=== PATIENT | female | born 1945 | race Caucasian/White ===

== ENCOUNTER → 2024-01-15 16:43 | Outpatient (REF) | payer BC, SELFPAY | LOC: CLAB 16:43 | PROVIDERS: ATTENDING PHYSICIAN Urology | DX: D49.4 Neoplasm of unspecified behavior of bladder (principal) | CPT/HCPCS: 88112 ==

== ENCOUNTER 2024-01-17 17:36 | Inpatient (IN) | payer MEDICARE, BC, SELFPAY ==
[2024-01-17] VITALS (7 sets, daily range): BP systolic 141–173; BP diastolic 62–83; BMI 29.3
[2024-01-17 15:12] LABS: % Basophils 0.5 % (0-2); % Eosinophils 2.8 % (0-6); % Immature Granulocytes 0.3 % (0-0.5); % Lymphocytes 18.1 % (20.5-51.1); % Monocytes 14.8 % (1.7-9.3); % Neutrophils 63.5 % (42.2-75.2); Absolute Eosinophils 0.2 10^3/uL (0-0.7); Absolute Lymphocytes 1.1 10^3/uL (1.2-3.4); Absolute Monocytes 0.9 10^3/uL (0.1-0.6); Absolute Neutrophils 3.9 10^3/uL (1.4-6.5); Mean Corp Hgb Conc. 31.5 g/dL (33.0-37.0); Mean Corpuscular Hgb 25.4 pg (27.0-31.0); Mean Corpuscular Volume 80.6 fL (81.0-99.0); Mean Platelet Volume 10.3 fL (7.4-10.4); Nucleated Red Blood Cells % 0 %; Platelet Count 333 10^3/uL (130-400); Red Blood Cell Count 2.52 10^6/uL (4.20-5.40); White Blood Cell Count 6.1 10^3/uL (4.8-10.8)
[2024-01-17 15:16] LABS: Hematocrit 20.3 % (37.0-47.0); Hemoglobin 6.4 g/dL (12.0-16.0)
[2024-01-17 15:21] LABS: INR 1.04; PT 13.4 Sec (11.4-14.6)
[2024-01-17 15:22] LABS: APTT 31.2 Sec (23.4-35.0)
[2024-01-17 15:24] LABS: ALT (SGPT) 17 U/L (0-35); AST (SGOT) 29 U/L (14-36); Albumin 3.8 g/dl (3.5-5.0); Alkaline Phosphatase 84 U/L (38-126); Blood Urea Nitrogen 26 mg/dl (7-17); Calcium 9.8 mg/dl (8.4-10.2); Carbon Dioxide 26 mmol/L (22-30); Chloride 102 mmol/L (98-107); Glucose 97 mg/dl (70-99); Potassium 4.5 mmol/L (3.5-5.1); Sodium 132 mmol/L (135-145); Total Bilirubin 0.4 mg/dl (0.2-1.3); Total Protein 6.3 g/dl (6.3-8.2); eGFR > 60.00
--- NOTE | 2024-01-17 15:25 | ED.GENMED ---
History of Present Illness
General
Chief Complaint: Abnormal Lab Value
Source: patient
Exam Limitations: none
Time Seen by Provider: 01/17/24 15:24
Nursing documentation reviewed up to this point in time: agreed with
Travel History
Have you had any contact with someone who has COVID-19?: No
Do you have any symptoms of coronavirus? Fever > 100 degrees, chills, cough, shortness of breath, sore throat, loss of taste or smell, muscle aches, or headache?: No
History of Present Illness
History of Present Illness:
78-year-old female from [facility] where she lives with her ; history of TIA/CVA, neuropathy, HTN, HLD, GERD, hematuria with a bladder tumor TURBT, osteoarthritis with chronic bilateral hip pain, presents stating she has been feeling weak
and lightheaded, extremely fatigued, gradually worsening over a period of about a month. She does feel short of breath on exertion. She denies chest pain. She denies abdominal pain. She denies change in the color of her stools but she did do a
Cologuard test which was positive for blood yesterday.
She states after her cystoscopy to remove bladder tumors in 05/2023 her hemoglobin went to 8.5. She was put on ferritin and it came up to 11.5. So stopped the ferritin.
She had a CVA in 08/2022 and was put on Plavix for 3 months then discontinued. She had a TIA in 09/2023 and has been back on Plavix since.
Past History
Past History
ED Past Medical History: CVA, GERD, HTN, Hypercholesterolemia and Other (Iron deficiency anemia)
ED Past Surgical History: Orthopedic (Both knees and both hips replaced.)
Social History
Tobacco: Non-smoker
Personal:
Living: with family (Lives in [facility])
Review of Systems
Review of Systems
Allergies reviewed?: Yes
Constitutional: Reports fatigue; Denies fever
Respiratory: Reports trouble breathing (Dyspnea on exertion)
Cardiac: Denies chest pain, diaphoresis, palpitations or syncope
ABD/GI: Denies abdominal pain, nausea, vomiting, diarrhea, bloody stools or black stools
: Denies dysuria, frequency or difficulty voiding
Musculoskeletal: Reports other (Chronic pain both knees and hips); Denies edema
Skin: Reports no symptoms
Neurological: Reports no symptoms
Phy Exam
Physical Exam
Physical Exam:
GENERAL: No acute distress. A&Ox3.
CONSTITUTIONAL: Afebrile.
ENMT: moist mucus membranes, Pharynx nl
RESPIRATORY: Regular respirations, nonlabored, lungs clear.
CARDIOVASCULAR: Regular rate and rhythm, + murmur, no rubs.
GI: Soft, nontender, normal BS
Rectal: Stool brown, Hemoccult slowly positive
MUSCULOSKELETAL: Moves with exacerbation of her chronic hip pain. No edema. Well perfused.
SKIN: Warm, dry, pink
PSYCH: Normal mood and affect. Well kept, interactive and appropriate
NEUROLOGIC: Awake, alert and oriented. No focal neurological deficits
Course
Orders/Labs/Results
Orders:
Orders
01/17/24 Dinner
Clear Liquid
At Your Request: Full Participation
Does patient need a safe tray?: No
01/17/24 15:01
Type+Screen Urgent
CMP [Comprehensive Metabolic Panel] Urgent
Complete Blood Count/With Diff Urgent
PT/INR [Prothrombin Time] Urgent
PTT Urgent
01/17/24 16:17
* Blood Bank Products Urgent
Blood Bank Products: *Packed RBC Leuko(PRBC's)
Quantity: 2
Transfuse Today: Yes
Reason: Anemia
IV Insert/Care/Rem.- Treatment PRN
01/17/24 16:31
Consult Gastroenterology [GASTROINTESTINAL CONSULT] Urgent
Consulting Provider: Ilene Holbrook
Was physician already notified: Yes
Reason for consult: GI bleed, stable.
01/17/24 17:12
Admit/Transfer Patient As Directed
Co-Sign Provider:
Level of Care: Inpatient admission
Assign to:: Telemetry
Physician / Group: [facility]
Diagnosis: Symptomatic anemia
Reason for Telemetry: Arrhythmia
Date to Stop Telemetry: 01/20/24
Time to Stop Telemetry: 11:00
Reason for Hospitalization: Symptomatic anemia
Expected length of stay greater than two midnights?: Yes
ELOS- Estimated Length of Stay in days: 3
I certify the patient meets the requirements for IP care: Yes
01/17/24 17:17
Code Status As Directed
Resuscitation Status: Full Code
01/17/24 18:18
Acetaminophen [Tylenol] 1,000 mg PO Q6HPRN PRN
01/17/24 18:18
Activity As Directed
Activity Level: As Tolerated
INT (Intravenous Needle Therapy) As Directed
Comment: Place 2 IV catheters of the largest bore possible until stable
Orthostatic Vital Signs As Directed
Orthostatic VS Frequency: Now
Comment: then every four hours for twenty-four hours
Pneumatic Compression Sleeves As Directed
Type: Knee high
Vital Signs As Directed
Frequency: Per unit guidelines
Ot Eval And Treat Routine
Pt Eval And Treat Routine
Activity Level: As Tolerated
DX Deep Vein Thrombosis Video Routine
01/17/24 20:00
Pantoprazole [Protonix IV] 40 mg IV BID
01/17/24 22:00
Amlodipine [Norvasc] 5 mg PO HS
Atenolol [Tenormin] 25 mg PO HS
01/18/24 06:00
Basic Metabolic Panel IN AM
Complete Blood Count/No Diff IN AM
01/18/24 08:00
Aspirin Low Dose EC [Aspir Low (Enteric Coated)] 81 mg PO DAILY
Cholecalciferol (Vitamin D3) [VITAMIN D3 (cholecalciferol)] 25 mcg PO DAILY
Clopidogrel Bisulfate [Plavix] 75 mg PO DAILY
Rosuvastatin Calcium [Crestor] 20 mg PO DAILY
Valsartan [Diovan] 160 mg PO DAILY
01/19/24 06:00
Basic Metabolic Panel IN AM
Complete Blood Count/No Diff IN AM
01/19/24 08:00
Ferrous Sulfate [Feosol] 325 mg PO Q48H
01/20/24 06:00
Basic Metabolic Panel IN AM
Complete Blood Count/No Diff IN AM
01/20/24 11:00
DC Protocol for Telemetry ONCE
Abnormal Lab Results
01/17/24
15:01
RBC 2.52 L 10^6/uL
(4.20-5.40)
Hgb 6.4 L* g/dL
(12.0-16.0)
Hct 20.3 L* %
(37.0-47.0)
MCV 80.6 L fL
(81.0-99.0)
MCH 25.4 L pg
(27.0-31.0)
MCHC 31.5 L g/dL
(33.0-37.0)
RDW 17.0 H %
(11.5-14.5)
Absolute Lymphs (auto) 1.1 L 10^3/uL
(1.2-3.4)
Absolute Monos (auto) 0.9 H 10^3/uL
(0.1-0.6)
Lymphocytes % 18.1 L %
(20.5-51.1)
Monocytes % 14.8 H %
(1.7-9.3)
Sodium 132 L mmol/L
(135-145)
BUN 26 H mg/dl
(7-17)
Antibody Screen Positive A
(Negative)
Crossmatch IS Only See Detail
MTS Gel Crossmatch See Detail
01/17/24 15:01
01/17/24 15:01
Vital Signs
Initial and Last Documented VS:
Initial Vital Signs
Temp Pulse Resp BP Pulse Ox
98.1 F 81 18 158/66 98
01/17/24 14:48 01/17/24 14:48 01/17/24 14:48 01/17/24 14:48 01/17/24 14:48
Last Documented Vital Signs
Temp Pulse Resp BP Pulse Ox
98.4 F 81 18 141/75 95
01/17/24 22:35 01/17/24 22:35 01/17/24 22:35 01/17/24 22:35 01/17/24 19:10
MDM/Problems Addressed
Differential Diagnosis Includes:
GI bleed, iron deficiency
MDM/Problems Addressed:
78-year-old female from [facility] where she lives with her ; history of TIA/CVA, neuropathy, HTN, HLD, GERD, hematuria with a bladder tumor TURBT, osteoarthritis with chronic bilateral hip pain, presents stating she has been feeling weak
and lightheaded, extremely fatigued, gradually worsening over a period of about a month. She does feel short of breath on exertion. She denies chest pain. She denies abdominal pain. She denies change in the color of her stools but she did do a
Cologuard test which was positive for blood yesterday.
She states after her cystoscopy to remove bladder tumors in 05/2023 her hemoglobin went to 8.5. She was put on ferritin and it came up to 11.5. So stopped the ferritin.
She had a CVA in 08/2022 and was put on Plavix for 3 months then discontinued. She had a TIA in 09/2023 and has been back on Plavix since.
1530:
CBC: Hemoglobin 6.4
CMP: BUN mildly elevated at 26 no other abnormality
Stool is brown but hematest positive
Plan: Transfuse 2 units packed red blood cells
Hospitalist and GI notified of admission
*Critical Care Note
Total Time (30-74mins, 75-104mins- exclusive of procedures): Not Applicable
ED Attending Note
-
Portions of this chart may have been created with voice recognition software.� Occasional wrong word or��sound alike� substitutions may have occurred due to the inherent limitations of voice recognition software.
Discharge Plan
Departure
Patient Disposition: Admit
Date of Disposition: 01/17/24
Time of Disposition: 16:31
Admit to: Med/Surg
Presentation/result/management discussed w/ accepting MD/DO: Hospitalist
Condition: Fair
Discharge Problem:
Anemia, GI (gastrointestinal bleed)
Interventions
Interventions:
*Risk Screen - Suicide Last Done: 01/17/24 15:39
*General Assessment Last Done: 01/17/24 15:39
*Neglect/Abuse Screening Last Done: 01/17/24 15:39
ED- Fall Risk Assessment Last Done: 01/17/24 15:58
*ED COVID-19 Vaccine History Last Done: 01/17/24 15:39
*Nursing Disposition Last Done: 01/17/24 18:19
Discharge Date and Time
Discharge Date/Time: 01/17/24 18:19
--- NOTE | 2024-01-17 16:56 | HPS.HSE ---
Family Physician
-
Family Physician: Tessa Foreman
Chief Complaint
-
symptomatic anemia
History of Present Illness
77-year-old female with past medical history of osteoarthritis, GERD, hyperlipidemia, hypertension, TIA/CVA, neuropathy, hematuria history with bladder tumor status post TURBT, chronic bilateral hip pain now presenting for feeling weak and
lightheaded. Further symptoms associated with extreme fatigue. Symptoms worsened over the last month. Now with exertional shortness of breath. Dizziness two days ago after dinner. No evidence of stool color changing. Cologuard test has been
negative but heme occult was positive yesterday. Hemodynamically stable, hypertensive, pulse 80, respiratory rate 15, afebrile. Hemoglobin noted to be 6.4 (not 8.41-year ago), sodium 132.
Medical History
Past Medical History
Past Medical History: Reports Other (osteoarthritis, GERD, hyperlipidemia, hypertension, TIA/CVA, neuropathy, hematuria history with bladder tumor status post TURBT, chronic bilateral hip pain)
Past Surgical History: Reports Urological (TURBT, ) and Other (Both knees and both hips replaced)
Social History
Tobacco: Non-smoker
Personal:
Living: Other ([facility])
Family History
Family History: Not pertinent
Allergies / Home Medications
Allergies reflects when Allergies were last updated in [facility].
Home Medications with original date entered in [facility]
Allergy/Medication List:
Allergies
Allergy/AdvReac Type Severity Reaction Status Date / Time
APOLINAR Inhibitors AdvReac cough Verified 07/29/23 14:41
Home Medications
cholecalciferol (vitamin D3) 25 mcg (1,000 unit) tablet (Vitamin D3) 25 mcg PO DAILY 09/25/22
rosuvastatin 20 mg tablet 20 mg PO DAILY 09/25/22
acetaminophen 500 mg tablet 1,000 mg PO Q6H PRN pain 06/18/23
aspirin 81 mg tablet,delayed release 81 mg PO DAILY 06/18/23
atenolol 50 mg tablet 25 mg PO HS 06/18/23
docusate sodium 100 mg capsule (Colace) 300 mg PO DAILY 06/18/23
valsartan 160 mg tablet 160 mg PO DAILY 06/18/23
ferrous sulfate 325 mg (65 mg iron) tablet (iron) 325 mg PO Q48H 07/29/23
amlodipine 5 mg tablet 5 mg PO HS 01/17/24
clopidogrel 75 mg tablet 75 mg PO DAILY Blood Clot Prevention/Tx 01/17/24
pantoprazole 40 mg tablet,delayed release 40 mg PO DAILY 01/17/24
psyllium 1 packet PO DAILY 01/17/24
Review of Systems
-
History Source: Patient
A 12 point ROS was completed and negative except as noted: Yes
Physical Exam
Vital Signs
Vital Signs
Temp Pulse Resp BP Pulse Ox
98.1 F 80 15 170/62 99
01/17/24 14:48 01/17/24 15:53 01/17/24 15:53 01/17/24 15:53 01/17/24 15:53
Physical Exam
General: Well Developed
HEENT: NormoCephalic and Anicteric
Respiratory: Clear
Cardiac: S1/S2
GI: Soft, Non Tender and Non Distended
Musculoskeletal: No Clubbing
Skin: Warm
Neuro: Awake, Alert, Oriented and AO x 3
Psych: Calm
Laboratory Results
-
01/17/24 15:01
01/17/24 15:01
Laboratory Results
PT 13.4 Sec (11.4-14.6) 01/17/24 15:01
INR 1.04 01/17/24 15:01
APTT 31.2 Sec (23.4-35.0) 01/17/24 15:01
Total Bilirubin 0.4 mg/dl (0.2-1.3) 01/17/24 15:01
AST 29 U/L (14-36) 01/17/24 15:01
ALT 17 U/L (0-35) 01/17/24 15:01
Alkaline Phosphatase 84 U/L (38-126) 01/17/24 15:01
Data Reviewed
-
Lab Data: Labs Reviewed by me
Impression/Plan
-
IMPRESSION:
78-year-old female from [facility] where she lives with her ; history of CVA, neuropathy, HTN, HLD, GERD, hematuria with a bladder tumor TURBT, osteoarthritis with chronic bilateral hip pain, now here for symptomatic anemia.
PLAN:
#Symptomatic anemia
� No obvious brisk bleed
� On Plavix and aspirin
� Transfuse 2 unit PRBC in the ED
� GI consulted, possible EGD
� Clear liquid diet
� PPI IV twice daily
� Can continue antihypertensives for now, is hypertensive
#Hypertension
� Continue atenolol, amlodipine, valsartan for now
� Stop antihypertensives if decreasing blood pressure
#CVA in 08/2022
#TIA in October 16
� Has been on Plavix since then
#GERD
#Hyperlipidemia
#Iron deficiency anemia
� Continue home regimen
#DVT prophylaxis
� SCDs, active bleed
--- NOTE | 2024-01-17 20:00 | PTCARENOTE ---
2 Units PRBC's infused without difficulty. Ortho Vital signs ordered Q4H but pt unable to stand to get BP at this time. Pt is a stand and pivot to BSC. VSS. NSR on the monitor. Pt sleeping intermittently through the night. No c/o at present. Will
continue to monitor.
[2024-01-17] MEDS: NSS (PRESERVATIVE FREE) 10 ML IV (20:49)
[2024-01-17] MEDS: PROTONIX IV 40 MG IV (20:49)
[2024-01-17] MEDS: NORVASC 5 MG PO (20:49)
[2024-01-17] MEDS: TENORMIN 25 MG PO (20:51)
[2024-01-18] VITALS (13 sets, daily range): BP systolic 134–169; BP diastolic 52–90; PULSE 65–74; O2SAT 96
[2024-01-18 08:10] LABS: Hematocrit 29.9 % (37.0-47.0); Mean Corp Hgb Conc. 31.8 g/dL (33.0-37.0); Mean Corpuscular Hgb 27.1 pg (27.0-31.0); Mean Corpuscular Volume 85.2 fL (81.0-99.0); Mean Platelet Volume 10.6 fL (7.4-10.4); Platelet Count 311 10^3/uL (130-400); Red Blood Cell Count 3.51 10^6/uL (4.20-5.40); Red Cell Dist. Width 16.9 % (11.5-14.5); White Blood Cell Count 6.3 10^3/uL (4.8-10.8)
[2024-01-18] MEDS: TYLENOL 1000 MG PO ×2 (08:13→20:18)
[2024-01-18] MEDS: PLAVIX 75 MG PO (08:14)
[2024-01-18] MEDS: CRESTOR 20 MG PO (08:14)
[2024-01-18] MEDS: PROTONIX IV 40 MG IV ×2 (08:14→20:03)
[2024-01-18] MEDS: NSS (PRESERVATIVE FREE) 10 ML IV ×2 (08:14→20:04)
[2024-01-18] MEDS: VITAMIN D3 (cholecalciferol) 25 MCG PO (08:15)
[2024-01-18] MEDS: DIOVAN 160 MG PO (08:15)
[2024-01-18] MEDS: ASPIR LOW (ENTERIC COATED) 81 MG PO (08:15)
--- NOTE | 2024-01-18 08:21 | CON.GI ---
Addendum entered and electronically signed by Ilene Holbrook MD 01/18/24 11:46:
I saw and examined the patient.
The PERFUMER or PA's note was reviewed and I agree with the note.
Comment: 78-year-old female with new diagnosis of bladder cancer, status post TURBT in follow-up 2022, history of anemia related to painless hematuria related to bladder cancer, needing oral iron supplementation up until a few months ago now
presenting with increased shortness of breath, weakness and dizziness. Outpatient labs showed hemoglobin of 6.4, repeat labs showing hemoglobin around the same range and patient came to the emergency room. No previous history of anemia. No GI
symptoms at this time. Reports intermittent acid reflux, takes Pepcid/Tums as needed, mild constipation, takes Colace and Metamucil. Colonoscopy 12 years ago at outside hospital unrevealing as per patient. Never had an upper endoscopy. Cologuard
2 years ago negative as well as per patient. No NSAID use. Denies any abdominal pain, nausea, vomiting, heartburn or trouble swallowing. As stated above, H2 blockers as needed for reflux with good control of symptoms. Baseline constipation,
takes 3 Colace a day and Metamucil. Denies any blood in the stool or black stool. He positive stool in the ER.
Mild microcytosis on labs.
-Iron deficiency anemia with heme positive stool, no evidence of overt bleeding.
Anemia likely multifactorial, history of recent bladder cancer with trace heme positive stool
Rule out esophagitis, gastritis, ulcer disease, angiectasia's, colon polyps versus cancer
She will need endoscopy evaluation for heme positive stool. Patient currently on Plavix, last dose this morning.
Need to hold Plavix for 5 days prior to the procedures.
Planning for upper endoscopy and colonoscopy 01/22/2024
Continue PPI. okay for low residue diet for now
Will follow
Original Note:
Consultation
-
Date/Time Consultation Requested: 01/17/24 1631
Date/Time Consultation Performed: 01/18/24 0830
Requesting Provider: Ifeoma Olivia PERFUMER
Performing Provider: Dr. Holbrook / Lanette Noyola PA-C
Reason for Consultation: anemia
Medical History
Chief Complaint / HPI
Chief Complaint: dizziness, fatigue, anemia
History of Present Illness:
This is an 78 year old female with a past medical history of osteoarthritis, GERD, hyperlipidemia, HTN, TIA/CVA (on Plavix), neuropathy, bladder tumor s/p TURBT, who presented to the hospital with complaints of lightheadedness/dizziness and fatigue
with a noted outpatient hemoglobin of 6.6. In the ER labs showed Hgb of 6.4 with microcytic indices, with heme positive stool. She was given 2 units PRBCs and hemoglobin today has improved to 9.5. She does note a prior history of iron deficiency
anemia, with hemoglobin in the 8s following her bladder surgery in May 2023. She took oral iron at that time, states her labs normalized and she stopped the oral iron 'a few months ago.' She denies any melena, hematochezia or hematuria. No
abdominal pain, nausea, vomiting, diarrhea, fevers or chills. She does get constipated and manages this with Colace and Metamucil, which helps. She has a daily bowel movement but states her bowels have 'not been normal' for the past 2-3 months. GERD
is well-controlled on famotidine and PRN Tums. No dysphagia or odynophagia. She does admit to a globus sensation at times. Appetite has been slightly decreased for the past few weeks and she thinks she has lost about 5 pounds.She does not smoke and
denies any NSAID use. She will drink a glass of wine with dinner. She lives with her at [facility]. She has never had an endoscopy. Her last colonoscopy was ~12 years ago and reportedly normal. Cologuard was done 2 years ago, negative. She
has no history of colon polyps and there is no family history of any GI malignancies.
Past Medical History
Past Medical History: CVA, GERD, HTN, Hypercholesterolemia and Other (osteoarthritis, neuropathy, bladder tumor s/p TURBT)
Past Surgical History: Orthopedic (bilateral hip and knee replacements) and Other (TURBT)
Social History
Tobacco: Non-Smoker
Alcohol: Daily
Drug: None
Personal:
Family History
Family History: Other (no family history of GI malignancies)
Allergies / Home Medications
Allergy/AdvReac Type Severity Reaction Status Date / Time
APOLINAR Inhibitors AdvReac cough Verified 07/29/23 14:41
�Medication �Instructions �Recorded
cholecalciferol (vitamin D3) 25 25 mcg PO DAILY 09/25/22
mcg (1,000 unit) tablet (Vitamin
D3)
rosuvastatin 20 mg tablet 20 mg PO DAILY 09/25/22
acetaminophen 500 mg tablet 1,000 mg PO Q6H PRN pain 06/18/23
aspirin 81 mg tablet,delayed 81 mg PO DAILY 06/18/23
release
atenolol 50 mg tablet 25 mg PO HS 06/18/23
docusate sodium 100 mg capsule 300 mg PO DAILY 06/18/23
(Colace)
valsartan 160 mg tablet 160 mg PO DAILY 06/18/23
ferrous sulfate 325 mg (65 mg 325 mg PO Q48H 07/29/23
iron) tablet (iron)
amlodipine 5 mg tablet 5 mg PO HS 01/17/24
clopidogrel 75 mg tablet 75 mg PO DAILY Blood Clot 01/17/24
Prevention/Tx
pantoprazole 40 mg tablet,delayed 40 mg PO DAILY 01/17/24
release
psyllium 1 packet PO DAILY 01/17/24
Review of Systems
-
History Source: Patient
All other systems: A 12 pt ROS was Negative except as stated above in HPI
Vital Signs
Temp Pulse Resp BP Pulse Ox
98.0 F 75 18 141/62 97
01/18/24 04:29 01/18/24 04:29 01/18/24 04:29 01/18/24 04:29 01/18/24 03:05
Physical Exam
Exam
General: Well Developed, Well Nourished and No Apparent Distress
HEENT: Normocephalic
Respiratory: Clear
Cardiac: Regular Rhythm
GI: Soft, Non Tender, Non Distended and Normal Bowel Sounds
Rectal: Brown, Hem Positive and Other ((ER exam showed brown stool, heme positive))
Skin: Warm and Dry
Neuro: AO x 3
Psych: Calm
Results
WBC 6.1 10^3/uL (4.8-10.8) 01/17/24 15:
Hgb 6.4 g/dL (12.0-16.0) L* 01/17/24 15:
Hct 20.3 % (37.0-47.0) L* 01/17/24 15:
MCV 80.6 fL (81.0-99.0) L 01/17/24 15:
Plt Count 333 10^3/uL (130-400) 01/17/24 15:
Absolute Neuts (auto) 3.9 10^3/uL (1.4-6.5) 01/17/24 15:
PT 13.4 Sec (11.4-14.6) 01/17/24 15:
INR 1.04 01/17/24 15:
APTT 31.2 Sec (23.4-35.0) 01/17/24 15:
Sodium 132 mmol/L (135-145) L 01/17/24 15:
Potassium 4.5 mmol/L (3.5-5.1) 01/17/24 15:
Chloride 102 mmol/L (98-107) 01/17/24 15:
Carbon Dioxide 26 mmol/L (22-30) 01/17/24 15:
BUN 26 mg/dl (7-17) H 01/17/24 15:
Creatinine 0.7 mg/dL (0.6-1.0) 01/17/24 15:
Calcium 9.8 mg/dl (8.4-10.2) 01/17/24 15:01
Total Bilirubin 0.4 mg/dl (0.2-1.3) 01/17/24 15:01
AST 29 U/L (14-36) 01/17/24 15:01
ALT 17 U/L (0-35) 01/17/24 15:01
Alkaline Phosphatase 84 U/L (38-126) 01/17/24 15:01
Diagnostic Image Results:
Prior GI Procedures:
EGD: never
Colonoscopy: ~12 years ago elsewhere, reportedly negative
Assessment / Plan
-
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
ER labs on 01/16 showed Hgb of 6.4 with microcytic indices, with heme positive stool, s/p 2 units PRBCs and hemoglobin today has improved to 9.5.
IMPRESSION / PLAN:
Symptomatic Anemia with heme Positive stools - rule out GI bleeding
-Hgb on admission 6.4, received 2 units PRBCs
-Hgb today 9.5
-Continue to trend hemoglobin and transfuse if drops below 7
-iron studies
-HOLD PLAVIX - last dose 01/18/24
-continue PPI
-Plan for possible endoscopic procedures - EGD/colonoscopy to evaluate the anemia - need to allow for Plavix washout
-Timing to be discussed further with Dr. Holbrook
GERD and history of WALT
-as above, continue PPI
-await iron studies
Other medical issues managed as per hospitalist.
-
-
Thank you for consultation and allowing me to participate in the patient's care. Please call the microelectronics technician GI physician during the after hours with any questions or concerns.
[2024-01-18 08:31] LABS: Hemoglobin 9.5 g/dL (12.0-16.0)
[2024-01-18 08:38] LABS: Blood Urea Nitrogen 16 mg/dl (7-17); Calcium 10.1 mg/dl (8.4-10.2); Carbon Dioxide 24 mmol/L (22-30); Chloride 104 mmol/L (98-107); Estimated Creatinine Clearance 74 ml/min; Glucose 90 mg/dl (70-99); Potassium 4.5 mmol/L (3.5-5.1); Sodium 135 mmol/L (135-145); eGFR > 60.00
--- NOTE | 2024-01-18 10:08 | CM ---
Patient seen bedside.
IA completed.
patient lives in Independent living at [facility] with her spouse.
1 story home no steps to enter.
Patient has a hx of CVA and stay at [facility].
No hx VN or skilled rehab.
Patient has equipment: Transfer WC, rollator, RW, elevated toilet seat, 2 canes[address]
Patient [address] not drive.
Await PT/OT evals.
PCP: Dr Foreman
Pharmacy: [facility]
Plan: home with possible VN needs.
[2024-01-18 10:16] LABS: Iron 41 ug/dl (37-170)
[2024-01-18 10:25] LABS: Percent Saturation 9 % (20-50); Total Iron Binding Capacity 450 ug/dl (265-497)
[2024-01-18 12:43] LABS: Ferritin 15.3 ng/ml (11.1-264.0)
--- NOTE | 2024-01-18 13:28 | W.PN.HOSP.TC ---
Today's Communication/Plan
-
Plan for EGD/colonoscopy 01/22/2024�hold Plavix for washout
Follow-up CBC
PPI
Low residue diet
Assessment / Plan
Assessment / Plan
Physical Exam
General: Well Developed
HEENT: NormoCephalic and Anicteric
Respiratory: Clear
Cardiac: S1/S2
GI: Soft, Non Tender and Non Distended
Musculoskeletal: No Clubbing
Skin: Warm
Neuro: Awake, Alert, Oriented and AO x 3
Psych: Calm
78-year-old female from [facility] her ; history of CVA, neuropathy, HTN, HLD, GERD, hematuria with a bladder tumor TURBT, osteoarthritis with chronic bilateral hip pain, now here for symptomatic anemia.
PLAN:
#Symptomatic anemia
#Iron deficiency anemia
� No obvious brisk bleed
� On Plavix and aspirin
� Transfuse 2 unit PRBC in the ED
� GI consulted
�Hold Plavix for 5 days prior to procedure
� EGD and colonoscopy 01/22/2024
�Low residue diet for now
� PPI IV twice daily
� Can continue antihypertensives for now, is hypertensive
#Hypertension
� Continue atenolol, amlodipine, valsartan for now
� Stop antihypertensives if decreasing blood pressure
#CVA in 08/2022
#TIA in October 16
� Has been on DAPT by primary care doctor
� Holding Plavix now due to EGD/colonoscopy planned
� Follow-up outpatient PCP for further continuation/titration of DAPT�has not seen neurology in the past and PCP is adjusting medications
#GERD
#Hyperlipidemia
#Iron deficiency anemia
� Continue home regimen
#DVT prophylaxis
� SCDs, active bleed
Anticipated Discharge: > 48 hours
Subjective/Interval History
-
Date of Service: January 18, 2024
No acute events overnight
Objective Data
-
Labs:
Laboratory Results
01/18/24
06:36
WBC 6.3
Hgb 9.5 L D
Hct 29.9 L
Plt Count 311
Sodium 135
Potassium 4.5
Chloride 104
Carbon Dioxide 24
BUN 16
Creatinine 0.7
Glucose 90
Calcium 10.1
Vital Signs:
Vital Signs
Temp Pulse Resp BP Pulse Ox
97.8 F 65 18 169/73 97
01/18/24 11:35 01/18/24 11:35 01/18/24 11:35 01/18/24 11:35 01/18/24 11:35
I&O
01/17/24 01/18/24 01/19/24
06:59 06:59 06:59
Intake Total 1000 / 1000
Balance 1000 / 1000
Review of Systems
-
History Source: Patient
All other systems: Not reviewed unless documented
Data Reviewed
-
Labs: Labs Reviewed by me
[2024-01-18] MEDS: NORVASC 5 MG PO (20:07)
[2024-01-18] MEDS: FLUSH (NSS) 1 FLUSH IV (20:07)
[2024-01-18] MEDS: TENORMIN 25 MG PO (20:11)
[2024-01-19 03:05] VITALS: BP 148/59
[2024-01-19 07:21] LABS: Hematocrit 29.1 % (37.0-47.0); Hemoglobin 9.4 g/dL (12.0-16.0); Mean Corp Hgb Conc. 32.3 g/dL (33.0-37.0); Mean Corpuscular Hgb 27.2 pg (27.0-31.0); Mean Corpuscular Volume 84.1 fL (81.0-99.0); Mean Platelet Volume 10.6 fL (7.4-10.4); Platelet Count 301 10^3/uL (130-400); Red Blood Cell Count 3.46 10^6/uL (4.20-5.40); White Blood Cell Count 7.3 10^3/uL (4.8-10.8)
[2024-01-19 08:30] VITALS: BP 169/80
[2024-01-19] MEDS: DIOVAN 160 MG PO ×2 (08:40→08:51)
[2024-01-19] MEDS: CRESTOR 20 MG PO ×2 (08:41→08:51)
[2024-01-19] MEDS: ASPIR LOW (ENTERIC COATED) 81 MG PO ×2 (08:41→08:51)
[2024-01-19] MEDS: PROTONIX IV 40 MG IV ×2 (08:41→19:47)
[2024-01-19] MEDS: NSS (PRESERVATIVE FREE) 10 ML IV ×2 (08:41→19:47)
[2024-01-19] MEDS: FEOSOL 325 MG PO ×2 (08:41→08:51)
[2024-01-19] MEDS: VITAMIN D3 (cholecalciferol) 25 MCG PO (08:51)
[2024-01-19] MEDS: NSS (PRESERVATIVE FREE) IV (08:52)
[2024-01-19] MEDS: PROTONIX IV IV (08:52)
[2024-01-19 08:59] LABS: Blood Urea Nitrogen 16 mg/dl (7-17); Calcium 9.8 mg/dl (8.4-10.2); Carbon Dioxide 28 mmol/L (22-30); Chloride 104 mmol/L (98-107); Estimated Creatinine Clearance 74 ml/min; Glucose 87 mg/dl (70-99); Potassium 4.6 mmol/L (3.5-5.1); Sodium 133 mmol/L (135-145); eGFR > 60.00
[2024-01-19 11:30] VITALS: BP 146/64
--- NOTE | 2024-01-19 12:01 | W.PN.GI.CBS2 ---
Today's Communication / Plan
-
-Iron deficiency anemia with heme positive stool, no evidence of overt bleeding.
Anemia likely multifactorial, history of recent bladder cancer with trace heme positive stool
Rule out esophagitis, gastritis, ulcer disease, angiectasia's, colon polyps versus cancer
She will need endoscopy evaluation for heme positive stool. Patient currently on Plavix, last dose this morning.
Need to hold Plavix for 5 days prior to the procedures.
Planning for upper endoscopy and colonoscopy 01/22/2024
Continue PPI. okay for low residue diet for now
Hold oral iron
Will follow
Assessment / Plan
-
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
ER labs on 01/16 showed Hgb of 6.4 with microcytic indices, with heme positive stool, s/p 2 units PRBCs and hemoglobin today has improved to 9.5.
IMPRESSION / PLAN:
-Iron deficiency anemia with heme positive stool, no evidence of overt bleeding.
Anemia likely multifactorial, history of recent bladder cancer with trace heme positive stool
Rule out esophagitis, gastritis, ulcer disease, angiectasia's, colon polyps versus cancer
She will need endoscopy evaluation for heme positive stool. Patient currently on Plavix, last dose this morning.
Need to hold Plavix for 5 days prior to the procedures.
Planning for upper endoscopy and colonoscopy 01/22/2024
Continue PPI. okay for low residue diet for now
Hold oral iron
Will follow
Subjective
Subjective
Date of Service: January 19, 2024
No complaints, tolerating diet
Objective
Data Reviewed
Laboratory Data:
Laboratory Results
01/19/24 06:49
01/19/24 06:49
Laboratory Results
PT 13.4 Sec (11.4-14.6) 01/17/24 15:01
INR 1.04 01/17/24 15:01
APTT 31.2 Sec (23.4-35.0) 01/17/24 15:01
Total Bilirubin 0.4 mg/dl (0.2-1.3) 01/17/24 15:01
AST 29 U/L (14-36) 01/17/24 15:01
ALT 17 U/L (0-35) 01/17/24 15:01
Alkaline Phosphatase 84 U/L (38-126) 01/17/24 15:01
Vital Signs and I&O:
Vital Signs
Temp Pulse Resp BP Pulse Ox
97.6 F 69 18 169/80 96
01/19/24 08:30 01/19/24 08:51 01/19/24 08:30 01/19/24 08:51 01/19/24 08:30
I&O
01/18/24 01/19/24 01/20/24
06:59 06:59 06:59
Intake Total 1000 / 1000 380 / 380
Balance 1000 / 1000 380 / 380
Physical Exam
Physical Exam
GI: Soft, Non Distended, Non Tender and Normal Bowel Sounds
--- NOTE | 2024-01-19 12:45 | W.PN.HOSP.TC ---
Today's Communication/Plan
-
hold iron
ctm cbc
EGD/C-Scope tentatively 01/21 once Plavix washout completed
Assessment / Plan
Assessment / Plan
Physical Exam
General: Well Developed
HEENT: NormoCephalic and Anicteric
Respiratory: Clear
Cardiac: S1/S2
GI: Soft, Non Tender and Non Distended
Musculoskeletal: No Clubbing
Skin: Warm
Neuro: Awake, Alert, Oriented and AO x 3
Psych: Calm
78-year-old female from [facility] where she lives with her ; history of CVA, neuropathy, HTN, HLD, GERD, hematuria with a bladder tumor TURBT, osteoarthritis with chronic bilateral hip pain, now here for symptomatic anemia.
PLAN:
#Symptomatic anemia
#Iron deficiency anemia
� No obvious brisk bleed
� On Plavix and aspirin at home
� Transfused 2 unit PRBC in the ED
� GI consulted
�Hold Plavix for 5 days prior to procedure
� Plan for EGD and colonoscopy 01/22/2024
�Low residue diet for now
� PPI IV twice daily
� Can continue antihypertensives for now, is hypertensive
#Hypertension
� Continue atenolol, amlodipine, valsartan for now
� Stop antihypertensives if decreasing blood pressure
-patient states her bp is wnl outpatient, but has been high here; in setting of bleed and hx of normotension outpatient, will defer any further regimen changing unless SBP>180
#CVA in 08/2022
#TIA in October 16
� Has been on DAPT by primary care doctor
� Holding Plavix now due to EGD/colonoscopy planned
� Follow-up outpatient PCP for further continuation/titration of DAPT�has not seen neurology in the past and PCP is adjusting medications
#GERD
#Hyperlipidemia
#Iron deficiency anemia
� Continue home regimen
-hold iron
#DVT prophylaxis
� SCDs, active bleed
Anticipated Discharge: > 48 hours
Subjective/Interval History
-
Date of Service: January 19, 2024
No acute events
Objective Data
-
Labs:
Laboratory Results
01/19/24
06:49
WBC 7.3
Hgb 9.4 L
Hct 29.1 L
Plt Count 301
Sodium 133 L
Potassium 4.6
Chloride 104
Carbon Dioxide 28
BUN 16
Creatinine 0.7
Glucose 87
Calcium 9.8
Vital Signs:
Vital Signs
Temp Pulse Resp BP Pulse Ox
97.6 F 69 18 169/80 96
01/19/24 08:30 01/19/24 08:51 01/19/24 08:30 01/19/24 08:51 01/19/24 08:30
I&O
01/18/24 01/19/24 01/20/24
06:59 06:59 06:59
Intake Total 1000 / 1000 380 / 380
Balance 1000 / 1000 380 / 380
Review of Systems
-
History Source: Patient
All other systems: Not reviewed unless documented
Data Reviewed
-
Labs: Labs Reviewed by me
[2024-01-19 15:30] VITALS: BP 130/80
[2024-01-19 19:20] VITALS: BP 97/56
[2024-01-19] MEDS: TENORMIN 25 MG PO (21:31)
[2024-01-19] MEDS: NORVASC 5 MG PO (21:32)
[2024-01-19 23:15] VITALS: BP 126/58
[2024-01-20] VITALS (8 sets, daily range): BP systolic 102–160; BP diastolic 50–80; PULSE 68–76; O2SAT 97
[2024-01-20 08:02] LABS: Hematocrit 28.9 % (37.0-47.0); Hemoglobin 9.1 g/dL (12.0-16.0); Mean Corp Hgb Conc. 31.5 g/dL (33.0-37.0); Mean Corpuscular Hgb 26.8 pg (27.0-31.0); Mean Corpuscular Volume 85.3 fL (81.0-99.0); Mean Platelet Volume 10.8 fL (7.4-10.4); Platelet Count 288 10^3/uL (130-400); Red Blood Cell Count 3.39 10^6/uL (4.20-5.40); Red Cell Dist. Width 17.6 % (11.5-14.5); White Blood Cell Count 6.3 10^3/uL (4.8-10.8)
[2024-01-20 08:50] LABS: Blood Urea Nitrogen 19 mg/dl (7-17); Calcium 9.8 mg/dl (8.4-10.2); Carbon Dioxide 29 mmol/L (22-30); Chloride 104 mmol/L (98-107); Estimated Creatinine Clearance 74 ml/min; Glucose 85 mg/dl (70-99); Potassium 4.8 mmol/L (3.5-5.1); Sodium 134 mmol/L (135-145); eGFR > 60.00
--- NOTE | 2024-01-20 09:44 | W.PN.GI.CBS2 ---
Addendum entered and electronically signed by Ilene Holbrook MD 01/20/24 18:34:
Plan for EGD/colonoscopy tomorrow
Original Note:
Today's Communication / Plan
-
Anemia likely multifactorial, history of recent bladder cancer with trace heme positive stools-- Rule out esophagitis, gastritis, ulcer disease, angiectasia's, colon polyps versus cancer
Plan for EGD/colon 5/ after Plavix wash out
will add several dose of Miralax prior to prep with some chronic constipation with immobility
low residue diet then clears in AM
hbg 9.1 will add IV iron with Iron sat 9, ferritin 15.3
cont Protonix
Assessment / Plan
-
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
ER labs on 01/16 showed Hgb of 6.4 with microcytic indices, with heme positive stool, s/p 2 units PRBCs,.
-symptomatic WALT
-heme + stool
-TIA/CVA on chronic plavix
-chronic constipation
other med problems:
-GERD
-hyperlipidemia
-HTN
-neuropathy
-bladder tumor s/p TURBT
IMPRESSION / PLAN:
Anemia likely multifactorial, history of recent bladder cancer with trace heme positive stools-- Rule out esophagitis, gastritis, ulcer disease, angiectasia's, colon polyps versus cancer
Plan for EGD/colon 5/1 after Plavix wash out
will add several dose of Miralax prior to prep with some chronic constipation with immobility
low residue diet then clears in AM
hbg 9.1 will add IV iron with Iron sat 9, ferritin 15.3
cont Protonix
Will follow
Subjective
Subjective
Date of Service: January 20, 2024
01/18 brown stool, on low residue diet
Objective
Data Reviewed
Laboratory Data:
Laboratory Results
01/20/24 07:02
01/20/24 07:02
Laboratory Results
PT 13.4 Sec (11.4-14.6) 01/17/24 15:01
INR 1.04 01/17/24 15:01
APTT 31.2 Sec (23.4-35.0) 01/17/24 15:01
Total Bilirubin 0.4 mg/dl (0.2-1.3) 01/17/24 15:01
AST 29 U/L (14-36) 01/17/24 15:01
ALT 17 U/L (0-35) 01/17/24 15:01
Alkaline Phosphatase 84 U/L (38-126) 01/17/24 15:01
Vital Signs and I&O:
Vital Signs
Temp Pulse Resp BP Pulse Ox
97.8 F 64 18 129/80 97
01/20/24 03:10 01/20/24 03:10 01/20/24 03:10 01/20/24 03:10 01/20/24 03:10
I&O
01/19/24 01/20/24 01/21/24
06:59 06:59 06:59
Intake Total 380 / 380 420 / 420 240 / 240
Balance 380 / 380 420 / 420 240 / 240
Physical Exam
Physical Exam
HEENT: Anicteric and Moist mucous membranes
Cardiology: Normal Sinus Rhythm
Pulmonary: Clear (anterior chest )
GI: Soft, Non Distended and Non Tender
Extremities: No Edema
Neuro: Other (hx CVA with chronic weakness)
[2024-01-20] MEDS: MIRALAX 17 GRAMS PO ×2 (10:50→18:30)
[2024-01-20] MEDS: VITAMIN D3 (cholecalciferol) 25 MCG PO (10:52)
[2024-01-20] MEDS: PROTONIX IV 40 MG IV ×2 (10:53→19:47)
[2024-01-20] MEDS: NSS (PRESERVATIVE FREE) 10 ML IV ×2 (10:54→19:47)
[2024-01-20] MEDS: DIOVAN 160 MG PO (11:05)
[2024-01-20] MEDS: CRESTOR 20 MG PO (11:06)
[2024-01-20] MEDS: ASPIR LOW (ENTERIC COATED) 81 MG PO (11:06)
--- NOTE | 2024-01-20 11:12 | W.PN.HOSP.TC ---
Today's Communication/Plan
-
.
Assessment / Plan
Assessment / Plan
Physical Exam
General: Well Developed
HEENT: NormoCephalic and Anicteric
Respiratory: Clear
Cardiac: S1/S2
GI: Soft, Non Tender and Non Distended
Musculoskeletal: No Clubbing
Skin: Warm
Neuro: Awake, Alert, Oriented and AO x 3
Psych: Calm
78-year-old female from [facility] where she lives with her ; history of CVA, neuropathy, HTN, HLD, GERD, hematuria with a bladder tumor TURBT, osteoarthritis with chronic bilateral hip pain, now here for symptomatic anemia.
PLAN:
#Symptomatic anemia, multifactorial, heme positive stool consistent with acute on chronic blood loss anemia, recent bladder cancer diagnosis hemoglobin around 9.1
#Iron deficiency anemia
� No obvious brisk bleed
� On Plavix and aspirin at home
� Transfused 2 unit PRBC in the ED
�Hold Plavix for 5 days prior to procedure
� Plan for EGD and colonoscopy 01/22/2024
�Low residue diet for now
� PPI IV twice daily
-Bowel regimen
Appreciate GI input and help
#Primary Hypertension
Blood pressure this morning 120/50
� Continue atenolol, amlodipine, valsartan for now
� Stop antihypertensives if decreasing blood pressure
-patient states her bp is wnl outpatient, but has been high here; in setting of bleed and hx of normotension outpatient, will defer any further regimen changing unless SBP>180
#Hyponatremia, mild, no confusion
#CVA in 08/2022
#TIA in October 16
� Has been on DAPT by primary care doctor
� Holding Plavix now due to EGD/colonoscopy planned
� Follow-up outpatient PCP for further continuation/titration of DAPT�has not seen neurology in the past and PCP is adjusting medications
#GERD
#Hyperlipidemia
#Iron deficiency anemia
� Continue home regimen
-hold iron
#DVT prophylaxis
� SCDs, active bleed
Total time spent to see the patient, examine the patient, review data and lab results, discuss treatment plan with patient, nursing staff around 55 minutes
Anticipated Discharge: > 48 hours
Subjective/Interval History
-
Date of Service: January 20, 2024
Doing well
No abd pain
concerned about missing Colace and Metamucil
Objective Data
-
Labs:
Laboratory Results
01/20/24
07:02
WBC 6.3
Hgb 9.1 L
Hct 28.9 L
Plt Count 288
Sodium 134 L
Potassium 4.8
Chloride 104
Carbon Dioxide 29
BUN 19 H
Creatinine 0.7
Glucose 85
Calcium 9.8
Vital Signs:
Vital Signs
Temp Pulse Resp BP Pulse Ox
98.1 F 68 20 120/50 97
01/20/24 10:30 01/20/24 10:30 01/20/24 10:30 01/20/24 10:30 01/20/24 10:30
I&O
01/19/24 01/20/24 01/21/24
06:59 06:59 06:59
Intake Total 380 / 380 420 / 420 240 / 240
Balance 380 / 380 420 / 420 240 / 240
[2024-01-20] MEDS: FERRLECIT 110 MG IV (15:21)
--- NOTE | 2024-01-20 16:04 | CM ---
CM reviewed chart and ADC>48 hours
Referral to [facility] sent as SNF recommended over weekend
VN now recommended later in day
CM will continue to follow pt for dc planning and arrange appropriate services on dc
Discharge Disposition- anticipate VN
--- NOTE | 2024-01-20 17:05 | PTCARENOTE ---
[address] Burnett regarding telemetry, recommended to continue pt on heart monitor, continue to monitor pt closely.
[2024-01-20] MEDS: NORVASC 5 MG PO (22:44)
[2024-01-20] MEDS: TENORMIN 25 MG PO (22:45)
[2024-01-21] VITALS (7 sets, daily range): BP systolic 129–160; BP diastolic 59–78; PULSE 66; O2SAT 96
[2024-01-21 05:54] LABS: Hematocrit 28.9 % (37.0-47.0); Hemoglobin 9.1 g/dL (12.0-16.0); Mean Corp Hgb Conc. 31.5 g/dL (33.0-37.0); Mean Corpuscular Hgb 27.2 pg (27.0-31.0); Mean Corpuscular Volume 86.3 fL (81.0-99.0); Mean Platelet Volume 10.7 fL (7.4-10.4); Platelet Count 268 10^3/uL (130-400); Red Blood Cell Count 3.35 10^6/uL (4.20-5.40); Red Cell Dist. Width 17.8 % (11.5-14.5); White Blood Cell Count 6.8 10^3/uL (4.8-10.8)
[2024-01-21 06:21] LABS: Blood Urea Nitrogen 26 mg/dl (7-17); Calcium 9.7 mg/dl (8.4-10.2); Carbon Dioxide 25 mmol/L (22-30); Chloride 103 mmol/L (98-107); Estimated Creatinine Clearance 65 ml/min; Glucose 87 mg/dl (70-99); Potassium 4.4 mmol/L (3.5-5.1); Sodium 134 mmol/L (135-145); eGFR > 60.00
[2024-01-21] MEDS: DIOVAN 160 MG PO (08:33)
[2024-01-21] MEDS: MIRALAX 17 GRAMS PO ×2 (08:33→13:22)
[2024-01-21] MEDS: CRESTOR 20 MG PO (08:33)
[2024-01-21] MEDS: PROTONIX IV 40 MG IV ×2 (08:33→20:55)
[2024-01-21] MEDS: VITAMIN D3 (cholecalciferol) 25 MCG PO (08:33)
[2024-01-21] MEDS: ASPIR LOW (ENTERIC COATED) 81 MG PO (08:33)
[2024-01-21] MEDS: NSS (PRESERVATIVE FREE) 10 ML IV ×2 (08:33→20:56)
--- NOTE | 2024-01-21 11:14 | W.PN.GI.CBS2 ---
Today's Communication / Plan
-
Clear liquid diet. Bowel prep today, EGD and Colonoscopy tomorrow.
Assessment / Plan
-
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
ER labs on 01/16 showed micryotic anemia with Hemoglobin of 6.4, heme positive stool. She has received 2 units of PRBC with adequate response.
-symptomatic WALT
-heme + stool
-TIA/CVA on chronic plavix
-chronic constipation
other med problems:
-GERD
-hyperlipidemia
-HTN
-neuropathy
-bladder tumor s/p TURBT
IMPRESSION / PLAN:
Microcytic, iron deficiency Aanemia-- likely multifactorial, history of recent bladder cancer with trace heme positive stools-- Rule out esophagitis, gastritis, ulcer disease, angiectasia's, colon polyps versus cancer
Plan for EGD/colon tomorrow, 01/21 (after Plavix wash out)
Clear liquid diet, dulcolax + prep
hbg 9.1; Iron sat 9, ferritin 15.3 --> started on IV iron
cont Protonix
Subjective
Subjective
Date of Service: January 21, 2024
Patient seen in follow-up today, received a few doses of miralax, had a small BM yesterday. On clears today, EGD and Colonoscopy tomorrow. She offers no complaints.
Objective
Data Reviewed
Laboratory Data:
Laboratory Results
01/21/24 05:31
01/21/24 05:31
Laboratory Results
PT 13.4 Sec (11.4-14.6) 01/17/24 15:01
INR 1.04 01/17/24 15:01
APTT 31.2 Sec (23.4-35.0) 01/17/24 15:01
Total Bilirubin 0.4 mg/dl (0.2-1.3) 01/17/24 15:01
AST 29 U/L (14-36) 01/17/24 15:01
ALT 17 U/L (0-35) 01/17/24 15:01
Alkaline Phosphatase 84 U/L (38-126) 01/17/24 15:01
Vital Signs and I&O:
Vital Signs
Temp Pulse Resp BP Pulse Ox
97.5 F 63 18 160/72 97
01/21/24 08:38 01/21/24 08:38 01/21/24 08:38 01/21/24 08:38 01/21/24 08:38
I&O
01/20/24 01/21/24 01/22/24
06:59 06:59 06:59
Intake Total 420 / 420 1360 / 1360
Balance 420 / 420 1360 / 1360
Physical Exam
Physical Exam
HEENT: Anicteric and Moist mucous membranes
Cardiology: Normal Sinus Rhythm, S1 and S2
Pulmonary: Clear
GI: Soft, Non Distended and Non Tender
Extremities: No Edema
Neuro: Other (hx CVA with chronic weakness)
--- NOTE | 2024-01-21 12:20 | W.PN.HOSP.TC ---
Today's Communication/Plan
-
.
Assessment / Plan
Assessment / Plan
Physical Exam
General: Well Developed
HEENT: NormoCephalic and Anicteric
Respiratory: Clear
Cardiac: S1/S2
GI: Soft, Non Tender and Non Distended
Musculoskeletal: No Clubbing
Skin: Warm
Neuro: Awake, Alert, Oriented and AO x 3
Psych: Calm
78-year-old female from [facility] where she lives with her ; history of CVA, neuropathy, HTN, HLD, GERD, hematuria with a bladder tumor TURBT, osteoarthritis with chronic bilateral hip pain, now here for symptomatic anemia.
PLAN:
#Symptomatic anemia, multifactorial, heme positive stool consistent with acute on chronic blood loss anemia, recent bladder cancer diagnosis hemoglobin around 9.1
#Iron deficiency anemia
� No obvious brisk bleed
� On Plavix and aspirin at home. HGB stable at 9
� Transfused 2 unit PRBC in the ED
�Hold Plavix for 5 days prior to procedure
� Plan for EGD and colonoscopy 01/22/2024
�Low residue diet for now
� PPI IV twice daily
-Bowel regimen
Appreciate GI input and help
#Primary Hypertension
Blood pressure this morning 120/50
� Continue atenolol, amlodipine, valsartan for now
� Stop antihypertensives if decreasing blood pressure
-patient states her bp is wnl outpatient, but has been high here; in setting of bleed and hx of normotension outpatient, will defer any further regimen changing unless SBP>180
#Hyponatremia, mild, no confusion
#CVA in 08/2022
#TIA in October 16
� Has been on DAPT by primary care doctor
� Holding Plavix now due to EGD/colonoscopy planned
� Follow-up outpatient PCP for further continuation/titration of DAPT�has not seen neurology in the past and PCP is adjusting medications
#GERD
#Hyperlipidemia
#Iron deficiency anemia
� Continue home regimen
-hold iron
#DVT prophylaxis
� SCDs, active bleed
Total time spent to see the patient, examine the patient, review data and lab results, discuss treatment plan with patient, nursing staff around 45 minutes
Anticipated Discharge: 24 - 48 hours
Subjective/Interval History
-
Date of Service: January 21, 2024
No complaints
Objective Data
-
Labs:
Laboratory Results
01/21/24
05:31
WBC 6.8
Hgb 9.1 L
Hct 28.9 L
Plt Count 268
Sodium 134 L
Potassium 4.4
Chloride 103
Carbon Dioxide 25
BUN 26 H
Creatinine 0.8
Glucose 87
Calcium 9.7
Vital Signs:
Vital Signs
Temp Pulse Resp BP Pulse Ox
97.6 F 65 16 140/65 98
01/21/24 11:30 01/21/24 11:30 01/21/24 11:30 01/21/24 11:30 01/21/24 11:30
I&O
01/20/24 01/21/24 01/22/24
06:59 06:59 06:59
Intake Total 420 / 420 1360 / 1360
Balance 420 / 420 1360 / 1360
[2024-01-21] MEDS: DULCOLAX 10 MG PO (12:30)
[2024-01-21] MEDS: FERRLECIT 110 MG IV (15:16)
--- NOTE | 2024-01-21 15:28 | CM ---
Spoke with patient re d/c plan.
PT recommending VN.
Patient agreeable to [facility], referral placed.
patient for EGD/Colon tomorrow.
Plan: Home with Vn when stable, spouse will transport.
[2024-01-21] MEDS: GAVILAX 238 GM PO (17:10)
[2024-01-21] MEDS: TENORMIN 25 MG PO (22:52)
[2024-01-21] MEDS: NORVASC 5 MG PO (22:52)
[2024-01-22 04:00] VITALS: BP 160/64
[2024-01-22 07:30] VITALS: BP 137/61
[2024-01-22] MEDS: DIOVAN 160 MG PO (08:36)
[2024-01-22] MEDS: PROTONIX IV 40 MG IV ×2 (08:37→22:45)
[2024-01-22] MEDS: NSS (PRESERVATIVE FREE) 10 ML IV ×2 (08:37→22:45)
[2024-01-22] MEDS: DULCOLAX 10 MG RECTAL (08:37)
[2024-01-22] MEDS: FLUSH (NSS) 2 FLUSH IV (08:39)
--- NOTE | 2024-01-22 12:00 | W.PN.HOSP.TC ---
Today's Communication/Plan
-
.
Assessment / Plan
Assessment / Plan
Physical Exam
General: Well Developed
HEENT: NormoCephalic and Anicteric
Respiratory: Clear
Cardiac: S1/S2
GI: Soft, Non Tender and Non Distended
Musculoskeletal: No Clubbing
Skin: Warm
Neuro: Awake, Alert, Oriented and AO x 3
Psych: Calm
78-year-old female from [facility] where she lives with her ; history of CVA, neuropathy, HTN, HLD, GERD, hematuria with a bladder tumor TURBT, osteoarthritis with chronic bilateral hip pain, now here for symptomatic anemia.
PLAN:
#Symptomatic anemia, multifactorial, heme positive stool consistent with acute on chronic blood loss anemia, recent bladder cancer diagnosis hemoglobin around 9.1
#Iron deficiency anemia
� No obvious brisk bleed
� On Plavix and aspirin at home. HGB stable at 9
� Transfused 2 unit PRBC in the ED
�Hold Plavix for 5 days prior to procedure
� Plan for EGD and colonoscopy 01/22/2024
�Low residue diet for now
� PPI IV twice daily
-Bowel regimen
Appreciate GI input and help
#Primary Hypertension
Blood pressure this morning 120/50
� Continue atenolol, amlodipine, valsartan for now
� Stop antihypertensives if decreasing blood pressure
-patient states her bp is wnl outpatient, but has been high here; in setting of bleed and hx of normotension outpatient, will defer any further regimen changing unless SBP>180
#Hyponatremia, mild, no confusion
#CVA in 08/2022
#TIA in October 16
� Has been on DAPT by primary care doctor
� Holding Plavix now due to EGD/colonoscopy planned
� Follow-up outpatient PCP for further continuation/titration of DAPT�has not seen neurology in the past and PCP is adjusting medications
#GERD
#Hyperlipidemia
#Iron deficiency anemia
� Continue home regimen
-hold iron
#DVT prophylaxis
� SCDs, active bleed
Total time spent to see the patient, examine the patient, review data and lab results, discuss treatment plan with patient, nursing staff around 45 minutes
Anticipated Discharge: Within 24 hours
Subjective/Interval History
-
Date of Service: January 22, 2024
Went through bowel prep but not cleared yet
for rectal supp this morning
No abd pain
Objective Data
-
Vital Signs:
Vital Signs
Temp Pulse Resp BP Pulse Ox
97.7 F 68 18 137/61 98
01/22/24 07:30 01/22/24 07:30 01/22/24 07:30 01/22/24 07:30 01/22/24 07:30
I&O
01/21/24 01/22/24 01/23/24
06:59 06:59 06:59
Intake Total 1360 / 1360 960 / 960
Balance 1360 / 1360 960 / 960
[2024-01-22] MEDS: ASPIR LOW (ENTERIC COATED) 81 MG PO (12:02)
[2024-01-22] MEDS: VITAMIN D3 (cholecalciferol) 25 MCG PO (12:03)
[2024-01-22] MEDS: CRESTOR 20 MG PO (12:10)
--- NOTE | 2024-01-22 12:22 | W.PN.UPDATE ---
Update Note
Progress Note Update
Patient was planned for EGD and Colonoscopy today, however, still having semi-formed bowel movements. Discussed at bedside with patient that proceeding today would likely yield suboptimal results, requiring repeating the procedure with additional
prep. She is agreeable to continue prepping today and deferring procedures to tomorrow. I changed her diet to clear liquids, additional prep placed with prn enema, if not clear. Please notify GI early in AM if patient is still not clear, so
additional prep can be ordered in attempts to complete procedures tomorrow.
[2024-01-22 13:43] VITALS: BP 140/68; BP 153/67; PULSE 66; O2SAT 96
[2024-01-22] MEDS: GAVILAX 238 GM PO (13:55)
[2024-01-22] MEDS: FERRLECIT 110 MG IV (14:06)
--- NOTE | 2024-01-22 14:16 | CM ---
Patient for EGD/colonoscopy tomorrow.
Plan: home with [facility] (spoke with Mary, able to accept)
[2024-01-22 15:00] VITALS: BP 156/84
[2024-01-22] MEDS: NORVASC 5 MG PO (22:44)
[2024-01-22] MEDS: TENORMIN 25 MG PO (22:44)
[2024-01-22 23:18] VITALS: BP 169/82
[2024-01-23 07:57] VITALS: BP 143/58
[2024-01-23 07:58] LABS: Hematocrit 29.5 % (37.0-47.0); Hemoglobin 9.4 g/dL (12.0-16.0); Mean Corp Hgb Conc. 31.9 g/dL (33.0-37.0); Mean Corpuscular Hgb 27.3 pg (27.0-31.0); Mean Corpuscular Volume 85.8 fL (81.0-99.0); Mean Platelet Volume 10.5 fL (7.4-10.4); Platelet Count 246 10^3/uL (130-400); Red Blood Cell Count 3.44 10^6/uL (4.20-5.40); Red Cell Dist. Width 18.1 % (11.5-14.5); White Blood Cell Count 6.7 10^3/uL (4.8-10.8)
[2024-01-23 08:22] LABS: Blood Urea Nitrogen 9 mg/dl (7-17); Calcium 9.4 mg/dl (8.4-10.2); Carbon Dioxide 26 mmol/L (22-30); Chloride 100 mmol/L (98-107); Estimated Creatinine Clearance 86 ml/min; Glucose 96 mg/dl (70-99); Sodium 129 mmol/L (135-145); eGFR > 60.00
--- NOTE | 2024-01-23 08:25 | PTCARENOTE ---
~ 05:15 Pt not clear. PRN enema administered. Pt not clear. Notified On-call GI. Plan of care ongoing.
[2024-01-23] MEDS: DIOVAN 160 MG PO (09:13)
[2024-01-23] MEDS: PROTONIX IV 40 MG IV ×2 (09:14→20:02)
[2024-01-23] MEDS: ASPIR LOW (ENTERIC COATED) 81 MG PO (09:14)
[2024-01-23] MEDS: NSS (PRESERVATIVE FREE) 10 ML IV ×2 (09:14→20:02)
[2024-01-23] MEDS: CITROMA 300 ML PO (09:14)
[2024-01-23] MEDS: CRESTOR 20 MG PO (09:14)
[2024-01-23] MEDS: VITAMIN D3 (cholecalciferol) 25 MCG PO (09:15)
[2024-01-23 10:55] VITALS: BP 108/46; PULSE 66
--- NOTE | 2024-01-23 10:56 | W.PN.HOSP.TC ---
Today's Communication/Plan
-
.
Assessment / Plan
Assessment / Plan
Physical Exam
General: Well Developed
HEENT: NormoCephalic and Anicteric
Respiratory: Clear
Cardiac: S1/S2
GI: Soft, Non Tender and Non Distended
Musculoskeletal: No Clubbing
Skin: Warm
Neuro: Awake, Alert, Oriented and AO x 3
Psych: Calm
78-year-old female from [facility] where she lives with her ; history of CVA, neuropathy, HTN, HLD, GERD, hematuria with a bladder tumor TURBT, osteoarthritis with chronic bilateral hip pain, now here for symptomatic anemia.
PLAN:
#Symptomatic anemia, multifactorial, heme positive stool consistent with acute on chronic blood loss anemia, recent bladder cancer diagnosis hemoglobin around 9.1
#Iron deficiency anemia
� No obvious brisk bleed
� On Plavix and aspirin at home. HGB stable at 9 , s/p 3 doses of IV Iron.
� Transfused 2 unit PRBC in the ED
�Hold Plavix for 5 days prior to procedure
� Plan for EGD and colonoscopy 01/23/2024 if intestine is clearing
� PPI IV twice daily
-Bowel regimen
Appreciate GI input and help
#Primary Hypertension
Blood pressure this morning 143/58
� Continue atenolol, amlodipine, valsartan for now
#Hyponatremia, mild, no confusion
#CVA in 08/2022
#TIA in October 16
� Has been on DAPT by primary care doctor
� Holding Plavix now due to EGD/colonoscopy planned
� Follow-up outpatient PCP for further continuation/titration of DAPT�has not seen neurology in the past and PCP is adjusting medications
#GERD
#Hyperlipidemia
#Iron deficiency anemia
� Continue home regimen
-hold iron
#DVT prophylaxis
� SCDs, active bleed
Total time spent to see the patient, examine the patient, review data and lab results, discuss treatment plan with patient, nursing staff around 45 minutes
Anticipated Discharge: Within 24 hours
Subjective/Interval History
-
Date of Service: January 23, 2024
seems still not clear rectal outptu
Objective Data
-
Labs:
Laboratory Results
01/23/24
07:07
WBC 6.7
Hgb 9.4 L
Hct 29.5 L
Plt Count 246
Sodium 129 L
Potassium 4.0
Chloride 100
Carbon Dioxide 26
BUN 9
Creatinine 0.6
Glucose 96
Calcium 9.4
Vital Signs:
Vital Signs
Temp Pulse Resp BP Pulse Ox
98.1 F 67 16 143/58 96
01/23/24 07:57 01/23/24 07:57 01/23/24 07:57 01/23/24 07:57 01/23/24 07:57
I&O
01/22/24 01/23/24 01/24/24
06:59 06:59 06:59
Intake Total 960 / 960 710 / 710
Balance 960 / 960 710 / 710
--- NOTE | 2024-01-23 15:16 | PN.CDI ---
Addendum entered and electronically signed by Nguyen Layne MD 01/24/24 06:36:
Yes, anemia is associated with/ enhanced by Plavix
Original Note:
CDI
- -
CDI:
Physician Documentation Request
Admit Date: 01/17/24 17:36
Dear Doctor Xi,
Patient admitted with symptomatic anemia.
5/2 PN, 'Symptomatic anemia, multifactorial, heme positive stool consistent with acute on chronic blood loss anemia, recent bladder cancer diagnosis hemoglobin around 9.1....On Plavix and aspirin at home.... Transfused 2 unit PRBC in the ED...Hold
Plavix for 5 days prior to procedure
Please clarify the likely relationship between these conditions:
Yes, anemia is associated with/ enhanced by Plavix.
No, anemia is not associated with/ enhanced by Plavix but it is due to ___. (Please specify)
Unable to determine
Use of terms such as suspected, likely, concern for, or probable (associated with a specific diagnosis that is being evaluated, monitored, or treated as if it exists) are acceptable and can be coded in the inpatient setting, when documented at the
time of discharge.
Thank you,
Tessa TREVIZO,RN,CCDS
CDI Specialist
Available via [facility] text
Please use your independent medical judgment in providing your response.
[2024-01-23 16:49] VITALS: BP 116/68
[2024-01-23 17:00] VITALS: BP 122/61
[2024-01-23 17:30] VITALS: BP 137/62
[2024-01-23] MEDS: TENORMIN 25 MG PO (21:27)
[2024-01-23] MEDS: NORVASC 5 MG PO (21:30)
[2024-01-23 23:00] VITALS: BP 137/57
[2024-01-24 07:30] VITALS: BP 152/52
[2024-01-24] MEDS: PLAVIX 75 MG PO (09:38)
[2024-01-24] MEDS: NSS (PRESERVATIVE FREE) 10 ML IV (09:38)
[2024-01-24] MEDS: CRESTOR 20 MG PO (09:38)
[2024-01-24] MEDS: VITAMIN D3 (cholecalciferol) 25 MCG PO (09:38)
[2024-01-24] MEDS: DIOVAN 160 MG PO (09:38)
[2024-01-24] MEDS: PROTONIX IV 40 MG IV (09:38)
[2024-01-24] MEDS: ASPIR LOW (ENTERIC COATED) 81 MG PO (09:38)
--- NOTE | 2024-01-24 10:30 | W.PN.GI.CBS2 ---
Today's Communication / Plan
-
Resume plavix. Discharge today, outpatient GI follow-up. Referral to thoracic surgery
Assessment / Plan
-
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
ER labs on 01/16 showed micryotic anemia with Hemoglobin of 6.4, heme positive stool. She has received 2 units of PRBC with adequate response.
She is s/p EGD/Colonoscopy on 01/22--
EGD: The middle third of the esophagus and lower third of the esophagus were moderately tortuous.
A 7 cm paraesophageal hernia was found. There was was evidence of old blood present within the hiatal hernia, without evidence of a discrete lesion, suspicious for bleeding 2/2 hany lesions
Striped mildly erythematous mucosa without bleeding was found in the gastric antrum. Biopsies were taken with a cold forceps for Helicobacter pylori testing. Presence of two separate openings within the quiñones of the 2nd portion of the duodenum,
consistent with 2 large duodenal diverticulum. No signs of bleeding within the small bowel.
Colonoscopy: Moderately tortuous and redundant bowel with spasming throughout. Scattered medium-mouthed diverticulum found in the left colon. Nonbleeding internal hemorrhoids. Otherwise, no signs of bleeding in the colon. No repeat colonoscopy
recommended due to age.
I suspect bleeding is from ahny lesions in setting of large paraesophageal hernia. She is on plavix which she requires for history of CVA and then TIA following cessation of plavix. I do not think she will safely be able to come off of the
plavix. At this time, I recommend serial H&H as an outpatient and if evidence of bleeding or drops in hemoglobin, can plan to repeat EGD off of plavix and APC any active/recently bleeding lesions identified (unfortunately, did not see any discrete
lesions on EGD). I did discuss that definitive treatment is surgical. Also, she is at risk for a volvulus. I recommend she consult with a thoracic surgeon as an outpatient to discuss what the surgery would entail so that she has all the information,
discussing both the risks and the benefits. She is agreeable to this. For now, she will increase her PPI to BID. I have scheduled an outpatient follow-up appointment with her to see us in the office after discharge.
Subjective
Subjective
Date of Service: January 24, 2024
Patient seen in follow-up today, no overnight events. She underwent EGD/Colonoscopy yesterday for iron deficiency anemia, with findings of old blood within a large paraesophageal hernia. There was no fresh blood or identifiable lesions to target for
treatment. Otherwise, no other acute findings or sources of bleeding identified (full details in procedure report). Discussed at length with patient. She feels well, but weak due to her prolonged hospitalization and multiple days of prep. She is
eager for discharge today.
Objective
Data Reviewed
Laboratory Data:
Laboratory Results
01/23/24 07:07
01/23/24 07:07
Laboratory Results
PT 13.4 Sec (11.4-14.6) 01/17/24 15:01
INR 1.04 01/17/24 15:01
APTT 31.2 Sec (23.4-35.0) 01/17/24 15:01
Total Bilirubin 0.4 mg/dl (0.2-1.3) 01/17/24 15:01
AST 29 U/L (14-36) 01/17/24 15:01
ALT 17 U/L (0-35) 01/17/24 15:01
Alkaline Phosphatase 84 U/L (38-126) 01/17/24 15:01
Vital Signs and I&O:
Vital Signs
Temp Pulse Resp BP Pulse Ox
98.2 F 68 18 152/52 94
01/24/24 07:30 01/24/24 07:30 01/24/24 07:30 01/24/24 07:30 01/24/24 07:30
I&O
01/23/24 01/24/24 01/25/24
06:59 06:59 06:59
Intake Total 710 / 710 280 / 280
Balance 710 / 710 280 / 280
Physical Exam
Physical Exam
HEENT: Anicteric and Moist mucous membranes
Cardiology: Normal Sinus Rhythm, S1 and S2
Pulmonary: Clear
GI: Soft, Non Distended and Non Tender
Extremities: No Edema
Neuro: Other (hx CVA with chronic weakness)
--- NOTE | 2024-01-24 11:10 | CM ---
Addendum entered by Lizz Gomez 01/24/24 11:35:
PT recommending skilled rehab, CM again offered skilled rehab, patient declined.
Original Note:
Patient seen bedside.
Patient for d/c home today with VN.
IMM reviewed and signed.
Spouse will transport.
Plan: home with VN
[facility]
[2024-01-24 11:30] VITALS: BP 118/51
--- NOTE | 2024-01-24 12:39 | W.DCSUMMARY ---
Discharge Summary
Discharge Data
Date of Admission: 01/17/24
Date of Discharge: 01/24/24
-
Pending Results: No
Hospital Course
78 years old female who presented to the hospital with weakness and anemia. Her hemoglobin was 6.4. Heme positive stool with report of melena/black stool at home. Patient did not have hypotension. Patient was taking aspirin and Plavix for
history of stroke. Patient was evaluated by associate professor of radiology. Plavix was held. She had bowel preparation for 2 days. She underwent upper endoscopy that showed 7 cm paraesophageal hernia with evidence of old blood present with a he had a
hernia. She underwent colonoscopy that showed moderately tortuous and redundant bowel with diverticulosis and nonbleeding internal hemorrhoids. Gastroenterology doctor recommended to continue on omeprazole 40 mg twice daily. Plavix were resumed.
Patient reported that she was a placed on Plavix with aspirin after sustaining a mini stroke in the past. Patient was advised to discuss need to continue dual antiplatelet therapy with her primary care doctor. Patient received 2 units of red
blood cells in the hospital. She received 3 doses of intravenous iron. Hemoglobin on discharge was 9.4. Patient will need blood work within a week and likely on a regular basis to monitor her oxygen level especially if she is maintained on dual
antiplatelet therapy. Patient remained hemodynamically stable. She was evaluated by physical therapy. Patient was discharged home in a stable condition.
Physical Exam
General: Well Developed
HEENT: NormoCephalic and Anicteric
Respiratory: Clear
Cardiac: S1/S2
GI: Soft, Non Tender and Non Distended
Musculoskeletal: No Clubbing
Skin: Warm
Neuro: Awake, Alert, Oriented and AO x 3
Psych: Calm, no agitation
Total discharge time spent to see the patient, examine the patient, review data and lab results, discuss discharge plan with patient, nursing staff around 65 minutes
Discharge Plan
-
Patient Disposition: Long-Term/SNF
Discharge Diagnosis/Procedures: Acute blood loss anemia
Hyponatremia
You received 2 units of blood transfusion and 3 doses of intravenous iron. You were seen by associate professor of radiology and you had upper endoscopy and colonoscopy.
Upper endoscopy showed paraesophageal hernia. Colonoscopy showed diverticulosis and internal hemorrhoids.
You can resume Plavix
Discuss with your primary care doctor and need to continue Plavix and aspirin.
You will need to do blood work next week.
Diet: As tolerated
Blood Work: CBC & BMP within a week
Referrals:
Tessa Foreman MD [Family Provider] -
Austyn Nuñez MD [Active] - in one to two months (Large paraesophageal hernia, hany lesions )
Lanette Noyola PA-C [Specified Professional Personl] - 02/20/24 11:30 am
Prescriptions:
New
omeprazole 40 mg capsule,delayed release(DR/EC)
40 mg PO BID Qty: 60 0RF
Continued
aspirin 81 mg Tablet,Delayed Release (Dr/Ec)
81 mg PO DAILY
acetaminophen 500 mg Tablet
1,000 mg PO Q6H PRN (Reason: pain)
docusate sodium [Colace] 100 mg Capsule
300 mg PO DAILY
atenolol 50 mg tablet
25 mg PO HS
valsartan 160 mg tablet
160 mg PO DAILY
ferrous sulfate [iron] 325 mg (65 mg iron) Tablet
325 mg PO Q48H
psyllium Packet
1 packet PO DAILY
clopidogrel 75 mg tablet
75 mg PO DAILY
amlodipine 5 mg tablet
5 mg PO HS
rosuvastatin 20 mg Tablet
20 mg PO DAILY
cholecalciferol (vitamin D3) [Vitamin D3] 25 mcg (1,000 unit) Tablet
25 mcg PO DAILY
Discontinued
pantoprazole 40 mg tablet,delayed release (DR/EC)
40 mg PO DAILY
Discharge Orders:
Discharge Patient (As Directed); Ordered 01/24/24
Ordered By: Nguyen Abbas
Discharge Date and Time
Print Language: ALBANIAN
== END 2024-01-24 15:32 | disposition home health service (06) | DRG 813 ==
LOC: 4 WEST ACU 17:36
PROVIDERS: Internal Medicine; Nurse Practitioner Adult Health; Physician Assistant; Physician Assistant Medical; ADMITTING PHYSICIAN Internal Medicine; ATTENDING PHYSICIAN Internal Medicine; CONSULT PHYSICIAN Internal Medicine Gastroenterology; EMERGENCY PHYSICIAN Emergency Medicine; FAMILY PHYSICIAN Internal Medicine Geriatric Medicine
PROC: 30233N1 Transfusion of Nonautologous Red Blood Cells into Peripheral Vein, Percutaneous Approach (ICD-10-PCS; 2024-01-17)
PROC: 0DB68ZX Excision of Stomach, Via Natural or Artificial Opening Endoscopic, Diagnostic (ICD-10-PCS; 2024-01-23)
PROC: 0DJD8ZZ Inspection of Lower Intestinal Tract, Via Natural or Artificial Opening Endoscopic (ICD-10-PCS; 2024-01-23)
DX: D68.32 Hemorrhagic disorder due to extrinsic circulating anticoagulants (principal); E87.1 Hypo-osmolality and hyponatremia; Q39.9 Congenital malformation of esophagus, unspecified; I10 Essential (primary) hypertension; K21.9 Gastro-esophageal reflux disease without esophagitis; E78.00 Pure hypercholesterolemia, unspecified; D50.8 Other iron deficiency anemias; Z79.02 Long term (current) use of antithrombotics/antiplatelets; Z86.73 Personal history of transient ischemic attack (TIA), and cerebral infarction without residual deficits; K44.9 Diaphragmatic hernia without obstruction or gangrene; K57.30 Diverticulosis of large intestine without perforation or abscess without bleeding; K64.8 Other hemorrhoids; C67.9 Malignant neoplasm of bladder, unspecified; K31.89 Other diseases of stomach and duodenum
CPT/HCPCS: 88305; 80048; 80053; 82728; 83540; 83550; 85025; 85027; 85610; 85730; 86850; 86870; 86900; 86901; 86920; 86922; 88342; 97110; 97116; 97162; 97167; 97530; 97535; 99284; J1610; J2916; P9016

== ENCOUNTER → 2024-03-06 12:18 | Outpatient (REF) | payer MEDICARE, BC, SELFPAY ==
[2024-03-06 13:54] LABS: Blood Urea Nitrogen 33 mg/dl (7-17); Calcium 9.6 mg/dl (8.4-10.2); Carbon Dioxide 25 mmol/L (22-30); Chloride 99 mmol/L (98-107); Glucose 91 mg/dl (70-99); Potassium 5.4 mmol/L (3.5-5.1); Sodium 133 mmol/L (135-145); eGFR 30.13
== END ==
LOC: SDSPAT 12:18
PROVIDERS: ATTENDING PHYSICIAN Urology; FAMILY PHYSICIAN Internal Medicine Geriatric Medicine
DX: C67.9 Malignant neoplasm of bladder, unspecified (principal)
CPT/HCPCS: 36415; 80048; 93005

== ENCOUNTER 2024-03-10 06:26 | Day surgery (SDC) | payer MEDICARE, BC, SELFPAY ==
--- NOTE | 2024-03-05 13:03 | PTCARENOTE ---
Patients 5/2 sodium 129; reviewed by Dr. Cordero- no additional interventions required
[2024-03-10] VITALS (10 sets, daily range): BP systolic 101–171; BP diastolic 42–89; BMI 27.7
[2024-03-10] MEDS: CYSVIEW KIT 100 MG INTRAVES (07:55)
[2024-03-10] MEDS: NORMOSOL-R 1000 IV (08:07)
[2024-03-10] MEDS: Pyridium 200 MG PO (11:53)
== END 2024-03-10 12:41 | disposition home or self-care (01) ==
LOC: SDS 06:26
PROVIDERS: ATTENDING PHYSICIAN Urology
DX: C67.1 Malignant neoplasm of dome of bladder (principal); C67.2 Malignant neoplasm of lateral wall of bladder; N30.90 Cystitis, unspecified without hematuria
CPT/HCPCS: 52235; 88307; A9589

== ENCOUNTER 2024-06-10 13:31 | Inpatient (IN) | payer MEDICARE, BC, SELFPAY ==
[2024-06-10] VITALS (10 sets, daily range): BP systolic 120–160; BP diastolic 50–97; BMI 29.5; BMI 29.2; BMI 28.8
[2024-06-10] MEDS: ADACEL 0.5 ML IM (07:36)
--- NOTE | 2024-06-10 08:00 | ED.GENMED ---
History of Present Illness
General
Chief Complaint: Fall
Source: patient
Exam Limitations: none
Time Seen by Provider: 06/10/24 06:58
History of Present Illness
History of Present Illness:
Patient tripped and fell. No LOC. No syncope. Hit her right forehead. Last tetanus is unknown. Complaining of local pain only. No other injury or complaint. No anticoagulation except for an aspirin
Past History
Past History
ED Past Medical History: CVA, GERD, HTN, Hypercholesterolemia and Other (Iron deficiency anemia)
ED Past Surgical History: Orthopedic (Both knees and both hips replaced.)
Social History
Tobacco: Non-smoker
Personal:
Living: with family (Lives in [facility])
Review of Systems
Review of Systems
All Other Systems: Not applicable
Respiratory: Reports no symptoms
Cardiac: Reports no symptoms
ABD/GI: Reports no symptoms
Phy Exam
Physical Exam
Physical Exam:
TRAUMA EXAM:
VITAL SIGNS: Vital signs reviewed, cooperative
DISTRESS: No active disease
EYES: Pupils reactive, no orbital trauma
NOSE: No deformity or epistaxis
FACE AND SCALP: No scalp trauma, external canals no blood. Jagged 3 cm total laceration to the right eyebrow. Somewhat star-shaped.
NECK: Supple nontender
BACK: Back nontender, pelvis stable to compression
RESPIRATORY: No distress, breath sounds normal, no tender chest wall
CARDIAC: No murmur, pulses equal and strong
ABDOMEN: Soft nontender bowel sounds normal
SKIN: Warm and dry
EXTREMITIES: Nontender
NEUROLOGICAL: Alert, oriented, no motor deficits
PSYCH: Mood affect normal
Course
Orders/Labs/Results
Orders:
Orders
06/10/24 07:01
CT Cervical Spine W/o Iv Contr Urgent
Comment:
Reason For Exam: trauma
CT Head W/o Iv Contrast Urgent
Comment:
Reason For Exam: trauma
Tetanus/Diphth/Acelpertussis [Adacel] 0.5 ml IM .ONCE ONE
06/10/24 11:09
IV Insert/Care/Rem.- Treatment PRN
06/10/24 11:10
Electrocardiogram (*1) Stat
Reason for Study: Other
Other Reason for Exam: chest pain
Cardiac Monitoring- Treatment ONCE
EKG- Treatment ONCE
CR Chest - 2 Views Urgent
Comment:
Reason For Exam: sob
06/10/24 11:17
Basic Metabolic Panel Urgent
Complete Blood Count/With Diff Urgent
NT-proBNP Urgent
06/10/24 11:19
Acetaminophen [Tylenol] 1,000 mg .ROUTE .STK-MED ONE
06/10/24 11:20
Acetaminophen [Tylenol] 1,000 mg PO NOW STA
06/10/24 12:13
US Renal With Bladder Urgent
Comment: bladder not full ok, looking at ureteral jets
Reason For Exam: Renal failure
06/10/24 12:52
Admit/Transfer Patient As Directed
Co-Sign Provider:
Level of Care: Inpatient admission
Assign to:: Telemetry
Physician / Group: mike
Diagnosis: acute hypoxia
Reason for Telemetry: Acute Heart Failure
Date to Stop Telemetry: 06/13/24
Time to Stop Telemetry: 11:00
Reason for Hospitalization: acute hypoxia
Expected length of stay greater than two midnights?: Yes
ELOS- Estimated Length of Stay in days: 3
I certify the patient meets the requirements for IP care: Yes
PRN Pain Medication Management As Directed
May give lesser potent ordered pain med per pt: Yes
preference::
Protocol:: Medication orders for pain may be administered in a
manner that supports deferring to patient preference
when the pt is:
- Requesting an ordered lesser potent pain medication.
Least to most potent pain medications are defined
as: acetaminophen < NSAID < tramadol < opioids
(morphine, oxycodone, hydromorphone).
- Requesting a lesser dose of the same medication IF
ORDERED.
- Requesting a less intrusive route of administration
if both routes are prescribed by the provider (PO <
IV).
06/10/24 12:54
Code Status As Directed
Resuscitation Status: Do not resuscitate
Reached after discussion with pt or family/Healthcare POA: Yes
DNR Bracelet Application ONCE
06/13/24 11:00
DC Protocol for Telemetry ONCE
Abnormal Lab Results
06/10/24
11:17
RBC 3.13 L 10^6/uL
(4.20-5.40)
Hgb 8.7 L g/dL
(12.0-16.0)
Hct 25.0 L %
(37.0-47.0)
MCV 79.9 L fL
(81.0-99.0)
RDW 17.2 H %
(11.5-14.5)
Abs Immat Gran (auto) 0.1 H 10^3/uL
(0-0.05)
Absolute Lymphs (auto) 1.0 L 10^3/uL
(1.2-3.4)
Absolute Monos (auto) 0.8 H 10^3/uL
(0.1-0.6)
Immature Gran % 0.8 H %
(0-0.5)
Neutrophils % 76.4 H %
(42.2-75.2)
Lymphocytes % 11.6 L %
(20.5-51.1)
Monocytes % 9.8 H %
(1.7-9.3)
Sodium 129 L mmol/L
(135-145)
Carbon Dioxide 12 L* mmol/L
(22-30)
BUN 90 H mg/dl
(7-17)
Creatinine 4.8 H* mg/dL
(0.6-1.0)
06/10/24 11:17
06/10/24 11:17
Vital Signs
Initial and Last Documented VS:
Initial Vital Signs
Temp Pulse Resp BP Pulse Ox
97.5 F 58 16 160/79 95
06/10/24 06:32 06/10/24 06:32 06/10/24 06:32 06/10/24 06:32 06/10/24 06:32
Last Documented Vital Signs
Temp Pulse Resp BP Pulse Ox
97.5 F 58 16 120/50 95
06/10/24 06:32 06/10/24 12:06 06/10/24 12:06 06/10/24 13:04 06/10/24 13:04
Procedures
Laceration Closure
Right Upper Face:
Status of Wound: clean
Size of Wound in cm: 3
Description of Wound Edges: ragged
Preparation: cleaned with saline and cleaned with Betadine
Anesthesia: 2% Lidocaine with epi
Revision/Debridement: minor revision
Wound exploration: explored to base- no FB
Type of Closure: single layer closure
Skin Closure Material: 5-0 nylon
Number of sutures: 8
MDM/Problems Addressed
Differential Diagnosis Includes:
Patient not describing syncope. Tripped and fell. Local injury to the forehead only. CT head and cervical spine pending.
Discussed cervical spine CT findings of pulmonary edema with patient and physician. Elected to do labs and workup. Workup shows renal failure acidosis anemia. Clearly needs admission for further care
*Radiology
Radiology exam reviewed: radiology read reviewed (No acute findings on head and cervical CT. However pulmonary edema)
*Pulse Oximetry
Patient hypoxic: no
*EKG
Interpreted by ED Provider?: Yes
Interpretation: abnormal
Comparison EKG: no changes
Heart Rate: 59
Rate: normal
Rhythm: sinus
[place]: normal axis
Interval: normal interval
QRS Pattern: normal QRS
Ischemia: non-specific ST changes
*[place] [employer] Interpretation
Rate: normal
Interpretation: normal
Heart Rate: 66
Rhythm: sinus
*Critical Care Note
Total Time (30-74mins, 75-104mins- exclusive of procedures): Not Applicable
ED Attending Note
-
Portions of this chart may have been created with voice recognition software.� Occasional wrong word or��sound alike� substitutions may have occurred due to the inherent limitations of voice recognition software.
Discharge Plan
Departure
Patient Disposition: Admit
Date of Disposition: 06/10/24
Time of Disposition: 12:16
Presentation/result/management discussed w/ accepting MD/DO: Hospitalist
Discharge Problem:
Head injury/forehead laceration, Acute renal failure, Anemia, Metabolic acidosis, Pulmonary edema
Prescriptions:
No Action
aspirin 81 mg Tablet,Delayed Release (Dr/Ec)
81 mg PO DAILY
acetaminophen 500 mg Tablet
1,000 mg PO HS
docusate sodium [Colace] 100 mg Capsule
300 mg PO DAILY
atenolol 50 mg tablet
50 mg PO HS
valsartan 160 mg tablet
320 mg PO DAILY
psyllium Packet
1 packet PO DAILY@1200
amlodipine 5 mg tablet
10 mg PO HS
omeprazole 40 mg capsule,delayed release(DR/EC)
40 mg PO BID Qty: 60 0RF
hydrochlorothiazide 25 mg Tablet
25 mg PO DAILY
Patient Comments:
06/10/24- patient suppose to be on this but has not been taking it regularly
rosuvastatin 20 mg Tablet
20 mg PO DAILY
cholecalciferol (vitamin D3) [Vitamin D3] 25 mcg (1,000 unit) Tablet
25 mcg PO DAILY
Referrals:
Tessa Foreman MD [Family Provider] -
Interventions
Interventions:
*Risk Screen - Suicide Last Done: 06/10/24 06:32
*General Assessment Last Done: 06/10/24 06:32
*Neglect/Abuse Screening Last Done: 06/10/24 06:32
ED- Fall Risk Assessment Last Done: 06/10/24 06:45
*ED COVID-19 Vaccine History Last Done: 06/10/24 06:32
ED-Musculoskeletal Assessment Last Done: 06/10/24 06:45
ED- Neurological Assessment Last Done: 06/10/24 06:45
ED-Skin Assessment Last Done: 06/10/24 06:45
Discharge Date and Time
Print Language: ICELANDIC
[2024-06-10 11:20] LABS: % Basophils 0.4 % (0-2); % Immature Granulocytes 0.8 % (0-0.5); % Lymphocytes 11.6 % (20.5-51.1); % Monocytes 9.8 % (1.7-9.3); % Neutrophils 76.4 % (42.2-75.2); Absolute Eosinophils 0.1 10^3/uL (0-0.7); Absolute Immature Granulocytes 0.1 10^3/uL (0-0.05); Absolute Monocytes 0.8 10^3/uL (0.1-0.6); Absolute Neutrophils 6.3 10^3/uL (1.4-6.5); Hemoglobin 8.7 g/dL (12.0-16.0); Mean Corp Hgb Conc. 34.8 g/dL (33.0-37.0); Mean Corpuscular Hgb 27.8 pg (27.0-31.0); Mean Corpuscular Volume 79.9 fL (81.0-99.0); Mean Platelet Volume 9.6 fL (7.4-10.4); Nucleated Red Blood Cells % 0 %; Platelet Count 222 10^3/uL (130-400); Red Blood Cell Count 3.13 10^6/uL (4.20-5.40); Red Cell Dist. Width 17.2 % (11.5-14.5); White Blood Cell Count 8.3 10^3/uL (4.8-10.8)
[2024-06-10] MEDS: TYLENOL 1000 MG PO (11:20)
[2024-06-10 11:41] LABS: NT-proBNP 7550 pg/ml
[2024-06-10 11:42] LABS: Blood Urea Nitrogen 90 mg/dl (7-17); Calcium 8.7 mg/dl (8.4-10.2); Carbon Dioxide 12 mmol/L (22-30); Chloride 98 mmol/L (98-107); Estimated Creatinine Clearance 11 ml/min; Glucose 98 mg/dl (70-99); Potassium 4.2 mmol/L (3.5-5.1); Sodium 129 mmol/L (135-145); eGFR 8.67
--- NOTE | 2024-06-10 12:20 | HPS.HSE ---
Family Physician
-
Family Physician: Tessa Foreman
Chief Complaint
-
fall
History of Present Illness
78-year-old with past medical history for CVA, GERD, hypertension, hyperlipidemia, anxiety presented to us status post fall. Patient got up to use the bathroom this morning. She lost her balance, fell forward and hit face on the chair. Patient
denied any headache, dizziness. Denied syncopal episode. Patient denied any chest pain. Patient stated worsening short of breath past 2 months. Patient stated sinus congestion. Denied cough, fever, chills. Patient denied any abdominal pain,
nausea, vomiting, diarrhea patient denied dysuria materia. Patient denied weight gain. She has chronic lower extremities edema.
on arrival, she was noted in NORM, CHF. right forehead laceration requiring sutures. received Tetanus shot, Tylenol in ER. admitting for further management.
Medical History
Past Medical History
Past Medical History: Reports Other
Additional Past Medical History:
Scoliosis
Hypertension
Arthritis
Stroke
TIA
Past Surgical History: Reports Other
Additional Past Surgical History:
Bilateral knee replacement, right hip replacement
Social History
Tobacco: Former Smoker
Alcohol: Occasional
Drug: None
Personal:
Living: With Family
Family History
Family History: Not pertinent
Allergies / Home Medications
Allergies reflects when Allergies were last updated in [employer].
Home Medications with original date entered in [employer]
Allergy/Medication List:
Allergies
Allergy/AdvReac Type Severity Reaction Status Date / Time
APOLINAR Inhibitors Allergy Mild cough Verified 06/10/24 06:36
Home Medications
cholecalciferol (vitamin D3) 25 mcg (1,000 unit) tablet (Vitamin D3) 25 mcg PO DAILY Supplement 09/25/22
rosuvastatin 20 mg tablet 20 mg PO DAILY Blood Pressure 09/25/22
acetaminophen 500 mg tablet 1,000 mg PO HS 06/18/23
aspirin 81 mg tablet,delayed release 81 mg PO DAILY Blood Pressure 06/18/23
atenolol 50 mg tablet 50 mg PO HS Blood Pressure 06/18/23
docusate sodium 100 mg capsule (Colace) 300 mg PO DAILY Constipation 06/18/23
valsartan 160 mg tablet 320 mg PO DAILY Blood Pressure 06/18/23
amlodipine 5 mg tablet 10 mg PO HS Blood Pressure 01/17/24
psyllium 1 packet PO DAILY@1200 Constipation 01/17/24
omeprazole 40 mg capsule,delayed release 40 mg PO BID #60 caps 01/24/24
hydrochlorothiazide 25 mg tablet 25 mg PO DAILY 06/10/24
Review of Systems
-
Constitutional: Reports No Symptoms
EENT: Reports No Symptoms
Respiratory: Reports Trouble Breathing
Cardiac: Reports No Symptoms
Abdomen/GI: Reports No Symptoms
: Reports No Symptoms
Musculoskeletal: Reports No Symptoms
Skin: Reports Other (Right forehead laceration)
Neurological: Reports No Symptoms
Endocrine: Reports No Symptoms
Hematologic/Lymphatic: Reports No Symptoms
Psych: Reports No Symptoms
Physical Exam
Vital Signs
Vital Signs
Temp Pulse Resp BP Pulse Ox
97.5 F 58 16 127/56 88
06/10/24 06:32 06/10/24 12:06 06/10/24 12:06 06/10/24 10:04 06/10/24 12:06
Physical Exam
General: Well Developed, Well Nourished and No Apparent Distress
HEENT: NormoCephalic, Moist mucous membranes and Atraumatic
Respiratory: Clear and Crackles
Cardiac: S1/S2, Regular Rhythm and Peripheral Edema (chronic LE edema); No Murmur or Rub
GI: Soft, Non Tender, Non Distended and Normal Bowel Sounds; No Organomegaly
Rectal: Deferred by Provider
Musculoskeletal: No Clubbing, No Cyanosis and No Edema
Skin: No Rash
Neuro: AO x 3 and Nonfocal/grossly intact
Laboratory Results
-
06/10/24 11:17
06/10/24 11:17
Data Reviewed
-
CT Scan: Report Reviewed by me
Lab Data: Labs Reviewed by me
Impression/Plan
-
#fall/forehead laceration
-head CT negative
-PT/OT consult
-head CT with No acute intracranial abnormality. Chronic findings as above.Right periorbital and frontal hematoma without underlying acute calvarial fracture.
-cervical spine CT with No acute osseous abnormality of the cervical spine.Multilevel cervical spondylosis with spondylolisthesis at numerous levels as detailed above.Partially visualized pulmonary edema and small right pleural effusion.
#anemia of chornic disease
-hgb stable at 8.7
-no active bleeding
-ctm
#acute on chornic hyponatremia likely hypervolemic/acute kidney injury/metabolic acidosis
-na 129, cr 4.8, co2 12
-US of renal pending
#acute hypoxic respiratory failure requiring likely new onset CHF
-BNP 7550
-chest x ray Pulmonary edema with small right pleural effusion.
-diuretics
-strict I &O
-daily weight
-fluid restriction
-obtain ECHO
-cardiology consulted
-wean oxygen as tolerated
-continue supplemental oxygen to keep sat >92
#Primary Hypertension
-BP stable
-Norvasc, continued with hold parameter
-hold HCTZ,valsartan, atenolol due to Norm
-consider metoprolol on discharge.
#GERD
-PPI continued
#CVA in 08/2022
#TIA in October 16
#HLD
-statin
#DVT prophylaxis
�heparin sq
#CODE status
-DNR
--- NOTE | 2024-06-10 13:09 | W.PN.UPDATE ---
Addendum entered and electronically signed by Laura Green MD 06/10/24 13:36:
Scalp Laceration
-s/p 8 sutures in the ER
Addendum entered and electronically signed by Laura Green MD 06/10/24 13:30:
*Renal US ordered
start sodium bicarb
Original Note:
Update Note
Progress Note Update
This serves as an addendum to H&P written by GRAIN UNLOADER Daniella Gastelum
I saw and examined the patient.
The GRAIN UNLOADER's note was reviewed and I agree with the note.
Comment:
Ms. April Jade is a 78 yo woman with hx GERD, HTN, HLD, WALT, CVA, bladder tumor s/p TURBT presents to the ER after she fell at home and hit head on the chair. She is found to be in acute heart failure and renal failure.
Triage VS: T 97.5, P 58, RR 16, BP 160/79, SpO2 95%
On exam patient is awake, alert, conversant. She has laceration above right eye with sutures in place; periorbital bruising. Lungs with rales, b/l LE edema.
LABS: Na 129, K+ 4.2, Cl 98, Cr 4.8 (last value 03/16 1.7 and 02/13 0.6), BNP 7550
CXR
IMPRESSION:
Pulmonary edema with small right pleural effusion.
HEAD CT
IMPRESSION:
No acute intracranial abnormality. Chronic findings as above.
Right periorbital and frontal hematoma without underlying acute calvarial fracture.
Acute Renal Failure
Heart Failure, Unknown EF
Hypervolemic Hyponatremia
-admit to telemetry
-case discussed with Dr. Parisi
-Pascal catheter placed
-Lasix 40mg IV x 1 now and continue diuresis
-patient would be OK with short term dialysis
-TTE
-cardiology consult
-hold DIRECTOR OF EPIDEMIOLOGY HCTZ, Valsartan, Atenolol (renally cleared)
-when Pulse > 60 consider adding back on Metoprolol
Hx CVA
Hyperlipidemia
-DIRECTOR OF EPIDEMIOLOGY asa/statin
Essential Hypertension
-hold DIRECTOR OF EPIDEMIOLOGY HCTZ, Valsartan, Atenolol (renally cleared)
-DIRECTOR OF EPIDEMIOLOGY Amlodipine
-when Pulse > 60 consider adding back on Metoprolol
GERD
-DIRECTOR OF EPIDEMIOLOGY PPI BID
Bladder Tumor s/p TURBT
Remainder of plan per MANISH Gastelum's H&P
76 minutes spent on patient care
[2024-06-10] MEDS: LASIX 40 MG IV (13:35)
--- NOTE | 2024-06-10 14:18 | W.CON.NEPH ---
Consultation
-
Date/Time Consultation Requested: 06/10/24 1325
Date/Time Consultation Performed: 06/10/24 1400
Requesting Provider: Laura Yost
Performing Provider: Tosin Cody
Reason for Consultation: NORM, met acidosis
Medical History
-
Chief Complaint: fall
History of Present Illness:
78-year-old with past medical history for CVA on ASA, GERD on high dose PPI, hypertension on multiple meds, recent addition of hydralaizne 1week ago, hyperlipidemia on statin, anxiety, bladder ca s/p TURBT, WALT in February follows on BCG injections
presented to ER status post fall at home. Patient got up to use the bathroom this morning. She lost her balance, fell forward and hit face on the chair. Patient denied any headache, dizziness. Denied syncopal episode. Patient denied any chest
pain. Patient stated worsening short of breath past 2 months and fatigue. Decreased appetite and decreased UOP too. Not aware of any wt gain or loss. Patient stated sinus congestion. Denied cough, fever. Patient denied any abdominal pain,
nausea, vomiting, diarrhea patient denied dysuria or hematuria. She has chronic lower extremities edema. no use of NSAIDs.
Labs noted cr at 4.8, bicarb 12, na 129, BUN 90. Last cr 1.7 in February during TURBT, prior to that was normal at 0.6 in January. CXR shows CHF, right forehead laceration requiring sutures.
Past Medical History
Scoliosis
Hypertension
Arthritis
Stroke
TIA
bladder ca
Past Surgical History: Other (Bilateral knee replacement, right hip replacement, TURBT of bladder ca)
Social History
Tobacco: Former Smoker
Alcohol: Daily (1drink daily )
Drug: None
Personal:
Living: With Family
Family History
father with kidney cancer requiring surgery, probably no CKD
Family History: Not Pertinent
Allergies / Home Medications
Allergy/AdvReac Type Severity Reaction Status Date / Time
APOLINAR Inhibitors Allergy Mild cough Verified 06/10/24 06:36
�Medication �Instructions �Recorded �Confirmed �Type
cholecalciferol (vitamin D3) 25 25 mcg PO DAILY Supplement 09/25/22 06/10/24 History
mcg (1,000 unit) tablet (Vitamin
D3)
rosuvastatin 20 mg tablet 20 mg PO DAILY Blood Pressure 09/25/22 06/10/24 History
acetaminophen 500 mg tablet 1,000 mg PO HS 06/18/23 06/10/24 History
aspirin 81 mg tablet,delayed 81 mg PO DAILY Blood Pressure 06/18/23 06/10/24 History
release
atenolol 50 mg tablet 50 mg PO HS Blood Pressure 06/18/23 06/10/24 History
docusate sodium 100 mg capsule 300 mg PO DAILY Constipation 06/18/23 06/10/24 History
(Colace)
valsartan 160 mg tablet 320 mg PO DAILY Blood Pressure 06/18/23 06/10/24 History
amlodipine 5 mg tablet 10 mg PO HS Blood Pressure 01/17/24 06/10/24 History
psyllium 1 packet PO DAILY@1200 Constipation 01/17/24 06/10/24 History
omeprazole 40 mg capsule,delayed 40 mg PO BID #60 caps 01/24/24 06/10/24 Rx
release
hydrochlorothiazide 25 mg tablet 25 mg PO DAILY 06/10/24 06/10/24 History
Review of Systems
-
All complete 12 point ORS have been inquired and found negative other than stated in HPI
All other systems: Negative unless noted
Physical Exam
Vital Signs
Vital Signs
Temp Pulse Resp BP Pulse Ox
97.5 F 58 16 120/50 95
06/10/24 06:32 06/10/24 12:06 06/10/24 12:06 06/10/24 13:04 06/10/24 13:04
Lab Results
WBC 8.3 10^3/uL (4.8-10.8) 06/10/24 11:17
RBC 3.13 10^6/uL (4.20-5.40) L 06/10/24 11:17
Hgb 8.7 g/dL (12.0-16.0) L 06/10/24 11:17
Hct 25.0 % (37.0-47.0) L 06/10/24 11:17
Plt Count 222 10^3/uL (130-400) 06/10/24 11:17
eGFR 8.67 06/10/24 11:17
Idu-P-Abdqcfruorq Pept 7550 pg/ml 06/10/24 11:17
Laboratory Results - last 24 hr
06/10/24
11:17
WBC 8.3
RBC 3.13 L
Hgb 8.7 L
Hct 25.0 L
MCV 79.9 L
MCH 27.8
MCHC 34.8
RDW 17.2 H
Plt Count 222
MPV 9.6
Abs Immat Gran (auto) 0.1 H
Absolute Neuts (auto) 6.3
Absolute Lymphs (auto) 1.0 L
Absolute Monos (auto) 0.8 H
Absolute Eos (auto) 0.1
Absolute Basos (auto) 0.0
Immature Gran % 0.8 H
Neutrophils % 76.4 H
Lymphocytes % 11.6 L
Monocytes % 9.8 H
Eosinophils % 1.0
Basophils % 0.4
Nucleated RBC % 0
Sodium 129 L
Potassium 4.2
Chloride 98
Carbon Dioxide 12 L*
BUN [address] heCreatinine 4.8 H*
Estimated Creat Clear 11
eGFR 8.67
Glucose 98
Calcium 8.7
Cht-I-Atsbotquvek Pept 7550
CT neck:
IMPRESSION:
No acute osseous abnormality of the cervical spine.
Multilevel cervical spondylosis with spondylolisthesis at numerous levels as detailed above.
Partially visualized pulmonary edema and small right pleural effusion.
CT head:
IMPRESSION:
No acute intracranial abnormality. Chronic findings as above.
Right periorbital and frontal hematoma without underlying acute calvarial fracture.
:
CXR:
IMPRESSION:
Pulmonary edema with small right pleural effusion.
Physical Exam
General: Awake, Alert, Oriented, AOx3, No Distress and Nontoxic
HEENT: EOMI, Anicteric, Facial Symmetry and Other (right periorbital area small skin cut)
Respiratory: Crackels, Normal Excursion and Nonlabored Respirations
Cardiac: S1/S2, Regular Rate/Rhythm and Murmur
Breast: Deferred by me
Abdomen: Soft, Nontender and Nondistended
Musculoskeletal: No Cyanosis and Edema (2+)
Skin: No Rash and Other (LE chr skin changes)
Neuro: Nonfocal/Grossly Intact
Psych: Mood/afflect pleasant, Insight/judgement good and Appropriate
Data Reviewed
-
Radiology: Image Personally Visualized and interpreted, Report Reviewed by me, Discussed with Patient and Discussed with Family
Labs: Labs Reviewed by me, Discussed with Patient and Discussed with Family
Assessment/Plan
-
IMP:
NORM
Severe met acidosis A gap
Heart Failure, Unknown EF
Hypervolemic Hyponatremia
HTN-multiple meds
Hx CVA
Hyperlipidemia
GERD
Bladder Tumor s/p TURBT
Plan:
A/w fall, found CHF and NORM
NORM-baseline cr 0.6 in January, was 1.7 in February and now at 4.8
fortunately she has some urine in andujar bag ~500cc, unclear if retention present
check UA, U lytes and renal US
suspect multifactorial-cardiorenal+poor po intake vs ?obst
severe met acidosis, a gap, check L acid. po bicarb added, prn IV bicarb push
repeat labs later today , monitor k
If worsening renal function likely need HD which likely pt not refusing
avoid nephrotoxins, hold ARB
hypervolemic hyponatremia-hold HCTZ
CHF unknown EF-start lasix 40mg daily, extra dose if needed and check echo-cards consulted
BP stable, meds with holding parameters
Microcytic Anemia-check Fe panel
d/w pt and at bedside
d/w primary
--- NOTE | 2024-06-10 14:31 | CON.CAR ---
Addendum entered and electronically signed by Adam Rasheed MD 06/10/24 18:16:
I saw and examined the patient.
The Cigarette Seller's note was reviewed and I agree with the note.
Comment:
GEN: No distress, awake, Ox3
HEENT: supple, anicteric, mmm, Eye echhymosis
LUNGS: CTA, no wheezes/rales
CV: Reg, S1/S2, / syst LSB, no gallop
ABD: soft, BS+, NT/ND
EXT: No edema
NEURO: Gross non-focal
SKIN: No rash
Plan:
She has a past medical history of CKD 3, hypertension, and CVA who lives at [facility]. Today she had episode where she tripped and fell and was brought for further evaluation. Upon evaluation she was found to be in acute renal failure with
severe metabolic acidosis. She states she does have some mild dyspnea on exertion, proBNP was elevated at 7550. She takes atenolol amlodipine and hydrochlorothiazide.
Check echocardiogram reevaluate LVEF and pulmonary pressures.
Clinically she is mildly volume overloaded and agree with gentle diuresis per nephrology.
Agree with correcting acidosis and following creatinine closely. May need some supportive bicarbonate and also may ultimately need dialysis.
Would hold hydrochlorothiazide for now. Okay to continue amlodipine.
We will follow and review records from [facility].
Original Note:
Consultation
Consultation Request
Date/Time Consultation Requested: 06/10/24
Date/Time Consultation Performed: 06/10/24
Requesting Provider: Dr. Green
Performing Provider: Dr. Rasheed
Reason for Consultation: Acute HF unknown EF
Medical History
-
History of Present Illness:
Patient came to [facility] today after a trip and fall and was found to have NORM and acute HF and is now admitted with a consultation to cardiology. Patient lives with her in independent living at [facility]. She says that she tripped and fell
today and hit the right side of her head. She does not take OAC and so was brought to [facility]. CT head was negative for acute intracranial process. She has sutures placed in a laceration above her right eyebrow. Labs were checked and patient noted to
be in NORM with severe metabolic acidosis anion gap. Patient denies a h/o CHF, her pro-BNP was 7550. Patient takes HCTZ 25 mg daily. She denies a h/o CHF. No chest pain. She denies syncope.
PMH:
HTN
h/o CVA treated with tPA at [facility] 08/2022 and then TIA 09/2023
h/o bladder cancer with TURBT
Past Medical History
Past Medical History: Other (in HPI)
Past Surgical History: Orthopedic and Urological (TURBT x2)
Social History
Tobacco: Non-Smoker
Alcohol: Daily (glass of wine daily)
Drug: None
Personal:
Living: With Family (independent living at [facility] with her )
Family History
Family History: Cancer, Diabetes and Hypertension
Allergies / Home Medications
Allergy/AdvReac Type Severity Reaction Status Date / Time
APOLINAR Inhibitors Allergy Mild cough Verified 06/10/24 06:36
�Medication �Instructions �Recorded �Confirmed �Type
cholecalciferol (vitamin D3) 25 25 mcg PO DAILY Supplement 09/25/22 06/10/24 History
mcg (1,000 unit) tablet (Vitamin
D3)
rosuvastatin 20 mg tablet 20 mg PO DAILY Blood Pressure 09/25/22 06/10/24 History
acetaminophen 500 mg tablet 1,000 mg PO HS 06/18/23 06/10/24 History
aspirin 81 mg tablet,delayed 81 mg PO DAILY Blood Pressure 06/18/23 06/10/24 History
release
atenolol 50 mg tablet 50 mg PO HS Blood Pressure 06/18/23 06/10/24 History
docusate sodium 100 mg capsule 300 mg PO DAILY Constipation 06/18/23 06/10/24 History
(Colace)
valsartan 160 mg tablet 320 mg PO DAILY Blood Pressure 06/18/23 06/10/24 History
amlodipine 5 mg tablet 10 mg PO HS Blood Pressure 01/17/24 06/10/24 History
psyllium 1 packet PO DAILY@1200 Constipation 01/17/24 06/10/24 History
omeprazole 40 mg capsule,delayed 40 mg PO BID #60 caps 01/24/24 06/10/24 Rx
release
hydrochlorothiazide 25 mg tablet 25 mg PO DAILY 06/10/24 06/10/24 History
Review of Systems
-
History Source: Patient
All other systems: Negative unless noted
Physical Exam
Vital Signs
Temp Pulse Resp BP Pulse Ox
97.5 F 58 16 120/50 95
06/10/24 06:32 06/10/24 12:06 06/10/24 12:06 06/10/24 13:04 06/10/24 13:04
GEN: NAD. AAO to person, place and situation
HEENT: EOMI, right eye ecchymotic, sutures above right eye
LUNGS: Wearing oxygen at 2 L NC. CTA B/L without wheeze
CV: Reg, S1/S2, 1/6 syst LSB
ABD: soft, BS+, NT, ND
EXT: Trace hard edema B/L LE. No clubbing, cyanosis or lesions B/L
NEURO: Gross non-focal
SKIN: Warm, dry and pink. No rash
Lab Results
06/10/24 11:17
Fib-Q-Eassffibcou Pept 7550 pg/ml 06/10/24 11:17
Impression / Plan
-
PCP: Dr. Foreman at [facility]
Cardiology: Dr. Cohn at [facility] [phone]
Impression:
Fall with right forehead laceration 06/10/24
Acute hypoxic respiratory failure
Acute HF unknown EF
NORM
Severe metabolic acidosis anion gap
Anemia
Hyponatremia
HTN
h/o CVA treated with tPA at [facility] 08/2022 and then TIA 09/2023
h/o bladder cancer with TURBT
Echo 06/10/24: Report pending
Plan:
-Patient came to [facility] today after a trip and fall and was found to have NORM and acute HF and is now admitted with a consultation to cardiology. Patient lives with her in independent living at [facility]. She says that she tripped and fell
today and hit the right side of her head. She does not take OAC and so was brought to [facility]. CT head was negative for acute intracranial process. She has sutures placed in a laceration above her right eyebrow. Labs were checked and patient noted to
be in NORM with severe metabolic acidosis anion gap. Patient denies a h/o CHF, her pro-BNP was 7550. Patient takes HCTZ 25 mg daily. She denies a h/o CHF. No chest pain. She denies syncope.
-Check echo
-ECG reviewed by me with sinus bradycardia and right-sided IVCD that is unchanged from 03/06/24
-Nephrology notes reviewed. Patient with NORM and Cre up to 4.8. Kidney and bladder u/s pending. Agree with Lasix 40 mg IV BID. If renal function worsens then HD being considered.
-Outpatient doses of HCTZ 25 mg daily and valsartan 320 mg daily on hold.
-Outpatient dose of atenolol 50 mg HS on hold.
-Outpatient dose of amlodipine 10 mg daily ordered.
-Called patient's primary microphone boom operator and obtained last office note.
[2024-06-10 15:35] LABS: ALT (SGPT) 20 U/L (0-35); AST (SGOT) 27 U/L (14-36); Alkaline Phosphatase 99 U/L (38-126); Total Bilirubin 0.4 mg/dl (0.2-1.3)
[2024-06-10] MEDS: SODIUM BICARBONATE 650 MG PO (16:33)
[2024-06-10 16:43] LABS: Lactic Acid 0.6 mmol/L (0.7-2.0)
[2024-06-10 16:45] LABS: Blood Urea Nitrogen 90 mg/dl (7-17); Carbon Dioxide 13 mmol/L (22-30); Chloride 97 mmol/L (98-107); Estimated Creatinine Clearance 11 ml/min; Glucose 99 mg/dl (70-99); Potassium 4.3 mmol/L (3.5-5.1); Sodium 130 mmol/L (135-145); eGFR 8.46
[2024-06-10 17:28] LABS: Urine Albumin Trace (Neg - Trace); Urine Bilirubin Negative (Negative); Urine Character Clear (Clear); Urine Color Yellow; Urine Glucose Negative (Negative); Urine Ketone Negative (Negative); Urine Leukocyte 2+ (Negative); Urine Nitrite Negative (Negative); Urine Occult Blood 1+ (Negative); Urine Urobilinogen Negative (Neg - 1+)
--- NOTE | 2024-06-10 17:38 | PTCARENOTE ---
Received pt from ER.Pt drowsy but arousable to verbal stimuli. Pt oriented x3 with garbled speech from previous stroke, Pt also has weakness in lower extremities, walking ability is limited at home uses transport chair, since stroke. Pt has right
forehead laceration with 8 sutures ( done in ED) Significant bruising to right eye, multiple scabbed/ bruised areas. Pt VSS 95% on 2L. Sinus Alfredo on tele. Repeat labs reviewed with nephro and primary team. Pt oriented to room, call bolivar within
reach, plan of care continues.
[2024-06-10 17:41] LABS: Osmolality Urine 259 mOsm/kg (300-900)
[2024-06-10 17:43] LABS: Urine Bacteria Many (Negative); Urine Red Blood Cell 0-2 /HPF (0-2); Urine Squamous Cell 16-20 /LPF (Few); Urine White Cell >100 /HPF (0-5)
[2024-06-10 17:56] LABS: Body Fluid for Eosinophils 1% Eosinophils seen
[2024-06-10 18:02] LABS: Urine Sodium 94 mmol/L (30-90)
[2024-06-10] MEDS: SODIUM BICARBONATE 50 MEQ IV (18:38)
[2024-06-10] MEDS: HEPARIN SC (20:19)
[2024-06-10] MEDS: NORVASC 10 MG PO (20:21)
[2024-06-10] MEDS: PROTONIX 40 MG PO (20:22)
[2024-06-10] MEDS: SODIUM BICARBONATE 1300 MG PO (21:58)
[2024-06-11] VITALS (8 sets, daily range): BP systolic 90–168; BP diastolic 51–71; PULSE 61–69; O2SAT 91–93; BMI 28.6
[2024-06-11 07:36] LABS: Hematocrit 24.2 % (37.0-47.0); Hemoglobin 8.3 g/dL (12.0-16.0); Mean Corp Hgb Conc. 34.3 g/dL (33.0-37.0); Mean Corpuscular Hgb 27.3 pg (27.0-31.0); Mean Corpuscular Volume 79.6 fL (81.0-99.0); Platelet Count 226 10^3/uL (130-400); Red Blood Cell Count 3.04 10^6/uL (4.20-5.40); White Blood Cell Count 7.4 10^3/uL (4.8-10.8)
[2024-06-11 08:06] LABS: ALT (SGPT) 18 U/L (0-35); AST (SGOT) 23 U/L (14-36); Albumin 3.1 g/dl (3.5-5.0); Alkaline Phosphatase 96 U/L (38-126); Blood Urea Nitrogen 90 mg/dl (7-17); Calcium 8.8 mg/dl (8.4-10.2); Carbon Dioxide 14 mmol/L (22-30); Chloride 98 mmol/L (98-107); Direct Bilirubin 0.4 mg/dl (0.0-0.4); Estimated Creatinine Clearance 10 ml/min; Glucose 83 mg/dl (70-99); HDL Cholesterol 68 mg/dl; Iron 49 ug/dl (37-170); LDL Cholesterol, Calculated 57 mg/dl; Magnesium 2.2 mg/dl (1.6-2.3); Sodium 134 mmol/L (135-145); Total Bilirubin 0.4 mg/dl (0.2-1.3); Total Cholesterol 140 mg/dl (50-199); Total Protein 5.9 g/dl (6.3-8.2); Triglyceride 79 mg/dl (10-149); Very Low Density Lipoprotein 15 mg/dl (0-30); eGFR 8.26
[2024-06-11 08:19] LABS: Percent Saturation 22 % (20-50); Total Iron Binding Capacity 219 ug/dl (265-497)
[2024-06-11] MEDS: ASPIR LOW (ENTERIC COATED) 81 MG PO (08:23)
[2024-06-11] MEDS: COLACE 300 MG PO (08:24)
[2024-06-11] MEDS: CRESTOR 20 MG PO (08:24)
[2024-06-11] MEDS: SODIUM BICARBONATE 1300 MG PO ×3 (08:24→20:45)
[2024-06-11] MEDS: PROTONIX 40 MG PO (08:25)
[2024-06-11] MEDS: LASIX 40 MG IV (08:25)
[2024-06-11] MEDS: HEPARIN 5000 UNITS SC ×2 (08:26→20:46)
[2024-06-11 08:43] LABS: TSH Reflex To Free T4 2.81 uIU/ml (0.47-4.68)
--- NOTE | 2024-06-11 09:18 | W.PN.HOSP.TC ---
Addendum entered and electronically signed by Nguyen Layne MD 06/11/24 13:38:
Addendum
d/w nephrology, will hold PPI, agree to repeat labs
d/w urology, will do CT A/P to better look at the anatomy
End
Original Note:
Today's Communication/Plan
-
Resume low dose Atenolol
Assessment / Plan
Assessment / Plan
Physical Exam
General: Well Developed
HEENT: NormoCephalic and Anicteric
Respiratory: Clear
Cardiac: S1/S2
GI: Soft, Non Tender and Non Distended
Musculoskeletal: No Clubbing
Skin: Warm
Neuro: Awake, Alert, Oriented and AO x 3
Psych: Calm
# NORM with metabolic acidosis
Creatinine on admission 4.8
Creatinine is 5
c/w Pascal catheter
Hold HCTZ
Might need HD
Known bladder cancer s/p resection in February 2024
Appreciate nephrology input
# Chronic diastolic heart failure
Moderate MR
Can resume atenolol but lower the dose due to bradycardia
c/w Amlodipine
# Hyponatremia
#CVA in 08/2022
#TIA in October 16
#GERD
#Hyperlipidemia
#Iron deficiency anemia
Total time spent to see the patient, examine the patient on the floor, review data and lab results, discuss treatment plan with patient, nursing staff around 55 minutes
Anticipated Discharge: > 48 hours
Subjective/Interval History
-
Date of Service: June 11, 2024
No chest pain
No sob
Objective Data
-
Labs:
Laboratory Results
06/11/24
07:10
WBC 7.4
Hgb 8.3 L
Hct 24.2 L
Plt Count 226
Sodium 134 L
Potassium 4.0
Chloride 98
Carbon Dioxide 14 L*
BUN 90 H
Creatinine 5.0 H*
Glucose 83
Calcium 8.8
Total Bilirubin 0.4
AST 23
ALT 18
Alkaline Phosphatase 96
Vital Signs:
Vital Signs
Temp Pulse Resp BP Pulse Ox
98.4 F 59 16 123/51 96
06/11/24 08:00 06/11/24 08:25 06/11/24 08:00 06/11/24 08:25 06/11/24 08:00
I&O
06/10/24 06/11/24 06/12/24
06:59 06:59 06:59
Output Total 2500 / 2500
Balance -2500 / -2500
[2024-06-11] MEDS: METAMUCIL, KONSYL 1 PACKET PO (11:42)
--- NOTE | 2024-06-11 12:52 | W.PN.CARDCBS ---
Addendum entered and electronically signed by Taiwo Rivers MD 06/11/24 13:15:
I saw and examined the patient.
The Salvager Helper's note was reviewed and I agree with the note.
Comment: Briefly, 78-year-old woman who presents after mechanical fall found to be in acute renal failure complicated by metabolic acidosis
Initially thought to be in acute decompensated heart failure given elevated BNP and chest x-ray showing bilateral infiltrates and effusion
Treated with IV Lasix however creatinine continued to uptrend
Does not appear overtly volume overloaded on exam
Would refer to nephrology for further diuretic dosing
Transthoracic echocardiogram revealed hyperdynamic left ventricle and elevated mitral valve gradients
Agree with resuming home beta-doroteo, reduced heart rate will improve LV filling time
Would hold on amlodipine given marginal blood pressure
Original Note:
Today's Communication / Plan
-
Amlodipine on hold
Atenolol restarted by hospitalist
Lasix 40 mg IV BID ordered
Cre is worse, Nephrology following
Impression / Plan
-
PCP: Dr. Foreman at [facility]
Cardiology: Dr. Cohn at [facility] [phone]
Impression:
Fall with right forehead laceration 06/10/24
Acute hypoxic respiratory failure
Acute HFpEF
NORM
Severe metabolic acidosis anion gap
Anemia
Hyponatremia
HTN
h/o CVA treated [facility] 08/2022 and then TIA 09/2023
h/o bladder cancer with TURBT
Echo 06/10/24: EF 75-80% with hyperdynamic LV function, stage II diastolic dysfunction, normal RV size and function, mild MS peak/mean 18/5 mmHg and mod MR, aortic sclerosis without stenosis and mild aortic regurgitation, mild TR
Plan:
-Patient with worsening NORM and Cre up to 5.0 on 06/11/24. Renal and bladder u/s reviewed by me and there was evidence of B/L renal collecting system dilatation and Pascal catheter in place.
-Nephrology following and the possibility of HD was brought up 06/10/24 and patient did not refuse.
-From a cardiac standpoint, initially patient thought to be in acute HF with pro-BNP 7550. Patient ordered Lasix 40 mg IV BID and weight is down 3 lbs overnight without improvement in Cre and no measurable symptomatic improvement, but is no longer
on supplemental oxygen.
-Outpatient doses of HCTZ 25 mg daily and valsartan 320 mg daily on hold.
-Outpatient dose of atenolol 50 mg HS restarted at a lower dose of 25 mg daily on 06/11/24
-Outpatient dose of amlodipine 10 mg daily placed on hold by me 06/11/24 due ot hypotension.
-Called patient's primary car filler and to obtain last office note, but nothing ever arrived on the fax machine. Will try calling again.
HPI: Patient came to [facility] today after a trip and fall and was found to have NORM and acute HF and is now admitted with a consultation to cardiology. Patient lives with her in independent living at [facility]. She says that she tripped and
fell today and hit the right side of her head. She does not take OAC and so was brought to [facility]. CT head was negative for acute intracranial process. She has sutures placed in a laceration above her right eyebrow. Labs were checked and patient noted
to be in NORM with severe metabolic acidosis anion gap. Patient denies a h/o CHF, her pro-BNP was 7550. Patient takes HCTZ 25 mg daily. She denies a h/o CHF. No chest pain. She denies syncope.
Progress Note - Commercial Lender
Subjective
Date of Service: June 11, 2024
Denies SOB
Objective
Labs:
06/11/24 07:10
06/11/24 07:10
Labs
Hgb 8.3 g/dL (12.0-16.0) L 06/11/24 07:10
Hct 24.2 % (37.0-47.0) L 06/11/24 07:10
Plt Count 226 10^3/uL (130-400) 06/11/24 07:10
Sodium 134 mmol/L (135-145) L 06/11/24 07:10
Potassium 4.0 mmol/L (3.5-5.1) 06/11/24 07:10
BUN 90 mg/dl (7-17) H 06/11/24 07:10
Creatinine 5.0 mg/dL (0.6-1.0) H* 06/11/24 07:10
Glucose 83 mg/dl (70-99) 06/11/24 07:10
Vital Signs and I&O:
Vital Signs
Temp Pulse Resp BP Pulse Ox
98.2 F 59 16 90/66 96
06/11/24 11:16 06/11/24 11:16 06/11/24 11:16 06/11/24 11:16 06/11/24 11:16
Vital Signs
Temp Pulse Resp BP Pulse Ox
98.2 F 59 16 90/66 96
06/11/24 11:16 06/11/24 11:16 06/11/24 11:16 06/11/24 11:16 06/11/24 11:16
Intake & Output
06/09/24 06/10/24 06/11/24 06/12/24
06:59 06:59 06:59 06:59
Output Total 2500 / 2500
Balance -2500 / -2500
Physical Exam
Physical Exam
GEN: NAD. AAO to person, place and situation
HEENT: EOMI, right eye ecchymotic, sutures above right eye
LUNGS: No audible wheeze
CV: SR on tele
ABD: soft, BS+, NT, ND
EXT: Trace hard edema B/L LE.
NEURO: Gross non-focal
SKIN: No rash
--- NOTE | 2024-06-11 13:02 | W.PN.NEPH.PH ---
Today's Communication / Plan
-
labs later today
eval
avoid PPI
IV bicarb push
hold lasix
Assessment/Plan
-
IMP:
NORM
Severe met acidosis A gap
Heart Failure, P EF, DD stageII
Mod MR
mild to mod MA
Hypervolemic Hyponatremia
HTN-multiple meds
Hx CVA
Hyperlipidemia
GERD
Bladder Tumor s/p TURBT
Plan:
A/w fall, found CHF and NORM
NORM-baseline cr 0.6 in January, was 1.7 in February
cr slightly upwards trend to 5
suspect multifactorial-cardiorenal+poor po intake +obst +AIN?
UA ?UTI, check cx, renal US shows bilat mod hydro left>right
consult for further eval , may need U diversion ?PCN tube, keep andujar for now
U eosinophils are +ve, reportedly PPI increased to BID in December admit with GIB
likely change to alternative med, currently she is with out GERD symp
fortunately she is non oliguric
severe met acidosis,normal L acid. slowly improving on po bicarb added, prn IV bicarb push
repeat labs later today , k normal so far
If worsening renal function likely need HD which pt not refusing
avoid nephrotoxins, hold ARB, PPI
hypervolemic hyponatremia-improving, hold HCTZ
CHFP EF-hyperdynamic state, BB resumed. cards follows, FR 40 ounces/day
BP marginal this am, hold Amlodipine
hold lasix for now, and redose if needed
Microcytic Anemia-fe sat 22%, fairly stores
d/w pt and at bedside
d/w primary
high risk encounter
-
-
Date of Service: June 11, 2024
CC / HPI / ROS
-
Chief Complaint:
NORM, met acidosis
History of Present Illness:
cr up at 5, non oliguric with andujar
BP soft this am
no fever. BUN at 90, bicarb slightly better at 14
hb stable 8.3
sodium better at 134
wt decreasing
Review of Systems:
no cp or sob
feels tired
no dizziness
Labs
-
Labs:
WBC 7.4 10^3/uL (4.8-10.8) 06/11/24 07:10
RBC 3.04 10^6/uL (4.20-5.40) L 06/11/24 07:10
Hgb 8.3 g/dL (12.0-16.0) L 06/11/24 07:10
Hct 24.2 % (37.0-47.0) L 06/11/24 07:10
Plt Count 226 10^3/uL (130-400) 06/11/24 07:10
Sodium 134 mmol/L (135-145) L 06/11/24 07:10
Potassium 4.0 mmol/L (3.5-5.1) 06/11/24 07:10
Chloride 98 mmol/L (98-107) 06/11/24 07:10
Carbon Dioxide 14 mmol/L (22-30) L* 06/11/24 07:10
BUN 90 mg/dl (7-17) H 06/11/24 07:10
Creatinine 5.0 mg/dL (0.6-1.0) H* 06/11/24 07:10
eGFR 8.26 06/11/24 07:10
Glucose 83 mg/dl (70-99) 06/11/24 07:10
Calcium 8.8 mg/dl (8.4-10.2) 06/11/24 07:10
Nno-U-Yfwahczedxa Pept 7550 pg/ml 06/10/24 11:17
Albumin 3.1 g/dl (3.5-5.0) L 06/11/24 07:10
Physical Exam
-
Vital Signs:
Vital Signs
Temp Pulse Resp BP Pulse Ox
98.2 F 59 16 90/66 96
06/11/24 11:16 06/11/24 11:16 06/11/24 11:16 06/11/24 11:16 06/11/24 11:16
Cardiovascular:: Regular rate and rhythm (murmur)
Respiratory:: Bilateral: Rales (left base)
Lung Excursion:: Normal
Abdomen:: Nontender and Soft
Extremity Edema:: +1: Bilateral: (chronic)
Andujar Catheter: Yes
--- NOTE | 2024-06-11 13:17 | PN.CDI ---
Addendum entered and electronically signed by Nguyen Layne MD 06/11/24 13:31:
Acute on chronic diastolic heart failure
Original Note:
CDI
- -
CDI:
Physician Documentation Request
Admit Date: 06/10/24 13:31
Dear Doctor Xi,
Clinical Indicators:
Patient admitted with NORM.
06/10 Cardiology consult, 'Clinically she is mildly volume overloaded ...Acute HF unknown EF'
06/11 PN, 'Chronic diastolic heart failure'
Lasix 40 mg IV x 2 doses given.
BNP
06/10/24
11:17
Tip-K-Zeodswmtukp Pept 7550
Due to potentially conflicting documentation, please clarify the most likely acuity of CHF you are evaluating, treating or monitoring:
Acute on chronic diastolic heart failure
Chronic diastolic heart failure only
Other, please specify
Use of terms such as suspected, likely, concern for, or probable (associated with a specific diagnosis that is being evaluated, monitored, or treated as if it exists) are acceptable and can be coded in the inpatient setting, when documented at the
time of discharge.
Thank you,
Lucinda Ramos RN BSN
CDI Specialist
available via tiger text
Please use your independent medical judgment in providing your response.
[2024-06-11] MEDS: SODIUM BICARBONATE 50 MEQ IV ×2 (13:29→22:58)
[2024-06-11 15:14] LABS: Urine Albumin Trace (Neg - Trace); Urine Bilirubin Negative (Negative); Urine Character Slightly Cloudy (Clear); Urine Color Straw; Urine Glucose Negative (Negative); Urine Ketone Negative (Negative); Urine Leukocyte 2+ (Negative); Urine Nitrite Negative (Negative); Urine Occult Blood 1+ (Negative); Urine Urobilinogen Negative (Neg - 1+)
[2024-06-11 15:49] LABS: Urine Bacteria Many (Negative); Urine White Cell >100 /HPF (0-5)
[2024-06-11 22:50] LABS: Blood Urea Nitrogen 91 mg/dl (7-17); Carbon Dioxide 20 mmol/L (22-30); Chloride 94 mmol/L (98-107); Estimated Creatinine Clearance 10 ml/min; Glucose 125 mg/dl (70-99); Potassium 3.7 mmol/L (3.5-5.1); Sodium 131 mmol/L (135-145); eGFR 8.46
[2024-06-12] VITALS (13 sets, daily range): BP systolic 117–165; BP diastolic 56–72; BMI 28.5
[2024-06-12 07:26] LABS: Hematocrit 23.9 % (37.0-47.0); Hemoglobin 8.2 g/dL (12.0-16.0); Mean Corp Hgb Conc. 34.3 g/dL (33.0-37.0); Mean Corpuscular Hgb 27.4 pg (27.0-31.0); Mean Corpuscular Volume 79.9 fL (81.0-99.0); Mean Platelet Volume 10.3 fL (7.4-10.4); Platelet Count 212 10^3/uL (130-400); Red Blood Cell Count 2.99 10^6/uL (4.20-5.40); Red Cell Dist. Width 16.5 % (11.5-14.5); White Blood Cell Count 8.7 10^3/uL (4.8-10.8)
[2024-06-12 07:53] LABS: Blood Urea Nitrogen 88 mg/dl (7-17); Calcium 8.6 mg/dl (8.4-10.2); Carbon Dioxide 21 mmol/L (22-30); Chloride 97 mmol/L (98-107); Estimated Creatinine Clearance 10 ml/min; Glucose 93 mg/dl (70-99); Potassium 3.4 mmol/L (3.5-5.1); Sodium 136 mmol/L (135-145); eGFR 8.26
[2024-06-12] MEDS: MIRALAX 17 GRAMS PO (08:25)
[2024-06-12] MEDS: COLACE 300 MG PO (08:26)
[2024-06-12] MEDS: CRESTOR 20 MG PO (08:26)
[2024-06-12] MEDS: TENORMIN 25 MG PO (08:26)
[2024-06-12] MEDS: SODIUM BICARBONATE 1300 MG PO ×2 (08:27→21:24)
[2024-06-12] MEDS: HEPARIN 5000 UNITS SC ×2 (08:27→21:24)
[2024-06-12] MEDS: ASPIR LOW (ENTERIC COATED) 81 MG PO (08:27)
[2024-06-12] MEDS: DULCOLAX 10 MG PO (08:29)
--- NOTE | 2024-06-12 09:12 | W.PN.CARDCBS ---
Addendum entered and electronically signed by Roíco Medina DO 06/12/24 13:12:
I saw and examined the patient.
The Environmental Sustainability Manager's note was reviewed and I agree with the note.
Comment: Patient seen and examined prior to urologic procedures. Lying supine in overall feeling sore related to trauma a fall but denies cardiovascular symptoms.
GEN:Awake alert and oriented x 3, lying supine on room air
HEENT: EOMI, right eye ecchymotic, sutures above right eye
LUNGS: CTA b/l, no wheezes/rales
CV: Reg, S1/S2, no murmur
EXT:trace edema B/L LE.
Plan:
Patient presented after mechanical fall with head trauma found to have acute renal insufficiency and severe metabolic acidosis with concern for heart failure preserved ejection fraction.
-Creatinine 5 after trial of diuresis, previously 0.6 in January 2024.
-Chest x-ray with small right pleural effusion and pulmonary edema. proBNP 7550.
-Patient denies shortness of breath at rest lying supine on room air. Diuretics held with acute renal insufficiency.
-Urology and nephrology following with known bladder cancer status post resection in February 2024.
-Plan for bilateral stent placement with urology today; maintain Pascal catheter.
-Following procedure and improvement of renal function will defer further use of diuretics to nephrology. Patient was not on outpatient diuretics but was taking hydrochlorothiazide which is currently discontinued.
- If renal insufficiency remains an issue would change rosuvastatin to atorvastatin.
-Continue low-dose atenolol and monitor heart rate trends. Amlodipine currently held.
Will sign off, recall if needed.
Patient should follow-up with her outpatient forest economics professor at [facility], Dr. Cohn.
Original Note:
Today's Communication / Plan
-
For stent placement
Lasix on hold
Follow BP and consider resuming amlodipine
OP cardiology records requested again
Impression / Plan
-
PCP: Dr. Foreman at [facility]
Cardiology: Dr. Cohn at [facility] [phone]
Impression:
Fall with right forehead laceration 06/10/24
Acute hypoxic respiratory failure
Acute HFpEF
NORM
Severe metabolic acidosis anion gap
Anemia
Hyponatremia
HTN
h/o CVA treated with tPA at [facility] 08/2022 and then TIA 09/2023
h/o bladder cancer with TURBT
Echo 06/10/24: EF 75-80% with hyperdynamic LV function, stage II diastolic dysfunction, normal RV size and function, mild MS peak/mean 18/5 mmHg and mod MR, aortic sclerosis without stenosis and mild aortic regurgitation, mild TR
Plan:
-Presented after trip and fall and was found to have NORM and evidence of acute heart failure.
-Creat up to 5.0, stable 06/12. Renal and bladder US with evidence of b/l renal collecting system dilation. CT w/ possible obstructive process. Plan for b/l stent placement today.
-Continue to follow renal function. Nephrology had previously discussed HD and patient did not refuse.
-From a cardiac standpoint, initially patient thought to be in acute HF with pro-BNP 7550. Diuresed briefly w/ IV lasix, however no change in creat and no symptomatic improvement, but weight did come down.
-Lasix on hold for now. Defer further diuresis to nephrology given NORM.
-Losartan and HCTZ remain on hold.
-Atenolol resumed at lower dose 25mg daily 06/11.
-BP improving, may consider resuming amlodipine.
-Still attempting to obtain OP cardiology records.
HPI: Patient came to [facility] today after a trip and fall and was found to have NORM and acute HF and is now admitted with a consultation to cardiology. Patient lives with her in independent living at [facility]. She says that she tripped and
fell today and hit the right side of her head. She does not take OAC and so was brought to [facility]. CT head was negative for acute intracranial process. She has sutures placed in a laceration above her right eyebrow. Labs were checked and patient noted
to be in NORM with severe metabolic acidosis anion gap. Patient denies a h/o CHF, her pro-BNP was 7550. Patient takes HCTZ 25 mg daily. She denies a h/o CHF. No chest pain. She denies syncope.
Progress Note - Wood Panel Inspector
Subjective
Date of Service: June 12, 2024
No complaints.
Objective
Labs:
06/12/24 06:51
06/12/24 06:51
Labs
Hgb 8.2 g/dL (12.0-16.0) L 06/12/24 06:51
Hct 23.9 % (37.0-47.0) L 06/12/24 06:51
Plt Count 212 10^3/uL (130-400) 06/12/24 06:51
Sodium 136 mmol/L (135-145) 06/12/24 06:51
Potassium 3.4 mmol/L (3.5-5.1) L 06/12/24 06:51
BUN 88 mg/dl (7-17) H 06/12/24 06:51
Creatinine 5.0 mg/dL (0.6-1.0) H* 06/12/24 06:51
Glucose 93 mg/dl (70-99) 06/12/24 06:51
Vital Signs and I&O:
Vital Signs
Temp Pulse Resp BP Pulse Ox
99 F 60 18 146/66 96
06/12/24 07:35 06/12/24 08:26 06/12/24 07:35 06/12/24 08:26 06/12/24 07:35
Vital Signs
Temp Pulse Resp BP Pulse Ox
99 F 60 18 146/66 96
06/12/24 07:35 06/12/24 08:26 06/12/24 07:35 06/12/24 08:26 06/12/24 07:35
Intake & Output
06/10/24 06/11/24 06/12/24 06/13/24
06:59 06:59 06:59 06:59
Intake Total 1919
Output Total 2500 / 2499 1575 / 1575
Balance -2500 / -2500 345 / 345
Physical Exam
Physical Exam
GEN: NAD. AAOx3
HEENT: EOMI, right eye ecchymotic, sutures above right eye
LUNGS: CTA b/l, no wheezes/rales
CV: Reg, S1/S2, no murmur
EXT:No clubbing or cyanosis, trace edema B/L LE.
NEURO: Gross non-focal
SKIN: Warm, dry, no rash
--- NOTE | 2024-06-12 09:53 | W.PN.HOSP.TC ---
Today's Communication/Plan
-
NPO for urology procedure
Replace K
Mild IVF
Sodium bicarbonate
Anemia, HGB 8.2. Might need Erythropoietin
Assessment / Plan
Assessment / Plan
Physical Exam
General: Well Developed
HEENT: NormoCephalic and Anicteric
Respiratory: Clear
Cardiac: S1/S2
GI: Soft, Non Tender and Non Distended
Musculoskeletal: No Clubbing
Skin: Warm
Neuro: Awake, Alert, Oriented and AO x 3
Psych: Calm
# NORM with metabolic acidosis
Creatinine on admission 4.8
Creatinine is 5
c/w Pascal catheter
Hold HCTZ
CT A/P reviewed with urology doctor, plan to do Bilateral stent placement today, pt is NPO, will give mild IVF
Might need HD
Known bladder cancer s/p resection in February 2024
Appreciate nephrology and urology input
# Hypokalemia
Replace
# Chronic diastolic heart failure
Moderate MR
Can resume atenolol but lower the dose due to bradycardia
c/w Amlodipine
# Hyponatremia, improved.
#CVA in 08/2022
#TIA in October 16
#GERD
#Hyperlipidemia
#Iron deficiency anemia, now with anemia of chronic disease, normal Ferritin
Total time spent to see the patient, examine the patient on the floor, review data and lab results, discuss treatment plan with patient, nursing staff around 57 minutes
Anticipated Discharge: > 48 hours
Subjective/Interval History
-
Date of Service: June 12, 2024
No chest pain
No sob
Objective Data
-
Labs:
Laboratory Results
06/11/24 06/12/24
22:06 06:51
WBC 8.7
Hgb 8.2 L
Hct 23.9 L
Plt Count 212
Sodium 131 L 136
Potassium 3.7 3.4 L
Chloride 94 L 97 L
Carbon Dioxide 20 L 21 L
BUN 91 H 88 H
Creatinine 4.9 H* 5.0 H*
Glucose 125 H 93
Calcium 9.0 8.6
Vital Signs:
Vital Signs
Temp Pulse Resp BP Pulse Ox
99 F 60 18 146/66 96
06/12/24 07:35 06/12/24 08:26 06/12/24 07:35 06/12/24 08:26 06/12/24 07:35
I&O
06/11/24 06/12/24 06/13/24
06:59 06:59 06:59
Intake Total 1919
Output Total 2500 / 2500 1575 / 1575
Balance -2500 / -2500 345 / 345
--- NOTE | 2024-06-12 10:26 | W.PN.NEPH.PH ---
Today's Communication / Plan
-
stent
Assessment/Plan
-
IMP:
NORM
Severe met acidosis A gap
Heart Failure, P EF, DD stageII
Mod MR
mild to mod WI
Hypervolemic Hyponatremia
HTN-multiple meds
Hx CVA
Hyperlipidemia
GERD
Bladder Tumor s/p TURBT
Plan:
for OR for bilateral stenting
follow BMP
replete K
-
-
Date of Service: June 12, 2024
CC / HPI / ROS
-
Chief Complaint:
NORM, met acidosis
History of Present Illness:
NORM/Cr still 5.0 despite andujar
BP stable
Hgb low stable
sodium better at 136
Review of Systems:
no cp or sob
Labs
-
Labs:
WBC 8.7 10^3/uL (4.8-10.8) 06/12/24 06:51
RBC 2.99 10^6/uL (4.20-5.40) L 06/12/24 06:51
Hgb 8.2 g/dL (12.0-16.0) L 06/12/24 06:51
Hct 23.9 % (37.0-47.0) L 06/12/24 06:51
Plt Count 212 10^3/uL (130-400) 06/12/24 06:51
Sodium 136 mmol/L (135-145) 06/12/24 06:51
Potassium 3.4 mmol/L (3.5-5.1) L 06/12/24 06:51
Chloride 97 mmol/L (98-107) L 06/12/24 06:51
Carbon Dioxide 21 mmol/L (22-30) L 06/12/24 06:51
BUN 88 mg/dl (7-17) H 06/12/24 06:51
Creatinine 5.0 mg/dL (0.6-1.0) H* 06/12/24 06:51
eGFR 8.26 06/12/24 06:51
Glucose 93 mg/dl (70-99) 06/12/24 06:51
Calcium 8.6 mg/dl (8.4-10.2) 06/12/24 06:51
Ljy-H-Qdwntwmiprp Pept 7550 pg/ml 06/10/24 11:17
Albumin 3.1 g/dl (3.5-5.0) L 06/11/24 07:10
Physical Exam
-
Vital Signs:
Vital Signs
Temp Pulse Resp BP Pulse Ox
99 F 60 18 146/66 96
06/12/24 07:35 06/12/24 08:26 06/12/24 07:35 06/12/24 08:26 06/12/24 07:35
Cardiovascular:: Regular rate and rhythm
Respiratory:: Bilateral: Coarse
Lung Excursion:: Normal
Abdomen:: Nontender and Soft
Bowel Sounds:: Normal
Extremity Edema:: None: Bilateral:
[2024-06-12] MEDS: NSS with KCL 20 MEQ 1000 IV ×2 (10:39→22:43)
--- NOTE | 2024-06-12 11:53 | W.PN.UPDATE ---
Update Note
Progress Note Update
NORM
Bilateral obstructive uropathy
Bilateral hydroureteronephrosis
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 Tam)
Cr continues to stay elevated w/ slight progression today - 5.0.
Plan:
- Maintain NPO
- To OR for cysto + bilateral ureteral stent insertion
- IV Ancef solar field installation crew member to OR (renally dosed)
- Surgical consent to be signed in preop holding
Discussed plan of care w/ patient.
D/w Dr. Layne.
[2024-06-12] MEDS: METAMUCIL, KONSYL PO (12:40)
--- NOTE | 2024-06-12 13:22 | W.PN.URO.CBU ---
Today's Communication / Plan
-
- Maintain NPO
- To OR this afternoon for cysto + bilateral ureteral stent insertion
- IV Ancef 1g plumbing engineering draftsperson to OR (renally dosed)
- Surgical consent to be signed in preop holding
Reviewed risks, benefits, alternatives, and potential complications of cystoscopy + bilateral stent placement including but not limited to urosepsis, bleeding, ureteral/bladder injury, need for additional procedures/surgeries.
If retrograde ureteral stent placement not feasible OR if stents fail w/ progression of ARF, will require bilateral PCNs by IR - patient confirmed understanding.
Discussed plan of care w/ patient.
D/w Dr. Layne.
Assessment / Plan
-
ARF
Bilateral obstructive uropathy
Bilateral hydroureteronephrosis
H/o HG planning analyst bladder cancer s/p TURBT 02/2024
Cr rise to 5.0
06/11: CTAP w/o IV contrast => bilateral hydroureteronephrosis w/o obvious obstructing tumor/stone, Pascal catheter w/n decompressed bladder, significant rectal distention c/w constipation
Diagnosis
-
Date of Service: June 12, 2024
-
Patient Diagnosis:
ARF
Bilateral obstructive uropathy
Bilateral hydroureteronephrosis
H/o HG planning analyst bladder cancer s/p TURBT 02/2024
Subjective
-
Sleepy - but rousable.
Denies flank pain.
Pascal catheter draining clear urine.
Objective
-
Vital Signs
Temp Pulse Resp BP Pulse Ox
98.4 F 58 18 138/61 96
06/12/24 11:02 06/12/24 11:02 06/12/24 11:02 06/12/24 11:02 06/12/24 11:02
Intake and Output
06/11/24 06/12/24 06/13/24
06:59 06:59 06:59
Intake Total 1919
Output Total 2500 / 2500 1575 / 1575
Balance -2500 / -2500 345 / 345
Intake:
Oral fluids 1919
Output:
Urine, Pascal 2500 / 2500 1575 / 1575
Laboratory Results
06/12/24 06:51
06/12/24 06:51
Physical Exam
-
General - well developed, well nourished, no acute distress
Abdomen - soft, non-tender, no CVAT
Genitalia - normal, Pascal catheter w/ clear UOP
Skin - warm & dry with no rash
Neuro - no motor deficits
Extremities - no clubbing, no cyanosis, no edema
Care Review
Data Reviewed
Discussed with: Hospitalist and Nursing
CT Scan: Report Pers Reviewed and Image Pers Reviewed
--- NOTE | 2024-06-12 15:08 | PTCARENOTE ---
Received patient this am AAOx3. Pt has garbled speech from an old CVA. Pt NPO this am for OR. IVF started as ordered. Pt offered no complaints. Made patient comfortable. Report given to OR at 1500 an patient sent to OR.
--- NOTE | 2024-06-12 16:25 | W.IMMPOSTOP ---
Surgical Immed Post Op Note
-
Primary Surgeon: Nyasia
Pre-op Diagnosis: ARF, bilateral hydroureteronephrosis (down to UVJs bilaterally), h/o NMIBC
Post-op Diagnosis: Same
Procedure Performed: cystoscopy + bilateral ureteral stent placement
Anesthesia Type: LMA
Specimen / Cultures: None/None
Estimated Blood Loss: Negligible
Drains:
1. 6Fr x 24 cm JJ bilateral ureteral stents
2. 16Fr Pascal catheter
Complications: None
Operative Findings:
1. Cystoscopy w/ healing resection sites from prior TURBT w/o evidence of residual disease.
2. Pinpoint right UO cannulated w/ guidewire w/o difficulty.
3. Moderate resistance at left UO - guidewire passed w/o difficulty after traversing left UO.
[2024-06-12] MEDS: SODIUM BICARBONATE PO (18:00)
--- NOTE | 2024-06-12 18:01 | PTCARENOTE ---
Patient received from PACU in bed; Patient on 2L Nasal Cannula; IVF infusing; Patient denies pain at this time, denies N/V at this time; Indwelling urinary catheter draining cloudy yellow urine; Patient awake and alert to self, place, and time;
Patient placed on telemetry per order, patient currently in normal sinus rhythm, apical heart rate regular, murmur noted; Patient lungs clear to auscultation, diminished at the bases; Hypoactive bowel sounds; Spouse at bedside; Patient and spouse
oriented to room and unit; Call bolivar within reach; Bed in lowest position, wheels locked; Assessment ongoing
[2024-06-13 02:54] VITALS: BP 146/60
[2024-06-13] MEDS: TYLENOL 1000 MG PO (05:04)
[2024-06-13 05:11] VITALS: BMI 27.9
[2024-06-13 05:38] VITALS: BMI 27.9
[2024-06-13 06:25] VITALS: BMI 27.9
[2024-06-13] MEDS: NSS with KCL 20 MEQ 1000 IV (06:30)
[2024-06-13 06:41] LABS: Hematocrit 22.5 % (37.0-47.0); Hemoglobin 7.6 g/dL (12.0-16.0); Mean Corp Hgb Conc. 33.8 g/dL (33.0-37.0); Mean Corpuscular Hgb 27.6 pg (27.0-31.0); Mean Corpuscular Volume 81.8 fL (81.0-99.0); Platelet Count 197 10^3/uL (130-400); Red Blood Cell Count 2.75 10^6/uL (4.20-5.40); Red Cell Dist. Width 16.7 % (11.5-14.5); White Blood Cell Count 5.9 10^3/uL (4.8-10.8)
[2024-06-13 06:55] VITALS: BP 144/63
[2024-06-13 07:08] LABS: Blood Urea Nitrogen 82 mg/dl (7-17); Calcium 8.5 mg/dl (8.4-10.2); Carbon Dioxide 25 mmol/L (22-30); Chloride 100 mmol/L (98-107); Estimated Creatinine Clearance 13 ml/min; Glucose 120 mg/dl (70-99); Potassium 4.1 mmol/L (3.5-5.1); Sodium 138 mmol/L (135-145); eGFR 10.79
[2024-06-13] MEDS: DULCOLAX 10 MG PO ×2 (09:24→21:02)
[2024-06-13] MEDS: CRESTOR 20 MG PO (09:24)
[2024-06-13] MEDS: TENORMIN 25 MG PO (09:25)
[2024-06-13] MEDS: ASPIR LOW (ENTERIC COATED) 81 MG PO (09:25)
[2024-06-13] MEDS: HEPARIN 5000 UNITS SC ×2 (09:25→21:02)
[2024-06-13] MEDS: COLACE 300 MG PO (09:25)
[2024-06-13] MEDS: MIRALAX 17 GRAMS PO (09:26)
[2024-06-13] MEDS: SODIUM BICARBONATE 1300 MG PO (09:44)
--- NOTE | 2024-06-13 10:02 | W.PN.NEPH.PH ---
Today's Communication / Plan
-
follow BMP
Assessment/Plan
-
IMP:
NORM
Severe met acidosis A gap
Heart Failure, P EF, DD stageII
Mod MR
mild to mod NV
Hypervolemic Hyponatremia
HTN-multiple meds
Hx CVA
Hyperlipidemia
GERD
Bladder Tumor s/p TURBT
Plan:
meds cleaned up
follow BMP
-
-
Date of Service: June 13, 2024
CC / HPI / ROS
-
Chief Complaint:
NORM, met acidosis
History of Present Illness:
NORM/Cr down to 4
s/p bilateral ureteral stents 06/[address], nonoliguric
BP stable
Hgb low 7.6
sodium better at 138
acidosis resolved
Review of Systems:
no cp or sob
Labs
-
Labs:
WBC 5.9 10^3/uL (4.8-10.8) 06/13/24 06:25
RBC 2.75 10^6/uL (4.20-5.40) L 06/13/24 06:25
Hgb 7.6 g/dL (12.0-16.0) L 06/13/24 06:25
Hct 22.5 % (37.0-47.0) L 06/13/24 06:25
Plt Count 197 10^3/uL (130-400) 06/13/24 06:25
Sodium 138 mmol/L (135-145) 06/13/24 06:25
Potassium 4.1 mmol/L (3.5-5.1) 06/13/24 06:25
Chloride 100 mmol/L (98-107) 06/13/24 06:25
Carbon Dioxide 25 mmol/L (22-30) 06/13/24 06:25
BUN 82 mg/dl (7-17) H 06/13/24 06:25
Creatinine 4.0 mg/dL (0.6-1.0) H 06/13/24 06:25
eGFR 10.79 06/13/24 06:25
Glucose 120 mg/dl (70-99) H 06/13/24 06:25
Calcium 8.5 mg/dl (8.4-10.2) 06/13/24 06:25
Khd-G-Qrfzvtyhzvo Pept 7550 pg/ml 06/10/24 11:17
Albumin 3.1 g/dl (3.5-5.0) L 06/11/24 07:10
Physical Exam
-
Vital Signs:
Vital Signs
Temp Pulse Resp BP Pulse Ox
97.6 F 63 16 144/63 97
06/13/24 06:55 06/13/24 09:25 06/13/24 06:55 06/13/24 09:25 06/13/24 06:55
Cardiovascular:: Regular rate and rhythm
Respiratory:: Bilateral: CTA
Lung Excursion:: Normal
Abdomen:: Nontender and Soft
Bowel Sounds:: Normal
Extremity Edema:: None: Bilateral:
--- NOTE | 2024-06-13 10:07 | W.PN.HOSP.TC ---
Today's Communication/Plan
-
c/w Pascal
encourage fluid intake
encourage Laxative use
Assessment / Plan
Assessment / Plan
Physical Exam
General: Well Developed
HEENT: NormoCephalic and Anicteric
Respiratory: Clear
Cardiac: S1/S2
GI: Soft, Non Tender and Non Distended
Musculoskeletal: No Clubbing
Skin: Warm
: + Pascal
Neuro: Awake, Alert, Oriented and AO x 3
Psych: Calm
# NORM with metabolic acidosis
Some improvement today
Creatinine on admission 4.8
Creatinine is 4.0
s/p bilateral ureteral stents
c/w Pascal catheter
Held HCTZ
Known bladder cancer s/p resection in February 2024
Appreciate nephrology and urology input
#Headache
No blurred vision
requested PRN Tylenol
# Hypokalemia
Replaced
# Constipation
pt denies bloating or abdominal/ rectal discomfort
will do bowel regimen with MiraLAX and Dulcolax
# Chronic diastolic heart failure
Moderate MR
Can resume atenolol but lower the dose due to bradycardia
c/w Amlodipine
# Hyponatremia, improved.
#CVA in 08/2022
#TIA in October 16
#GERD
#Hyperlipidemia
#Iron deficiency anemia, now with anemia of chronic disease, normal Ferritin
Total time spent to see the patient, examine the patient on the floor, review data and lab results, discuss treatment plan with patient, , nursing staff around 57 minutes
Anticipated Discharge: > 48 hours
Subjective/Interval History
-
Date of Service: June 13, 2024
No chest pain
No abdominal pain
She feels tired
Objective Data
-
Labs:
Laboratory Results
06/13/24
06:25
WBC 5.9
Hgb 7.6 L
Hct 22.5 L
Plt Count 197
Sodium 138
Potassium 4.1
Chloride 100
Carbon Dioxide 25
BUN 82 H
Creatinine 4.0 H
Glucose 120 H
Calcium 8.5
Vital Signs:
Vital Signs
Temp Pulse Resp BP Pulse Ox
97.6 F 63 16 144/63 97
06/13/24 06:55 06/13/24 09:25 06/13/24 06:55 06/13/24 09:25 06/13/24 06:55
I&O
06/12/24 06/13/24 06/14/24
06:59 06:59 06:59
Intake Total 1919 / 1919 1300 / 1300
Output Total 1575 / 1575 1899 / 190
Balance 345 / 345 -600 / -600
--- NOTE | 2024-06-13 10:41 | CM ---
CM met with pt at bedside.
Pt resides with spouse in an [place] apt at [facility].
Prior to admission, pt ambulates using a rollator, transfer chair and power scooter. Able to transfer self. Ind with [facility].
Confirmed PCP is Tessa Foreman and uses the [facility] pharmacy at [facility]. This pharmacy is closed on Sundays.
+ Prescription plan.
Discussed discharge planning. Has VN history with [facility] and no SNF history. Pt reports preference is for home with VN. Offered choice of agency. Preference is to use [facility]. Discussed SNF. If recc'd would consider
the [facility].
Repeat PT eval pending. Will send referrals to [facility] and the [facility] to follow. Pt in agreement.
[2024-06-13 11:00] VITALS: BP 112/50
--- NOTE | 2024-06-13 11:38 | W.PN.URO.CBU ---
Today's Communication / Plan
-
Trend BMP
Trial of void when renal function improved further
Discharge with stents in place
Assessment / Plan
-
78F hx of high grade ethyl blender bladder cancer s/p TURBT 02/2024
ARF
Bilateral obstructive uropathy
Bilateral hydroureteronephrosis
06/11: CTAP w/o IV contrast => bilateral hydroureteronephrosis w/o obvious obstructing tumor/stone, Andujar catheter w/n decompressed bladder, significant rectal distention c/w constipation
s/p OR for cystoscopy and bilateral ureteral stent placement 06/12
- Unclear source of bilateral ureteral obstruction on cystoscopy. No tumor noted and ureteral orifices did not appear scarred and stents placed without difficulty
- Trend BMP - NORM improving today
- Compression from significant constipation and rectal distension is a possible contributing factor - Recommend aggressive bowel regimen
- Trial of void/andujar removal when renal function moving to baseline
- Discharge with stents in place - will plan for outpatient removal and reimaging
Diagnosis
-
Date of Service: June 13, 2024
-
Patient Diagnosis:
Post Op Day:
Patient Diagnosis:
ARF
Bilateral obstructive uropathy
Bilateral hydroureteronephrosis
H/o HG ethyl blender bladder cancer s/p TURBT 02/2024
Subjective
-
No events s/p stent placement
Well tolerated
Objective
-
Vital Signs
Temp Pulse Resp BP Pulse Ox
97.6 F 63 16 144/63 97
06/13/24 06:55 06/13/24 09:25 06/13/24 06:55 06/13/24 09:25 06/13/24 06:55
Intake and Output
06/12/24 06/13/24 06/14/24
06:59 06:59 06:59
Intake Total 1919 1300 / 1300
Output Total 157 / 1575 1899
Balance 345 / 345 -600 / -600
Intake:
Oral fluids 1919
IV fluids (Total) 1300 / 1300
Normosol 200 / 200
Output:
Urine, Andujar 1575 / 1575 1899
Laboratory Results
06/13/24 06:25
06/13/24 06:25
Physical Exam
-
General - well developed, well nourished, no acute distress
Chest - clear bilaterally
Abdomen - soft, non-tender
Skin - warm & dry with no rash
Neuro - AOx3, no motor deficits
Extremities - no clubbing, no cyanosis, no edema
[2024-06-13] MEDS: METAMUCIL, KONSYL PO (11:54)
[2024-06-13 14:56] VITALS: BP 114/58
[2024-06-13 23:05] VITALS: BP 136/65
[2024-06-14 06:00] VITALS: BMI 28.1
[2024-06-14 06:33] LABS: Hematocrit 24.7 % (37.0-47.0); Hemoglobin 8.2 g/dL (12.0-16.0); Mean Corp Hgb Conc. 33.2 g/dL (33.0-37.0); Mean Corpuscular Hgb 27.4 pg (27.0-31.0); Mean Corpuscular Volume 82.6 fL (81.0-99.0); Platelet Count 223 10^3/uL (130-400); Red Blood Cell Count 2.99 10^6/uL (4.20-5.40); Red Cell Dist. Width 16.7 % (11.5-14.5)
[2024-06-14 07:07] LABS: Blood Urea Nitrogen 73 mg/dl (7-17); Calcium 9.1 mg/dl (8.4-10.2); Carbon Dioxide 27 mmol/L (22-30); Chloride 100 mmol/L (98-107); Estimated Creatinine Clearance 14 ml/min; Glucose 85 mg/dl (70-99); Potassium 4.2 mmol/L (3.5-5.1); Sodium 141 mmol/L (135-145); eGFR 12.24
[2024-06-14 07:19] VITALS: BP 146/64
[2024-06-14] MEDS: DULCOLAX 10 MG PO ×2 (08:45→21:21)
[2024-06-14] MEDS: HEPARIN 5000 UNITS SC ×2 (08:46→21:22)
[2024-06-14] MEDS: CRESTOR 20 MG PO (08:46)
[2024-06-14] MEDS: MIRALAX 17 GRAMS PO (08:46)
[2024-06-14] MEDS: COLACE 300 MG PO (08:46)
[2024-06-14] MEDS: ASPIR LOW (ENTERIC COATED) 81 MG PO (08:46)
[2024-06-14] MEDS: TENORMIN 25 MG PO (08:49)
--- NOTE | 2024-06-14 09:05 | W.PN.NEPH.PH ---
Today's Communication / Plan
-
follow BMP
Assessment/Plan
-
IMP:
NORM
Severe met acidosis A gap
Heart Failure, P EF, DD stageII
Mod MR
mild to mod PA
Hypervolemic Hyponatremia
HTN-multiple meds
Hx CVA
Hyperlipidemia
GERD
Bladder Tumor s/p TURBT
Plan:
follow BMP
voiding trial when desired
-
-
Date of Service: June 14, 2024
CC / HPI / ROS
-
Chief Complaint:
NORM, met acidosis
History of Present Illness:
NORM/Cr down to 3.6
s/p bilateral ureteral stents 06/[address], nonoliguric
BP stable
Hgb low 8.2
sodium better at 131
acidosis resolved
Review of Systems:
no cp or sob
Labs
-
Labs:
WBC 9.0 10^3/uL (4.8-10.8) 06/14/24 06:08
RBC 2.99 10^6/uL (4.20-5.40) L 06/14/24 06:08
Hgb 8.2 g/dL (12.0-16.0) L 06/14/24 06:08
Hct 24.7 % (37.0-47.0) L 06/14/24 06:08
Plt Count 223 10^3/uL (130-400) 06/14/24 06:08
Sodium 141 mmol/L (135-145) 06/14/24 06:08
Potassium 4.2 mmol/L (3.5-5.1) 06/14/24 06:08
Chloride 100 mmol/L (98-107) 06/14/24 06:08
Carbon Dioxide 27 mmol/L (22-30) 06/14/24 06:08
BUN 73 mg/dl (7-17) H 06/14/24 06:08
Creatinine 3.6 mg/dL (0.6-1.0) H 06/14/24 06:08
eGFR 12.24 06/14/24 06:08
Glucose 85 mg/dl (70-99) 06/14/24 06:08
Calcium 9.1 mg/dl (8.4-10.2) 06/14/24 06:08
Wjl-Q-Vtkwpuvsnko Pept 7550 pg/ml 06/10/24 11:17
Albumin 3.1 g/dl (3.5-5.0) L 06/11/24 07:10
Physical Exam
-
Vital Signs:
Vital Signs
Temp Pulse Resp BP Pulse Ox
98.4 F 64 16 146/64 95
06/14/24 07:19 06/14/24 08:49 06/14/24 07:19 06/14/24 08:49 06/14/24 07:19
Cardiovascular:: Regular rate and rhythm
Respiratory:: Bilateral: CTA
Lung Excursion:: Normal
Abdomen:: Nontender and Soft
Bowel Sounds:: Normal
Extremity Edema:: None: Bilateral:
--- NOTE | 2024-06-14 09:43 | W.PN.HOSP.TC ---
Addendum entered and electronically signed by Nguyen Layne MD 06/14/24 13:38:
Addendum
SBP >155 for two readings since AM time
Will add Oral hydralazine PRN
End
Original Note:
Today's Communication/Plan
-
will need PT evaluation
Creatinine is responding
c/w aggressive bowel regimen for another 24 hours
Assessment / Plan
Assessment / Plan
Physical Exam
General: Well Developed
HEENT: NormoCephalic and Anicteric
Respiratory: Clear
Cardiac: S1/S2
GI: Soft, Non Tender and Non Distended
Musculoskeletal: No Clubbing
Skin: Warm
: + Pascal
Neuro: Awake, Alert, Oriented and AO x 3
Psych: Calm
# NORM with metabolic acidosis
Some improvement today
Creatinine on admission 4.8
Creatinine is 3.6
s/p bilateral ureteral stents
c/w Pascal catheter
Held HCTZ
Known bladder cancer s/p resection in February 2024
Appreciate nephrology and urology input
#Headache
No blurred vision
requested PRN Tylenol
# Hypokalemia
Replaced
# Constipation
pt denies bloating or abdominal/ rectal discomfort
Had BM but will c/w bowel regimen for another day ( images showed fecal burden in colon/rectum). C/W MiraLAX and Dulcolax
# Chronic diastolic heart failure
Moderate MR
Resumed atenolol but lower the dose due to bradycardia, HR 60-50
c/w Amlodipine
# Hyponatremia, improved.
#CVA in 08/2022
#TIA in October 16
#GERD
#Hyperlipidemia
#Iron deficiency anemia, now with anemia of chronic disease, normal Ferritin
Total time spent to see the patient, examine the patient on the floor, review data and lab results, discuss treatment plan with patient, , nursing staff around 57 minutes
Anticipated Discharge: 24 - 48 hours
Subjective/Interval History
-
Date of Service: June 14, 2024
Objective Data
-
Labs:
Laboratory Results
06/14/24
06:08
WBC 9.0
Hgb 8.2 L
Hct 24.7 L
Plt Count 223
Sodium 141
Potassium 4.2
Chloride 100
Carbon Dioxide 27
BUN 73 H
Creatinine 3.6 H
Glucose 85
Calcium 9.1
Vital Signs:
Vital Signs
Temp Pulse Resp BP Pulse Ox
98.4 F 64 16 146/64 95
06/14/24 07:19 06/14/24 08:49 06/14/24 07:19 06/14/24 08:49 06/14/24 07:19
I&O
06/13/24 06/14/24 06/15/24
06:59 06:59 06:59
Intake Total 1300 / 1300 1020 / 1020
Output Total 1900 / 1900 2024
Balance -600 / -600 -1005 / -1005
--- NOTE | 2024-06-14 11:41 | W.PN.URO.CBU ---
Today's Communication / Plan
-
Trend BMP
Renal US tomorrow
Assessment / Plan
-
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
ARF
Bilateral obstructive uropathy
Bilateral hydroureteronephrosis
06/11: CTAP w/o IV contrast => bilateral hydroureteronephrosis w/o obvious obstructing tumor/stone, Andujar catheter w/n decompressed bladder, significant rectal distention c/w constipation
s/p OR for cystoscopy and bilateral ureteral stent placement 06/12
- Unclear source of bilateral ureteral obstruction on cystoscopy. No tumor noted and ureteral orifices did not appear scarred but per Dr. Murrell some slight resistance to initial wire placement
- Trend BMP - NORM continues improving today
- Compression from significant constipation and rectal distension is a possible contributing factor - Recommend aggressive bowel regimen
- Trial of void/andujar removal when renal function closer to baseline
- Renal US tomorrow to evaluate for improvement of hydronephrosis
- Discharge with stents in place - will plan for outpatient removal and reimaging
Diagnosis
-
Date of Service: June 14, 2024
-
Patient Diagnosis:
ARF
Bilateral obstructive uropathy
Bilateral hydroureteronephrosis
H/o HG silk presser bladder cancer s/p TURBT 02/2024
Subjective
-
Dizziness/lightheaded
No complaints
Stents well tolerated, andujar in place
Objective
-
Vital Signs
Temp Pulse Resp BP Pulse Ox
98.4 F 64 16 146/64 95
06/14/24 07:19 06/14/24 08:49 06/14/24 07:19 06/14/24 08:49 06/14/24 07:19
Intake and Output
06/13/24 06/14/24 06/15/24
06:59 06:59 06:59
Intake Total 1300 / 1300 1020 / 1020
Output Total 1899
Balance -600 / -600 -1005 / -1005
Intake:
Oral fluids 720 / 720
IV fluids (Total) 1300 / 1300 300 / 300
Normosol 200 / 200
Output:
Urine, Andujar 1899
Laboratory Results
06/14/24 06:08
06/14/24 06:08
Physical Exam
-
General - well developed, well nourished, no acute distress
Chest - clear
- andujar in place, clear urine
Skin - warm & dry
[2024-06-14] MEDS: METAMUCIL, KONSYL 1 PACKET PO (12:26)
[2024-06-14] MEDS: APRESOLINE 5 MG PO ×3 (14:17→21:32)
[2024-06-14 14:20] VITALS: BP 169/72
[2024-06-14 15:51] VITALS: BP 186/76
[2024-06-14 17:40] VITALS: BP 119/84
[2024-06-14 23:00] VITALS: BP 179/85
[2024-06-14] MEDS: APRESOLINE 5 MG IV (23:04)
[2024-06-14] MEDS: TYLENOL 1000 MG PO (23:36)
[2024-06-15] VITALS (8 sets, daily range): BP systolic 138–197; BP diastolic 58–82; PULSE 69; O2SAT 95; BMI 27.1
[2024-06-15 06:12] LABS: Hematocrit 26.4 % (37.0-47.0); Mean Corp Hgb Conc. 34.1 g/dL (33.0-37.0); Mean Corpuscular Hgb 28.7 pg (27.0-31.0); Mean Corpuscular Volume 84.1 fL (81.0-99.0); Mean Platelet Volume 9.9 fL (7.4-10.4); Platelet Count 221 10^3/uL (130-400); Red Blood Cell Count 3.14 10^6/uL (4.20-5.40); Red Cell Dist. Width 16.2 % (11.5-14.5); White Blood Cell Count 9.4 10^3/uL (4.8-10.8)
[2024-06-15 06:54] LABS: Blood Urea Nitrogen 64 mg/dl (7-17); Calcium 9.2 mg/dl (8.4-10.2); Carbon Dioxide 23 mmol/L (22-30); Chloride 100 mmol/L (98-107); Estimated Creatinine Clearance 16 ml/min; Glucose 88 mg/dl (70-99); Potassium 3.9 mmol/L (3.5-5.1); Sodium 139 mmol/L (135-145); eGFR 15.87
[2024-06-15] MEDS: TENORMIN 25 MG PO (08:36)
[2024-06-15] MEDS: APRESOLINE 5 MG PO (08:36)
[2024-06-15] MEDS: ASPIR LOW (ENTERIC COATED) 81 MG PO (08:36)
[2024-06-15] MEDS: CRESTOR 20 MG PO (08:36)
[2024-06-15] MEDS: HEPARIN 5000 UNITS SC ×2 (08:37→21:27)
[2024-06-15] MEDS: COLACE 300 MG PO (08:39)
[2024-06-15] MEDS: MIRALAX PO (08:39)
[2024-06-15] MEDS: DULCOLAX PO (08:39)
--- NOTE | 2024-06-15 09:05 | W.PN.URO.CBU ---
Today's Communication / Plan
-
Trend renal function
Cancelled renal US due to improvement
Trial of void likely tomorrow
Assessment / Plan
-
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
ARF
Bilateral obstructive uropathy
Bilateral hydroureteronephrosis
06/11: CTAP w/o IV contrast => bilateral hydroureteronephrosis w/o obvious obstructing tumor/stone, Andujar catheter w/n decompressed bladder, significant rectal distention c/w constipation
s/p OR for cystoscopy and bilateral ureteral stent placement 06/12
- Unclear source of bilateral ureteral obstruction on cystoscopy. No tumor noted and ureteral orifices did not appear scarred but per Dr. Murrell some slight resistance to initial wire placement
- Trend BMP - NORM continues improving today
- Compression from significant constipation and rectal distension is a possible contributing factor - Recommend aggressive bowel regimen
- Trial of void/andujar removal when renal function closer to baseline
- Cancelled renal US due to significant improvement today
- Discharge with stents in place - will plan for outpatient removal and reimaging
Diagnosis
-
Date of Service: June 15, 2024
-
Patient Diagnosis:
ARF
Bilateral obstructive uropathy
Bilateral hydroureteronephrosis
H/o HG medicaid service coordinator bladder cancer s/p TURBT 02/2024
Subjective
-
No events overnight
Renal function improved
Objective
-
Vital Signs
Temp Pulse Resp BP Pulse Ox
99.3 F 76 15 166/71 95
06/15/24 08:05 06/15/24 08:05 06/15/24 08:05 06/15/24 08:05 06/15/24 08:05
Intake and Output
06/14/24 06/15/24 06/16/24
06:59 06:59 06:59
Intake Total 1020 / 1020 1200 / 1200
Output Total 2024 3710 / 3710
Balance -1005 / -1005 -2510 / -2510
Intake:
Oral fluids 720 / 720 1200 / 1200
IV fluids (Total) 300 / 300
Output:
Urine, Andujar 2024 3710 / 3710
Laboratory Results
06/15/24 05:21
06/15/24 05:20
Physical Exam
-
General - well developed, well nourished, no acute distress
Chest - clear bilaterally
Abdomen - soft, non-tender
Andujar in place clear urine
Skin - warm & dry
--- NOTE | 2024-06-15 10:35 | CM ---
Patient seen at bedside.
PT/PT to see the patient today.
Left message with Ginny at [facility].
Referrals in [facility] for AC as well as [facility].
PLAN: Discharge when stable, SNF recommended on 06/11
[2024-06-15] MEDS: NORVASC 5 MG PO (11:32)
[2024-06-15] MEDS: METAMUCIL, KONSYL 1 PACKET PO (11:32)
--- NOTE | 2024-06-15 12:04 | W.PN.HOSP.TC ---
Today's Communication/Plan
-
follow Urology/Nephrology recs
resume BP meds as able
Assessment / Plan
Assessment / Plan
Assessment:
NORM with metabolic acidosis
- holding HCTZ/ARB
- Nephrology following; monitor labs which are improving (Cr is now 2.9 today)
- Urology follow s/p cysto + stent placements 06/12
- continue Pascal per Urology
Headache
- No blurred vision
- requested PRN Tylenol
Hypokalemia
- replaced
Constipation
- s/p 4 BMs since 06/13
- continue bowel regimen
Chronic diastolic heart failure
Moderate MR
Essential HTN with urgency
- continue Atenolol, Amlodipine
- holding HCTZ/ARB due to NORM
acute Hyponatremia, improved.
CVA in 08/2022
TIA in October 16
GERD
Hyperlipidemia - continue statin
Iron deficiency anemia, now with anemia of chronic disease, normal Ferritin
DVT ppx: SC Heparin
Code: DNR
Anticipated Discharge: 24 - 48 hours
Subjective/Interval History
-
Date of Service: June 15, 2024
no complaints
Cr improving
BP high with some home BP meds still on hold
Objective Data
-
Labs:
Laboratory Results
06/15/24 06/15/24
05:20 05:21
WBC 9.4
Hgb 9.0 L
Hct 26.4 L
Plt Count 221
Sodium 139
Potassium 3.9
Chloride 100
Carbon Dioxide 23
BUN 64 H
Creatinine 2.9 H
Glucose 88
Calcium 9.2
Vital Signs:
Vital Signs
Temp Pulse Resp BP Pulse Ox
98.6 F 69 15 176/76 95
06/15/24 11:04 06/15/24 11:04 06/15/24 11:04 06/15/24 11:04 06/15/24 11:04
I&O
06/14/24 06/15/24 06/16/24
06:59 06:59 06:59
Intake Total 1020 / 1020 1200 / 1200
Output Total 2024 3710 / 3710
Balance -1005 / -1005 -2510 / -2510
Physical Exam
-
General: No Apparent Distress
HEENT: Normocephalic and Atraumatic
Respiratory: Negative Wheezes
Cardiac: Regular Rhythm and S1/S2
GI: Soft
Genito-urinary: Pascal
Musculoskeletal: No Edema
Neuro: AO x 3
Psych: Calm
Data Reviewed
-
Total Time Spent with Patient (in minutes): 41
Labs: Labs Reviewed by me
--- NOTE | 2024-06-15 13:41 | W.PN.NEPH.PH ---
Today's Communication / Plan
-
add po hydralazine
Assessment/Plan
-
IMP:
NORM
Severe met acidosis A gap
Heart Failure, P EF, DD stageII
Mod MR
mild to mod AL
Hypervolemic Hyponatremia
HTN-multiple meds
Hx CVA
Hyperlipidemia
GERD
Bladder Tumor s/p TURBT
Plan:
improving cr and non oliguric with andujar
VT tomorrow per
cont follow BMP
BPs are high start hydralzine 25 BID
d/c plan
nephro f/u
-
-
Date of Service: June 15, 2024
CC / HPI / ROS
-
Chief Complaint:
NORM, met acidosis
History of Present Illness:
NORM/Cr down to 2.9
s/p bilateral ureteral stents 06/[address], nonoliguric
BP stable
Hgb better at 9
sodium better at 139
acidosis resolved
Review of Systems:
no cp or sob
feels weak
Labs
-
Labs:
WBC 9.4 10^3/uL (4.8-10.8) 06/15/24 05:21
RBC 3.14 10^6/uL (4.20-5.40) L 06/15/24 05:21
Hgb 9.0 g/dL (12.0-16.0) L 06/15/24 05:21
Hct 26.4 % (37.0-47.0) L 06/15/24 05:21
Plt Count 221 10^3/uL (130-400) 06/15/24 05:21
Sodium 139 mmol/L (135-145) 06/15/24 05:20
Potassium 3.9 mmol/L (3.5-5.1) 06/15/24 05:20
Chloride 100 mmol/L (98-107) 06/15/24 05:20
Carbon Dioxide 23 mmol/L (22-30) 06/15/24 05:20
BUN 64 mg/dl (7-17) H 06/15/24 05:20
Creatinine 2.9 mg/dL (0.6-1.0) H 06/15/24 05:20
eGFR 15.87 06/15/24 05:20
Glucose 88 mg/dl (70-99) 06/15/24 05:20
Calcium 9.2 mg/dl (8.4-10.2) 06/15/24 05:20
Jzt-T-Bithjzydefx Pept 7550 pg/ml 06/10/24 11:17
Albumin 3.1 g/dl (3.5-5.0) L 06/11/24 07:10
Physical Exam
-
Vital Signs:
Vital Signs
Temp Pulse Resp BP Pulse Ox
98.6 F 69 15 181/73 95
06/15/24 11:04 06/15/24 11:04 06/15/24 11:04 06/15/24 13:26 06/15/24 11:04
Cardiovascular:: Regular rate and rhythm
Respiratory:: Bilateral: CTA
Lung Excursion:: Normal
Abdomen:: Nontender and Soft
Extremity Edema:: +1: Bilateral: (chronic)
Andujar Catheter: Yes
[2024-06-15] MEDS: APRESOLINE 25 MG PO ×2 (13:57→21:32)
[2024-06-15] MEDS: APRESOLINE 5 MG IV ×2 (15:22→23:01)
[2024-06-15] MEDS: TYLENOL 1000 MG PO ×2 (15:31→21:32)
[2024-06-15] MEDS: DULCOLAX 10 MG PO (21:30)
[2024-06-15] MEDS: NORVASC 10 MG PO (21:31)
[2024-06-16 04:32] VITALS: BP 149/68
[2024-06-16 04:43] VITALS: BMI 26.3
[2024-06-16 04:44] VITALS: BMI 26.3
[2024-06-16 06:00] VITALS: BMI 26.3
[2024-06-16 07:30] VITALS: BP 163/69
[2024-06-16 08:01] LABS: Hematocrit 26.4 % (37.0-47.0); Hemoglobin 8.9 g/dL (12.0-16.0); Mean Corp Hgb Conc. 33.7 g/dL (33.0-37.0); Mean Corpuscular Hgb 28.7 pg (27.0-31.0); Mean Corpuscular Volume 85.2 fL (81.0-99.0); Mean Platelet Volume 10.2 fL (7.4-10.4); Platelet Count 220 10^3/uL (130-400); Red Cell Dist. Width 15.9 % (11.5-14.5)
[2024-06-16] MEDS: ASPIR LOW (ENTERIC COATED) 81 MG PO (08:19)
[2024-06-16] MEDS: TENORMIN 25 MG PO ×2 (08:19→13:59)
[2024-06-16] MEDS: DULCOLAX 10 MG PO ×2 (08:19→20:29)
[2024-06-16] MEDS: COLACE 300 MG PO (08:19)
[2024-06-16] MEDS: APRESOLINE 25 MG PO ×2 (08:19→20:29)
[2024-06-16] MEDS: CRESTOR 20 MG PO (08:19)
[2024-06-16] MEDS: HEPARIN 5000 UNITS SC ×2 (08:20→20:30)
[2024-06-16] MEDS: MIRALAX 17 GRAMS PO (08:22)
[2024-06-16 08:55] LABS: Blood Urea Nitrogen 49 mg/dl (7-17); Calcium 8.9 mg/dl (8.4-10.2); Carbon Dioxide 23 mmol/L (22-30); Chloride 100 mmol/L (98-107); Estimated Creatinine Clearance 19 ml/min; Glucose 80 mg/dl (70-99); Potassium 3.6 mmol/L (3.5-5.1); Sodium 139 mmol/L (135-145); eGFR 19.92
[2024-06-16] MEDS: APRESOLINE 5 MG IV (09:55)
[2024-06-16] MEDS: TYLENOL 1000 MG PO ×2 (10:03→22:24)
--- NOTE | 2024-06-16 10:35 | W.PN.URO.CBU ---
Today's Communication / Plan
-
Trial of void
Trend renal function
Assessment / Plan
-
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
ARF
Bilateral obstructive uropathy
Bilateral hydroureteronephrosis
06/11: CTAP w/o IV contrast => bilateral hydroureteronephrosis w/o obvious obstructing tumor/stone, Pascal catheter w/n decompressed bladder, significant rectal distention c/w constipation
s/p OR for cystoscopy and bilateral ureteral stent placement 06/12
- Unclear source of bilateral ureteral obstruction on cystoscopy. No tumor noted and ureteral orifices did not appear scarred but per Dr. Murrell some slight resistance to initial wire placement
- Trend BMP - NORM continues improving today
- Compression from significant constipation and rectal distension is a possible contributing factor - Recommend aggressive bowel regimen
- Pascal removal for trial of void and bladder scan today
- Discharge with stents in place - will plan for outpatient removal and reimaging
Diagnosis
-
Date of Service: June 16, 2024
-
Patient Diagnosis:
ARF
Bilateral obstructive uropathy
Bilateral hydroureteronephrosis
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
Subjective
-
c/o headaches/dizziness
Objective
-
Vital Signs
Temp Pulse Resp BP Pulse Ox
99.6 F 76 15 168/72 95
06/16/24 07:30 06/16/24 07:30 06/16/24 07:30 06/16/24 09:55 06/16/24 08:00
Intake and Output
06/15/24 06/16/24 06/17/24
06:59 06:59 06:59
Intake Total 1200 / 1200 1680 / 1680
Output Total 3710 / 3710 3500 / 3500
Balance -2510 / -2510 -1820 / -1820
Intake:
Oral fluids 1200 / 1200 1680 / 1680
Output:
Urine, Pascal 3710 / 3710 3500 / 3500
Laboratory Results
06/16/24 05:53
06/16/24 05:53
Physical Exam
-
General - well developed, well nourished, no acute distress
Chest - clear
Abdomen - soft, non-tender
- clear urine
Skin - warm & dry
Neuro - AOx3
[2024-06-16 10:59] VITALS: BP 135/55
[2024-06-16] MEDS: METAMUCIL, KONSYL 1 PACKET PO (12:00)
--- NOTE | 2024-06-16 13:57 | W.PN.HOSP.TC ---
Today's Communication/Plan
-
increase Atenolol
monitor BP
monitor Cr and voiding
SNF dc planning
Assessment / Plan
Assessment / Plan
Assessment:
NORM with metabolic acidosis
- holding HCTZ/ARB
- Nephrology following; monitor labs which are improving (Cr is now 2.4 today)
- Urology following; s/p cysto + stent placements 06/12
- TOV today
- OP Urology f/u and repeat BMP in 1 week
Headache
- No blurred vision
- requested PRN Tylenol
Hypokalemia
- replaced
Constipation
- s/p 4 BMs since 06/13
- continue bowel regimen
Chronic diastolic heart failure
Moderate MR
Essential HTN with urgency
- continue Atenolol, Amlodipine, hydralazine
- holding HCTZ/ARB due to NORM, d/w Nephrology
acute Hyponatremia, improved
CVA in 08/2022
TIA in October 16
GERD
Hyperlipidemia - continue statin
Iron deficiency anemia, now with anemia of chronic disease, normal Ferritin
DVT ppx: SC Heparin
Code: DNR
Anticipated Discharge: 24 - 48 hours
Subjective/Interval History
-
Date of Service: June 16, 2024
andujar removed, voiding well today
Cr 2.4
BP slightly elevated, no symptoms
Objective Data
-
Labs:
Laboratory Results
06/16/24
05:53
WBC 8.0
Hgb 8.9 L
Hct 26.4 L
Plt Count 220
Sodium 139
Potassium 3.6
Chloride 100
Carbon Dioxide 23
BUN 49 H
Creatinine 2.4 H
Glucose 80
Calcium 8.9
Vital Signs:
Vital Signs
Temp Pulse Resp BP Pulse Ox
99.6 F 73 15 135/55 95
06/16/24 07:30 06/16/24 10:59 06/16/24 07:30 06/16/24 10:59 06/16/24 08:00
I&O
06/15/24 06/16/24 06/17/24
06:59 06:59 06:59
Intake Total 1200 / 1200 1680 / 1680
Output Total 3710 / 3710 3500 / 3500
Balance -2510 / -2510 -1820 / -1820
Physical Exam
-
General: No Apparent Distress
HEENT: Normocephalic and Atraumatic
Respiratory: Negative Wheezes
Cardiac: Regular Rhythm and S1/S2
GI: Soft
Genito-urinary: No Costovertebral Tender
Musculoskeletal: No Edema
Neuro: AO x 3
Psych: Calm
Data Reviewed
-
Total Time Spent with Patient (in minutes): 42
Labs: Labs Reviewed by me
--- NOTE | 2024-06-16 14:38 | W.PN.NEPH.PH ---
Addendum entered and electronically signed by Tosin Parisi MD 06/16/24 14:43:
PE:
sitting in chair in no distress
skin-periorbital bruise improving, sutures intact
CVS:RRR
lungs:clear bilat
p/a: soft, non tender
no edema
Original Note:
Today's Communication / Plan
-
follow labs
BP meds adjusted
Assessment/Plan
-
IMP:
NORM
Severe met acidosis A gap
Heart Failure, P EF, DD stageII
Mod MR
mild to mod PA
Hypervolemic Hyponatremia
HTN-multiple meds
Hx CVA
Hyperlipidemia
GERD
Bladder Tumor s/p TURBT
Plan:
improving cr and non oliguric with andujar
VT today, PVR only 27cc
BPs improving started hydralzine 25 BID 06/15
pt reports it decreases her appetite but ok now to continue the medication as options are limited
BB dose increased per primary
holding ARB and HCTZ still
d/c plan
nephro f/u
-
-
Date of Service: June 16, 2024
CC / HPI / ROS
-
Chief Complaint:
NORM, met acidosis
History of Present Illness:
NORM/Cr down to 2.4
s/p bilateral ureteral stents 06/[address], nonoliguric
BP stable
Hgb better at 8.9
sodium better at 139
acidosis resolved
Review of Systems:
no cp or sob
able to urinate off andujar
Labs
-
Labs:
WBC 8.0 10^3/uL (4.8-10.8) 06/16/24 05:53
RBC 3.10 10^6/uL (4.20-5.40) L 06/16/24 05:53
Hgb 8.9 g/dL (12.0-16.0) L 06/16/24 05:53
Hct 26.4 % (37.0-47.0) L 06/16/24 05:53
Plt Count 220 10^3/uL (130-400) 06/16/24 05:53
Sodium 139 mmol/L (135-145) 06/16/24 05:53
Potassium 3.6 mmol/L (3.5-5.1) 06/16/24 05:53
Chloride 100 mmol/L (98-107) 06/16/24 05:53
Carbon Dioxide 23 mmol/L (22-30) 06/16/24 05:53
BUN 49 mg/dl (7-17) H 06/16/24 05:53
Creatinine 2.4 mg/dL (0.6-1.0) H 06/16/24 05:53
eGFR 19.92 06/16/24 05:53
Glucose 80 mg/dl (70-99) 06/16/24 05:53
Calcium 8.9 mg/dl (8.4-10.2) 06/16/24 05:53
Vri-K-Jdsiywnxmcz Pept 7550 pg/ml 06/10/24 11:17
Albumin 3.1 g/dl (3.5-5.0) L 06/11/24 07:10
Physical Exam
-
Vital Signs:
Vital Signs
Temp Pulse Resp BP Pulse Ox
99.6 F 73 15 135/55 95
06/16/24 07:30 06/16/24 10:59 06/16/24 07:30 06/16/24 10:59 06/16/24 08:00
[2024-06-16 15:23] VITALS: BP 108/48
--- NOTE | 2024-06-16 15:43 | CM ---
Case management following for discharge planning
Pt for SNF - per Ginny at the [facility] - no beds available
Discussed with pt - referral sent to [facility] and [facility]
PLan - transfer to SNF when bed obtained and medically ready
[2024-06-16] MEDS: NORVASC 10 MG PO (22:25)
[2024-06-16 23:16] VITALS: BP 138/55
[2024-06-17 03:36] VITALS: BMI 26.3
[2024-06-17 06:38] LABS: Hematocrit 26.7 % (37.0-47.0); Hemoglobin 8.8 g/dL (12.0-16.0); Mean Corpuscular Hgb 27.9 pg (27.0-31.0); Mean Corpuscular Volume 84.8 fL (81.0-99.0); Mean Platelet Volume 9.8 fL (7.4-10.4); Platelet Count 216 10^3/uL (130-400); Red Blood Cell Count 3.15 10^6/uL (4.20-5.40); Red Cell Dist. Width 15.8 % (11.5-14.5); White Blood Cell Count 9.5 10^3/uL (4.8-10.8)
[2024-06-17 07:13] LABS: Blood Urea Nitrogen 44 mg/dl (7-17); Calcium 8.9 mg/dl (8.4-10.2); Carbon Dioxide 26 mmol/L (22-30); Chloride 100 mmol/L (98-107); Estimated Creatinine Clearance 20 ml/min; Glucose 86 mg/dl (70-99); Potassium 3.7 mmol/L (3.5-5.1); Sodium 138 mmol/L (135-145); eGFR 20.96
[2024-06-17 07:45] VITALS: BP 136/64
[2024-06-17] MEDS: DULCOLAX 10 MG PO (08:25)
[2024-06-17] MEDS: MIRALAX 17 GRAMS PO (08:25)
[2024-06-17] MEDS: COLACE 300 MG PO (08:25)
[2024-06-17] MEDS: APRESOLINE 25 MG PO (08:25)
[2024-06-17] MEDS: CRESTOR 20 MG PO (08:25)
[2024-06-17] MEDS: ASPIR LOW (ENTERIC COATED) 81 MG PO (08:25)
[2024-06-17] MEDS: TENORMIN 50 MG PO (08:25)
[2024-06-17] MEDS: HEPARIN 5000 UNITS SC (08:26)
[2024-06-17] MEDS: METAMUCIL, KONSYL 1 PACKET PO (11:24)
[2024-06-17 11:55] LABS: COVID-19 Antigen Negative (Negative)
--- NOTE | 2024-06-17 12:07 | CM ---
Met with patient and .
Spoke with [facility] liaison [facility] bed available today.
tt Dr. Soto
Covid test done - negative
IMM explained & signed. In chart.
Ambulance forms filled out on chart.
PLAN: Discharge to [facility] SNF
Report #: [phone]
Fax #: [phone]
--- NOTE | 2024-06-17 12:14 | W.PN.NEPH.PH ---
Today's Communication / Plan
-
follow BMP
Assessment/Plan
-
IMP:
NORM
Severe met acidosis A gap
Heart Failure, P EF, DD stageII
Mod MR
mild to mod GA
Hypervolemic Hyponatremia
HTN-multiple meds
Hx CVA
Hyperlipidemia
GERD
Bladder Tumor s/p TURBT
Plan:
BP good
no ARB/thiazide needed for now
follow BMP
-
-
Date of Service: June 17, 2024
CC / HPI / ROS
-
Chief Complaint:
NORM, met acidosis
History of Present Illness:
ONRM/Cr down to 2.3
s/p bilateral ureteral stents 06/[address], nonoliguric
BP stable
Hgb stable 8.8
Na stable
acidosis resolved
Review of Systems:
no cp or sob
Labs
-
Labs:
WBC 9.5 10^3/uL (4.8-10.8) 06/17/24 05:40
RBC 3.15 10^6/uL (4.20-5.40) L 06/17/24 05:40
Hgb 8.8 g/dL (12.0-16.0) L 06/17/24 05:40
Hct 26.7 % (37.0-47.0) L 06/17/24 05:40
Plt Count 216 10^3/uL (130-400) 06/17/24 05:40
Sodium 138 mmol/L (135-145) 06/17/24 05:40
Potassium 3.7 mmol/L (3.5-5.1) 06/17/24 05:40
Chloride 100 mmol/L (98-107) 06/17/24 05:40
Carbon Dioxide 26 mmol/L (22-30) 06/17/24 05:40
BUN 44 mg/dl (7-17) H 06/17/24 05:40
Creatinine 2.3 mg/dL (0.6-1.0) H 06/17/24 05:40
eGFR 20.96 06/17/24 05:40
Glucose 86 mg/dl (70-99) 06/17/24 05:40
Calcium 8.9 mg/dl (8.4-10.2) 06/17/24 05:40
Iav-W-Arlupleffpq Pept 7550 pg/ml 06/10/24 11:17
Albumin 3.1 g/dl (3.5-5.0) L 06/11/24 07:10
Physical Exam
-
Vital Signs:
Vital Signs
Temp Pulse Resp BP Pulse Ox
99.1 F 70 15 136/64 94
06/17/24 07:45 06/17/24 07:45 06/17/24 07:45 06/17/24 07:45 06/17/24 08:00
Cardiovascular:: Regular rate and rhythm
Respiratory:: Bilateral: Coarse
Lung Excursion:: Normal
Abdomen:: Nontender and Soft
Bowel Sounds:: Normal
Extremity Edema:: None: Bilateral:
--- NOTE | 2024-06-17 12:48 | W.PN.HOSP.TC ---
Today's Communication/Plan
-
dc to SNF
Assessment / Plan
Assessment / Plan
Assessment:
NORM with metabolic acidosis
- holding HCTZ/ARB
- Nephrology following; monitor labs which are improving (Cr is now 2.3 today)
- Urology following; s/p cysto + stent placements 06/12
- TOV successful
- OP Urology f/u and repeat BMP in 1 week
Headache
- No blurred vision
- requested PRN Tylenol
Hypokalemia
- replaced
Constipation
- s/p 4 BMs since 06/13
- continue bowel regimen
Chronic diastolic heart failure
Moderate MR
Essential HTN with urgency
- continue Atenolol, Amlodipine, hydralazine
- holding HCTZ/ARB due to NORM, d/w Nephrology
acute Hyponatremia, improved
CVA in 08/2022
TIA in October 16
GERD
Hyperlipidemia - continue statin
Iron deficiency anemia, now with anemia of chronic disease, normal Ferritin
DVT ppx: SC Heparin
Code: DNR
More than 30 minutes spent in discharge including
Final examination of the patient
Summarizing hospital stay
Instructions for continuing care to all relevant caregivers
Preparation of discharge records, prescriptions, and referral forms
Total time spent (in minutes): 41
Anticipated Discharge: Today
Subjective/Interval History
-
Date of Service: June 17, 2024
denies any new complaints at present
BP better controlled
Objective Data
-
Labs:
Laboratory Results
06/17/24
05:40
WBC 9.5
Hgb 8.8 L
Hct 26.7 L
Plt Count 216
Sodium 138
Potassium 3.7
Chloride 100
Carbon Dioxide 26
BUN 44 H
Creatinine 2.3 H
Glucose 86
Calcium 8.9
Vital Signs:
Vital Signs
Temp Pulse Resp BP Pulse Ox
99.1 F 70 15 136/64 94
06/17/24 07:45 06/17/24 07:45 06/17/24 07:45 06/17/24 07:45 06/17/24 08:00
I&O
06/16/24 06/17/24 06/18/24
06:59 06:59 06:59
Intake Total 1680 / 1680 1650 / 1650
Output Total 3500 / 3500 1425 / 1425
Balance -1820 / -1820 225 / 225
Physical Exam
-
General: No Apparent Distress
HEENT: Normocephalic and Atraumatic
Respiratory: Negative Wheezes
Cardiac: Regular Rhythm and S1/S2
GI: Soft and Nontender
Neuro: AO x 3
Data Reviewed
-
Total Time Spent with Patient (in minutes): 41
Labs: Labs Reviewed by me
--- NOTE | 2024-06-17 12:52 | W.DS.TRANS ---
DC Summary - [facility]
-
Discharge Instructions:
Sleep Apnea Risk Intermediate
Discharge Diagnosis/Procedures NORM, obstructive uropathy, constipation
Diet Regular
Activity As tolerated
Bathing Restrictions None
Blood Work BMP in 1 week
Other Services PT,OT
Instructions:
Stand-Alone Forms:
Changes to Home Medications: No
Discharge Medications:
DC Medications w/original date entered in [facility]
cholecalciferol (vitamin D3) 25 mcg (1,000 unit) tablet (Vitamin D3) 25 mcg PO DAILY Supplement 09/25/22
rosuvastatin 20 mg tablet 20 mg PO DAILY Blood Pressure 09/25/22
acetaminophen 500 mg tablet 1,000 mg PO HS 06/18/23
aspirin 81 mg tablet,delayed release 81 mg PO DAILY Blood Pressure 06/18/23
docusate sodium 100 mg capsule (Colace) 300 mg PO DAILY Constipation 06/18/23
amlodipine 5 mg tablet 10 mg PO HS Blood Pressure 01/17/24
psyllium 1 packet PO DAILY@1200 Constipation 01/17/24
omeprazole 40 mg capsule,delayed release 40 mg PO BID #60 caps 01/24/24
atenolol 50 mg tablet 50 mg PO DAILY #30 tabs 06/17/24
hydralazine 25 mg tablet 25 mg PO BID #60 tabs 06/17/24
Home Medication Changes
HCTZ and ARB stopped
Hydralazine
Pending Results: Yes
Total time spent discharging patient (in min): 42
[2024-06-17 15:43] VITALS: BP 117/65
== END 2024-06-17 19:20 | DRG 659 ==
LOC: 2 SOUTH 13:31
PROVIDERS: Registered Nurse; Specialist; ADMITTING PHYSICIAN Student in an Organized Health Care Education/Training Program; ATTENDING PHYSICIAN Internal Medicine; CONSULT PHYSICIAN Internal Medicine; CONSULT PHYSICIAN Internal Medicine Cardiovascular Disease; CONSULT PHYSICIAN Surgery; EMERGENCY PHYSICIAN Emergency Medicine; FAMILY PHYSICIAN Internal Medicine Geriatric Medicine
PROC: 0WQ2XZZ Repair Face, External Approach (ICD-10-PCS; 2024-06-10)
PROC: 0T788DZ Dilation of Bilateral Ureters with Intraluminal Device, Via Natural or Artificial Opening Endoscopic (ICD-10-PCS; 2024-06-12)
DX: N17.9 Acute kidney failure, unspecified (principal); J96.01 Acute respiratory failure with hypoxia; I13.0 Hypertensive heart and chronic kidney disease with heart failure and stage 1 through stage 4 chronic kidney disease, or unspecified chronic kidney disease; E87.1 Hypo-osmolality and hyponatremia; E87.20 Acidosis, unspecified; I50.32 Chronic diastolic (congestive) heart failure; D63.8 Anemia in other chronic diseases classified elsewhere; E11.22 Type 2 diabetes mellitus with diabetic chronic kidney disease; D50.9 Iron deficiency anemia, unspecified; Z66 Do not resuscitate; N18.30 Chronic kidney disease, stage 3 unspecified; I34.0 Nonrheumatic mitral (valve) insufficiency; N13.30 Unspecified hydronephrosis; I16.0 Hypertensive urgency; K21.9 Gastro-esophageal reflux disease without esophagitis; S01.81XA Laceration without foreign body of other part of head, initial encounter; W18.30XA Fall on same level, unspecified, initial encounter; Y92.009 Unspecified place in unspecified non-institutional (private) residence as the place of occurrence of the external cause; M43.12 Spondylolisthesis, cervical region; M47.812 Spondylosis without myelopathy or radiculopathy, cervical region; E78.00 Pure hypercholesterolemia, unspecified; K59.00 Constipation, unspecified; F41.9 Anxiety disorder, unspecified; R53.83 Other fatigue; Z79.82 Long term (current) use of aspirin; Z79.899 Other long term (current) drug therapy; Z23 Encounter for immunization; Z85.51 Personal history of malignant neoplasm of bladder; Z86.73 Personal history of transient ischemic attack (TIA), and cerebral infarction without residual deficits; Z87.891 Personal history of nicotine dependence; Z96.643 Presence of artificial hip joint, bilateral; Z96.653 Presence of artificial knee joint, bilateral
CPT/HCPCS: 12013; 51702; 70450; 71046; 72125; 74018; 74176; 76000; 76770; 80048; 80053; 80061; 81003; 81015; 81099; 82247; 82248; 82570; 82728; 83540; 83550; 83605; 83735; 83880; 83935; 84075; 84300; 84443; 84450; 84460; 85025; 85027; 87071; 87086; 87186; 87811; 90471; 90715; 93005; 93306; 97163; 97167; 97530; 99285; C1769; C2617

== ENCOUNTER 2024-07-03 00:49 | Inpatient (IN) | payer MEDICARE, BC, SELFPAY ==
[2024-07-02 22:13] VITALS: BP 131/49
[2024-07-02 22:26] LABS: Hematocrit 25.1 % (37.0-47.0); Hemoglobin 8.5 g/dL (12.0-16.0); Mean Corp Hgb Conc. 33.9 g/dL (33.0-37.0); Mean Corpuscular Hgb 28.6 pg (27.0-31.0); Mean Corpuscular Volume 84.5 fL (81.0-99.0); Platelet Count 207 10^3/uL (130-400); Red Blood Cell Count 2.97 10^6/uL (4.20-5.40); Red Cell Dist. Width 15.3 % (11.5-14.5); White Blood Cell Count 21.4 10^3/uL (4.8-10.8)
[2024-07-02 22:41] LABS: Urine Albumin 1+ (Neg - Trace); Urine Bilirubin Negative (Negative); Urine Character Slightly Cloudy (Clear); Urine Color Yellow; Urine Glucose Negative (Negative); Urine Ketone Negative (Negative); Urine Leukocyte 2+ (Negative); Urine Nitrite Negative (Negative); Urine Occult Blood 2+ (Negative); Urine Urobilinogen Negative (Neg - 1+)
[2024-07-02 22:52] LABS: ALT (SGPT) 26 U/L (0-35); AST (SGOT) 39 U/L (14-36); Albumin 3.4 g/dl (3.5-5.0); Alkaline Phosphatase 149 U/L (38-126); Blood Urea Nitrogen 60 mg/dl (7-17); Calcium 8.8 mg/dl (8.4-10.2); Carbon Dioxide 15 mmol/L (22-30); Glucose 97 mg/dl (70-99); Total Bilirubin 0.5 mg/dl (0.2-1.3); Total Protein 6.3 g/dl (6.3-8.2); eGFR 13.59
[2024-07-02 22:55] LABS: Chloride 96 mmol/L (98-107); Potassium 5.1 mmol/L (3.5-5.1); Sodium 127 mmol/L (135-145)
[2024-07-02 22:57] LABS: % Basophils 0.4 % (0-2); % Eosinophils 0.5 % (0-6); % Immature Granulocytes 2.7 % (0-0.5); % Lymphocytes 8.5 % (20.5-51.1); % Monocytes 9.1 % (1.7-9.3); % Neutrophils 78.8 % (42.2-75.2); Absolute Basophils 0.1 10^3/uL (0-0.2); Absolute Eosinophils 0.1 10^3/uL (0-0.7); Absolute Immature Granulocytes 0.6 10^3/uL (0-0.05); Absolute Lymphocytes 1.8 10^3/uL (1.2-3.4); Absolute Monocytes 1.9 10^3/uL (0.1-0.6); Absolute Neutrophils 16.9 10^3/uL (1.4-6.5); Nucleated Red Blood Cells % 0 %
[2024-07-02 23:00] VITALS: BP 118/60
[2024-07-02 23:16] LABS: Urine Bacteria Many (Negative); Urine White Cell >100 /HPF (0-5)
--- NOTE | 2024-07-02 23:59 | ED.GENMED ---
History of Present Illness
General
Chief Complaint: Weakness
Source: patient
Exam Limitations: none
Time Seen by Provider: 07/02/24 23:09
History of Present Illness
History of Present Illness:
This is a 78 year old female that comes in with c/o feeling tired all day and no appetite. States that this has been going on for the past 4-5 days. States that she had a fever of 100.0 two days ago and that she is SOB. States that she also had dry
heaves 2 days ago. Denies any chills, chest pain, abd pain, nausea, vomiting, diarrhea, headache, dizziness, urinary burning.
Past History
Past History
ED Past Medical History: Cancer (Bladder and skin cancer), CHF (patient denies), CVA (with right sided deficit), GERD, HTN, Hypercholesterolemia and Other (Iron deficiency anemia, balance issues, Migraines. neck pain, Hiatal hernia)
ED Past Surgical History: Orthopedic (Both knees and both hips replaced.), Urological (TURBT and renal stents, Bladder tumor removed) and Other (Cataracts, )
Social History
Tobacco: Former smoker
Alcohol: Daily (Wine 1 glass but not recently as ot 07/02/24)
Personal:
Living: fdc (At [facility] for rehab)
Review of Systems
Review of Systems
All Other Systems: ROS reviewed and negative except as documented in HPI and ROS
Constitutional: Reports fever (2 days ago); Denies chills
EENT: Reports no symptoms
Respiratory: Reports trouble breathing; Denies cough
Cardiac: Reports no symptoms; Denies chest pain
ABD/GI: Denies abdominal pain, nausea, vomiting or diarrhea
: Reports no symptoms; Denies dysuria, frequency or urgency
Musculoskeletal: Reports no symptoms
Skin: Reports no symptoms
Neurological: Reports no symptoms; Denies dizzy or headache
Psychiatric: Reports no symptoms
Phy Exam
General Physical Exam
General Presentation: mild distress
General age: appears stated age
General Skin: warm and dry
General Habitus: elderly
General Mental: alert
General Hydration: appears well hydrated
ENT Exam
ENT Exam: TM's normal, pharynx normal and neck supple
Eye Exam
Eye Exam: EOMI
Cardiovascular Exam
Cardiovascular Exam: regular rate/rhythm and normal peripheral pulses
Pulmonary Exam
Pulmonary Exam: lungs clear, no respiratory distress, no rales, chest non tender, no crackles, no rhonchi, no wheezing, no cough and other (appears SOB)
Gastrointestinal Exam
Gastrointestinal Exam: normal bowel sounds, non tender, soft, no organomegaly, no pulsatile mass and non distended
Musculoskeletal Exam
Musculoskeletal Exam: full ROM and no edema
Skin Exam
Skin Exam: normal color, warm/dry, no rash and no petechia
Psychiatric Exam
Psychiatric Exam: normal mood/affect
Course
Orders/Labs/Results
Orders:
Orders
07/02/24 22:12
EKG [Electrocardiogram (*1)] Urgent
Reason for Study: Fatigue / Weakness
EKG- Treatment ONCE
07/02/24 22:18
CBC/With Diff [Complete Blood Count/With Diff] Urgent
CMP [Comprehensive Metabolic Panel] Urgent
07/02/24 22:29
Straight cath- Treatment ONCE
07/02/24 22:31
Urinalysis Reflex To Culture Urgent
Date Specimen was Collected: 07/02/24
Time Specimen was Collected: 22:29
Urine Microscopic Reflex Cult Urgent
Urine Culture Urgent
TIERA Source: U
Specimen Description:
Date Specimen was Collected: 07/02/24
Time Specimen was Collected: 22:29
07/02/24 23:57
CefTRIAXone [Rocephin] 1,000 mg IV NOW STA
07/03/24 00:04
Consult Urology [UROLOGY CONSULT] Urgent
Consulting Provider: John Camarena Jr.
Was physician already notified: Yes
07/03/24 00:05
CR Chest - 2 Views Urgent
Reason For Exam: SOb
07/03/24 00:10
CT Abd/pel Without Iv Or Oral Urgent
Comment:
Reason For Exam: Recent stents placed , UTI.
07/03/24 00:12
Andujar Placement- Treatment ONCE
Reason for insertion: Urology Determination
07/03/24 00:32
Admit/Transfer Patient As Directed
Co-Sign Provider:
Level of Care: Inpatient admission
Assign to:: Telemetry
Physician / Group: hospitalist
Diagnosis: Acute renal failure
Reason for Telemetry: Other
Other Reason for Telemetry: hyperkalemia
Date to Stop Telemetry: 07/05/24
Time to Stop Telemetry: 11:00
Reason for Hospitalization: Acute renal failure, urosepsis
Expected length of stay greater than two midnights?: Yes
ELOS- Estimated Length of Stay in days: 2
I certify the patient meets the requirements for IP care: Yes
PRN Pain Medication Management As Directed
May give lesser potent ordered pain med per pt: Yes
preference::
Protocol:: Medication orders for pain may be administered in a
manner that supports deferring to patient preference
when the pt is:
- Requesting an ordered lesser potent pain medication.
Least to most potent pain medications are defined
as: acetaminophen < NSAID < tramadol < opioids
(morphine, oxycodone, hydromorphone).
- Requesting a lesser dose of the same medication IF
ORDERED.
- Requesting a less intrusive route of administration
if both routes are prescribed by the provider (PO <
IV).
07/03/24 00:33
Code Status As Directed
Resuscitation Status: Do not resuscitate
Reached after discussion with pt or family/Healthcare POA: Yes
07/03/24 00:36
DNR Bracelet Application ONCE
07/03/24 00:47
Cefepime HCl [Maxipime] 2,000 mg IV NOW STA
07/03/24 00:49
Sterile Water [Sterile Water For Injection] 10 ml IV NOW STA
07/03/24 01:00
Flush (0.9% Sodium Chloride) [Flush (Nss)] See Dose Instructions IV PER PROTOCOL
07/03/24 08:00
Aspirin Low Dose EC [Aspir Low (Enteric Coated)] 81 mg PO DAILY
Atenolol [Tenormin] 50 mg PO DAILY
Docusate Sodium [Colace] 300 mg PO DAILY
HydrALAZINE [Apresoline] 25 mg PO BID
Rosuvastatin Calcium [Crestor] 20 mg PO DAILY
07/05/24 11:00
DC Protocol for Telemetry ONCE
Abnormal Lab Results
07/02/24 07/02/24
22:18 22:31
WBC 21.4 H 10^3/uL
(4.8-10.8)
RBC 2.97 L 10^6/uL
(4.20-5.40)
Hgb 8.5 L g/dL
(12.0-16.0)
Hct 25.1 L %
(37.0-47.0)
RDW 15.3 H %
(11.5-14.5)
MPV 11.0 H fL
(7.4-10.4)
Abs Immat Gran (auto) 0.6 H 10^3/uL
(0-0.05)
Absolute Neuts (auto) 16.9 H 10^3/uL
(1.4-6.5)
Absolute Monos (auto) 1.9 H 10^3/uL
(0.1-0.6)
Immature Gran % 2.7 H %
(0-0.5)
Neutrophils % 78.8 H %
(42.2-75.2)
Lymphocytes % 8.5 L %
(20.5-51.1)
Sodium 127 L mmol/L
(135-145)
Chloride 96 L mmol/L
(98-107)
Carbon Dioxide 15 L mmol/L
(22-30)
BUN 60 H mg/dl
(7-17)
Creatinine 3.3 H mg/dL
(0.6-1.0)
AST 39 H U/L
(14-36)
Alkaline Phosphatase 149 H U/L
(38-126)
Albumin 3.4 L g/dl
(3.5-5.0)
Ur Occult Blood Reflex 2+ A
(Negative)
Leukocyte Esterase Rfl 2+ A
(Negative)
Urine RBC 3-6 A /HPF
(0-2)
Urine WBC (Reflex) >100 A /HPF
(0-5)
Urine Bacteria (Reflex) Many A
(Negative)
Urine Albumin (Reflex) 1+ A
(Neg - Trace)
07/02/24 22:18
07/02/24 22:18
Leukocytosis, H/H low. Hyponatremia. Chloride slightly low. Acidotic as carbon dioxide low. Acute renal failure, AST very slightly elevated. Urine positive for infection.
Vital Signs
Initial and Last Documented VS:
Initial Vital Signs
Temp Pulse Resp BP Pulse Ox
98.1 F 68 17 131/49 97
07/02/24 22:13 07/02/24 22:13 07/02/24 22:13 07/02/24 22:13 07/02/24 22:13
Last Documented Vital Signs
Temp Pulse Resp BP Pulse Ox
98.1 F 76 16 145/65 96
07/02/24 22:13 07/03/24 01:30 07/03/24 01:30 07/03/24 01:00 07/03/24 01:30
MDM/Problems Addressed
Differential Diagnosis Includes:
UTI, CHF,
MDM/Problems Addressed:
This is a 78 year old female that comes in with c/o feeling tired and no appetite. States that she felt this way before when she was in kidney failure. State that this has been going on for 4-5 days. \\
Will get labs. Urine and CT of abd/pelvis. Spoke with Dr. Camarena and Hospitalist and patient will be admitted. Will place andujar catheter before CT scan. IV antibiotics started. Explained to patient that she has a UTI and she will be admitted. Will
put Urologist on Consult and hospitalist to admit.
Chronic conditions affecting care: Kidney disease
Acute Exacerbation and/or Progression of Chronic Illness: Kidney disease
*Radiology
Radiology exam reviewed: radiology read reviewed (CT night hawk-Bilateral ureteral stents which appear to be in the appropriate positions. mild left and moderate right hydronephrosis. Recommend correlation with possible stent dysfunction. No bowel
obstruction. Normal gallbladder and appendix. Incidentals: diverticulosis without evidence of . ), all reviewed NAD by ED Provider (CT cont-diverticulitis. No obstructive uropathy. No hepatic or pancreatic mass. No abdominal aortic aneurysm. No
acute osseous abnormality. Moderate hiatal hernia. Small right pleural effusion. Bibasilar atelectasis. Calcified coronary atherosclerosis. No acute abnormality within the visualized soft) and other (CT cont- Tissues. )
*Pulse Oximetry
Patient hypoxic: no
*EKG
Interpreted by ED Provider?: Yes
Heart Rate: 67
Rate: normal
Rhythm: sinus
[place]: normal axis
Interval: normal interval
QRS Pattern: normal QRS
Ischemia: no ischemia
*Infant Nanny Interpretation
Rate: normal
Heart Rate: 69
Rhythm: sinus
*Critical Care Note
Total Time (30-74mins, 75-104mins- exclusive of procedures): Not Applicable
ED Attending Note
-
Portions of this chart may have been created with voice recognition software.� Occasional wrong word or��sound alike� substitutions may have occurred due to the inherent limitations of voice recognition software.
Discharge Plan
Departure
Patient Disposition: Admit
Admit to: Med/Surg
Presentation/result/management discussed w/ accepting MD/DO: Hospitalist
Patient with high blood pressure during this ER visit?: Yes
Condition: Good
Covid-19: Not Applicable
Discharge Problem:
Urinary tract infection, Acute hyponatremia, Acute renal failure
Interventions
Interventions:
*Risk Screen - Suicide Last Done: 07/02/24 22:13
*General Assessment Last Done: 07/02/24 22:13
*Neglect/Abuse Screening Last Done: 07/02/24 22:13
ED- Fall Risk Assessment Last Done: 07/02/24 22:35
*ED COVID-19 Vaccine History Last Done: 07/02/24 22:13
*Nursing Disposition Last Done: 07/03/24 01:35
ED- Cardiac Assessment Last Done: 07/02/24 22:35
ED- Neurological Assessment Last Done: 07/02/24 22:35
ED- Pulmonary Assessment Last Done: 07/02/24 22:35
Discharge Date and Time
Discharge Date/Time: 07/03/24 01:36
[2024-07-03] VITALS (19 sets, daily range): BP systolic 67–161; BP diastolic 47–86; BMI 25.0
--- NOTE | 2024-07-03 00:22 | HPS.HSE ---
Family Physician
-
Family Physician: Pancho Olivier MD
Chief Complaint
-
Rising creatinine and weakness, reduced appetite and reduced urine output.
History of Present Illness
Patient is a 78-year-old female who has a past medical history significant for hypertension, hyperlipidemia, prior TIA, nonrheumatic mitral valve insufficiency, iron deficiency, was recently admitted for renal failure with bilateral hydronephrosis
status post orbit and bilateral stent placements with improvement in renal function at time of discharge who returns now to the emergency department with worsening creatinine, lower extremity edema and foul-smelling limited urine output.
Patient herself appears quite fatigued and with increased work of breathing with weakness as well. She only endorsed very poor appetite. She denied fevers or chills. She denied any flank pain. She denied any groin pain. She denies any dysuria.
She did note that output has gone down significantly and does not remember the last significant output she had. Patient stated that appetite was fine about a week ago when she had a creatinine of 1.9. Since the last 4 days she has had reduced
appetite. She said creatinine started increasing a few days ago to 2.4 and now is at 3.3.
On arrival in the emergency department the patient was afebrile blood pressure was 118/60 pulse 67 and she satting 96% on room air. ECG with normal sinus rhythm at a rate of [address] or T wave changes. She had a leukocytosis to 21,000,
hemoglobin was 8.5 (unchanged) chemistries were notable for a sodium of 127 potassium of 5.1, bicarb of 15 a BUN of 16 and a creatinine a creatinine of 3.3. Imaging is pending.
Medical History
Past Medical History
Past Medical History: Reports HTN, Hypercholesterolemia and Renal Failure (bilateral hydronephosis s/p stenting)
Past Surgical History: Reports Urological (TURBT)
Social History
Tobacco: Non-smoker
Alcohol: None
Drug: None
Personal: Single
Living: Alf
Employment: Retired
Family History
Family History: Not pertinent
Allergies / Home Medications
Allergies reflects when Allergies were last updated in [facility].
Home Medications with original date entered in [facility]
Allergy/Medication List:
Allergies
Allergy/AdvReac Type Severity Reaction Status Date / Time
APOLINAR Inhibitors Allergy cough Verified 06/11/24 22:47
Home Medications
cholecalciferol (vitamin D3) 25 mcg (1,000 unit) tablet (Vitamin D3) 25 mcg PO DAILY Supplement 09/25/22
rosuvastatin 20 mg tablet 20 mg PO DAILY Blood Pressure 09/25/22
acetaminophen 500 mg tablet 1,000 mg PO HS 06/18/23
aspirin 81 mg tablet,delayed release 81 mg PO DAILY Blood Pressure 06/18/23
docusate sodium 100 mg capsule (Colace) 300 mg PO DAILY Constipation 06/18/23
amlodipine 5 mg tablet 10 mg PO HS Blood Pressure 01/17/24
psyllium 1 packet PO DAILY@1200 Constipation 01/17/24
omeprazole 40 mg capsule,delayed release 40 mg PO BID #60 caps 01/24/24
atenolol 50 mg tablet 50 mg PO DAILY #30 tabs 06/17/24
hydralazine 25 mg tablet 25 mg PO BID #60 tabs 06/17/24
Review of Systems
-
History Source: Patient
Constitutional: Reports Fatigue
EENT: Reports No Symptoms
Respiratory: Reports Other (orthopnea)
Cardiac: Reports No Symptoms
Abdomen/GI: Reports No Symptoms
: Reports No Symptoms
Musculoskeletal: Reports No Symptoms
Skin: Reports No Symptoms
Neurological: Reports No Symptoms
Endocrine: Reports No Symptoms
Hematologic/Lymphatic: Reports No Symptoms
Psych: Reports No Symptoms
Physical Exam
Vital Signs
Vital Signs
Temp Pulse Resp BP Pulse Ox
98.1 F 67 20 118/60 96
07/02/24 22:13 07/02/24 23:30 10/10/24 23:30 07/02/24 23:00 07/02/24 23:15
Physical Exam
General: Well Developed and Appears in Distress
HEENT: NormoCephalic, Anicteric, Moist mucous membranes and Atraumatic
Respiratory: Clear
Cardiac: S1/S2 and Regular Rhythm
Breast: Deferred by me
GI: Soft, Non Tender, Non Distended and Normal Bowel Sounds
Rectal: Deferred by Provider
Genito-urinary: Turbid Urine
Musculoskeletal: No Clubbing, No Cyanosis, Edema, Left Lower Extremity and Edema, Right Lower Extremity
Skin: Warm
Neuro: AO x 3
Hematologic/Lymphatic: No Lymphadenopathy
Psych: Calm
Laboratory Results
-
07/02/24 22:18
07/02/24 22:18
Laboratory Results
Total Bilirubin 0.5 mg/dl (0.2-1.3) 07/02/24 22:18
AST 39 U/L (14-36) H 07/02/24 22:18
ALT 26 U/L (0-35) 07/02/24 22:18
Alkaline Phosphatase 149 U/L (38-126) H 07/02/24 22:18
Data Reviewed
-
CT Scan: Report Reviewed by me
Medical Tests (Nuc Med, Echo, EKG etc): Image Personally Visualized and interpreted
Lab Data: Labs Reviewed by me
Impression/Plan
-
IMPRESSION:
78-year-old female with past medical history of hypertension, CVA, hyperlipidemia who recently had NORM in the setting of bilateral hydronephrosis of uncertain etiology and is status post stenting bilaterally who presents again to the emergency
department with NORM rising creatinine to 3.3 loss of appetite increased weakness decreased urine output and bilateral lower extremity edema. Found to have significant pyuria & bacteruria in ED, negative nitrite similar prior admission[place] [address]
PLAN:
1. UTI - Presumed Complicated pyelonephritis given recent instrumentation, catheter and voiding trial. Low urine output with urinary sludge per SNF. Denies flank pain but overall ill appearing.
- admit to telemetry
- urine cultures, no fever
- given very recent hospitalization and abx, will order cefepime 2g q 24 hours renal dosing
2. NORM - NORM. Cr 3.3, K 5.1, BUN 60 and CO2 15. 100 ml uop in 2 hours. Currently non-oliguric Suspect recurrent hydronephrosis without bladder outlet obstruction. No nephrotoxins. Cannot rule out NORM secondary to sepsis. Her lower extremity
edema, hypoxia and mild pulmonary edema ( improved compared to prior) suggests total body volume overload.
- CT abd/pelvis w/o contrast to rule out hydro
- Hold off IV fluids for now
- Sodium bicarb supplementation with 150meq bicarb at 50ml/hr, NPO
- strict i/os
- urine lytes, creatinine and spot urine prot/Cr
- nephrology consultation
3. Bilateral [place] and UTI - Possible stent obstruction and infection. Urology consulted
- NPO for now
- urinary catheter and i/o
- CT abdomen and pelvis showing mild left and moderate right hydronephrosis with possible stent dysfunction. The stent appeared to be in proper position. Urology aware.
- f/u imaging per urology
4. Hyponatremia - Hypervolemic hyponatremia to me. In setting of acute renal failure.
- Fluid restriction, currently NPO
- check BNP
- urine lytes and osms
-
5. HTN - Hemodynamically stable
- continue atenolol and hydralazine with hold parameters
- continue norvasc
6. CHF - h/o CHF w/ preserved EF on chart but no evidence of CHF per prior cardiology notes. Does complain of orthopnea. Xray with mild pulm edema to me. Total body volume o/d with NORM
- fluid restriction for now
DVT PPX - heparin sq q 8
Code Status - DNR
[2024-07-03] MEDS: STERILE WATER FOR INJECTION 10 ML IV ×2 (00:55→23:21)
[2024-07-03] MEDS: MAXIPIME 2000 MG IV ×2 (00:55→23:21)
[2024-07-03] MEDS: FLUSH (NSS) 1 FLUSH IV (01:18)
[2024-07-03] MEDS: SODIUM BICARBONATE 1150 MEQ IV (02:29)
[2024-07-03 02:45] LABS: Osmolality Urine 250 mOsm/kg (300-900)
[2024-07-03 03:04] LABS: Protein/creatinine Ratio 2.5; Urine Protein 138 mg/dl
[2024-07-03 06:25] LABS: Hematocrit 24.4 % (37.0-47.0); Mean Corp Hgb Conc. 32.8 g/dL (33.0-37.0); Mean Corpuscular Hgb 28.1 pg (27.0-31.0); Mean Corpuscular Volume 85.6 fL (81.0-99.0); Mean Platelet Volume 11.5 fL (7.4-10.4); Platelet Count 197 10^3/uL (130-400); Red Blood Cell Count 2.85 10^6/uL (4.20-5.40); Red Cell Dist. Width 15.4 % (11.5-14.5); White Blood Cell Count 18.3 10^3/uL (4.8-10.8)
[2024-07-03 06:49] LABS: NT-proBNP 15000 pg/ml
[2024-07-03 07:09] LABS: Urine Sodium 37 mmol/L (30-90)
[2024-07-03 07:12] LABS: Blood Urea Nitrogen 62 mg/dl (7-17); Calcium 8.5 mg/dl (8.4-10.2); Carbon Dioxide 19 mmol/L (22-30); Chloride 97 mmol/L (98-107); Estimated Creatinine Clearance 14 ml/min; Glucose 76 mg/dl (70-99); Magnesium 1.6 mg/dl (1.6-2.3); Potassium 5.3 mmol/L (3.5-5.1); Sodium 132 mmol/L (135-145); eGFR 12.24
--- NOTE | 2024-07-03 07:48 | CON.MD ---
Addendum entered and electronically signed by John Camarena Jr., MD 07/03/24 07:54:
WILL CHECK PT INR AND HOLD SUB Q HEPARIN
Original Note:
Consultation - Medical
-
see dictated note
pt with hx of bladder cancer- but non-invasive
presented in sept with [facility]- bilateral hydro
had cysto- no obvious tumor recurrence- stents placed
cr decreased- but not to baseline
sent to snif
reports over last 48hrs- drop in urine output/fatigue and nausea
in ER- elevated WBC/ +UA and cr up to 3.3
andujar placed- outpt not recorded
CT- unchanged bilateral hydro despite stents
despite andujar (about 200cc of urine in bag) and fluids- cr rising
plan
unclear etiology of bilateral ureteral obstruction- no obvious malig cause
despite stents- hydro persists and renal function again declining
reviewed with dr mclaughlin- plan is for bilateral percs
continue antibx pending urine cx
will contact [facility] and follow
[2024-07-03] MEDS: ASPIR LOW (ENTERIC COATED) 81 MG PO (08:05)
[2024-07-03] MEDS: COLACE 300 MG PO (08:06)
[2024-07-03] MEDS: TENORMIN 50 MG PO (08:06)
[2024-07-03] MEDS: NSS (PRESERVATIVE FREE) 10 ML IV (08:06)
[2024-07-03] MEDS: APRESOLINE 25 MG PO ×2 (08:06→20:25)
[2024-07-03] MEDS: PROTONIX IV 40 MG IV (08:07)
--- NOTE | 2024-07-03 08:20 | W.PN.HOSP.TC ---
Today's Communication/Plan
-
B/L nephrostomy tubes placement today
Continue to monitor on tele
Diet can be resumed if urology/IR clears for diet
Assessment / Plan
Assessment / Plan
Physical Exam
General: Not in acute distress
HEENT: Normocephalic
Respiratory: CTAB
Cardiac: S1/S2 and Regular Rhythm
GI: Soft, Non Tender, Non Distended and Normal Bowel Sounds
Musculoskeletal: No Cyanosis, Edema, Left Lower Extremity and Edema, Right Lower Extremity
Skin: Warm
Neuro: AAO x 3
Psych: Calm

CT Abdomen/Pelvis (as per radiologist's report)
'IMPRESSION: Mild right hydronephrosis. Slightly progressed. Minimal left hydronephrosis. Slightly improved.
Bilateral double-J stents. Appropriately positioned. Stable
Small right pleural effusion. Mildly improved..
Large hiatal hernia. Stable.
Small isodense right renal mass likely a benign proteinaceous cyst. Decreased in size suggesting it is benign..'

Assessment/Plan
78-year-old female with past medical history of hypertension, CVA, hyperlipidemia who recently had NORM in the setting of bilateral hydronephrosis of uncertain etiology and is status post stenting bilaterally who presents again to the emergency
department with NORM rising creatinine to 3.3 loss of appetite increased weakness decreased urine output and bilateral lower extremity edema. Found to have significant pyuria & bacteruria in ED, negative nitrite similar prior admission[place] [id number]
April Jade with UTI, hyponatremia and kidney failure. Had TURBT by Dr Tam on the 24 with stents placed. Cr 3.3, K 5.1, BUN 60, bicarb 15. Moderate total body volume overload. Urology consulted, (Dr. Camarena) and final read of CT pending.
Pascal placed with about 50 ml/hr urine output. Given recent instrumentation and hospitalizaton, urine cultured and started cefepime. NPO, possible procedure in AM. Edema on exam, orthopena on history suggestive of vol overload but heart
failure ruled out previous admission. Given uop and metabolic acidosis w/ bicarb of 15, placed on replacement with 50m/hr 150meq bicarb. Free water restriction and pending urine studies. Hyponatremia likey secondary to renal failure and vol o/d
similar to prior. Hemodynamically stable.
UTI - Presumed Complicated pyelonephritis given recent instrumentation, catheter and voiding trial. Low urine output with urinary sludge per SNF. Denies flank pain but overall ill appearing.
Fever
- Continue to monitor on telemetry
- given very recent hospitalization and abx, continue cefepime 2g q 24 hours renal dosing
2. NORM - NORM. On admission: Cr 3.3, K 5.1, BUN 60 and CO2 15 - 100 ml uop in [address]
- CT abd/pelvis results above
- Hold off IV fluids for now
- Sodium bicarb supplementation with 150meq bicarb at 50ml/hr
- strict i/os
- urine lytes, creatinine and spot urine prot/Cr
- nephrology consultation
3. Bilateral [place] and UTI - Possible stent obstruction and infection. Urology consulted
- NPO for now, diet can be resumed if urology/IR clears for diet
- urinary catheter and i/o
- CT abdomen and pelvis showing mild left and moderate right hydronephrosis with possible stent dysfunction. The stent appeared to be in proper position. Urology aware.
- f/u imaging per urology
4. Hyponatremia - Hypervolemic hyponatremia to me. In setting of acute renal failure.
- Fluid restriction
- BNP [id number]
- urine lytes and osms
5. HTN - Hemodynamically stable
- continue atenolol and hydralazine with hold parameters
- continue norvasc
6. CHF - h/o CHF w/ preserved EF on chart but no evidence of CHF per prior cardiology notes. Does complain of orthopnea. Xray with mild pulm edema to me. Total body volume o/d with NORM
- fluid restriction for now
DVT PPX - heparin sq q 8
Code Status - DNR
Anticipated Discharge: > 48 hours
Subjective/Interval History
-
Date of Service: July 03, 2024
Patient was seen and examined. Her was at bedside. She reported ongoing fatigue, but denied back or flank pain or suprapubic pain.
Objective Data
-
Labs:
Laboratory Results
07/02/24 07/03/24 07/03/24
22:18 05:55 08:08
WBC 21.4 H 18.3 H
Hgb 8.5 L 8.0 L
Hct 25.1 L 24.4 L
Plt Count 207 197
PT Pending
INR Pending
Sodium 127 L 132 L
Potassium 5.1 5.3 H
Chloride 96 L 97 L
Carbon Dioxide 15 L 19 L
BUN 60 H 62 H
Creatinine 3.3 H 3.6 H
Glucose 97 76
Calcium 8.8 8.5
Total Bilirubin 0.5
AST 39 H
ALT 26
Alkaline Phosphatase 149 H
Vital Signs:
Vital Signs
Temp Pulse Resp BP Pulse Ox
100.1 F 75 17 124/70 94
07/03/24 07:47 07/03/24 07:47 07/03/24 07:47 07/03/24 08:06 07/03/24 07:47
I&O
07/02/24 07/03/24 07/04/24
06:59 06:59 06:59
Intake Total 515 / 515
Balance 515 / 515
[2024-07-03 08:28] LABS: INR 1.11; PT 14.2 Sec (11.4-14.6)
--- NOTE | 2024-07-03 11:26 | W.CON.NEPH ---
Consultation
-
Date/Time Consultation Requested: 07/03/24 0900
Date/Time Consultation Performed: 07/03/24 1100
Requesting Provider: Dr Sanchez
Performing Provider: Dr Jacobo
Reason for Consultation: NORM
Medical History
-
Chief Complaint: Weakness
History of Present Illness:
78-year-old with CVA on ASA, GERD on high dose PPI, hypertension on multiple meds, hyperlipidemia on statin, anxiety, bladder ca s/p TURBT. She was in the hospital at the end of May with acute kidney injury, bilateral hydronephrosis.
Bilateral ureteral stenting was performed at that time. Her creatinine, initially at 5.0 and improved down to 2.3 at the time of discharge. About last week she says that her creatinine was 1.9. Unfortunately in the last 4 days she began having
reduced appetite and malaise. With worsening weakness she came to the emergency room. She was noted to have a creatinine at 3.3 representing acute kidney injury. Her creatinine has now risen to 3.6 and she has a low-grade fever. We are also
asked to assist with multiple electrolyte abnormalities as well as metabolic acidosis.
Past Medical History
Scoliosis
Hypertension
Arthritis
Stroke
TIA
bladder ca
Past Surgical History: Other (Bilateral knee replacement, right hip replacement, TURBT of bladder ca)
Social History
Tobacco: Former Smoker
Alcohol: Daily (1drink daily )
Drug: None
Personal:
Living: With Family
Family History
father with kidney cancer requiring surgery, probably no CKD
Family History: Not Pertinent
Allergies / Home Medications
Allergy/AdvReac Type Severity Reaction Status Date / Time
APOLINAR Inhibitors Allergy cough Verified 06/11/24 22:47
�Medication �Instructions �Recorded �Confirmed �Type
cholecalciferol (vitamin D3) 25 25 mcg PO DAILY Supplement 09/25/22 06/10/24 History
mcg (1,000 unit) tablet (Vitamin
D3)
rosuvastatin 20 mg tablet 20 mg PO DAILY Blood Pressure 09/25/22 06/10/24 History
acetaminophen 500 mg tablet 1,000 mg PO HS 06/18/23 06/10/24 History
aspirin 81 mg tablet,delayed 81 mg PO DAILY Blood Pressure 06/18/23 06/10/24 History
release
docusate sodium 100 mg capsule 300 mg PO DAILY Constipation 06/18/23 06/10/24 History
(Colace)
amlodipine 5 mg tablet 10 mg PO HS Blood Pressure 01/17/24 06/10/24 History
psyllium 1 packet PO DAILY@1200 Constipation 01/17/24 06/10/24 History
omeprazole 40 mg capsule,delayed 40 mg PO BID #60 caps 01/24/24 06/10/24 Rx
release
atenolol 50 mg tablet 50 mg PO DAILY #30 tabs 06/17/24 Rx
hydralazine 25 mg tablet 25 mg PO BID #60 tabs 06/17/24 Rx
Review of Systems
-
Weakness fatigue malaise
All other systems: Negative unless noted
Physical Exam
Vital Signs
Vital Signs
Temp Pulse Resp BP Pulse Ox
100.6 F H 70 18 102/48 94
07/03/24 11:23 07/03/24 11:23 07/03/24 11:23 07/03/24 11:23 07/03/24 11:23
Lab Results
WBC 18.3 10^3/uL (4.8-10.8) H 07/03/24 05:55
RBC 2.85 10^6/uL (4.20-5.40) L 07/03/24 05:55
Hgb 8.0 g/dL (12.0-16.0) L 07/03/24 05:55
Hct 24.4 % (37.0-47.0) L 07/03/24 05:55
Plt Count 197 10^3/uL (130-400) 07/03/24 05:55
Sodium 132 mmol/L (135-145) L 07/03/24 05:55
Potassium 5.3 mmol/L (3.5-5.1) H 07/03/24 05:55
Chloride 97 mmol/L (98-107) L 07/03/24 05:55
Carbon Dioxide 19 mmol/L (22-30) L 07/03/24 05:55
BUN 62 mg/dl (7-17) H 07/03/24 05:55
Creatinine 3.6 mg/dL (0.6-1.0) H 07/03/24 05:55
eGFR 12.24 07/03/24 05:55
Glucose 76 mg/dl (70-99) 07/03/24 05:55
Calcium 8.5 mg/dl (8.4-10.2) 07/03/24 05:55
Emb-V-Jtfwkfizrdj Pept 14684 pg/ml 07/03/24 05:55
Albumin 3.4 g/dl (3.5-5.0) L 07/02/24 22:18
Laboratory Tests
06/17/24
05:40
Sodium 138
Potassium 3.7
Carbon Dioxide 26
Creatinine 2.3 H
Physical Exam
Patient is awake alert oriented and in no distress. Mood and affect were pleasant, insight and judgment were good. Pupils are equal round and reactive to light, extraocular movements are intact, sclera were anicteric. Hearing was normal, ears and
nose are intact. Oropharynx was clear. Neck was supple with trachea midline and no thyromegaly. Heart was regular rate and rhythm without rubs. Lower extremities without edema. Lungs were clear to auscultation bilaterally and with normal
excursion. Abdomen was soft, nontender, with normal active bowel sounds, and no hepatosplenomegaly. Skin was without rash and with normal turgor.
Data Reviewed
-
Radiology: Image Personally Visualized and interpreted (Chest x-ray 07/03/2024 by my reading shows vascular prominence)
CT Scan: Report Reviewed by me (CT scan on 07/03/2024 shows bilateral hydronephrosis right greater than left isodense right renal mass/cyst unchanged)
Medical Tests (Nuc Med, Echo etc): Image Personally Visualized and interpreted (EKG on 07/02/2024 by read shows normal sinus rhythm)
Labs: Labs Reviewed by me
Old Records: Reviewed
Assessment/Plan
-
IMP:
NORM
Metabolic acidosis
Heart failure preserved ejection fraction compensated
Mod MR
Hyponatremia
Hypertension
Bilateral ureteral stents
Bilateral hydronephrosis
Hyperkalemia
Plan:
For bilateral percutaneous nephrostomy
Follow BMP
IV fluids with bicarbonate therapy
Outpatient medications may be continued
Discussed with patient and
Empiric antibiotics for presumed sepsis
--- NOTE | 2024-07-03 15:47 | CM ---
met with patient at bedside.patient lives in [place] at [facility],she ambulates with a walker,take sponge baths,she has had a vn through [facility] .has been at [facility] for snf rehab(no bed was available at [facility]).
PCP: shannon nelson Pharmacy: [facility] at [facility]
PMH:htn,tia,hld,mv insuficiency,iron deficiency,bladder ca
patient is adm with arf.ct scan,urology cs,has bl hydro despite stent,plan bl percs. Plan:probably dc to snf.referral sent to [facility]
--- NOTE | 2024-07-03 16:30 | PTCARENOTE ---
pt returned from B/L PCN placement no c/o pain. b/l trubes training blood tinged. CB in reach
[2024-07-03 20:06] LABS: Body Fluid for Eosinophils No Eosinophils seen
[2024-07-03] MEDS: TYLENOL 650 MG PO (20:29)
[2024-07-03] MEDS: NORVASC 10 MG PO (23:21)
[2024-07-04] MEDS: SODIUM BICARBONATE IV (02:08)
[2024-07-04 03:08] VITALS: BP 114/46
[2024-07-04 06:00] VITALS: BMI 25.0
[2024-07-04 07:39] LABS: Hematocrit 23.1 % (37.0-47.0); Hemoglobin 7.9 g/dL (12.0-16.0); Mean Corp Hgb Conc. 34.2 g/dL (33.0-37.0); Mean Corpuscular Hgb 29.8 pg (27.0-31.0); Mean Corpuscular Volume 87.2 fL (81.0-99.0); Mean Platelet Volume 11.5 fL (7.4-10.4); Platelet Count 161 10^3/uL (130-400); Red Blood Cell Count 2.65 10^6/uL (4.20-5.40); Red Cell Dist. Width 15.5 % (11.5-14.5); White Blood Cell Count 18.4 10^3/uL (4.8-10.8)
[2024-07-04 07:48] LABS: ALT (SGPT) 24 U/L (0-35); AST (SGOT) 36 U/L (14-36); Albumin 2.8 g/dl (3.5-5.0); Alkaline Phosphatase 158 U/L (38-126); Blood Urea Nitrogen 67 mg/dl (7-17); Calcium 8.2 mg/dl (8.4-10.2); Carbon Dioxide 21 mmol/L (22-30); Chloride 96 mmol/L (98-107); Estimated Creatinine Clearance 13 ml/min; Glucose 62 mg/dl (70-99); Magnesium 1.6 mg/dl (1.6-2.3); Sodium 132 mmol/L (135-145); Total Bilirubin 0.4 mg/dl (0.2-1.3); Total Protein 5.5 g/dl (6.3-8.2); eGFR 11.12
[2024-07-04 08:10] VITALS: BP 136/60
[2024-07-04] MEDS: TENORMIN 50 MG PO (08:15)
[2024-07-04] MEDS: NSS (PRESERVATIVE FREE) 10 ML IV (08:15)
[2024-07-04] MEDS: ASPIR LOW (ENTERIC COATED) 81 MG PO (08:15)
[2024-07-04] MEDS: COLACE 300 MG PO (08:15)
[2024-07-04 08:16] LABS: Absolute Neutrophils -Man Diff 16.1 10^3/uL (1.4-6.5); Band Neutrophils 14 % (0-3); Lymphocytes 7 % (20-51); Monocytes 5 % (2-9); Normal RBC Morphology Yes; Platelets Checked Yes; Segmented Neutrophils 74 % (42-75); Total Cells Counted 100
[2024-07-04] MEDS: PROTONIX IV 40 MG IV (08:16)
[2024-07-04] MEDS: APRESOLINE PO (08:18)
[2024-07-04 08:52] LABS: Glucose - Point of Care 78 mg/dl (70-99)
--- NOTE | 2024-07-04 10:23 | W.PN.NEPH.PH ---
Today's Communication / Plan
-
follow BMP
Assessment/Plan
-
IMP:
NORM
Metabolic acidosis
Heart failure preserved ejection fraction compensated
Mod MR
Hyponatremia
Hypertension
Bilateral ureteral stents
Bilateral hydronephrosis
Hyperkalemia
Plan:
follow BMP
no IVF today
Empiric antibiotics for presumed sepsis
pt understands that if Cr continues to rise she may need HD and would accept
check serologies
-
-
Date of Service: July 04, 2024
CC / HPI / ROS
-
Chief Complaint:
NORM
History of Present Illness:
NORM/Cr worse to 3.9
s/p bilateral PCN 07/03
nonoliguric
BP stable
K normal 5
Na stable 132
Review of Systems:
no CP/SOB
Labs
-
Labs:
WBC 18.4 10^3/uL (4.8-10.8) H 07/04/24 06:43
RBC 2.65 10^6/uL (4.20-5.40) L 07/04/24 06:43
Hgb 7.9 g/dL (12.0-16.0) L 07/04/24 06:43
Hct 23.1 % (37.0-47.0) L 07/04/24 06:43
Plt Count 161 10^3/uL (130-400) 07/04/24 06:43
Sodium 132 mmol/L (135-145) L 07/04/24 06:43
Potassium 5.0 mmol/L (3.5-5.1) 07/04/24 06:43
Chloride 96 mmol/L (98-107) L 07/04/24 06:43
Carbon Dioxide 21 mmol/L (22-30) L 07/04/24 06:43
BUN 67 mg/dl (7-17) H 07/04/24 06:43
Creatinine 3.9 mg/dL (0.6-1.0) H 07/04/24 06:43
eGFR 11.12 07/04/24 06:43
Glucose 62 mg/dl (70-99) L 07/04/24 06:43
Calcium 8.2 mg/dl (8.4-10.2) L 07/04/24 06:43
Yvn-X-Jjoucpupqde Pept 45413 pg/ml 07/03/24 05:55
Albumin 2.8 g/dl (3.5-5.0) L 07/04/24 06:43
Physical Exam
-
Vital Signs:
Vital Signs
Temp Pulse Resp BP Pulse Ox
97.6 F 57 18 121/66 97
07/04/24 08:10 07/04/24 08:18 07/04/24 08:10 07/04/24 08:18 07/04/24 08:10
Cardiovascular:: Regular rate and rhythm
Respiratory:: Bilateral: CTA
Lung Excursion:: Normal
Abdomen:: Nontender and Soft
Bowel Sounds:: Normal
Extremity Edema:: None: Bilateral:
--- NOTE | 2024-07-04 10:47 | W.PN.URO.CBU ---
Today's Communication / Plan
-
PLAN PER NEPH AND HOSPITALIST FOR NOW LEAVE [place]
Assessment / Plan
-
NORM WITH BILATERAL URETRAL STENTS AND FEVER CHILLS pCN PLACED YESTERDAY BUT CREATININE UP 3.6 TO 3.9 NO OBSTRUCTION AWAIT MED INPUT IE SEPSIS, DEHYDRATION, MED RENAL DISEASE. iN LONG RUN PLAN TO TAKE ONCE STABLE TO OP ROOM AND REMOVE
INDWELLING JJ STENTS ANS EVALUATE URETERS FOR CANCER, OBSTRUCTION
Diagnosis
-
Date of Service: July 04, 2024
-
Patient Diagnosis:URETRAL OBSTRUCTION NORM UTI
Post Op Day:
Subjective
-
NO MAJOR COMPLAINTS
Objective
-
Vital Signs
Temp Pulse Resp BP Pulse Ox
97.6 F 57 18 121/66 97
07/04/24 08:10 07/04/24 08:18 07/04/24 08:10 07/04/24 08:18 07/04/24 08:10
Intake and Output
07/03/24 07/04/24 07/05/24
06:59 06:59 06:59
Intake Total 515 / 515
Output Total 800 / 800 550 / 550
Balance 515 / 515 -800 / -800 -550 / -550
Intake:
Oral fluids 240 / 240
IV fluids (Total) 275 / 275
Output:
Urinary Drain Output (Total) 200 / 200 500 / 500
Left Nephrostomy 50 / 50 300 / 300
Right Nephrostomy 150 / 150 200 / 200
Urine, Harris 600 / 600 50 / 50
Laboratory Results
07/04/24 06:43
07/04/24 06:43
Review of Systems
-
: Flank Pain and Difficulty Voiding
Physical Exam
-
General - well developed, well nourished, no acute distress
Chest - clear bilaterally
Abdomen - soft, non-tender, positive bowel sounds, no CVAT, no incisional pain or distention
Genitalia - normal
Rectal - normal
Skin - warm & dry with no rash
Neuro - AOx3, no motor deficits
Extremities - no clubbing, no cyanosis, no edema
Incision - clean, dry
Dressing - clean, dry, intact
Care Review
Data Reviewed
Discussed with: Hospitalist and Other (NEPHROLOGY)
CT Scan: Image Pers Reviewed
--- NOTE | 2024-07-04 11:46 | CON.CAR ---
Consultation
Consultation Request
Date/Time Consultation Requested: July 04, 2023
Date/Time Consultation Performed: July 04, 2023
Requesting Provider: Hospitalist
Performing Provider: Denis
Reason for Consultation: Diastolic heart failure
Medical History
-
Chief Complaint: Diastolic heart failure
History of Present Illness:
78-year-old female with history of bladder cancer status post bilateral ureteral stents who comes in with diastolic heart failure, recent echo demonstrating hyperdynamic LV function, presumed UTI with urosepsis, and elevated creatinine particularly
after her last hospitalization with trial of diuresis. We are consulted to assess volume status and weigh in on the question of whether diuretics are necessary. She was recently hospitalized see our prior notes and had a rising creatinine with a
trial of diuresis. She has no active chest pain or pressure. She has mildly increased work of breathing with changing in position. She feels subjectively dyspneic.
PCP: Dr. Foreman at [facility]
Cardiology: Dr. Cohn at [facility] [phone]
Past medical history
Fall with right forehead laceration 06/10/24
Acute hypoxic respiratory failure
Acute HFpEF
NORM
Severe metabolic acidosis anion gap
Anemia
Hyponatremia
HTN
h/o CVA treated with tPA at [facility] 08/2022 and then TIA 09/2023
h/o bladder cancer with TURBT
Echo 06/10/24: EF 75-80% with hyperdynamic LV function, stage II diastolic dysfunction, normal RV size and function, mild MS peak/mean 18/5 mmHg and mod MR, aortic sclerosis without stenosis and mild aortic regurgitation, mild TR
Past Medical History
Past Medical History: CHF
Social History
Tobacco: Non-Smoker
Alcohol: None
Drug: None
Personal: Other
Living: Other
Employment: Retired
Family History
Family History: Reviewed & Not Pertinent
Allergies / Home Medications
Allergy/AdvReac Type Severity Reaction Status Date / Time
APOLINAR Inhibitors Allergy cough Verified 06/11/24 22:47
�Medication �Instructions �Recorded �Confirmed �Type
cholecalciferol (vitamin D3) 25 25 mcg PO DAILY Supplement 09/25/22 06/10/24 History
mcg (1,000 unit) tablet (Vitamin
D3)
rosuvastatin 20 mg tablet 20 mg PO DAILY Blood Pressure 09/25/22 06/10/24 History
acetaminophen 500 mg tablet 1,000 mg PO HS 06/18/23 06/10/24 History
aspirin 81 mg tablet,delayed 81 mg PO DAILY Blood Pressure 06/18/23 06/10/24 History
release
docusate sodium 100 mg capsule 300 mg PO DAILY Constipation 06/18/23 06/10/24 History
(Colace)
amlodipine 5 mg tablet 10 mg PO HS Blood Pressure 01/17/24 06/10/24 History
psyllium 1 packet PO DAILY@1200 Constipation 01/17/24 06/10/24 History
omeprazole 40 mg capsule,delayed 40 mg PO BID #60 caps 01/24/24 06/10/24 Rx
release
atenolol 50 mg tablet 50 mg PO DAILY #30 tabs 06/17/24 Rx
hydralazine 25 mg tablet 25 mg PO BID #60 tabs 06/17/24 Rx
Review of Systems
-
All other systems: Negative unless noted
Respiratory: Trouble Breathing
Cardiac: No Symptoms
Physical Exam
Vital Signs
Temp Pulse Resp BP Pulse Ox
97.6 F 57 18 121/66 97
07/04/24 08:10 07/04/24 08:18 07/04/24 08:10 07/04/24 08:18 07/04/24 08:10
Lab Results
07/04/24 06:43
07/04/24 06:43
Dza-F-Qtmibdvnoaq Pept 48616 pg/ml 07/03/24 05:55
Physical Exam
General: Well Developed, Well Nourished and Respiratory Distress
HEENT: Normocephalic and Anicteric
Respiratory: Crackles
Cardiac: Regular Rhythm
Breast: Deferred by me
GI: Soft, Non Tender and Non Distended
Rectal: Deferred by Provider
Musculoskeletal: No Clubbing and No Cyanosis
Skin: Warm and Dry
Neuro: Awake, Alert and Oriented
Hematologic/Lymphatic: No Lymphadenopathy
Psych: Calm
Impression / Plan
-
PCP: Dr. Foreman at [facility]
Cardiology: Dr. Cohn at [facility] [phone]
Impression:
UTI�urosepsis
Acute on chronic renal failure
Acute on chronic diastolic heart failure
Fall with right forehead laceration 06/10/24
Acute hypoxic respiratory failure
Acute HFpEF
NORM
Severe metabolic acidosis anion gap
Anemia
Hyponatremia
HTN
h/o CVA treated with tPA at [facility] 08/2022 and then TIA 09/2023
h/o bladder cancer with TURBT
Echo 06/10/24: EF 75-80% with hyperdynamic LV function, stage II diastolic dysfunction, normal RV size and function, mild MS peak/mean 18/5 mmHg and mod MR, aortic sclerosis without stenosis and mild aortic regurgitation, mild TR
Recommendations:
Appreciate IM and nephrology management
I have no objection to a one-time Lasix dose IV given her increased work of breathing, elevated BNP, and chest x-ray findings. Of note she is had a rapidly rising creatinine in the past and I am reticent to commit her to daily medications without
at least a trial. Would defer to nephrology ultimately regarding fluid status and management. I have reviewed their notes
We will be happy to follow with you
Data Reviewed
-
EKG: Tracing Personally Visualized and interpreted
Radiology: Image Personally Visualized and interpreted
Medical Tests (Nuc Med, Echo etc): Image Personally Visualized and interpreted and Report Reviewed by me
Labs: Labs Reviewed by me
Old Records: Reviewed
--- NOTE | 2024-07-04 11:54 | W.PN.HOSP.TC ---
Today's Communication/Plan
-
Continue antibiotics
Monitor renal function
Recheck labs in AM
Appreciate nephrology and cardiology
Assessment / Plan
Assessment / Plan
Physical Exam
General: Not in acute distress
HEENT: Normocephalic
Respiratory: CTAB
Cardiac: S1/S2 and Regular Rhythm
GI: Soft, Non Tender, Non Distended and Normal Bowel Sounds
Musculoskeletal: No Cyanosis. Edema, Left Lower Extremity and Edema, Right Lower Extremity
Skin: Warm
Neuro: AAO x 3
Psych: Calm

CT Abdomen/Pelvis (as per radiologist's report)
'IMPRESSION: Mild right hydronephrosis. Slightly progressed. Minimal left hydronephrosis. Slightly improved.
Bilateral double-J stents. Appropriately positioned. Stable
Small right pleural effusion. Mildly improved..
Large hiatal hernia. Stable.
Small isodense right renal mass likely a benign proteinaceous cyst. Decreased in size suggesting it is benign..'

Assessment/Plan
78-year-old female with past medical history of hypertension, CVA, hyperlipidemia who recently had NORM in the setting of bilateral hydronephrosis of uncertain etiology and is status post stenting bilaterally who presents again to the emergency
department with NORM rising creatinine to 3.3 loss of appetite increased weakness decreased urine output and bilateral lower extremity edema. Found to have significant pyuria & bacteruria in ED, negative nitrite similar prior admission[place] [address]
April Jade with UTI, hyponatremia and kidney failure. Had TURBT by Dr Tam on the 24 with stents placed. Cr 3.3, K 5.1, BUN 60, bicarb 15. Moderate total body volume overload. Urology consulted, (Dr. Camarena) and final read of CT pending.
Pascal placed with about 50 ml/hr urine output. Given recent instrumentation and hospitalizaton, urine cultured and started cefepime. NPO, possible procedure in AM. Edema on exam, orthopena on history suggestive of vol overload but heart
failure ruled out previous admission. Given uop and metabolic acidosis w/ bicarb of 15, placed on replacement with 50m/hr 150meq bicarb. Free water restriction and pending urine studies. Hyponatremia likey secondary to renal failure and vol o/d
similar to prior. Hemodynamically stable.
#UTI - Presumed Complicated pyelonephritis given recent instrumentation, catheter and voiding trial. Low urine output with urinary sludge per SNF. Denies flank pain but overall ill appearing.
Fever
- Urine cultures growing E. coli
- Continue to monitor on telemetry
- given very recent hospitalization and abx, continue cefepime 2g q 24 hours renal dosing
#NORM - NORM
- Creatine continues to increase --> might need dialysis as per nephrology if Cr continues to rise
- CT abd/pelvis results above
- Hold off on further IV fluids for now
- strict i/os
- urine lytes, creatinine and spot urine prot/Cr
- nephrology consultation
#Bilateral [place] and UTI - Possible stent obstruction and infection. Urology consulted
- urinary catheter and i/o
- CT abdomen and pelvis showing mild left and moderate right hydronephrosis with possible stent dysfunction. The stent appeared to be in proper position. Urology aware.
- Bilateral nephrostomy tubes placed on July 04, 2024 with good urine output
#Hyponatremia - Hypervolemic hyponatremia to me. In setting of acute renal failure.
- Fluid restriction
- BNP 05288
- urine lytes and osms
#HTN - Hemodynamically stable
- continue atenolol and hydralazine with hold parameters
- continue norvasc
#Acute on chronic diastolic heart failure
#Pulmonary Edema
- fluid restriction for now
-Okay for 1x Lasix IV 20 mg dose today as per [facility] discussion with Dr. Barrios on 07/04/24
DVT PPX - heparin sq q 8
Code Status - DNR
Anticipated Discharge: > 48 hours
Subjective/Interval History
-
Date of Service: July 04, 2024
Patient was seen and examined. She appeared to look better today but said she is not feeling much better, denied any new complaints, still on oxygen.
Objective Data
-
Labs:
Laboratory Results
07/04/24
06:43
WBC 18.4 H
Hgb 7.9 L
Hct 23.1 L
Plt Count 161
Sodium 132 L
Potassium 5.0
Chloride 96 L
Carbon Dioxide 21 L
BUN 67 H
Creatinine 3.9 H
Glucose 62 L
Calcium 8.2 L
Total Bilirubin 0.4
AST 36
ALT 24
Alkaline Phosphatase 158 H
Vital Signs:
Vital Signs
Temp Pulse Resp BP Pulse Ox
97.6 F 57 18 121/66 97
07/04/24 08:10 07/04/24 08:18 07/04/24 08:10 07/04/24 08:18 07/04/24 08:10
I&O
07/03/24 07/04/24 07/05/24
06:59 06:59 06:59
Intake Total 515 / 515
Output Total 800 / 800 550 / 550
Balance 515 / 515 -800 / -800 -550 / -550
[2024-07-04] MEDS: LASIX 20 MG IV (12:05)
[2024-07-04 13:20] LABS: Anti Streptolysin Negative (Negative)
[2024-07-04] MEDS: MIRALAX 17 GRAMS PO (14:52)
[2024-07-04 15:00] VITALS: BP 122/53
[2024-07-04 20:18] VITALS: BP 147/60
[2024-07-04] MEDS: SENOKOT-S 1 TABLET PO (20:30)
[2024-07-04] MEDS: APRESOLINE 25 MG PO (20:30)
[2024-07-04] MEDS: NORVASC 10 MG PO (22:17)
[2024-07-04 23:51] VITALS: BP 104/41
[2024-07-05] MEDS: STERILE WATER FOR INJECTION 10 ML IV (00:26)
[2024-07-05] MEDS: MAXIPIME 2000 MG IV (00:26)
[2024-07-05] MEDS: TYLENOL 650 MG PO (00:44)
[2024-07-05 03:36] VITALS: BP 103/86
[2024-07-05 06:15] LABS: % Basophils 0.4 % (0-2); % Eosinophils 2.7 % (0-6); % Immature Granulocytes 1.6 % (0-0.5); % Lymphocytes 13.2 % (20.5-51.1); % Monocytes 13.6 % (1.7-9.3); % Neutrophils 68.5 % (42.2-75.2); Absolute Basophils 0.1 10^3/uL (0-0.2); Absolute Eosinophils 0.3 10^3/uL (0-0.7); Absolute Immature Granulocytes 0.2 10^3/uL (0-0.05); Absolute Lymphocytes 1.5 10^3/uL (1.2-3.4); Absolute Monocytes 1.6 10^3/uL (0.1-0.6); Hematocrit 22.5 % (37.0-47.0); Hemoglobin 7.8 g/dL (12.0-16.0); Mean Corp Hgb Conc. 34.7 g/dL (33.0-37.0); Mean Corpuscular Hgb 29.3 pg (27.0-31.0); Mean Corpuscular Volume 84.6 fL (81.0-99.0); Mean Platelet Volume 11.6 fL (7.4-10.4); Nucleated Red Blood Cells % 0.2 %; Platelet Count 170 10^3/uL (130-400); Red Blood Cell Count 2.66 10^6/uL (4.20-5.40); White Blood Cell Count 11.7 10^3/uL (4.8-10.8)
[2024-07-05 06:43] LABS: ALT (SGPT) 23 U/L (0-35); AST (SGOT) 31 U/L (14-36); Albumin 2.7 g/dl (3.5-5.0); Alkaline Phosphatase 147 U/L (38-126); Blood Urea Nitrogen 69 mg/dl (7-17); Calcium 8.2 mg/dl (8.4-10.2); Carbon Dioxide 21 mmol/L (22-30); Chloride 98 mmol/L (98-107); Estimated Creatinine Clearance 14 ml/min; Glucose 75 mg/dl (70-99); Potassium 4.4 mmol/L (3.5-5.1); Sodium 134 mmol/L (135-145); Total Bilirubin 0.4 mg/dl (0.2-1.3); Total Protein 5.4 g/dl (6.3-8.2); eGFR 12.67
--- NOTE | 2024-07-05 07:12 | W.PN.HOSP.TC ---
Today's Communication/Plan
-
Abdominal X-ray to check stool burden
GI consult given gradually worsening anemia and constipation, patient was to follow with GI outpatient but never did
Assessment / Plan
Assessment / Plan
Physical Exam
General: Not in acute distress
HEENT: Normocephalic
Respiratory: CTAB
Cardiac: S1/S2 and Regular Rhythm
GI: Soft, Non Tender, Non Distended and Normal Bowel Sounds
Musculoskeletal: No Cyanosis. Edema, Left Lower Extremity and Edema, Right Lower Extremity
Skin: Warm
Neuro: AAO x 3
Psych: Calm

CT Abdomen/Pelvis (as per radiologist's report)
'IMPRESSION: Mild right hydronephrosis. Slightly progressed. Minimal left hydronephrosis. Slightly improved.
Bilateral double-J stents. Appropriately positioned. Stable
Small right pleural effusion. Mildly improved..
Large hiatal hernia. Stable.
Small isodense right renal mass likely a benign proteinaceous cyst. Decreased in size suggesting it is benign..'

Assessment/Plan
78-year-old female with past medical history of hypertension, CVA, hyperlipidemia who recently had NORM in the setting of bilateral hydronephrosis of uncertain etiology and is status post stenting bilaterally who presents again to the emergency
department with NORM rising creatinine to 3.3 loss of appetite increased weakness decreased urine output and bilateral lower extremity edema. Found to have significant pyuria & bacteruria in ED, negative nitrite similar prior admission[place] [address]
April Jade with UTI, hyponatremia and kidney failure. Had TURBT by Dr Tam on the 24 with stents placed. Cr 3.3, K 5.1, BUN 60, bicarb 15. Moderate total body volume overload. Urology consulted, (Dr. Camarena) and final read of CT pending.
Pascal placed with about 50 ml/hr urine output. Given recent instrumentation and hospitalizaton, urine cultured and started cefepime. NPO, possible procedure in AM. Edema on exam, orthopena on history suggestive of vol overload but heart
failure ruled out previous admission. Given uop and metabolic acidosis w/ bicarb of 15, placed on replacement with 50m/hr 150meq bicarb. Free water restriction and pending urine studies. Hyponatremia likey secondary to renal failure and vol o/d
similar to prior. Hemodynamically stable.
#UTI - Presumed Complicated pyelonephritis given recent instrumentation, catheter and voiding trial. Low urine output with urinary sludge per SNF. Denies flank pain but overall ill appearing.
Fever
- Urine cultures growing E. coli
- Continue to monitor on telemetry
- given very recent hospitalization and abx, continue cefepime 2g q 24 hours renal dosing
#NORM - NORM
- Creatine initially increased but now trending back down
- CT abd/pelvis results above
- Hold off on further IV fluids for now
- nephrology consultation, appreciate their evaluation and recommendations
#Normocytic Anemia
-Ordered iron studies, B12, folate
#Constipation
-Patient is on bowel regimen
-Patient was supposed to follow-up with GI in the past 6 months or so but never did
-Consulted GI for possible occult GI bleed as well as constipation
-Check abdominal x-ray on 07/05/24 to assess stool burden or for any possible impaction
#Bilateral Gardner and UTI - Possible stent obstruction and infection. Urology consulted
- urinary catheter and i/o
- CT abdomen and pelvis showing mild left and moderate right hydronephrosis with possible stent dysfunction. The stent appeared to be in proper position. Urology aware.
- Bilateral nephrostomy tubes placed on July 04, 2024 with good urine output
- Per urology, patient to go to operating room this week for stent removal
#Hyponatremia
- Fluid restriction
- Nephrology onboard
#Hypertension
- continue atenolol and hydralazine with hold parameters
- continue norvasc
#Acute on chronic diastolic heart failure
#Pulmonary Edema
#Acute Hypoxic Respiratory Insufficiency from Pulmonary Edema - RESOLVED
-Okay for 1x Lasix IV 20 mg dose today as per [place] [facility] discussion with Dr. Barrios on 07/04/24 --> with resultant improvement
-Per cardiology, it would not be unreasonable to give patient 3 days worth of 20 mg p.o. x 3
-Outpatient follow-up with Dr. Cohn at [facility] from cardiology and patient could follow-up with him in 1 to 2 weeks post discharge
DVT Prophylaxis - Heparin subq Q8H
Code Status - DNR
Anticipated Discharge: > 48 hours
Subjective/Interval History
-
Date of Service: July 05, 2024
Patient was seen and examined. She reported no bowel movements yet for the past few days. She also requested regular diet.
Objective Data
-
Labs:
Laboratory Results
07/05/24
05:14
WBC 11.7 H
Hgb 7.8 L
Hct 22.5 L
Plt Count 170
Sodium 134 L
Potassium 4.4
Chloride 98
Carbon Dioxide 21 L
BUN 69 H
Creatinine 3.5 H
Glucose 75
Calcium 8.2 L
Total Bilirubin 0.4
AST 31
ALT 23
Alkaline Phosphatase 147 H
Vital Signs:
Vital Signs
Temp Pulse Resp BP Pulse Ox
98.2 F 70 16 103/86 95
07/05/24 03:36 07/05/24 03:36 07/05/24 03:36 07/05/24 03:36 07/05/24 03:36
I&O
07/04/24 07/05/2424
06:59 06:59 06:59
Intake Total 480 / 480
Output Total 800 / 800 2655 / 2655
Balance -800 / -800 -2175 / -2175
[2024-07-05] MEDS: NSS (PRESERVATIVE FREE) 10 ML IV (08:05)
[2024-07-05] MEDS: ASPIR LOW (ENTERIC COATED) 81 MG PO (08:06)
[2024-07-05] MEDS: PROTONIX IV 40 MG IV (08:06)
[2024-07-05] MEDS: SENOKOT-S 1 TABLET PO ×2 (08:06→20:02)
[2024-07-05] MEDS: MIRALAX 17 GRAMS PO (08:11)
[2024-07-05] MEDS: APRESOLINE PO (08:14)
[2024-07-05] MEDS: TENORMIN 50 MG PO (08:15)
[2024-07-05 08:29] VITALS: BP 116/46
--- NOTE | 2024-07-05 10:27 | W.PN.URO.CBU ---
Today's Communication / Plan
-
MAURICIO HARRIS WILL GO TO OP ROOM THIS WEEK FOR STENT REMOVAL[ INTERNAL JJ STENTSD ]
Assessment / Plan
-
NORM WITH BILATERAL URETRAL STENTS AND FEVER CHILLS pCN PLACED YESTERDAY BUT CREATININE UP 3.6 TO 3.9 NOW DOWN TO 3.45 WITH EXCELLENT URINE OUTPUT NO OBSTRUCTION AWAIT MED INPUT IE SEPSIS, DEHYDRATION, MED RENAL DISEASE. iN LONG RUN PLAN
TO TAKE ONCE STABLE TO OP ROOM AND REMOVE INDWELLING JJ STENTS ANS EVALUATE URETERS FOR CANCER, OBSTRUCTION
Diagnosis
-
Date of Service: July 05, 2024
-
Patient Diagnosis:
Post Op Day:
Patient Diagnosis:URETRAL OBSTRUCTION NORM UTI
Post Op Day:
Subjective
-
feeling stronger
Objective
-
Vital Signs
Temp Pulse Resp BP Pulse Ox
98.9 F 67 20 116/46 93
07/05/24 08:29 07/05/24 08:29 07/05/24 08:29 07/05/24 08:29 07/05/24 08:29
Intake and Output
07/04/24 07/05/24 07/06/24
06:59 06:59 06:59
Intake Total 480 / 480
Output Total 800 / 800 2655 / 2655 275 / 275
Balance -800 / -800 -2175 / -2175 -275 / -275
Intake:
Oral fluids 480 / 480
Output:
Urinary Drain Output (Total) 200 / 200 2475 / 2475 275 / 275
Left Nephrostomy 50 / 50 1850 / 1850 200 / 200
Right Nephrostomy 150 / 150 625 / 625 75 / 75
Urine, Harris 600 / 600 180 / 180
Laboratory Results
07/05/24 05:14
07/05/24 05:14
Review of Systems
-
: Difficulty Voiding
Physical Exam
-
General - well developed, well nourished, no acute distress
Chest - clear bilaterally
Abdomen - soft, non-tender, positive bowel sounds, no CVAT, no incisional pain or distention
Genitalia - normal
Rectal - normal
Skin - warm & dry with no rash
Neuro - AOx3, no motor deficits
Extremities - no clubbing, no cyanosis, no edema
Incision - clean, dry
Dressing - clean, dry, intact
Counseling
-
KEEP HARRIS
Care Review
Data Reviewed
Discussed with: Other (NEP\\HROLOGY)
--- NOTE | 2024-07-05 10:31 | W.PN.NEPH.PH ---
Today's Communication / Plan
-
follow BMP
Assessment/Plan
-
IMP:
NORM
Metabolic acidosis
Heart failure preserved ejection fraction compensated
Mod MR
Hyponatremia
Hypertension
Bilateral ureteral stents
Bilateral hydronephrosis
Hyperkalemia
Plan:
follow BMP
no IVF/lasix today
Empiric antibiotics for presumed sepsis
serologies pending
-
-
Date of Service: July 05, 2024
CC / HPI / ROS
-
Chief Complaint:
NORM
History of Present Illness:
NORM/Cr down to 3.5
s/p bilateral PCN 07/03
grossly nonoliguric
BP stable
K normal 4.4
Na stable 132
hgb low stable 7.8
Review of Systems:
no CP/SOB
Labs
-
Labs:
WBC 11.7 10^3/uL (4.8-10.8) H 07/05/24 05:14
RBC 2.66 10^6/uL (4.20-5.40) L 07/05/24 05:14
Hgb 7.8 g/dL (12.0-16.0) L 07/05/24 05:14
Hct 22.5 % (37.0-47.0) L 07/05/24 05:14
Plt Count 170 10^3/uL (130-400) 07/05/24 05:14
Sodium 134 mmol/L (135-145) L 07/05/24 05:14
Potassium 4.4 mmol/L (3.5-5.1) 07/05/24 05:14
Chloride 98 mmol/L (98-107) 07/05/24 05:14
Carbon Dioxide 21 mmol/L (22-30) L 07/05/24 05:14
BUN 69 mg/dl (7-17) H 07/05/24 05:14
Creatinine 3.5 mg/dL (0.6-1.0) H 07/05/24 05:14
eGFR 12.67 07/05/24 05:14
Glucose 75 mg/dl (70-99) 07/05/24 05:14
Calcium 8.2 mg/dl (8.4-10.2) L 07/05/24 05:14
Bcm-T-Okghlrlhwlp Pept 65277 pg/ml 07/03/24 05:55
Albumin 2.7 g/dl (3.5-5.0) L 07/05/24 05:14
Physical Exam
-
Vital Signs:
Vital Signs
Temp Pulse Resp BP Pulse Ox
98.9 F 67 20 116/46 93
07/05/24 08:29 07/05/24 08:29 07/05/24 08:29 07/05/24 08:29 07/05/24 08:29
Cardiovascular:: Regular rate and rhythm
Respiratory:: Bilateral: Coarse
Lung Excursion:: Normal
Abdomen:: Nontender and Soft
Bowel Sounds:: Normal
Extremity Edema:: None: Bilateral:
--- NOTE | 2024-07-05 11:17 | W.PN.CARDCBS ---
Today's Communication / Plan
-
Can consider p.o. Lasix 20 mg x 3 days
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
Urology plan noted
We will sign off please call back with further questions
Impression / Plan
-
PCP: Dr. Foreman at [facility]
Cardiology: Dr. Cohn at [facility] [phone]
Impression:
UTI�urosepsis
Acute on chronic renal failure
Acute on chronic diastolic heart failure
Fall with right forehead laceration 06/10/24
Acute hypoxic respiratory failure
Acute HFpEF
NORM
Severe metabolic acidosis anion gap
Anemia
Hyponatremia
HTN
h/o CVA treated with tPA at [facility] 08/2022 and then TIA 09/2023
h/o bladder cancer with TURBT
Echo 06/10/24: EF 75-80% with hyperdynamic LV function, stage II diastolic dysfunction, normal RV size and function, mild MS peak/mean 18/5 mmHg and mod MR, aortic sclerosis without stenosis and mild aortic regurgitation, mild TR
Recommendations:
Appreciate IM and nephrology management
She did well with the one-time dose of IV Lasix. Would not be unreasonable to give her 3 days worth of 20 mg p.o. x 3 but will defer to primary team
She has an outpatient urology plan made
She has outpatient follow-up with Dr. Cohn at [facility] from cardiology and she could follow-up with him in 1 to 2 weeks post discharge
At this time we will sign off but please call us back with any further questions
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
Subjective
Date of Service: July 05, 2024
Total Time Spent with Patient (in minutes): Feeling better and breathing better
Objective
Labs:
07/05/24 05:14
07/05/24 05:14
Labs
Hgb 7.8 g/dL (12.0-16.0) L 07/05/24 05:14
Hct 22.5 % (37.0-47.0) L 07/05/24 05:14
Plt Count 170 10^3/uL (130-400) 07/05/24 05:14
PT 14.2 Sec (11.4-14.6) 07/03/24 08:08
INR 1.11 07/03/24 08:08
Sodium 134 mmol/L (135-145) L 07/05/24 05:14
Potassium 4.4 mmol/L (3.5-5.1) 07/05/24 05:14
BUN 69 mg/dl (7-17) H 07/05/24 05:14
Creatinine 3.5 mg/dL (0.6-1.0) H 07/05/24 05:14
Glucose 75 mg/dl (70-99) 07/05/24 05:14
Vital Signs and I&O:
Vital Signs
Temp Pulse Resp BP Pulse Ox
98.9 F 67 20 116/46 93
07/05/24 08:29 07/05/24 08:29 07/05/24 08:29 07/05/24 08:29 07/05/24 08:29
Vital Signs
Temp Pulse Resp BP Pulse Ox
98.9 F 67 20 116/46 93
07/05/24 08:29 07/05/24 08:29 07/05/24 08:29 07/05/24 08:29 07/05/24 08:29
Intake & Output
07/03/24 07/04/24 07/05/24 07/06/24
06:59 06:59 06:59 06:59
Intake Total 515 / 515 480 / 480
Output Total 800 / 800 2655 / 2655 275 / 275
Balance 515 / 515 -800 / -800 -2175 / -2175 -275 / -275
Physical Exam
Physical Exam
�
����Physical Exam
�
���������������������General:��no apparent distress, not acutely ill
�
���������������������������Neck:��supple. no meningeal signs. normal psoterior pharynx
������������������������
���������������������������Heart:��s1/s2 regular rate and rhythm, no murmur. equal radial pulses.
�
��������������������������Lungs: ��no acute respiratory distress. clear bilaterally
�
����������������������Abdomen:�normal bowel sounds. not tender. no CVAT
�
��������������������������Neuro:��alert and oriented. no focal neurological deficits
�
������������������������������Skin: ��no rash
�
�����������������������Psychiatric:�well kept. interactive and cooperative
�
�����������������������Extremities:��no edema. no calf tenderness. negative homans. good distal pulses
�
�
�
��
�
[2024-07-05 12:45] VITALS: BP 136/55
[2024-07-05 16:31] VITALS: BP 127/58
[2024-07-05 19:20] VITALS: BP 135/61
[2024-07-05 19:29] LABS: Iron 30 ug/dl (37-170)
[2024-07-05 19:38] LABS: Percent Saturation 15 % (20-50); Total Iron Binding Capacity 198 ug/dl (265-497)
[2024-07-05] MEDS: APRESOLINE 25 MG PO (20:02)
--- NOTE | 2024-07-05 20:35 | W.PN.UPDATE ---
Update Note
Progress Note Update
I just spoke with on-call international freight forwarder Dr. Randhawa and night house provider Renata Carson about patient's abdominal x-ray and how fecal impaction cannot be excluded. Dr. Randahwa recommended digital/manual impaction tonight if possible, followed by
milk of molasses 500 cc enema. This was communicated to the night nurse and Renata Carson who kindly agreed to have the digital/manual impaction performed, followed by the enema. Appreciate GI, night house provider and patient's nurse.
[2024-07-05] MEDS: NORVASC 10 MG PO (21:39)
--- NOTE | 2024-07-05 21:55 | W.PN.UPDATE ---
Update Note
Progress Note Update
Patient requested to speak with me tonight about the plan formulated by GI specialist to disimpact stool and administer MOM enema. She is refusing but is willing to take mag citrate and dulcolax suppos in the morning (she would like to sleep tonight
without worry of stool incontinence).
[2024-07-05 23:31] VITALS: BP 108/48
[2024-07-05 23:49] LABS: Complement C3 105 mg/dl (88-165)
[2024-07-06 00:08] LABS: Myeloperoxidase Antibody 0 AU/mL (0-19); Serine Protease-3, IgG 0 AU/mL (0-19)
[2024-07-06] MEDS: MAXIPIME 2000 MG IV ×2 (01:30→23:21)
[2024-07-06] MEDS: STERILE WATER FOR INJECTION 10 ML IV ×2 (01:30→23:21)
[2024-07-06 03:52] VITALS: BP 118/47
[2024-07-06 06:00] VITALS: BMI 24.3
[2024-07-06 07:50] VITALS: BP 139/54
[2024-07-06] MEDS: DULCOLAX 10 MG RECTAL (08:34)
[2024-07-06] MEDS: APRESOLINE 25 MG PO ×2 (08:35→20:42)
[2024-07-06] MEDS: SENOKOT-S 1 TABLET PO (08:35)
[2024-07-06] MEDS: ASPIR LOW (ENTERIC COATED) 81 MG PO (08:35)
[2024-07-06] MEDS: PROTONIX 40 MG PO (08:35)
[2024-07-06] MEDS: TENORMIN 50 MG PO (08:35)
[2024-07-06 09:16] LABS: ALT (SGPT) 22 U/L (0-35); AST (SGOT) 28 U/L (14-36); Alkaline Phosphatase 147 U/L (38-126); Blood Urea Nitrogen 62 mg/dl (7-17); Calcium 8.6 mg/dl (8.4-10.2); Carbon Dioxide 23 mmol/L (22-30); Chloride 100 mmol/L (98-107); Estimated Creatinine Clearance 16 ml/min; Glucose 85 mg/dl (70-99); Potassium 4.6 mmol/L (3.5-5.1); Sodium 137 mmol/L (135-145); Total Bilirubin 0.5 mg/dl (0.2-1.3); Total Protein 5.9 g/dl (6.3-8.2); eGFR 14.65
[2024-07-06 09:46] LABS: % Basophils 0.8 % (0-2); % Eosinophils 3.3 % (0-6); % Immature Granulocytes 3.2 % (0-0.5); % Lymphocytes 18.8 % (20.5-51.1); % Monocytes 18.2 % (1.7-9.3); % Neutrophils 55.7 % (42.2-75.2); Absolute Basophils 0.1 10^3/uL (0-0.2); Absolute Eosinophils 0.3 10^3/uL (0-0.7); Absolute Immature Granulocytes 0.3 10^3/uL (0-0.05); Absolute Lymphocytes 1.6 10^3/uL (1.2-3.4); Absolute Monocytes 1.6 10^3/uL (0.1-0.6); Absolute Neutrophils 4.8 10^3/uL (1.4-6.5); Hematocrit 25.3 % (37.0-47.0); Hemoglobin 8.4 g/dL (12.0-16.0); Mean Corp Hgb Conc. 33.2 g/dL (33.0-37.0); Mean Corpuscular Hgb 27.9 pg (27.0-31.0); Mean Corpuscular Volume 84.1 fL (81.0-99.0); Mean Platelet Volume 11.4 fL (7.4-10.4); Nucleated Red Blood Cells % 0.2 %; Platelet Count 206 10^3/uL (130-400); Red Blood Cell Count 3.01 10^6/uL (4.20-5.40); Red Cell Dist. Width 15.2 % (11.5-14.5); White Blood Cell Count 8.5 10^3/uL (4.8-10.8)
[2024-07-06 10:11] LABS: Folate 5.3 ng/ml (2.76-20); Vitamin B12 > 1000 pg/ml (239-931)
[2024-07-06 11:29] VITALS: BP 135/59
--- NOTE | 2024-07-06 11:52 | W.PN.NEPH.PH ---
Today's Communication / Plan
-
follow bmp
Assessment/Plan
-
IMP:
NORM
Metabolic acidosis
Heart failure preserved ejection fraction compensated
Mod MR
Hyponatremia
Hypertension
Bilateral ureteral stents
Bilateral hydronephrosis
Hyperkalemia
Plan:
creatinine at 3.1 and no oliguric
follow BMP
no IVF/lasix today
Empiric antibiotics for presumed sepsis
serologies pending
-
-
Date of Service: July 06, 2024
CC / HPI / ROS
-
Chief Complaint:
NORM
History of Present Illness:
NORM/Cr down to 3.5
s/p bilateral PCN 07/03
grossly nonoliguric
BP stable
K normal 4.6
Na stable 137
hgb low stable 8.4
Review of Systems:
no CP/SOB
bilateral PCNS
Labs
-
Labs:
WBC 8.5 10^3/uL (4.8-10.8) 07/06/24 07:51
RBC 3.01 10^6/uL (4.20-5.40) L 07/06/24 07:51
Hgb 8.4 g/dL (12.0-16.0) L 07/06/24 07:51
Hct 25.3 % (37.0-47.0) L 07/06/24 07:51
Plt Count 206 10^3/uL (130-400) D 07/06/24 07:51
Sodium 137 mmol/L (135-145) 07/06/24 07:51
Potassium 4.6 mmol/L (3.5-5.1) 07/06/24 07:51
Chloride 100 mmol/L (98-107) 07/06/24 07:51
Carbon Dioxide 23 mmol/L (22-30) 07/06/24 07:51
BUN 62 mg/dl (7-17) H 07/06/24 07:51
Creatinine 3.1 mg/dL (0.6-1.0) H 07/06/24 07:51
eGFR 14.65 07/06/24 07:51
Glucose 85 mg/dl (70-99) 07/06/24 07:51
Calcium 8.6 mg/dl (8.4-10.2) 07/06/24 07:51
Gif-H-Jpnfgkgzjwk Pept 39427 pg/ml 07/03/24 05:55
Albumin 3.0 g/dl (3.5-5.0) L 07/06/24 07:51
Physical Exam
-
Vital Signs:
Vital Signs
Temp Pulse Resp BP Pulse Ox
98.0 F 65 20 135/59 96
07/06/24 11:29 07/06/24 11:29 07/06/24 11:29 07/06/24 11:29 07/06/24 11:29
Cardiovascular:: Regular rate and rhythm
Respiratory:: Bilateral: Coarse
Lung Excursion:: Normal
Abdomen:: Nontender and Soft
Bowel Sounds:: Normal
Extremity Edema:: None: Bilateral:
--- NOTE | 2024-07-06 12:18 | W.PN.HOSP.TC ---
Today's Communication/Plan
-
await resolution of constipation
Assessment / Plan
Assessment / Plan

CT Abdomen/Pelvis (as per radiologist's report)
'IMPRESSION: Mild right hydronephrosis. Slightly progressed. Minimal left hydronephrosis. Slightly improved.
Bilateral double-J stents. Appropriately positioned. Stable
Small right pleural effusion. Mildly improved..
Large hiatal hernia. Stable.
Small isodense right renal mass likely a benign proteinaceous cyst. Decreased in size suggesting it is benign..'

Assessment/Plan
78-year-old female with past medical history of hypertension, CVA, hyperlipidemia who recently had NORM in the setting of bilateral hydronephrosis of uncertain etiology and is status post stenting bilaterally who presents again to the emergency
department with NORM rising creatinine to 3.3 loss of appetite increased weakness decreased urine output and bilateral lower extremity edema. Found to have significant pyuria & bacteruria in ED, negative nitrite similar prior admission[place] [address]
April Jade with UTI, hyponatremia and kidney failure. Had TURBT by Dr Tam on the 24 with stents placed. Cr 3.3, K 5.1, BUN 60, bicarb 15. Moderate total body volume overload. Urology consulted, (Dr. Camarena). Pascal placed with about 50
ml/hr urine output. Given recent instrumentation and hospitalizaton, urine cultured and started cefepime. Edema on exam, orthopena on history suggestive of vol overload but heart failure ruled out previous admission. Given uop and metabolic
acidosis w/ bicarb of 15, placed on replacement with 50m/hr 150meq bicarb. Free water restriction and pending urine studies. Hyponatremia likey secondary to renal failure and vol o/d similar to prior. Hemodynamically stable.
#UTI - Presumed Complicated pyelonephritis given recent instrumentation, catheter and voiding trial. Low urine output with urinary sludge per SNF. Denies flank pain but overall ill appearing.
Fever
WBC 21.4-->18.3-->11.7-->8.5k
- Urine cultures growing E. coli
- Continue to monitor on telemetry
- given very recent hospitalization and abx, continue cefepime 2g q 24 hours renal dosing
#NORM - NORM
- Creatine initially increased but now trending back down
- CT abd/pelvis results above
- Hold off on further IV fluids for now
- nephrology consultation, appreciate their evaluation and recommendations
Creat 3.3-->3.6-->3.9-->3.5-->3.1
#Normocytic Anemia
B12 >1000, folate 5.3
Fe sat 15%, Ferritin 155
#Constipation
pt wants her laxatives on her schedule, will order
Abd X-Ray: Mild fecal material throughout the colon. Improved. No evidence of intestinal obstruction.
Moderate fecal material in the region of the rectum. Fecal impaction cannot be excluded. New.
-Patient is on bowel regimen
-Patient was supposed to follow-up with GI in the past 6 months or so but never did
-Consulted GI for possible occult GI bleed as well as constipation
-Check abdominal x-ray on 07/05/24 to assess stool burden or for any possible impaction
#Bilateral [place] and UTI - Possible stent obstruction and infection. Urology consulted
- urinary catheter and i/o
- CT abdomen and pelvis showing mild left and moderate right hydronephrosis with possible stent dysfunction. The stent appeared to be in proper position. Urology aware.
- Bilateral nephrostomy tubes placed on July 04, 2024 with good urine output
- Per urology, patient to go to operating room this week for stent removal
#Hyponatremia
- Fluid restriction
- Nephrology onboard
#Hypertension
- continue atenolol and hydralazine with hold parameters
- continue norvasc
#Acute on chronic diastolic heart failure
#Pulmonary Edema
#Acute Hypoxic Respiratory Insufficiency from Pulmonary Edema - RESOLVED
-Per cardiology, it would not be unreasonable to give patient 3 days worth of 20 mg p.o. x 3
-Outpatient follow-up with Dr. Cohn at [facility] from cardiology and patient could follow-up with him in 1 to 2 weeks post discharge
DVT Prophylaxis - Heparin subq Q8H
Code Status - DNR
Anticipated Discharge: > 48 hours
Subjective/Interval History
-
Date of Service: July 06, 2024
Remains constipated, refusing enema and dose not believe she need to see a GI doc, just wants to take her usual meds
Objective Data
-
Labs:
Laboratory Results
07/06/24
07:51
WBC 8.5
Hgb 8.4 L
Hct 25.3 L
Plt Count 206 D
Sodium 137
Potassium 4.6
Chloride 100
Carbon Dioxide 23
BUN 62 H
Creatinine 3.1 H
Glucose 85
Calcium 8.6
Total Bilirubin 0.5
AST 28
ALT 22
Alkaline Phosphatase 147 H
Vital Signs:
Vital Signs
Temp Pulse Resp BP Pulse Ox
98.0 F 65 20 135/59 96
07/06/24 11:29 07/06/24 11:29 07/06/24 11:29 07/06/24 11:29 07/06/24 11:29
I&O
07/05/24 07/06/24 07/07/24
06:59 06:59 06:59
Intake Total 480 / 480 1180 / 1180
Output Total 2655 / 2655 2014
Balance -2175 / -2175 -835 / -835
Review of Systems
-
History Source: Patient, Family ( at bedside) and Coordinated Provider
Constitutional: Denies Fever
EENT: Reports No Symptoms Reported
Respiratory: Denies Cough
Cardiac: Denies Chest Pain
Abdomen/GI: Reports Constipated
Physical Exam
-
General: Well Developed, Well Nourished and No Apparent Distress
HEENT: Normocephalic, Atraumatic and Moist Mucous Membranes
Respiratory: Clear to Auscultation; Negative Wheezes, Rales or Rhonchi
Cardiac: Regular Rhythm and S1/S2
GI: Nontender and Nondistended
Musculoskeletal: No Clubbing, No Cyanosis and No Edema
Neuro: Awake, Alert and Oriented
--- NOTE | 2024-07-06 13:20 | CON.GI ---
Addendum entered and electronically signed by Mario Randhawa MD 07/06/24 13:57:
I saw and examined the patient.
The PA's note was reviewed and I agree with the note.
Comment:
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
creatinine. GI requested for evaluation of anemia and ? fecal impaction.
Impression / Rec:
1. Constipation / fecal impaction - s/p digital disimpaction. Refused enema yesterday. Agreeable for milk of mag enema today. Agree with bowel regimen as noted below. PPI BID. Anemia likely from andrew's ulcer. No overt sign of bleeding.
Will likely need surgical repair of hiatal hernia if she continues to be anemic from andrew's ulcer. GI will s/o, call with questions.
Original Note:
Consultation
-
Date/Time Consultation Requested: 07/05/23 1643
Date/Time Consultation Performed: 07/06/23 1245
Requesting Provider: Dr. Stiles
Performing Provider: Dr. Randhawa/ERMELINDA Lopes
Reason for Consultation: fecal impaction
Medical History
Chief Complaint / HPI
Chief Complaint: weakness, elevated creatinine
History of Present Illness:
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
improvement of renal function who comes to the ER with fatigue, lower extremity edema, foul-smelling urine and rising creatinine. We are asked to evaluate patient for fecal impaction. We had previously seen her back in December for anemia. At that
time she had endoscopy and colonoscopy 01/23/2024 that showed middle third of the esophagus and lower third of the esophagus were moderately torturous. A 7 cm a large paraesophageal hernia with evidence of old blood present within the hiatal hernia.
No evidence of discrete lesion, suspicious for bleeding secondary to Andrew's ulcers. Striped mildly erythematous mucosa without bleeding was found in the gastric antrum. 2 separate openings within the quiñones of the second portion of the duodenum
consistent with 2 large duodenal diverticulum. No signs of bleeding within the small bowel. Colonoscopy showed moderately tortuous and redundant bowel with spasming throughout. Scattered medium mouth diverticula found on the left colon.
Nonbleeding internal hemorrhoids. Otherwise no signs of bleeding within the colon. No repeat colonoscopy recommended due to age. The patient states that prior to this admission she was using Metamucil as well as 3 Colace in the evening with a
bowel movement either every day or every third day. She states that while she was in rehab this was not necessarily being given to her and she would noticed that she was not having a bowel movement for up to a week. Because of patient's absence of
bowel movements here an x-ray was obtained which showed a nonobstructive bowel gas pattern. There is mild fecal material throughout the colon. There is moderate fecal material in the region of rectum. Dr. Randhawa had recommended a milk of molasses
enema followed by manual disimpaction. However last evening the patient declined this. She did receive a Dulcolax suppository multiple hours ago without any defecation. The pain denies any fevers, chills, nausea, vomiting, melena, hematochezia,
dysphagia or odynophagia at the present time. We did discuss this at length and she does agree that milk of molasses enema after lunch today would probably be the best course of action. She is willing to have this. Patient hemoglobin is stable.
She did not receive any blood products during this hospitalization. Is recommended that she stay on acid suppression given her large paraesophageal hernia as well as Andrew's ulcerations.
Past Medical History
Past Medical History: CVA, GERD, HTN, Hypercholesterolemia and Other (osteoarthritis, neuropathy, bladder tumor s/p TURBT)
Past Surgical History: Orthopedic (bilateral hip and knee replacements) and Other (TURBT)
Social History
Tobacco: Non-Smoker
Alcohol: Daily
Drug: None
Personal:
Family History
Family History: Other (no family history of GI malignancies)
Allergies / Home Medications
Allergy/AdvReac Type Severity Reaction Status Date / Time
APOLINAR Inhibitors Allergy cough Verified 06/11/24 22:47
�Medication �Instructions �Recorded
cholecalciferol (vitamin D3) 25 25 mcg PO DAILY Supplement 09/25/22
mcg (1,000 unit) tablet (Vitamin
D3)
rosuvastatin 20 mg tablet 20 mg PO DAILY Blood Pressure 09/25/22
acetaminophen 500 mg tablet 1,000 mg PO HSPRN PRN mild pain 06/18/23
aspirin 81 mg tablet,delayed 81 mg PO DAILY Blood Pressure 06/18/23
release
docusate sodium 100 mg capsule 300 mg PO DAILY Constipation 06/18/23
(Colace)
amlodipine 5 mg tablet 10 mg PO HS Blood Pressure 01/17/24
psyllium 1 packet PO DAILY@1200 Constipation 01/17/24
omeprazole 40 mg capsule,delayed 40 mg PO BID #60 caps 01/24/24
release
atenolol 50 mg tablet 50 mg PO DAILY #30 tabs 06/17/24
hydralazine 25 mg tablet 25 mg PO BID #60 tabs 06/17/24
valsartan 320 mg tablet 320 mg PO DAILY Blood Pressure 07/04/24
Review of Systems
-
All other systems: A 12 pt ROS was Negative except as stated above in HPI
Vital Signs
Temp Pulse Resp BP Pulse Ox
98.0 F 65 20 135/59 96
07/06/24 11:29 07/06/24 11:29 07/06/24 11:29 07/06/24 11:29 07/06/24 11:29
Physical Exam
Exam
General: No Apparent Distress
HEENT: Anicteric
Respiratory: Clear (Anterior)
Cardiac: Regular Rhythm
GI: Soft, Non Tender, Non Distended and Normal Bowel Sounds
Skin: Warm and Dry
Neuro: AO x 3
Psych: Calm
Results
WBC 8.5 10^3/uL (4.8-10.8) 07/06/24 07:51
Hgb 8.4 g/dL (12.0-16.0) L 07/06/24 07:51
Hct 25.3 % (37.0-47.0) L 07/06/24 07:51
MCV 84.1 fL (81.0-99.0) 07/06/24 07:51
Plt Count 206 10^3/uL (130-400) D 07/06/24 07:51
Absolute Neuts (auto) 4.8 10^3/uL (1.4-6.5) 07/06/24 07:51
PT 14.2 Sec (11.4-14.6) 07/03/24 08:08
INR 1.11 07/03/24 08:08
Sodium 137 mmol/L (135-145) 07/06/24 07:51
Potassium 4.6 mmol/L (3.5-5.1) 07/06/24 07:51
Chloride 100 mmol/L (98-107) 07/06/24 07:51
Carbon Dioxide 23 mmol/L (22-30) 07/06/24 07:51
BUN 62 mg/dl (7-17) H 07/06/24 07:51
Creatinine 3.1 mg/dL (0.6-1.0) H 07/06/24 07:51
Calcium 8.6 mg/dl (8.4-10.2) 07/06/24 07:51
Total Bilirubin 0.5 mg/dl (0.2-1.3) 07/06/24 07:51
AST 28 U/L (14-36) 07/06/24 07:51
ALT 22 U/L (0-35) 07/06/24 07:51
Alkaline Phosphatase 147 U/L (38-126) H 07/06/24 07:51
Diagnostic Image Results:
Abd XR 07/05/24:
IMPRESSION:
Mild fecal material throughout the colon. Improved. No evidence of intestinal obstruction.
Moderate fecal material in the region of the rectum. Fecal impaction cannot be excluded. New.
CT abdomen and pelvis 07/03/24:
IMPRESSION: Mild right hydronephrosis. Slightly progressed. Minimal left hydronephrosis. Slightly improved.
Bilateral double-J stents. Appropriately positioned. Stable
Small right pleural effusion. Mildly improved..
Large hiatal hernia. Stable.
Small isodense right renal mass likely a benign proteinaceous cyst. Decreased in size suggesting it is benign..
Electronically signed by Chelita Orourke DO, 07/03/2024 9:32 AM
Prior GI Procedures:
01/23/24 EGD: The middle third of the esophagus and lower third of the esophagus were moderately tortuous. A 7 cm paraesophageal hernia was found. There was was evidence of old blood present within the hiatal hernia, without evidence of a discrete
lesion, suspicious for bleeding 2/2 andrew lesions
Striped mildly erythematous mucosa without bleeding was found in the gastric antrum. Biopsies were taken with a cold forceps for Helicobacter pylori testing. Presence of two separate openings within the quiñones of the 2nd portion of the duodenum,
consistent with 2 large duodenal diverticulum. No signs of bleeding within the small bowel.
01/23/24 Colonoscopy: Moderately tortuous and redundant bowel with spasming throughout. Scattered medium-mouthed diverticulum found in the left colon. Nonbleeding internal hemorrhoids. Otherwise, no signs of bleeding in the colon. No repeat
colonoscopy recommended due to age
Assessment / Plan
-
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
improvement of renal function who comes to the ER with fatigue, lower extremity edema, foul-smelling urine and rising creatinine. We are asked to evaluate patient for fecal impaction.
Impression:
Constipation with fecal impaction
Large paraesophageal hernia with Andrew's ulcers 01/23/2024
UTI
Pyelonephritis
NORM
Normocytic anemia
Plan:
-Patient agreeable to milk of molasses enema, after her lunch today
-Would recommend continuing bowel regimen. She states this was not happening for her.
-Continue Metamucil, Colace. If does not have a bowel movement can add some MiraLAX as needed. If no bowel movement in 3 days Dulcolax or senna.
-Continue pantoprazole 40 mg twice daily with history of Andrew's ulcers
-
-
Thank you for consultation and allowing me to participate in the patient's care. Please call the division road supervisor GI physician during the after hours with any questions or concerns.
[2024-07-06 15:00] VITALS: BP 114/67
--- NOTE | 2024-07-06 15:38 | CM ---
CM reviewed chart- ADC>48hours
Plan is noted for OR later this week with uro for removal of B/L stents
Anticipate need for SNF on dc
PT/OT orders requested and evals pending
Referral made over weekend to [facility] SNF and pending
Discharge Disposition- anticipate [facility]
--- NOTE | 2024-07-06 15:52 | PN.CDI ---
CDI
- -
CDI:
Physician Documentation Request
Admit Date: 07/03/24 00:49
Dear Doctor Radha,
Clinical Indicators:
Patient admitted with UTI; s/p bilateral nephrostomy tube placement.
07/03 H & P, 'Cannot rule out NORM secondary to sepsis.'
07/03 Renal consult,'Empiric antibiotics for presumed sepsis'
WBC on admission:
07/02/24
22:18
WBC 21.4 H
Temp trend:
07/02/24
22:13 07/03/24
07:47 07/03/24
11:23
Temp 98.1 F 100.1 F 100.6 F H
Please clarify which of the following most accurately describes the status of the patient's infection:
Sepsis,POA
- Systemic manifestations of infection, with 2 or more SIRS criteria which include:
- Fever >100.4 degrees F or hypothermia < 96.8 degrees F
- Leukocytosis - WBC > 12,000 or leukopenia - WBC < 4,000 or > 10% bands
- Tachycardia > 90 beats per minute
- Tachypnea - RR > 20 breaths per minute or PaCO2 , 32mmHg
Source: Merck Manual 2013.
Severe Sepsis with associated NORM, POA
- Sepsis with associated acute organ dysfunction, such as renal or respiratory failure
UTI Only, Without Systemic Illness
Other, please specify
Use of terms such as suspected, likely, concern for, or probable (associated with a specific diagnosis that is being evaluated, monitored, or treated as if it exists) are acceptable and can be coded in the inpatient setting, when documented at the
time of discharge.
Thank you,
Lucinda Ramos RN BSN
CDI Specialist
available via tiger text
Please use your independent medical judgment in providing your response.
--- NOTE | 2024-07-06 17:37 | W.PN.URO.CBU ---
Today's Communication / Plan
-
OR to eval ureters
Aggressive bowel regimen
Assessment / Plan
-
NORM WITH BILATERAL URETRAL STENTS AND FEVER CHILLS pCN PLACED YESTERDAY BUT CREATININE UP 3.6 TO 3.9 NOW DOWN TO 3.45 WITH EXCELLENT URINE OUTPUT NO OBSTRUCTION AWAIT MED INPUT IE SEPSIS, DEHYDRATION, MED RENAL DISEASE. iN LONG RUN PLAN
TO TAKE ONCE STABLE TO OP ROOM AND REMOVE INDWELLING JJ STENTS ANS EVALUATE URETERS FOR CANCER, OBSTRUCTION
78F with hx bladder cancer, induction BCG with some refractory disease
Presenting with constipation/stool impaction and bilateral hydronephrosis 05/2024 s/p b/l stent placement
Readmitted with worsening renal function and persistent hydro
- now s/p placement of b/l PCN tubes with improvement in renal function
- Unclear source of ureteral obstruction - relatively low suspicion of bladder cancer as patient's disease was all located more anteriorly. Severe constipation/stool impaction could in theory cause obstruction though this would be very uncommon
- Plan for OR this 07/09 for cystoscopy, stent removal, antegrade pyelograms, b/l ureteroscopy with brush biopsy to evaluate ureters
- Remove andujar - little output s/p PCNs
- Continue aggressive bowel regimen, disempaction and enemas if needed
Diagnosis
-
Date of Service: July 06, 2024
-
Patient Diagnosis:
Bladder cancer
ureteral obstruction
NORM
Post Op Day:
Subjective
-
no BM since increasing bowel regimen
Objective
-
Vital Signs
Temp Pulse Resp BP Pulse Ox
98.3 F 60 18 114/67 95
07/06/24 15:00 07/06/24 15:00 07/06/24 15:00 07/06/24 15:00 07/06/24 15:00
Intake and Output
07/05/24 07/06/24 07/07/24
06:59 06:59 06:59
Intake Total 480 / 480 1180 / 1180
Output Total 2655 / 2655 2014
Balance -2175 / -2175 -835 / -835
Intake:
Oral fluids 480 / 480 1180 / 1180
Output:
Urinary Drain Output (Total) 2475 / 2475 1989 / 1989
Left Nephrostomy 1850 / 1850 1505 / 1505
Right Nephrostomy 625 / 625 485 / 485
Urine, Andujar 180 / 180
Laboratory Results
07/06/24 07:51
07/06/24 07:51
Physical Exam
-
General - well developed, well nourished, no acute distress
Chest - clear
Abdomen - soft, non-tender
- b/l PCNs in place, draining well
Skin - warm & dry with no rash
Neuro - AOx3, no motor deficits
[2024-07-06] MEDS: NORVASC 10 MG PO (21:51)
[2024-07-06] MEDS: SENOKOT 17.2 MG PO (21:51)
[2024-07-06] MEDS: TYLENOL 650 MG PO (21:55)
[2024-07-06] MEDS: FLUSH (NSS) 2 FLUSH IV (23:24)
[2024-07-06 23:26] VITALS: BP 111/44
[2024-07-07 06:00] VITALS: BMI 23.8
[2024-07-07 06:38] LABS: % Eosinophils 5.8 % (0-6); % Immature Granulocytes 4.5 % (0-0.5); % Lymphocytes 27.1 % (20.5-51.1); % Monocytes 14.7 % (1.7-9.3); % Neutrophils 46.9 % (42.2-75.2); Absolute Basophils 0.1 10^3/uL (0-0.2); Absolute Eosinophils 0.5 10^3/uL (0-0.7); Absolute Immature Granulocytes 0.4 10^3/uL (0-0.05); Absolute Lymphocytes 2.3 10^3/uL (1.2-3.4); Absolute Monocytes 1.2 10^3/uL (0.1-0.6); Absolute Neutrophils 3.9 10^3/uL (1.4-6.5); Hematocrit 24.8 % (37.0-47.0); Hemoglobin 8.1 g/dL (12.0-16.0); Mean Corp Hgb Conc. 32.7 g/dL (33.0-37.0); Mean Corpuscular Hgb 28.5 pg (27.0-31.0); Mean Corpuscular Volume 87.3 fL (81.0-99.0); Mean Platelet Volume 11.4 fL (7.4-10.4); Nucleated Red Blood Cells % 0 %; Platelet Count 186 10^3/uL (130-400); Red Blood Cell Count 2.84 10^6/uL (4.20-5.40); Red Cell Dist. Width 15.3 % (11.5-14.5); White Blood Cell Count 8.4 10^3/uL (4.8-10.8)
[2024-07-07 07:09] LABS: Blood Urea Nitrogen 61 mg/dl (7-17); Calcium 8.9 mg/dl (8.4-10.2); Carbon Dioxide 25 mmol/L (22-30); Chloride 102 mmol/L (98-107); Estimated Creatinine Clearance 18 ml/min; Glucose 81 mg/dl (70-99); Potassium 5.3 mmol/L (3.5-5.1); Sodium 138 mmol/L (135-145); eGFR 16.55
[2024-07-07 07:25] VITALS: BP 142/54
[2024-07-07] MEDS: COLACE 300 MG PO (09:38)
[2024-07-07] MEDS: TENORMIN 50 MG PO (09:38)
[2024-07-07] MEDS: ASPIR LOW (ENTERIC COATED) 81 MG PO (09:38)
[2024-07-07] MEDS: APRESOLINE 25 MG PO ×2 (09:39→21:23)
[2024-07-07] MEDS: PROTONIX 40 MG PO (09:39)
--- NOTE | 2024-07-07 12:36 | CM ---
CM reviewed chart
Plan for OR on with uro
Will need post-op PT/OT orders
Anticipate need for SNF
[facility] referral pending and update provide to Ginny/admissions
Discharge Disposition- anticipate [facility] SNF
--- NOTE | 2024-07-07 13:39 | W.PN.NEPH.PH ---
Today's Communication / Plan
-
IV iron
Follow BMP
No fluids or Lasix provided at this time
Valsartan still held in setting of NORM which continues to improve
For repeat cystoscopy on by MARCIAL
Assessment/Plan
-
IMP:
NORM
Metabolic acidosis
Heart failure preserved ejection fraction compensated
Mod MR
Hyponatremia
Hypertension
Bilateral ureteral stents
Bilateral hydronephrosis
Hyperkalemia
Plan:
creatinine at 2.8 and no oliguric
watch K at 5.3, will use lokelma prn
follow BMP
no IVF/lasix today, urine output around 2500 cc via nephrostomy tube
Cefepime for presumed sepsis
Blood pressure controlled on atenolol amlodipine and hydralazine
Will provide IV iron for iron deficiency anemia
-
-
Date of Service: July 07, 2024
CC / HPI / ROS
-
Chief Complaint:
NORM
History of Present Illness:
NORM/Cr down to 2.8
s/p bilateral PCN 07/03
grossly nonoliguric
BP stable
K rising
Na stable 138
hgb low ~8
Review of Systems:
no CP/SOB
bilateral PCNS
Labs
-
Labs:
WBC 8.4 10^3/uL (4.8-10.8) 07/07/24 05:32
RBC 2.84 10^6/uL (4.20-5.40) L 07/07/24 05:32
Hgb 8.1 g/dL (12.0-16.0) L 07/07/24 05:32
Hct 24.8 % (37.0-47.0) L 07/07/24 05:32
Plt Count 186 10^3/uL (130-400) 07/07/24 05:32
Sodium 138 mmol/L (135-145) 07/07/24 05:32
Potassium 5.3 mmol/L (3.5-5.1) H 07/07/24 05:32
Chloride 102 mmol/L (98-107) 07/07/24 05:32
Carbon Dioxide 25 mmol/L (22-30) 07/07/24 05:32
BUN 61 mg/dl (7-17) H 07/07/24 05:32
Creatinine 2.8 mg/dL (0.6-1.0) H 07/07/24 05:32
eGFR 16.55 07/07/24 05:32
Glucose 81 mg/dl (70-99) 07/07/24 05:32
Calcium 8.9 mg/dl (8.4-10.2) 07/07/24 05:32
Eva-J-Jrihqbtlntq Pept 50898 pg/ml 07/03/24 05:55
Albumin 3.0 g/dl (3.5-5.0) L 07/06/24 07:51
Physical Exam
-
Vital Signs:
Vital Signs
Temp Pulse Resp BP Pulse Ox
97.5 F 63 12 142/54 92
07/07/24 07:25 07/07/24 07:25 07/07/24 07:25 07/07/24 07:25 07/07/24 07:25
Cardiovascular:: Regular rate and rhythm
Respiratory:: Bilateral: CTA
Lung Excursion:: Normal
Abdomen:: Nontender and Soft
Bowel Sounds:: Normal
Extremity Edema:: None: Bilateral:
Other Findings::
bilateral PCNs
[2024-07-07] MEDS: FERRLECIT 110 MG IV (15:06)
--- NOTE | 2024-07-07 16:54 | W.PN.HOSP.TC ---
Today's Communication/Plan
-
for urologic intervention 07/08
Assessment / Plan
Assessment / Plan

CT Abdomen/Pelvis (as per radiologist's report)
'IMPRESSION: Mild right hydronephrosis. Slightly progressed. Minimal left hydronephrosis. Slightly improved.
Bilateral double-J stents. Appropriately positioned. Stable
Small right pleural effusion. Mildly improved..
Large hiatal hernia. Stable.
Small isodense right renal mass likely a benign proteinaceous cyst. Decreased in size suggesting it is benign..'

Assessment/Plan
78-year-old female with past medical history of hypertension, CVA, hyperlipidemia who recently had NORM in the setting of bilateral hydronephrosis of uncertain etiology and is status post stenting bilaterally who presents again to the emergency
department with NORM rising creatinine to 3.3 loss of appetite increased weakness decreased urine output and bilateral lower extremity edema. Found to have significant pyuria & bacteruria in ED, negative nitrite similar prior admission. [place] [address]
Hx of Bladder tumor
transurethal resection by Jules Tam on 06/21/23 with follow up resection 08/08/23
April Jade with UTI, hyponatremia and kidney failure. Had TURBT by Dr Tam on the with stents placed. Cr 3.3, K 5.1, BUN 60, bicarb 15. Moderate total body volume overload. Urology consulted, (Dr. Camarena). Pascal placed with about 50
ml/hr urine output. Given recent instrumentation and hospitalizaton, urine cultured and started cefepime. Edema on exam, orthopena on history suggestive of vol overload but heart failure ruled out previous admission. Given uop and metabolic
acidosis w/ bicarb of 15, placed on replacement with 50m/hr 150meq bicarb. Free water restriction and pending urine studies. Hyponatremia likey secondary to renal failure and vol o/d similar to prior. Hemodynamically stable.
#UTI - Presumed Complicated pyelonephritis given recent instrumentation, catheter and voiding trial. Low urine output with urinary sludge per SNF. Denies flank pain but overall ill appearing.
Fever
WBC 21.4-->18.3-->11.7-->8.5-->8.4k
Sepsis,POA- Systemic manifestations of infection, with 2 or more SIRS criteria which include:
- Fever >100.6 degrees F
- Leukocytosis - WBC 21.4k
- Tachypnea - RR 22 breaths per minute
due to UTI
- Urine cultures growing E. coli/Citrobacter
- Continue to monitor on telemetry
- given very recent hospitalization and abx, continue cefepime 2g q 24 hours renal dosing
#NORM - NORM
- Creatine initially increased but now trending back down
- CT abd/pelvis results above
- Hold off on further IV fluids for now
- nephrology consultation, appreciate their evaluation and recommendations
Creat 3.3-->3.6-->3.9-->3.5-->3.1-->2.8
#Normocytic Anemia
B12 >1000, folate 5.3
Fe sat 15%, Ferritin 155
#Constipation
pt wants her laxatives on her schedule, will order
had excellent response with passage of large amount of stool following enema today
Abd X-Ray: Mild fecal material throughout the colon. Improved. No evidence of intestinal obstruction.
Moderate fecal material in the region of the rectum. Fecal impaction cannot be excluded. New.
-Patient is on bowel regimen
-Patient was supposed to follow-up with GI in the past 6 months or so but never did
-Consulted GI for possible occult GI bleed as well as constipation
#Bilateral [place] and UTI - Possible stent obstruction and infection. Urology consulted, plan for stent removal 07/08
- urinary catheter and i/o
- CT abdomen and pelvis showing mild left and moderate right hydronephrosis with possible stent dysfunction. The stent appeared to be in proper position. Urology aware.
- Bilateral nephrostomy tubes placed on July 04, 2024 with good urine output
- Per urology, patient to go to operating room this week for stent removal. Pascal removed as per urology
#Hyponatremia
better, nephro following
K 5.3 on 07/07
will recheck in AM
- Fluid restriction
- Nephrology onboard
#Hypertension
- continue atenolol and hydralazine with hold parameters
- continue norvasc
#Acute on chronic diastolic heart failure
#Pulmonary Edema
#Acute Hypoxic Respiratory Insufficiency from Pulmonary Edema - RESOLVED
-Per cardiology, it would not be unreasonable to give patient 3 days worth of Lasix 20 mg p.o. x 3
-Outpatient follow-up with Dr. Cohn at [facility] from cardiology and patient could follow-up with him in 1 to 2 weeks post discharge
DVT Prophylaxis - Heparin subq Q8H
Code Status - DNR
Anticipated Discharge: > 48 hours
Subjective/Interval History
-
Date of Service: July 07, 2024
Awake, alert. Pt allowed repeat enema today after extensive discussion with me, with significant response
Objective Data
-
Labs:
Laboratory Results
07/07/24
05:32
WBC 8.4
Hgb 8.1 L
Hct 24.8 L
Plt Count 186
Sodium 138
Potassium 5.3 H
Chloride 102
Carbon Dioxide 25
BUN 61 H
Creatinine 2.8 H
Glucose 81
Calcium 8.9
Vital Signs:
Vital Signs
Temp Pulse Resp BP Pulse Ox
97.5 F 63 12 142/54 92
07/07/24 07:25 07/07/24 07:25 07/07/24 07:25 07/07/24 07:25 07/07/24 07:25
I&O
07/06/24 07/07/24 07/08/24
06:59 06:59 06:59
Intake Total 1180 / 1180 1260 / 1260
Output Total 2014 2625 / 2625
Balance -835 / -835 -1365 / -1365
Review of Systems
-
History Source: Patient and Coordinated Provider
Constitutional: Denies Fever
EENT: Reports No Symptoms Reported
Respiratory: Denies Cough
Cardiac: Denies Chest Pain
Abdomen/GI: Reports Constipated
Physical Exam
-
General: Well Developed, Well Nourished and No Apparent Distress
HEENT: Normocephalic, Atraumatic and Moist Mucous Membranes
Respiratory: Clear to Auscultation; Negative Wheezes, Rales or Rhonchi
Cardiac: Regular Rhythm and S1/S2
GI: Nontender and Nondistended
Musculoskeletal: No Clubbing, No Cyanosis and No Edema
Neuro: Awake, Alert and Oriented
[2024-07-07] MEDS: NORVASC 10 MG PO (21:24)
[2024-07-07] MEDS: SENOKOT 17.2 MG PO (21:25)
[2024-07-07] MEDS: TYLENOL 650 MG PO (21:28)
[2024-07-07 22:46] VITALS: BP 132/67
[2024-07-08] MEDS: MAXIPIME 2000 MG IV (00:44)
[2024-07-08] MEDS: STERILE WATER FOR INJECTION 10 ML IV (00:46)
--- NOTE | 2024-07-08 05:17 | DOWNTIME ---
There was a [employer] Downtime on 07/08/2024 from 0100 to 07/08/2024 at 0355. Downtime documentation of patient's care, including medication administrations, has been reconciled in the electronic record per guidelines. Refer to the
patient's paper chart under the miscellaneous tab to see printed paper medication records and downtime forms.
[2024-07-08 06:00] VITALS: BMI 23.6
[2024-07-08 06:23] LABS: % Basophils 0.6 % (0-2); % Eosinophils 7.4 % (0-6); % Immature Granulocytes 4.6 % (0-0.5); % Lymphocytes 26.4 % (20.5-51.1); % Monocytes 10.6 % (1.7-9.3); % Neutrophils 50.4 % (42.2-75.2); Absolute Basophils 0.1 10^3/uL (0-0.2); Absolute Eosinophils 0.7 10^3/uL (0-0.7); Absolute Immature Granulocytes 0.4 10^3/uL (0-0.05); Absolute Lymphocytes 2.3 10^3/uL (1.2-3.4); Absolute Monocytes 0.9 10^3/uL (0.1-0.6); Absolute Neutrophils 4.5 10^3/uL (1.4-6.5); Hematocrit 25.9 % (37.0-47.0); Hemoglobin 8.4 g/dL (12.0-16.0); Mean Corp Hgb Conc. 32.4 g/dL (33.0-37.0); Mean Corpuscular Hgb 27.6 pg (27.0-31.0); Mean Corpuscular Volume 85.2 fL (81.0-99.0); Nucleated Red Blood Cells % 0 %; Platelet Count 219 10^3/uL (130-400); Red Blood Cell Count 3.04 10^6/uL (4.20-5.40); Red Cell Dist. Width 15.2 % (11.5-14.5); White Blood Cell Count 8.9 10^3/uL (4.8-10.8)
[2024-07-08 06:39] LABS: Blood Urea Nitrogen 59 mg/dl (7-17); Carbon Dioxide 24 mmol/L (22-30); Chloride 100 mmol/L (98-107); Estimated Creatinine Clearance 21 ml/min; Glucose 82 mg/dl (70-99); Potassium 4.5 mmol/L (3.5-5.1); Sodium 137 mmol/L (135-145); eGFR 19.92
[2024-07-08 07:00] VITALS: BP 150/62
[2024-07-08] MEDS: APRESOLINE 25 MG PO ×2 (09:28→20:09)
[2024-07-08] MEDS: PROTONIX 40 MG PO (09:29)
[2024-07-08] MEDS: TENORMIN 50 MG PO (09:29)
[2024-07-08] MEDS: ASPIR LOW (ENTERIC COATED) 81 MG PO (09:29)
[2024-07-08] MEDS: COLACE 300 MG PO (09:29)
--- NOTE | 2024-07-08 12:06 | W.PN.NEPH.PH ---
Today's Communication / Plan
-
follow BMP
Assessment/Plan
-
IMP:
NORM
Metabolic acidosis
Heart failure preserved ejection fraction compensated
Mod MR
Hyponatremia
Hypertension
Bilateral ureteral stents
Bilateral hydronephrosis
Hyperkalemia
Plan:
follow BMP
no IVF/lasix today
Cefepime for presumed sepsis
Blood pressure controlled on atenolol amlodipine and hydralazine
IV iron
cysto tomorrow
-
-
Date of Service: July 08, 2024
CC / HPI / ROS
-
Chief Complaint:
NORM
History of Present Illness:
NORM/Cr down to 2.4
s/p bilateral PCN 07/03
grossly nonoliguric L>R PCN
BP stable
K 4.5
Na stable 137
hgb low ~8.4
Review of Systems:
no CP/SOB
bilateral PCNS
Labs
-
Labs:
WBC 8.9 10^3/uL (4.8-10.8) 07/08/24 05:43
RBC 3.04 10^6/uL (4.20-5.40) L 07/08/24 05:43
Hgb 8.4 g/dL (12.0-16.0) L 07/08/24 05:43
Hct 25.9 % (37.0-47.0) L 07/08/24 05:43
Plt Count 219 10^3/uL (130-400) 07/08/24 05:43
Sodium 137 mmol/L (135-145) 07/08/24 05:43
Potassium 4.5 mmol/L (3.5-5.1) 07/08/24 05:43
Chloride 100 mmol/L (98-107) 07/08/24 05:43
Carbon Dioxide 24 mmol/L (22-30) 07/08/24 05:43
BUN 59 mg/dl (7-17) H 07/08/24 05:43
Creatinine 2.4 mg/dL (0.6-1.0) H 07/08/24 05:43
eGFR 19.92 07/08/24 05:43
Glucose 82 mg/dl (70-99) 07/08/24 05:43
Calcium 9.0 mg/dl (8.4-10.2) 07/08/24 05:43
Xpx-O-Yswukimlwpt Pept 71921 pg/ml 07/03/24 05:55
Albumin 3.0 g/dl (3.5-5.0) L 07/06/24 07:51
Physical Exam
-
Vital Signs:
Vital Signs
Temp Pulse Resp BP Pulse Ox
97.6 F 66 16 150/62 95
07/08/24 07:00 07/08/24 09:29 07/08/24 07:00 07/08/24 09:29 07/08/24 07:00
Cardiovascular:: Regular rate and rhythm
Respiratory:: Bilateral: Coarse
Lung Excursion:: Normal
Abdomen:: Nontender and Soft
Bowel Sounds:: Normal
Extremity Edema:: None: Bilateral:
[2024-07-08] MEDS: FERRLECIT 110 MG IV (14:33)
[2024-07-08 15:00] VITALS: BP 131/56
--- NOTE | 2024-07-08 17:01 | W.PN.URO.CBU ---
Today's Communication / Plan
-
OR tomorrow
Assessment / Plan
-
78F with hx bladder cancer, induction BCG with some refractory disease
Presenting with constipation/stool impaction and bilateral hydronephrosis 05/2024 s/p b/l stent placement
Readmitted with worsening renal function and persistent hydro
- now s/p placement of b/l PCN tubes with improvement in renal function
- Unclear source of ureteral obstruction - relatively low suspicion of bladder cancer as patient's disease was all located more anteriorly. Severe constipation/stool impaction could in theory cause obstruction though this would be very uncommon
- Plan for OR this 07/09 for cystoscopy, stent removal, antegrade pyelograms, b/l ureteroscopy with brush biopsy to evaluate ureters
- Removed andujar - little output s/p PCNs
- Continue aggressive bowel regimen, disempaction and enemas if needed
Diagnosis
-
Date of Service: July 08, 2024
-
Patient Diagnosis:
Bladder cancer
ureteral obstruction
NORM
Post Op Day:
Subjective
-
+BM with enemas
Objective
-
Vital Signs
Temp Pulse Resp BP Pulse Ox
97.9 F 65 17 131/56 97
07/08/24 15:00 07/08/24 15:00 07/08/24 15:00 07/08/24 15:00 07/08/24 15:00
Intake and Output
07/07/24 07/08/24 07/09/24
06:59 06:59 06:59
Intake Total 1260 / 1260 1440 / 1440
Output Total 2625 / 2625 1175 / 1175
Balance -1365 / -1365 265 / 265
Intake:
Oral fluids 1260 / 1260 1440 / 1440
Output:
Urinary Drain Output (Total) 2575 / 2575 1175 / 1175
Left Nephrostomy 550 / 550 900 / 900
Right Nephrostomy 2024 275 / 275
Urine, Andujar 50 / 50
Laboratory Results
07/08/24 05:43
07/08/24 05:43
Physical Exam
-
General - well developed, well nourished, no acute distress
Chest - clear bilaterally
Abdomen - soft, non-tender
PCNs in place, clear urine
--- NOTE | 2024-07-08 17:51 | W.PN.HOSP.TC ---
Today's Communication/Plan
-
Cysto on 07/09
abx changed to Rocephin
Assessment / Plan
Assessment / Plan

CT Abdomen/Pelvis (as per radiologist's report)
'IMPRESSION: Mild right hydronephrosis. Slightly progressed. Minimal left hydronephrosis. Slightly improved.
Bilateral double-J stents. Appropriately positioned. Stable
Small right pleural effusion. Mildly improved..
Large hiatal hernia. Stable.
Small isodense right renal mass likely a benign proteinaceous cyst. Decreased in size suggesting it is benign..'

Assessment/Plan
78-year-old female with past medical history of hypertension, CVA, hyperlipidemia who recently had NORM in the setting of bilateral hydronephrosis of uncertain etiology and is status post stenting bilaterally who presents again to the emergency
department with NORM rising creatinine to 3.3 loss of appetite increased weakness decreased urine output and bilateral lower extremity edema. Found to have significant pyuria & bacteruria in ED, negative nitrite similar prior admission. [place] [id number]
Hx of Bladder tumor
transurethal resection by Jules Tam on 06/21/23 with follow up resection 08/08/23
April Maegers with UTI, hyponatremia and kidney failure. Had TURBT by Dr Tam on the with stents placed. Cr 3.3, K 5.1, BUN 60, bicarb 15. Moderate total body volume overload. Urology consulted, (Dr. Camarena). Pascal placed with about 50
ml/hr urine output. Given recent instrumentation and hospitalizaton, urine cultured and started cefepime. Edema on exam, orthopena on history suggestive of vol overload but heart failure ruled out previous admission. Given uop and metabolic
acidosis w/ bicarb of 15, placed on replacement with 50m/hr 150meq bicarb. Free water restriction and pending urine studies. Hyponatremia likey secondary to renal failure and vol o/d similar to prior. Hemodynamically stable.
#UTI - Presumed Complicated pyelonephritis given recent instrumentation, catheter and voiding trial. Low urine output with urinary sludge per SNF. Denies flank pain but overall ill appearing.
Fever
WBC 21.4-->18.3-->11.7-->8.5-->8.4k
Sepsis,POA- Systemic manifestations of infection, with 2 or more SIRS criteria which include:
- Fever >100.6 degrees F
- Leukocytosis - WBC 21.4k
- Tachypnea - RR 22 breaths per minute
due to UTI
- Urine cultures growing E. coli/Citrobacter
- Continue to monitor on telemetry
- given very recent hospitalization and abx, change to Rocephin 1 gm IV qday
#NORM - NORM
- Creatine initially increased but now trending back down
- CT abd/pelvis results above
- Hold off on further IV fluids for now
- nephrology consultation, appreciate their evaluation and recommendations
Creat 3.3-->3.6-->3.9-->3.5-->3.1-->2.8-->2.4
#Normocytic Anemia
B12 >1000, folate 5.3
Fe sat 15%, Ferritin 155
receiving IV FE
#Constipation
pt wants her laxatives on her schedule, will order
had excellent response with passage of large amount of stool following enema today
Abd X-Ray: Mild fecal material throughout the colon. Improved. No evidence of intestinal obstruction.
Moderate fecal material in the region of the rectum. Fecal impaction cannot be excluded. New.
-Patient is on bowel regimen
-Patient was supposed to follow-up with GI in the past 6 months or so but never did
-Consulted GI for possible occult GI bleed as well as constipation
#Bilateral [place] and UTI - Possible stent obstruction and infection. Urology consulted, plan for stent removal 07/08
- urinary catheter and i/o
- CT abdomen and pelvis showing mild left and moderate right hydronephrosis with possible stent dysfunction. The stent appeared to be in proper position. Urology aware.
- Bilateral nephrostomy tubes placed on July 04, 2024 with good urine output
- Per urology, patient to go to operating room this week for stent removal. Pascal removed as per urology
#Hyponatremia
better, nephro following
K 5.3 on 07/07-->4.5 on 07/08
will recheck in AM
- Fluid restriction
- Nephrology onboard
#Hypertension
- continue atenolol and hydralazine with hold parameters
- continue norvasc
#Acute on chronic diastolic heart failure
#Pulmonary Edema
#Acute Hypoxic Respiratory Insufficiency from Pulmonary Edema - RESOLVED
-Per cardiology, it would not be unreasonable to give patient 3 days worth of Lasix 20 mg p.o. x 3
-Outpatient follow-up with Dr. Cohn at [facility] from cardiology and patient could follow-up with him in 1 to 2 weeks post discharge
DVT Prophylaxis - Heparin subq Q8H
Code Status - DNR
Anticipated Discharge: > 48 hours
Subjective/Interval History
-
Date of Service: July 08, 2024
Anxiously awaiting urologic intervention
Objective Data
-
Labs:
Laboratory Results
07/08/24
05:43
WBC 8.9
Hgb 8.4 L
Hct 25.9 L
Plt Count 219
Sodium 137
Potassium 4.5
Chloride 100
Carbon Dioxide 24
BUN 59 H
Creatinine 2.4 H
Glucose 82
Calcium 9.0
Vital Signs:
Vital Signs
Temp Pulse Resp BP Pulse Ox
97.9 F 65 17 131/56 97
07/08/24 15:00 07/08/24 15:00 07/08/24 15:00 07/08/24 15:00 07/08/24 15:00
I&O
07/07/24 07/08/24 07/09/24
06:59 06:59 06:59
Intake Total 1260 / 1260 1440 / 1440
Output Total 2625 / 2625 1175 / 1175 1000 / 1000
Balance -1365 / -1365 265 / 265 -1000 / -1000
Review of Systems
-
History Source: Patient and Coordinated Provider
Constitutional: Denies Fever
EENT: Reports No Symptoms Reported
Respiratory: Denies Cough
Cardiac: Denies Chest Pain
Abdomen/GI: Reports Constipated (had extensive BM post repeat enema yesterday, none since)
Physical Exam
-
General: Well Developed, Well Nourished and No Apparent Distress
HEENT: Normocephalic, Atraumatic and Moist Mucous Membranes
Respiratory: Clear to Auscultation; Negative Wheezes, Rales or Rhonchi
Cardiac: Regular Rhythm and S1/S2
GI: Nontender and Nondistended
Genito-urinary: Other (s/p bilateral PCN's placed)
Musculoskeletal: No Clubbing, No Cyanosis and No Edema
Neuro: Awake, Alert and Oriented
[2024-07-08] MEDS: MIRALAX 17 GRAMS PO (20:09)
[2024-07-08] MEDS: STERILE WATER FOR INJECTION 20 ML IV (21:55)
[2024-07-08] MEDS: ROCEPHIN 2000 MG IV (21:56)
[2024-07-08] MEDS: SENOKOT 17.2 MG PO (21:57)
[2024-07-08] MEDS: NORVASC 10 MG PO (21:57)
[2024-07-08 23:40] VITALS: BP 129/66
[2024-07-09] VITALS (11 sets, daily range): BP systolic 125–147; BP diastolic 56–91; BMI 23.9
[2024-07-09] MEDS: D5/0.45%NACL 1000 IV (00:41)
[2024-07-09 05:54] LABS: Hematocrit 25.3 % (37.0-47.0); Hemoglobin 8.3 g/dL (12.0-16.0); Mean Corp Hgb Conc. 32.8 g/dL (33.0-37.0); Mean Corpuscular Hgb 28.6 pg (27.0-31.0); Mean Corpuscular Volume 87.2 fL (81.0-99.0); Mean Platelet Volume 10.9 fL (7.4-10.4); Platelet Count 210 10^3/uL (130-400); Red Cell Dist. Width 15.2 % (11.5-14.5); White Blood Cell Count 9.7 10^3/uL (4.8-10.8)
[2024-07-09 06:55] LABS: Blood Urea Nitrogen 57 mg/dl (7-17); Calcium 8.8 mg/dl (8.4-10.2); Carbon Dioxide 23 mmol/L (22-30); Chloride 100 mmol/L (98-107); Estimated Creatinine Clearance 22 ml/min; Glucose 101 mg/dl (70-99); Potassium 4.6 mmol/L (3.5-5.1); Sodium 136 mmol/L (135-145); eGFR 20.96
[2024-07-09] MEDS: COLACE 300 MG PO (08:24)
[2024-07-09] MEDS: PROTONIX 40 MG PO (08:25)
[2024-07-09] MEDS: ASPIR LOW (ENTERIC COATED) 81 MG PO (08:25)
[2024-07-09] MEDS: APRESOLINE 25 MG PO ×2 (08:25→20:27)
[2024-07-09] MEDS: TENORMIN 50 MG PO (08:25)
--- NOTE | 2024-07-09 10:41 | CM ---
Patient seen at bedside. Patient states that her procedure is scheduled for 1:45 and that she is uncertain how long she will need to be here before being able to go to [facility]. Patient was at [facility] home in the past due to no available bed at
[facility]. Patient will need PT/OT following procedure to confirm discharge level of care needed. CM will continue to follow for discharge planning needs.
Plan; SNF; [facility] pending bed availability
--- NOTE | 2024-07-09 11:12 | W.PN.NEPH.PH ---
Today's Communication / Plan
-
cysto
Assessment/Plan
-
IMP:
NORM
Metabolic acidosis
Heart failure preserved ejection fraction compensated
Mod MR
Hyponatremia
Hypertension
Bilateral ureteral stents
Bilateral hydronephrosis
Hyperkalemia
Plan:
follow BMP
no IVF/lasix today
Cefepime for presumed sepsis
Blood pressure controlled on atenolol amlodipine and hydralazine
IV iron course
cysto this afternoon
-
-
Date of Service: July 09, 2024
CC / HPI / ROS
-
Chief Complaint:
NORM
History of Present Illness:
NORM/Cr down to 2.3
s/p bilateral PCN 07/03
grossly nonoliguric L>R PCN
BP stable
hgb low stable
Review of Systems:
no CP/SOB
bilateral PCNS
Labs
-
Labs:
WBC 9.7 10^3/uL (4.8-10.8) 07/09/24 05:40
RBC 2.90 10^6/uL (4.20-5.40) L 07/09/24 05:40
Hgb 8.3 g/dL (12.0-16.0) L 07/09/24 05:40
Hct 25.3 % (37.0-47.0) L 07/09/24 05:40
Plt Count 210 10^3/uL (130-400) 07/09/24 05:40
Sodium 136 mmol/L (135-145) 07/09/24 05:40
Potassium 4.6 mmol/L (3.5-5.1) 07/09/24 05:40
Chloride 100 mmol/L (98-107) 07/09/24 05:40
Carbon Dioxide 23 mmol/L (22-30) 07/09/24 05:40
BUN 57 mg/dl (7-17) H 07/09/24 05:40
Creatinine 2.3 mg/dL (0.6-1.0) H 07/09/24 05:40
eGFR 20.96 07/09/24 05:40
Glucose 101 mg/dl (70-99) H 07/09/24 05:40
Calcium 8.8 mg/dl (8.4-10.2) 07/09/24 05:40
Gek-N-Olubfkckuqi Pept 56085 pg/ml 07/03/24 05:55
Albumin 3.0 g/dl (3.5-5.0) L 07/06/24 07:51
Physical Exam
-
Vital Signs:
Vital Signs
Temp Pulse Resp BP Pulse Ox
97.9 F 68 16 136/56 96
07/09/24 07:49 07/09/24 07:49 07/09/24 07:49 07/09/24 07:49 07/09/24 07:49
Cardiovascular:: Regular rate and rhythm
Respiratory:: Bilateral: CTA
Lung Excursion:: Normal
Abdomen:: Nontender and Soft
Bowel Sounds:: Normal
Extremity Edema:: None: Bilateral:
[2024-07-09] MEDS: FERRLECIT 110 MG IV (12:57)
--- NOTE | 2024-07-09 17:24 | W.IMMPOSTOP ---
Surgical Immed Post Op Note
-
Primary Surgeon: Peffer
Assisting Surgeon: -
Pre-op Diagnosis: Bladder cancer, bilateral ureteral obstruction
Post-op Diagnosis: Bilateral ureteral stricture
Procedure Performed: cystoscopy, bilateral ureteroscopy, brush biopsies/cytology, ureteral stent removal
Anesthesia Type: general
Specimen / Cultures: none
Estimated Blood Loss: 1cc
Complications: none
Operative Findings:
Bilateral ureteral stricture disease affecting distal 2-3cm of each ureter
Some degree of pale and dense tissue in regions of narrowing
No ureteral jets after stents removed
No obvious tumor in either ureter or collecting system
No evidence of bladder cancer recurrence
--- NOTE | 2024-07-09 18:03 | W.PN.HOSP.TC ---
Today's Communication/Plan
-
follow labs with transition to oral abx at time of dc
Assessment / Plan
Assessment / Plan

CT Abdomen/Pelvis (as per radiologist's report)
'IMPRESSION: Mild right hydronephrosis. Slightly progressed. Minimal left hydronephrosis. Slightly improved.
Bilateral double-J stents. Appropriately positioned. Stable
Small right pleural effusion. Mildly improved..
Large hiatal hernia. Stable.
Small isodense right renal mass likely a benign proteinaceous cyst. Decreased in size suggesting it is benign..'

Assessment/Plan
78-year-old female with past medical history of hypertension, CVA, hyperlipidemia who recently had NORM in the setting of bilateral hydronephrosis of uncertain etiology and is status post stenting bilaterally who presents again to the emergency
department with NORM rising creatinine to 3.3 loss of appetite increased weakness decreased urine output and bilateral lower extremity edema. Found to have significant pyuria & bacteruria in ED, negative nitrite similar prior admission. Significant
peripheral leukocytosis to 21-->18.4-->11.7-->8.5-->9.7k
Hx of Bladder tumor
transurethal resection by Jules Tam on 06/21/23 with follow up resection 08/08/23
April Jade with UTI, hyponatremia and kidney failure. Pascal placed with about 50 ml/hr urine output and since stopped. Given recent instrumentation and hospitalizaton, urine cultured and started cefepime, now changed to Rocephin.
#UTI - Presumed Complicated pyelonephritis given recent instrumentation, catheter and voiding trial. Low urine output with urinary sludge per SNF. Denies flank pain but overall ill appearing, though showing signs of improvement
Fever
WBC 21.4-->18.3-->11.7-->8.5-->8.4k
Sepsis,POA- Systemic manifestations of infection, with 2 or more SIRS criteria which include:
- Fever >100.6 degrees F
- Leukocytosis - WBC 21.4k
- Tachypnea - RR 22 breaths per minute
due to UTI
now resolved
- Urine cultures growing E. coli/Citrobacter
- Continue to monitor on telemetry
- given very recent hospitalization and abx, change to Rocephin 1 gm IV qday
#NORM - on CKD 3b
- Creatine initially increased but now trending back down
- CT abd/pelvis results above
- Hold off on further IV fluids for now
- nephrology consultation, appreciate their evaluation and recommendations
probably approaching baseline (though Creat was 0.6 on 01/23/24
Creat 3.3-->3.6-->3.9-->3.5-->3.1-->2.8-->2.4-->2.3
#Normocytic Anemia
B12 >1000, folate 5.3
Fe sat 15%, Ferritin 155
receiving IV FE
GI note of 07/06: Anemia likely from hany's ulcer.
#Constipation
pt wants her laxatives on her schedule, will order
had excellent response with passage of large amount of stool following enema, but pt resistant on repeating enema
Abd X-Ray: Mild fecal material throughout the colon. Improved. No evidence of intestinal obstruction.
Moderate fecal material in the region of the rectum. Fecal impaction cannot be excluded. New.
-Patient is on bowel regimen
-Patient was supposed to follow-up with GI in the past 6 months or so but never did
-Consulted GI for possible occult GI bleed as well as constipation
#Bilateral [place] and UTI - Possible stent obstruction and infection. Urology consulted, plan for stent removal 07/08
- urinary catheter and i/o
- CT abdomen and pelvis showing mild left and moderate right hydronephrosis with possible stent dysfunction. The stent appeared to be in proper position. Urology aware.
- Bilateral nephrostomy tubes placed on July 04, 2024 with good urine output
- Per urology, patient to go to operating room this week for stent removal. Pascal removed as per urology
#Hyponatremia
better, nephro following
K 5.3 on 07/07-->4.5 on 07/08
will recheck in AM
- Fluid restriction
- Nephrology onboard
#Hypertension
- continue atenolol and hydralazine with hold parameters
- continue norvasc
#Acute on chronic diastolic heart failure
#Pulmonary Edema
#Acute Hypoxic Respiratory Insufficiency from Pulmonary Edema - RESOLVED
-Per cardiology, it would not be unreasonable to give patient 3 days worth of Lasix 20 mg p.o. x 3
-Outpatient follow-up with Dr. Cohn at [facility] from cardiology and patient could follow-up with him in 1 to 2 weeks post discharge
DVT Prophylaxis - Heparin subq Q8H
Await input from Urology post intervention as to timing of dc
Code Status - DNR
Anticipated Discharge: 24 - 48 hours
Subjective/Interval History
-
Date of Service: July 09, 2024
Pt seen earlier today, was apprehensive about planned urologic evaluation
Objective Data
-
Labs:
Laboratory Results
07/09/24
05:40
Sodium 136
Potassium 4.6
Chloride 100
Carbon Dioxide 23
BUN 57 H
Creatinine 2.3 H
Glucose 101 H
Calcium 8.8
Vital Signs:
Vital Signs
Temp Pulse Resp BP Pulse Ox
97.0 F 54 11 140/57 94
07/09/24 17:17 07/09/24 17:30 07/09/24 17:30 07/09/24 17:30 07/09/24 17:45
I&O
07/08/24 07/09/24 07/10/24
06:59 06:59 06:59
Intake Total 1440 / 1440 1300 / 1300
Output Total 1175 / 1175 3000 / 3000
Balance 265 / 265 -1700 / -1700
Review of Systems
-
History Source: Patient and Coordinated Provider
Constitutional: Denies Fever
EENT: Reports No Symptoms Reported
Respiratory: Denies Cough
Cardiac: Denies Chest Pain
Abdomen/GI: Reports Constipated (had extensive BM post repeat enema yesterday, none since)
Physical Exam
-
General: Well Developed, Well Nourished and No Apparent Distress
HEENT: Normocephalic, Atraumatic and Moist Mucous Membranes
Respiratory: Clear to Auscultation; Negative Wheezes, Rales or Rhonchi
Cardiac: Regular Rhythm and S1/S2
GI: Nontender and Nondistended
Genito-urinary: Other (s/p bilateral PCN's placed)
Musculoskeletal: No Clubbing, No Cyanosis and No Edema
Neuro: Awake, Alert and Oriented
--- NOTE | 2024-07-09 18:36 | PTCARENOTE ---
Patient received from PACU in bed; Patient on 2L NC, oxygen saturation 95%; Patient denies pain, nausea, and vomiting at this time; Resting comfortably in bed; Bilateral nephrostomy tubes with foam dressing clean, dry and intact with blood tinged
output; Patient's lungs clear to auscultation, bilateral pedal pulses +2 to palpation, bilateral radial pulses +2 to palpation, abdomen soft; Patient awake and alert to self, place, and time; Call bolivar within reach; Patient oriented to room and
unit; Bed in lowest position, wheels locked; Care ongoing
[2024-07-09] MEDS: ROCEPHIN 2000 MG IV (22:08)
[2024-07-09] MEDS: STERILE WATER FOR INJECTION 20 ML IV (22:08)
[2024-07-09] MEDS: SENOKOT 17.2 MG PO (22:08)
[2024-07-09] MEDS: NORVASC 10 MG PO (22:17)
[2024-07-09] MEDS: TYLENOL 650 MG PO (23:13)
[2024-07-10 03:46] VITALS: BP 115/48
[2024-07-10 05:05] VITALS: BMI 23.6
[2024-07-10 05:46] LABS: Hematocrit 27.2 % (37.0-47.0); Hemoglobin 8.8 g/dL (12.0-16.0); Mean Corp Hgb Conc. 32.4 g/dL (33.0-37.0); Mean Corpuscular Hgb 28.6 pg (27.0-31.0); Mean Corpuscular Volume 88.3 fL (81.0-99.0); Mean Platelet Volume 10.9 fL (7.4-10.4); Platelet Count 236 10^3/uL (130-400); Red Blood Cell Count 3.08 10^6/uL (4.20-5.40); Red Cell Dist. Width 15.7 % (11.5-14.5); White Blood Cell Count 10.3 10^3/uL (4.8-10.8)
[2024-07-10 06:05] LABS: Blood Urea Nitrogen 46 mg/dl (7-17); Calcium 8.9 mg/dl (8.4-10.2); Carbon Dioxide 21 mmol/L (22-30); Chloride 102 mmol/L (98-107); Estimated Creatinine Clearance 25 ml/min; Glucose 116 mg/dl (70-99); Potassium 5.4 mmol/L (3.5-5.1); Sodium 138 mmol/L (135-145); eGFR 24.79
[2024-07-10 07:00] VITALS: BP 149/69
--- NOTE | 2024-07-10 08:24 | W.PN.HOSP.TC ---
Today's Communication/Plan
-
follow labs
Assessment / Plan
Assessment / Plan

CT Abdomen/Pelvis (as per radiologist's report)
'IMPRESSION: Mild right hydronephrosis. Slightly progressed. Minimal left hydronephrosis. Slightly improved.
Bilateral double-J stents. Appropriately positioned. Stable
Small right pleural effusion. Mildly improved..
Large hiatal hernia. Stable.
Small isodense right renal mass likely a benign proteinaceous cyst. Decreased in size suggesting it is benign..'

Assessment/Plan
78-year-old female with past medical history of hypertension, CVA, hyperlipidemia who recently had NORM in the setting of bilateral hydronephrosis of uncertain etiology and is status post stenting bilaterally who presents again to the emergency
department with NORM rising creatinine to 3.3 loss of appetite increased weakness decreased urine output and bilateral lower extremity edema. Found to have significant pyuria & bacteruria in ED, negative nitrite similar prior admission. Significant
peripheral leukocytosis to 21-->18.4-->11.7-->8.5-->9.7-->10.3k
Hx of Bladder tumor
transurethal resection by Jules Tam on 06/21/23 with follow up resection 08/08/23
Underwent cystoscopy, bilateral ureteroscopy, brush biopsies/cytology, ureteral stent removal by Dr. Tam on 07/09
operative findings: Bilateral ureteral stricture disease affecting distal 2-3cm of each ureter
Some degree of pale and dense tissue in regions of narrowing
No ureteral jets after stents removed
No obvious tumor in either ureter or collecting system
No evidence of bladder cancer recurrence
April Jade with UTI, hyponatremia and kidney failure. Pascal placed with about 50 ml/hr urine output and since stopped. Given recent instrumentation and hospitalizaton, urine cultured and started cefepime, now changed to Rocephin.
#UTI - Presumed Complicated pyelonephritis given recent instrumentation, catheter and voiding trial. Low urine output with urinary sludge per SNF. Denies flank pain but overall ill appearing, though showing signs of improvement
Fever
WBC 21.4-->18.3-->11.7-->8.5-->8.4-->10.3k
Sepsis,POA- Systemic manifestations of infection, with 2 or more SIRS criteria which include:
- Fever >100.6 degrees F
- Leukocytosis - WBC 21.4k
- Tachypnea - RR 22 breaths per minute
due to UTI
now resolved
- Urine cultures growing E. coli/Citrobacter
- Continue to monitor on telemetry
- given very recent hospitalization and abx, changed to Rocephin 1 gm IV qday
#NORM - on CKD 3b
- Creatine initially increased but now trending back down
- CT abd/pelvis results above
- Hold off on further IV fluids for now
- nephrology consultation, appreciate their evaluation and recommendations
probably approaching baseline (though Creat was 0.6 on 01/23/24
Creat 3.3-->3.6-->3.9-->3.5-->3.1-->2.8-->2.4-->2.3-->2.0
#Normocytic Anemia
B12 >1000, folate 5.3
Fe sat 15%, Ferritin 155
receiving IV FE
GI note of 07/06: Anemia likely from hany's ulcer.
#Constipation
pt wants her laxatives on her schedule, will order
had excellent response with passage of large amount of stool following enema, but pt resistant on repeating enema
Abd X-Ray: Mild fecal material throughout the colon. Improved. No evidence of intestinal obstruction.
Moderate fecal material in the region of the rectum. Fecal impaction cannot be excluded. New.
-Patient is on bowel regimen
-Patient was supposed to follow-up with GI in the past 6 months or so but never did
-Consulted GI for possible occult GI bleed as well as constipation
#Bilateral [place] and UTI - Possible stent obstruction and infection. Urology consulted, plan for stent removal 07/08
- urinary catheter and i/o
- CT abdomen and pelvis showing mild left and moderate right hydronephrosis with possible stent dysfunction. The stent appeared to be in proper position. Urology aware.
- Bilateral nephrostomy tubes placed on July 04, 2024 with good urine output
- Per urology, patient to go to operating room this week for stent removal. Pascal removed as per urology
#Hyponatremia
better, nephro following
K 5.3 on 07/07-->4.5 on 07/08-->5.4 on 07/10
will recheck in AM
- Fluid restriction
- Nephrology onboard
#Hypertension
- continue atenolol and hydralazine with hold parameters
- continue norvasc
#Acute on chronic diastolic heart failure HFpEF, Stage II diastolic dysfunction, Acute symptoms fully resolved, appears to be at baseline
#Pulmonary Edema
#Acute Hypoxic Respiratory Insufficiency from Pulmonary Edema - RESOLVED
-Per cardiology, 'it would not be unreasonable to give patient 3 days worth of Lasix 20 mg p.o. x 3'
-Outpatient follow-up with Dr. Cohn at [facility] from cardiology and patient could follow-up with him in 1 to 2 weeks post discharge
DVT Prophylaxis - Heparin subq Q8H
Await input from Urology post intervention as to timing of dc
Code Status - DNR
Pt wants to go to [facility] at time of DC
Anticipated Discharge: 24 - 48 hours
Subjective/Interval History
-
Date of Service: July 10, 2024
Awake, alert
Objective Data
-
Labs:
Laboratory Results
07/10/24
04:14
WBC 10.3
Hgb 8.8 L
Hct 27.2 L
Plt Count 236
Sodium 138
Potassium 5.4 H
Chloride 102
Carbon Dioxide 21 L
BUN 46 H
Creatinine 2.0 H
Glucose 116 H
Calcium 8.9
Vital Signs:
Vital Signs
Temp Pulse Resp BP Pulse Ox
97.6 F 64 16 149/69 96
07/10/24 07:00 07/10/24 07:00 07/10/24 07:00 07/10/24 07:00 07/10/24 07:00
I&O
07/09/24 07/10/24 07/11/24
06:59 06:59 06:59
Intake Total 1300 / 1300 500 / 500
Output Total 3000 / 3000 880 / 880
Balance -1700 / -1700 -380 / -380
Review of Systems
-
History Source: Patient and Coordinated Provider
Constitutional: Denies Fever
EENT: Reports No Symptoms Reported
Respiratory: Denies Cough
Cardiac: Denies Chest Pain
Abdomen/GI: Reports Constipated (had extensive BM post repeat enema, none since, is refusing further enemas)
Physical Exam
-
General: Well Developed, Well Nourished and No Apparent Distress
HEENT: Normocephalic, Atraumatic and Moist Mucous Membranes
Respiratory: Clear to Auscultation; Negative Wheezes, Rales or Rhonchi
Cardiac: Regular Rhythm and S1/S2
GI: Nontender, Nondistended and Normal Bowel Sounds
Genito-urinary: Other (s/p bilateral PCN's placed)
Musculoskeletal: No Clubbing, No Cyanosis and No Edema
Neuro: Awake, Alert and Oriented
[2024-07-10] MEDS: PROTONIX 40 MG PO (10:13)
[2024-07-10] MEDS: COLACE 300 MG PO (10:13)
[2024-07-10] MEDS: ASPIR LOW (ENTERIC COATED) 81 MG PO (10:13)
[2024-07-10] MEDS: APRESOLINE 25 MG PO ×2 (10:13→20:29)
[2024-07-10] MEDS: TENORMIN 50 MG PO (10:13)
[2024-07-10 11:00] VITALS: BP 104/53
--- NOTE | 2024-07-10 12:18 | W.PN.NEPH.PH ---
Today's Communication / Plan
-
Lokelma provided for hyperkalemia
Sodium bicarbonate tablets provided for metabolic acidosis and hyperkalemia
Follow-up BMP in morning
Creatinine continues to improve down to 2
Assessment/Plan
-
IMP:
NORM
Metabolic acidosis
Heart failure preserved ejection fraction compensated
Mod MR
Hyponatremia
Hypertension
Bilateral ureteral stents
Bilateral hydronephrosis
Hyperkalemia
Plan:
follow BMP, creatinine continues to improve now down to 2
no IVF/lasix today
Potassium up will provide Lokelma 10 g x 1 then implement sodium bicarbonate tablets
Cefepime for presumed sepsis
Blood pressure controlled on atenolol amlodipine and hydralazine
IV iron course
-
-
Date of Service: July 10, 2024
CC / HPI / ROS
-
Chief Complaint:
NORM
History of Present Illness:
NORM/Cr down to 2
s/p bilateral PCN 07/03
grossly nonoliguric L>R PCN
BP stable
hgb low stable
Hyperkalemia noted
Review of Systems:
no CP/SOB
bilateral PCNS
Labs
-
Labs:
WBC 10.3 10^3/uL (4.8-10.8) 07/10/24 04:14
RBC 3.08 10^6/uL (4.20-5.40) L 07/10/24 04:14
Hgb 8.8 g/dL (12.0-16.0) L 07/10/24 04:14
Hct 27.2 % (37.0-47.0) L 07/10/24 04:14
Plt Count 236 10^3/uL (130-400) 07/10/24 04:14
Sodium 138 mmol/L (135-145) 07/10/24 04:14
Potassium 5.4 mmol/L (3.5-5.1) H 07/10/24 04:14
Chloride 102 mmol/L (98-107) 07/10/24 04:14
Carbon Dioxide 21 mmol/L (22-30) L 07/10/24 04:14
BUN 46 mg/dl (7-17) H 07/10/24 04:14
Creatinine 2.0 mg/dL (0.6-1.0) H 07/10/24 04:14
eGFR 24.79 07/10/24 04:14
Glucose 116 mg/dl (70-99) H 07/10/24 04:14
Calcium 8.9 mg/dl (8.4-10.2) 07/10/24 04:14
Evz-E-Bmgofmofjrl Pept 81100 pg/ml 07/03/24 05:55
Albumin 3.0 g/dl (3.5-5.0) L 07/06/24 07:51
Physical Exam
-
Vital Signs:
Vital Signs
Temp Pulse Resp BP Pulse Ox
97.5 F 63 18 104/53 98
07/10/24 11:00 07/10/24 11:00 07/10/24 11:00 07/10/24 11:00 07/10/24 11:00
Cardiovascular:: Regular rate and rhythm
Lung Excursion:: Normal
Abdomen:: Nontender and Soft
Extremity Edema:: None: Bilateral:
Pascal Catheter: No
Other Findings::
Bilateral nephrostomy tube
[2024-07-10] MEDS: LOKELMA 10 GRAM PO (12:51)
[2024-07-10] MEDS: FERRLECIT 110 MG IV (13:52)
--- NOTE | 2024-07-10 14:10 | W.PN.URO.CBU ---
Today's Communication / Plan
-
Outpatient follow up
Discharge with stents in place
Assessment / Plan
-
78F with hx bladder cancer, induction BCG with some refractory disease
Presenting with constipation/stool impaction and bilateral hydronephrosis 05/2024 s/p b/l stent placement
Readmitted with worsening renal function and persistent hydro
- now s/p placement of b/l PCN tubes with improvement in renal function
- s/p OR 07/09 for cystoscopy cystoscopy, stent removal, retrograde pyelograms, b/l ureteroscopy with brush biopsy
Bilateral distal ureteral stricture disease noted on eval, no obvious malignancy
Suspect this is due to rare granulomatous reaction from BCG treatment
Pathology pending
- Discharge to rehab with b/l nephrostomy in place
- Okay to continue short abx course for urinary colonization
- Will call patient with pathology results
- Outpatient follow up to discuss next steps for ureteral stricture
Diagnosis
-
Date of Service: July 10, 2024
-
Patient Diagnosis:
Bladder cancer
ureteral obstruction
NORM
Subjective
-
feeling well
no new complaints
Objective
-
Vital Signs
Temp Pulse Resp BP Pulse Ox
97.5 F 63 18 104/53 98
07/10/24 11:00 07/10/24 11:00 07/10/24 11:00 07/10/24 11:00 07/10/24 11:00
Intake and Output
07/09/24 07/10/24 07/11/24
06:59 06:59 06:59
Intake Total 1300 / 1300 500 / 500
Output Total 3000 / 3000 880 / 880
Balance -1700 / -1700 -380 / -380
Intake:
Oral fluids 1300 / 1300 480 / 480
IV fluids (Total) 20 / 20
NSS 20 / 20
IV piggybacks 0 / 0
Output:
Urinary Drain Output (Total) 3000 / 3000 880 / 880
Left Nephrostomy 1850 / 1850 710 / 710
Right Nephrostomy 1150 / 1150 170 / 170
Laboratory Results
07/10/24 04:14
07/10/24 04:14
Physical Exam
-
General - well developed, well nourished, no acute distress
Chest - clear bilaterally
Abdomen - soft, non-tender,
b/l PCN in place
--- NOTE | 2024-07-10 14:49 | CM ---
Addendum entered by Mitali Gu 07/10/24 15:32:
Spoke with pt -updated regarding SNF
Requested referral to [facility]
Referral sent in care port
Plan - anticipate SNF when medically ready and bed obtained
Original Note:
Case management following for discharge planning
Pt for SNF - referral previously sent to [facility]
Spoke with Ginny at [facility] - no beds available
Will update pt and request additional choices
Plan - anticipate SNF when medically ready and bed obtained
[2024-07-10 15:00] VITALS: BP 106/54
[2024-07-10] MEDS: SODIUM BICARBONATE 325 MG PO (18:21)
[2024-07-10] MEDS: NORVASC 10 MG PO (22:07)
[2024-07-10] MEDS: TYLENOL 650 MG PO (22:08)
[2024-07-10] MEDS: SENOKOT 17.2 MG PO (22:08)
[2024-07-10] MEDS: STERILE WATER FOR INJECTION 20 ML IV (22:08)
[2024-07-10] MEDS: ROCEPHIN 2000 MG IV (22:08)
[2024-07-10 23:11] VITALS: BP 124/57
[2024-07-11] MEDS: SODIUM BICARBONATE 325 MG PO ×4 (00:14→22:30)
--- NOTE | 2024-07-11 00:50 | PTCARENOTE ---
Left nephrostomy patent with yellow urine emptied for 120 ml @ this time, right with blood tinged urine in tubing. Reviewed orders and notes, no orders for irrigation at this time, will continue to monitor and keep tubing free from kinks and below
kidneys.
[2024-07-11 05:22] LABS: % Basophils 0.3 % (0-2); % Eosinophils 3.2 % (0-6); % Immature Granulocytes 1.5 % (0-0.5); % Lymphocytes 18.4 % (20.5-51.1); % Monocytes 8.6 % (1.7-9.3); Absolute Eosinophils 0.3 10^3/uL (0-0.7); Absolute Immature Granulocytes 0.2 10^3/uL (0-0.05); Absolute Lymphocytes 1.8 10^3/uL (1.2-3.4); Absolute Monocytes 0.9 10^3/uL (0.1-0.6); Absolute Neutrophils 6.7 10^3/uL (1.4-6.5); Hematocrit 23.8 % (37.0-47.0); Mean Corp Hgb Conc. 33.6 g/dL (33.0-37.0); Mean Corpuscular Hgb 29.7 pg (27.0-31.0); Mean Corpuscular Volume 88.5 fL (81.0-99.0); Mean Platelet Volume 10.7 fL (7.4-10.4); Nucleated Red Blood Cells % 0 %; Platelet Count 226 10^3/uL (130-400); Red Blood Cell Count 2.69 10^6/uL (4.20-5.40); Red Cell Dist. Width 15.8 % (11.5-14.5); White Blood Cell Count 9.8 10^3/uL (4.8-10.8)
[2024-07-11 05:47] LABS: Blood Urea Nitrogen 56 mg/dl (7-17); Calcium 8.8 mg/dl (8.4-10.2); Carbon Dioxide 23 mmol/L (22-30); Chloride 99 mmol/L (98-107); Estimated Creatinine Clearance 22 ml/min; Glucose 79 mg/dl (70-99); Potassium 4.7 mmol/L (3.5-5.1); Sodium 135 mmol/L (135-145); eGFR 20.96
[2024-07-11 06:00] VITALS: BMI 24.1
[2024-07-11 07:00] VITALS: BP 127/49
[2024-07-11] MEDS: ASPIR LOW (ENTERIC COATED) 81 MG PO (08:16)
[2024-07-11] MEDS: TENORMIN 50 MG PO (08:16)
[2024-07-11] MEDS: PROTONIX 40 MG PO (08:16)
[2024-07-11] MEDS: COLACE 300 MG PO (08:16)
[2024-07-11] MEDS: APRESOLINE 25 MG PO ×2 (08:16→20:51)
--- NOTE | 2024-07-11 08:25 | W.PN.URO.CBU ---
Today's Communication / Plan
-
Outpatient follow up
Discharge with bilateral PCNs to drainage
Assessment / Plan
-
78F with hx bladder cancer, induction BCG with some refractory disease
Presenting with constipation/stool impaction and bilateral hydronephrosis 05/2024 s/p b/l stent placement
Readmitted with worsening renal function and persistent hydro
- now s/p placement of b/l PCN tubes with improvement in renal function
- s/p OR 07/09 for cystoscopy cystoscopy, stent removal, retrograde pyelograms, b/l ureteroscopy with brush biopsy
Bilateral distal ureteral stricture disease noted on eval, no obvious malignancy
Suspect this is due to rare granulomatous reaction from BCG treatment
Pathology pending
- Discharge to rehab with b/l nephrostomy in place
- Okay to continue short abx course for urinary colonization
- Will call patient with pathology results
- Outpatient follow up to discuss next steps for ureteral stricture
Diagnosis
-
Date of Service: July 11, 2024
-
Patient Diagnosis:
Bladder cancer
ureteral obstruction
NORM
Subjective
-
Continues to feel well.
No new complaints.
Objective
-
Vital Signs
Temp Pulse Resp BP Pulse Ox
97.2 F 61 16 127/49 96
07/11/24 07:00 07/11/24 07:00 07/11/24 07:00 07/11/24 08:16 07/11/24 07:00
Intake and Output
07/10/24 07/11/24 07/12/24
06:59 06:59 06:59
Intake Total 500 / 500 1860 / 1860
Output Total 880 / 880 1155 / 1155 550 / 550
Balance -380 / -380 705 / 705 -550 / -550
Intake:
Oral fluids 480 / 480 1860 / 1860
IV fluids (Total) 20 20
NSS 20
IV piggybacks 0 / 0
Output:
Urinary Drain Output (Total) 880 / 880 1155 / 1155 550 / 550
Left Nephrostomy 710 / 710 895 / 895 400 / 400
Right Nephrostomy 170 / 170 260 / 260 150 / 150
Other:
Number of approximated LARGE 1
amounts of urine
How many times incontinent 1
MODERATE amount urine
Laboratory Results
07/11/24 04:27
07/11/24 04:27
Physical Exam
-
General - well developed, well nourished, no acute distress
Abdomen - soft, non-tender, non-distended, b/l PCNs in place
Skin - warm & dry with no rash
Extremities - no clubbing, no cyanosis, no edema
--- NOTE | 2024-07-11 08:49 | CM ---
Addendum entered by Su Del Valle 07/11/24 10:21:
Patient requested referral to [facility] and referral sent via all scripts. Patient to review with other options for referrals.
Original Note:
No beds available at [facility]. CM updated physician and will talk to patient and family about additional options to send referrals.
--- NOTE | 2024-07-11 10:38 | W.PN.NEPH.PH ---
Today's Communication / Plan
-
Follow BMP
Assessment/Plan
-
IMP:
NORM
Metabolic acidosis
Heart failure preserved ejection fraction compensated
Mod MR
Hyponatremia
Hypertension
Bilateral ureteral stents
Bilateral hydronephrosis
Hyperkalemia
Plan:
follow BMP, creatinine continues to improve now down to 2.3
Grossly nonoliguric via drains
Okay for discharge from nephrology standpoint, if she leaves today she will need a repeat BMP next week
K down after lokelma and sodium bicarbonate provided
Ceftriaxone for presumed sepsis
Blood pressure controlled on atenolol amlodipine and hydralazine
IV iron course
-
-
Date of Service: July 11, 2024
CC / HPI / ROS
-
Chief Complaint:
NORM
History of Present Illness:
NORM/Cr up to 2.3
s/p bilateral PCN 07/03
grossly nonoliguric L>R PCN
BP stable
hgb low stable
Hyperkalemia resolved after Lokelma and sodium bicarb
Review of Systems:
no CP/SOB
bilateral PCNS
Labs
-
Labs:
WBC 9.8 10^3/uL (4.8-10.8) 07/11/24 04:27
RBC 2.69 10^6/uL (4.20-5.40) L 07/11/24 04:27
Hgb 8.0 g/dL (12.0-16.0) L 07/11/24 04:27
Hct 23.8 % (37.0-47.0) L 07/11/24 04:27
Plt Count 226 10^3/uL (130-400) 07/11/24 04:27
Sodium 135 mmol/L (135-145) 07/11/24 04:27
Potassium 4.7 mmol/L (3.5-5.1) 07/11/24 04:27
Chloride 99 mmol/L (98-107) 07/11/24 04:27
Carbon Dioxide 23 mmol/L (22-30) 07/11/24 04:27
BUN 56 mg/dl (7-17) H 07/11/24 04:27
Creatinine 2.3 mg/dL (0.6-1.0) H 07/11/24 04:27
eGFR 20.96 07/11/24 04:27
Glucose 79 mg/dl (70-99) 07/11/24 04:27
Calcium 8.8 mg/dl (8.4-10.2) 07/11/24 04:27
Edc-V-Zwpnrdirmbr Pept 18127 pg/ml 07/03/24 05:55
Albumin 3.0 g/dl (3.5-5.0) L 07/06/24 07:51
Physical Exam
-
Vital Signs:
Vital Signs
Temp Pulse Resp BP Pulse Ox
97.2 F 61 16 127/49 96
07/11/24 07:00 07/11/24 07:00 07/11/24 07:00 07/11/24 08:16 07/11/24 07:00
Cardiovascular:: Regular rate and rhythm
Lung Excursion:: Normal
Abdomen:: Nontender and Soft
Extremity Edema:: None: Bilateral:
Pascal Catheter: No
Other Findings::
Bilateral nephrostomy tube
[2024-07-11] MEDS: FERRLECIT 110 MG IV (13:50)
--- NOTE | 2024-07-11 14:23 | W.PN.HOSP.TC ---
Today's Communication/Plan
-
dc to [facility] pending arrangements
Assessment / Plan
Assessment / Plan

CT Abdomen/Pelvis (as per radiologist's report)
'IMPRESSION: Mild right hydronephrosis. Slightly progressed. Minimal left hydronephrosis. Slightly improved.
Bilateral double-J stents. Appropriately positioned. Stable
Small right pleural effusion. Mildly improved..
Large hiatal hernia. Stable.
Small isodense right renal mass likely a benign proteinaceous cyst. Decreased in size suggesting it is benign..'

Assessment/Plan
78-year-old female with past medical history of hypertension, CVA, hyperlipidemia who recently had NORM in the setting of bilateral hydronephrosis of uncertain etiology and is status post stenting bilaterally who presents again to the emergency
department with NORM rising creatinine to 3.3 loss of appetite increased weakness decreased urine output and bilateral lower extremity edema. Found to have significant pyuria & bacteruria in ED, negative nitrite similar prior admission. Significant
peripheral leukocytosis to 21-->18.4-->11.7-->8.5-->9.7-->10.3-->9.8k, now improved. Will stop abx at time of dc
Hx of Bladder tumor
transurethral resection by Jules Tam on 06/21/23 with follow up resection 08/08/23
Underwent cystoscopy, bilateral ureteroscopy, brush biopsies/cytology, ureteral stent removal by Dr. Tam on 07/09
operative findings: Bilateral ureteral stricture disease affecting distal 2-3cm of each ureter
Some degree of pale and dense tissue in regions of narrowing
No ureteral jets after stents removed
No obvious tumor in either ureter or collecting system
No evidence of bladder cancer recurrence
April Jade with UTI, hyponatremia and kidney failure. Pascal placed with about 50 ml/hr urine output and since stopped. Given recent instrumentation and hospitalizaton, urine cultured and started cefepime, now changed to Rocephin.
#UTI - Presumed Complicated pyelonephritis given recent instrumentation, catheter and voiding trial. Low urine output with urinary sludge per SNF. Denies flank pain but overall ill appearing, though showing signs of improvement
Fever
WBC 21.4-->18.3-->11.7-->8.5-->8.4-->10.3k
Sepsis,POA- Systemic manifestations of infection, with 2 or more SIRS criteria which include:
- Fever >100.6 degrees F
- Leukocytosis - WBC 21.4k
- Tachypnea - RR 22 breaths per minute
due to UTI
now resolved
- Urine cultures growing E. coli/Citrobacter
- Continue to monitor on telemetry
- given very recent hospitalization and abx, changed to Rocephin 1 gm IV qday
#NORM - on CKD 3b
- Creatine initially increased but now trending back down
- CT abd/pelvis results above
- Hold off on further IV fluids for now
- nephrology consultation, appreciate their evaluation and recommendations
probably approaching baseline (though Creat was 0.6 on 01/23/24
Creat 3.3-->3.6-->3.9-->3.5-->3.1-->2.8-->2.4-->2.3-->2.0-->2.3
#Normocytic Anemia
B12 >1000, folate 5.3
Fe sat 15%, Ferritin 155
receiving IV FE, to complete today
GI note of 07/06: Anemia likely from hany's ulcer.
#Constipation
pt wants her laxatives on her schedule, will order
had excellent response with passage of large amount of stool following enema, but pt resistant on repeating enema
Abd X-Ray: Mild fecal material throughout the colon. Improved. No evidence of intestinal obstruction.
Moderate fecal material in the region of the rectum. Fecal impaction cannot be excluded. New.
-Patient is on bowel regimen
-Patient was supposed to follow-up with GI in the past 6 months or so but never did
-Consulted GI for possible occult GI bleed as well as constipation
#Bilateral [place] and UTI - Possible stent obstruction and infection. Urology consulted, underwent stent removal 07/09
#Hyponatremia
better, nephro following
K 5.3 on 07/07-->4.5 on 07/08-->5.4 on 07/10--Lokelma 10 g given-->4.7
- Fluid restriction
- Nephrology onboard
#Hypertension
- continue atenolol and hydralazine with hold parameters
- continue norvasc
#Acute on chronic diastolic heart failure HFpEF, Stage II diastolic dysfunction, Acute symptoms fully resolved, appears to be at baseline
#Pulmonary Edema
#Acute Hypoxic Respiratory Insufficiency from Pulmonary Edema - RESOLVED
-Per cardiology, 'it would not be unreasonable to give patient 3 days worth of Lasix 20 mg p.o. x 3'
-Outpatient follow-up with Dr. Cohn at [facility] from cardiology and patient could follow-up with him in 1 to 2 weeks post discharge
DVT Prophylaxis - Heparin subq Q8H
Code Status - DNR
Pt wanted to go to [facility] at time of DC, no beds, as such discussed with [facility], await decision on alternative facility
Anticipated Discharge: 24 - 48 hours
Subjective/Interval History
-
Date of Service: July 11, 2024
Awaiting dc to [facility], was hoping to go to [facility], but no beds
Objective Data
-
Labs:
Laboratory Results
07/11/24
04:27
WBC 9.8
Hgb 8.0 L
Hct 23.8 L
Plt Count 226
Sodium 135
Potassium 4.7
Chloride 99
Carbon Dioxide 23
BUN 56 H
Creatinine 2.3 H
Glucose 79
Calcium 8.8
Vital Signs:
Vital Signs
Temp Pulse Resp BP Pulse Ox
97.2 F 61 16 127/49 96
07/11/24 07:00 07/11/24 07:00 07/11/24 07:00 07/11/24 08:16 07/11/24 07:00
I&O
07/10/24 07/11/24 07/12/24
06:59 06:59 06:59
Intake Total 500 / 500 1860 / 1860 110 / 110
Output Total 880 / 880 1155 / 1155 900 / 900
Balance -380 / -380 705 / 705 -790 / -790
Review of Systems
-
History Source: Patient and Coordinated Provider
Constitutional: Denies Fever
EENT: Reports No Symptoms Reported
Respiratory: Denies Cough
Cardiac: Denies Chest Pain
Abdomen/GI: Reports Constipated (had extensive BM post repeat enema, none since, is refusing further enemas)
Physical Exam
-
General: Well Developed, Well Nourished and No Apparent Distress
HEENT: Normocephalic, Atraumatic and Moist Mucous Membranes
Respiratory: Clear to Auscultation; Negative Wheezes, Rales or Rhonchi
Cardiac: Regular Rhythm and S1/S2
GI: Nontender, Nondistended and Normal Bowel Sounds
Genito-urinary: Other (s/p bilateral PCN's placed)
Musculoskeletal: No Clubbing, No Cyanosis and No Edema
Neuro: Awake, Alert and Oriented
[2024-07-11 15:00] VITALS: BP 135/63
[2024-07-11] MEDS: NORVASC 10 MG PO (22:26)
[2024-07-11] MEDS: SENOKOT 17.2 MG PO (22:26)
[2024-07-11] MEDS: TYLENOL 650 MG PO (22:30)
[2024-07-11] MEDS: ROCEPHIN 2000 MG IV (22:30)
[2024-07-11] MEDS: STERILE WATER FOR INJECTION 20 ML IV (22:30)
[2024-07-11 22:31] VITALS: BP 138/58
[2024-07-12 06:00] VITALS: BMI 23.9
[2024-07-12 06:44] LABS: % Basophils 0.5 % (0-2); % Eosinophils 3.2 % (0-6); % Immature Granulocytes 0.8 % (0-0.5); % Lymphocytes 21.3 % (20.5-51.1); % Monocytes 10.5 % (1.7-9.3); % Neutrophils 63.7 % (42.2-75.2); Absolute Eosinophils 0.3 10^3/uL (0-0.7); Absolute Immature Granulocytes 0.1 10^3/uL (0-0.05); Absolute Lymphocytes 1.9 10^3/uL (1.2-3.4); Absolute Monocytes 0.9 10^3/uL (0.1-0.6); Absolute Neutrophils 5.6 10^3/uL (1.4-6.5); Hematocrit 24.7 % (37.0-47.0); Hemoglobin 8.1 g/dL (12.0-16.0); Mean Corp Hgb Conc. 32.8 g/dL (33.0-37.0); Mean Corpuscular Volume 88.5 fL (81.0-99.0); Mean Platelet Volume 11.2 fL (7.4-10.4); Nucleated Red Blood Cells % 0 %; Platelet Count 243 10^3/uL (130-400); Red Blood Cell Count 2.79 10^6/uL (4.20-5.40); Red Cell Dist. Width 16.1 % (11.5-14.5); White Blood Cell Count 8.8 10^3/uL (4.8-10.8)
[2024-07-12 07:12] LABS: Blood Urea Nitrogen 56 mg/dl (7-17); Carbon Dioxide 22 mmol/L (22-30); Chloride 101 mmol/L (98-107); Estimated Creatinine Clearance 25 ml/min; Glucose 78 mg/dl (70-99); Potassium 4.7 mmol/L (3.5-5.1); Sodium 136 mmol/L (135-145); eGFR 24.79
[2024-07-12 07:30] VITALS: BP 149/55
[2024-07-12] MEDS: APRESOLINE 25 MG PO ×2 (08:22→20:00)
[2024-07-12] MEDS: PROTONIX 40 MG PO (08:23)
[2024-07-12] MEDS: COLACE 300 MG PO (08:23)
[2024-07-12] MEDS: ASPIR LOW (ENTERIC COATED) 81 MG PO (08:23)
[2024-07-12] MEDS: SODIUM BICARBONATE 325 MG PO ×3 (08:23→22:07)
[2024-07-12] MEDS: MIRALAX 17 GRAMS PO (08:23)
[2024-07-12] MEDS: TENORMIN 50 MG PO (08:23)
--- NOTE | 2024-07-12 10:06 | W.PN.HOSP.TC ---
Today's Communication/Plan
-
await dispo
continue Rocephin until dc
Assessment / Plan
Assessment / Plan

CT Abdomen/Pelvis (as per radiologist's report)
'IMPRESSION: Mild right hydronephrosis. Slightly progressed. Minimal left hydronephrosis. Slightly improved.
Bilateral double-J stents. Appropriately positioned. Stable
Small right pleural effusion. Mildly improved..
Large hiatal hernia. Stable.
Small isodense right renal mass likely a benign proteinaceous cyst. Decreased in size suggesting it is benign..'

Assessment/Plan
78-year-old female with past medical history of hypertension, CVA, hyperlipidemia who recently had NORM in the setting of bilateral hydronephrosis of uncertain etiology and is status post stenting bilaterally who presents again to the emergency
department with NORM rising creatinine to 3.3 loss of appetite increased weakness decreased urine output and bilateral lower extremity edema. Found to have significant pyuria & bacteruria in ED, negative nitrite similar prior admission. Significant
peripheral leukocytosis to 21-->18.4-->11.7-->8.5-->9.7-->10.3-->9.8-->8.8k, now improved. Will stop abx at time of dc
Hx of Bladder tumor
transurethral resection by Jules Tam on 06/21/23 with follow up resection 08/08/23
Underwent cystoscopy, bilateral ureteroscopy, brush biopsies/cytology, ureteral stent removal by Dr. Tam on 07/09
operative findings: Bilateral ureteral stricture disease affecting distal 2-3cm of each ureter
Some degree of pale and dense tissue in regions of narrowing
No ureteral jets after stents removed
No obvious tumor in either ureter or collecting system
No evidence of bladder cancer recurrence
April Jade with UTI, hyponatremia and kidney failure. Pascal placed with about 50 ml/hr urine output and since stopped. Given recent instrumentation and hospitalizaton, urine cultured and started cefepime, now changed to Rocephin.
#UTI - Presumed Complicated pyelonephritis given recent instrumentation, catheter and voiding trial. Low urine output with urinary sludge per SNF. Denies flank pain but overall ill appearing, though showing signs of improvement
Fever
WBC 21.4-->18.3-->11.7-->8.5-->8.4-->10.3-->8.8k
Sepsis,POA- Systemic manifestations of infection, with 2 or more SIRS criteria which include:
- Fever >100.6 degrees F
- Leukocytosis - WBC 21.4k
- Tachypnea - RR 22 breaths per minute
due to UTI
now resolved
- Urine cultures growing E. coli/Citrobacter
- Continue to monitor on telemetry
- given very recent hospitalization and abx, changed to Rocephin 1 gm IV qday
#NORM - on CKD 3b
- Creatine initially increased but now trending back down
- CT abd/pelvis results above
- Hold off on further IV fluids for now
- nephrology consultation, appreciate their evaluation and recommendations
probably approaching baseline (though Creat was 0.6 on 01/23/24
Creat 3.3-->3.6-->3.9-->3.5-->3.1-->2.8-->2.4-->2.3-->2.0-->2.3-->2.0
#Normocytic Anemia
B12 >1000, folate 5.3
Fe sat 15%, Ferritin 155
received IV FE, completed
Hgb 8.1
GI note of 07/06: Anemia likely from hany's ulcer.
#Constipation
pt wants her laxatives on her schedule, will order
had excellent response with passage of large amount of stool following enema, but pt resistant on repeating enema, requested by nurse she reconsider
Abd X-Ray: Mild fecal material throughout the colon. Improved. No evidence of intestinal obstruction.
Moderate fecal material in the region of the rectum. Fecal impaction cannot be excluded. New.
-Patient is on bowel regimen
-Patient was supposed to follow-up with GI in the past 6 months or so but never did
-Consulted GI for possible occult GI bleed as well as constipation
#Bilateral [place] and UTI - Possible stent obstruction and infection. Urology consulted, underwent stent removal 07/09
cysto demonstrated bilateral ureteral strictures, no obvious tumor
#Hyponatremia
better, nephro following
K 5.3 on 07/07-->4.5 on 07/08-->5.4 on 07/10--Lokelma 10 g given-->4.7-->4.7
- Fluid restriction
- Nephrology onboard
#Hypertension
- continue atenolol and hydralazine with hold parameters
- continue norvasc
#Acute on chronic diastolic heart failure HFpEF, Stage II diastolic dysfunction, Acute symptoms fully resolved, appears to be at baseline
#Pulmonary Edema
#Acute Hypoxic Respiratory Insufficiency from Pulmonary Edema - RESOLVED
-Per cardiology, 'it would not be unreasonable to give patient 3 days worth of Lasix 20 mg p.o. x 3'
-Outpatient follow-up with Dr. Cohn at [facility] from cardiology and patient could follow-up with him in 1 to 2 weeks post discharge
DVT Prophylaxis - Heparin subq Q8H
Code Status - DNR
Pt wanted to go to [facility] at time of DC, no beds, as such discussed with [facility], await decision on alternative facility
Discussed with [facility]. Will consult PT/OT
Anticipated Discharge: 24 - 48 hours
Subjective/Interval History
-
Date of Service: July 12, 2024
Awake, alert
Objective Data
-
Labs:
Laboratory Results
07/12/24
04:18
WBC 8.8
Hgb 8.1 L
Hct 24.7 L
Plt Count 243
Sodium 136
Potassium 4.7
Chloride 101
Carbon Dioxide 22
BUN 56 H
Creatinine 2.0 H
Glucose 78
Calcium 9.0
Vital Signs:
Vital Signs
Temp Pulse Resp BP Pulse Ox
98 F 61 18 149/55 96
07/12/24 07:30 07/12/24 07:30 07/12/24 07:30 07/12/24 08:23 07/12/24 07:30
I&O
07/11/24 07/12/24 07/13/24
06:59 06:59 06:59
Intake Total 1860 / 1860 590 / 590 480 / 480
Output Total 1155 / 1155 1150 / 1150 1500 / 1500
Balance 705 / 705 -560 / -560 -1020 / -1020
Review of Systems
-
History Source: Patient and Coordinated Provider
Constitutional: Denies Fever
EENT: Reports No Symptoms Reported
Respiratory: Denies Cough
Cardiac: Denies Chest Pain
Abdomen/GI: Reports Constipated (had extensive BM post repeat enema, none since, is refusing further enemas)
Physical Exam
-
General: Well Developed, Well Nourished and No Apparent Distress
HEENT: Normocephalic, Atraumatic and Moist Mucous Membranes
Respiratory: Clear to Auscultation; Negative Wheezes, Rales or Rhonchi
Cardiac: Regular Rhythm and S1/S2
GI: Nontender, Nondistended and Normal Bowel Sounds
Genito-urinary: Other (s/p bilateral PCN's placed)
Musculoskeletal: No Clubbing, No Cyanosis and No Edema
Neuro: Awake, Alert and Oriented
--- NOTE | 2024-07-12 12:12 | W.PN.NEPH.PH ---
Today's Communication / Plan
-
Observe
Follow BMP
Maintain sodium bicarbonate
Assessment/Plan
-
IMP:
NORM
Metabolic acidosis
Heart failure preserved ejection fraction compensated
Mod MR
Hyponatremia
Hypertension
Bilateral ureteral stents
Bilateral hydronephrosis
Hyperkalemia
Plan:
follow BMP, creatinine continues to improve now down to 2
Grossly nonoliguric via drains
Okay for discharge from nephrology standpoint, if she leaves today she will need a repeat BMP next week
K down after lokelma and sodium bicarbonate provided at 325mg bid
Ceftriaxone for presumed sepsis
Blood pressure controlled on atenolol amlodipine and hydralazine
-
-
Date of Service: July 12, 2024
CC / HPI / ROS
-
Chief Complaint:
NORM
History of Present Illness:
NORM/Cr down to 2
K normal
on sodium bicarbonate
s/p bilateral PCN 07/03
grossly nonoliguric L>R PCN
BP stable
hgb low stable
Hyperkalemia resolved after Lokelma and sodium bicarb
Review of Systems:
no CP/SOB
bilateral PCNS
Labs
-
Labs:
WBC 8.8 10^3/uL (4.8-10.8) 07/12/24 04:18
RBC 2.79 10^6/uL (4.20-5.40) L 07/12/24 04:18
Hgb 8.1 g/dL (12.0-16.0) L 07/12/24 04:18
Hct 24.7 % (37.0-47.0) L 07/12/24 04:18
Plt Count 243 10^3/uL (130-400) 07/12/24 04:18
Sodium 136 mmol/L (135-145) 07/12/24 04:18
Potassium 4.7 mmol/L (3.5-5.1) 07/12/24 04:18
Chloride 101 mmol/L (98-107) 07/12/24 04:18
Carbon Dioxide 22 mmol/L (22-30) 07/12/24 04:18
BUN 56 mg/dl (7-17) H 07/12/24 04:18
Creatinine 2.0 mg/dL (0.6-1.0) H 07/12/24 04:18
eGFR 24.79 07/12/24 04:18
Glucose 78 mg/dl (70-99) 07/12/24 04:18
Calcium 9.0 mg/dl (8.4-10.2) 07/12/24 04:18
Lky-Y-Stbjfeuevqk Pept 36124 pg/ml 07/03/24 05:55
Albumin 3.0 g/dl (3.5-5.0) L 07/06/24 07:51
Physical Exam
-
Vital Signs:
Vital Signs
Temp Pulse Resp BP Pulse Ox
98 F 61 18 149/55 96
07/12/24 07:30 07/12/24 07:30 07/12/24 07:30 07/12/24 08:23 07/12/24 07:30
Cardiovascular:: Regular rate and rhythm
Lung Excursion:: Normal
Abdomen:: Nontender and Soft
Extremity Edema:: None: Bilateral:
Pascal Catheter: No
Other Findings::
Bilateral nephrostomy tube
[2024-07-12 13:34] VITALS: BP 137/65; PULSE 62; O2SAT 97
[2024-07-12 13:36] VITALS: BP 137/65; PULSE 62; O2SAT 96
[2024-07-12 15:00] VITALS: BP 116/48
[2024-07-12] MEDS: STERILE WATER FOR INJECTION 20 ML IV (22:07)
[2024-07-12] MEDS: SENOKOT 17.2 MG PO (22:07)
[2024-07-12] MEDS: ROCEPHIN 2000 MG IV (22:08)
[2024-07-12] MEDS: TYLENOL 650 MG PO (22:10)
[2024-07-12] MEDS: NORVASC 10 MG PO (22:14)
[2024-07-12 23:00] VITALS: BP 141/56
[2024-07-13 06:00] VITALS: BMI 24.2
[2024-07-13 06:49] LABS: % Basophils 0.8 % (0-2); % Eosinophils 4.5 % (0-6); % Lymphocytes 23.1 % (20.5-51.1); % Monocytes 11.3 % (1.7-9.3); % Neutrophils 59.3 % (42.2-75.2); Absolute Basophils 0.1 10^3/uL (0-0.2); Absolute Eosinophils 0.4 10^3/uL (0-0.7); Absolute Immature Granulocytes 0.1 10^3/uL (0-0.05); Absolute Neutrophils 5.2 10^3/uL (1.4-6.5); Hematocrit 25.7 % (37.0-47.0); Hemoglobin 8.2 g/dL (12.0-16.0); Mean Corp Hgb Conc. 31.9 g/dL (33.0-37.0); Mean Corpuscular Hgb 28.6 pg (27.0-31.0); Mean Corpuscular Volume 89.5 fL (81.0-99.0); Mean Platelet Volume 11.1 fL (7.4-10.4); Nucleated Red Blood Cells % 0 %; Platelet Count 270 10^3/uL (130-400); Red Blood Cell Count 2.87 10^6/uL (4.20-5.40); Red Cell Dist. Width 16.4 % (11.5-14.5); White Blood Cell Count 8.7 10^3/uL (4.8-10.8)
[2024-07-13 07:00] VITALS: BP 155/60
[2024-07-13 07:12] LABS: Blood Urea Nitrogen 52 mg/dl (7-17); Calcium 9.1 mg/dl (8.4-10.2); Carbon Dioxide 26 mmol/L (22-30); Chloride 100 mmol/L (98-107); Estimated Creatinine Clearance 26 ml/min; Glucose 79 mg/dl (70-99); Sodium 138 mmol/L (135-145); eGFR 26.36
--- NOTE | 2024-07-13 07:51 | W.PN.HOSP.TC ---
Today's Communication/Plan
-
Discharge today
Assessment / Plan
Assessment / Plan
Physical Exam
General: Well Developed, Well Nourished and No Apparent Distress
HEENT: Normocephalic, Atraumatic and Moist Mucous Membranes
Respiratory: Clear to Auscultation Bilaterally
Cardiac: Regular Rhythm and S1/S2
GI: Nontender, Nondistended and Normal Bowel Sounds
Genito-urinary: Other (s/p bilateral PCN's placed)
Musculoskeletal: No Clubbing, No Cyanosis and No Edema
Neuro: Awake, Alert and Oriented

CT Abdomen/Pelvis (as per radiologist's report)
'IMPRESSION: Mild right hydronephrosis. Slightly progressed. Minimal left hydronephrosis. Slightly improved.
Bilateral double-J stents. Appropriately positioned. Stable
Small right pleural effusion. Mildly improved..
Large hiatal hernia. Stable.
Small isodense right renal mass likely a benign proteinaceous cyst. Decreased in size suggesting it is benign..'

Assessment/Plan
78-year-old female with past medical history of hypertension, CVA, hyperlipidemia who recently had NORM in the setting of bilateral hydronephrosis of uncertain etiology and is status post stenting bilaterally who presents again to the emergency
department with NORM rising creatinine to 3.3 loss of appetite increased weakness decreased urine output and bilateral lower extremity edema. Found to have significant pyuria & bacteruria in ED, negative nitrite similar prior admission. Significant
peripheral leukocytosis to 21-->18.4-->11.7-->8.5-->9.7-->10.3-->9.8-->8.8k, now improved. Will stop abx at time of dc
#History of Bladder tumor
transurethral resection by Jules Tam on 06/21/23 with follow up resection 08/08/23
#Underwent cystoscopy, bilateral ureteroscopy, brush biopsies/cytology, ureteral stent removal by Dr. Tam on 07/09/24
operative findings: Bilateral ureteral stricture disease affecting distal 2-3cm of each ureter
Some degree of pale and dense tissue in regions of narrowing
No ureteral jets after stents removed
No obvious tumor in either ureter or collecting system
No evidence of bladder cancer recurrence
-Follow-up with urology outpatient
#Urinary Tract Infection - Presumed Complicated pyelonephritis given recent instrumentation, catheter and voiding trial. Low urine output with urinary sludge per SNF. Denies flank pain but overall ill appearing, though showing signs of improvement
Fever
WBC 21.4-->18.3-->11.7-->8.5-->8.4-->10.3-->8.8k-->8.7k
#Sepsis, POA- Systemic manifestations of infection, with 2 or more SIRS criteria which include:
- Fever >100.6 degrees F
- Leukocytosis - WBC 21.4k
- Tachypnea - RR 22 breaths per minute
due to UTI
now resolved
- Urine cultures growing E. coli/Citrobacter
- Continue to monitor on telemetry
- given very recent hospitalization and abx, changed to Rocephin 1 gm IV qday
[address] � Pt known to Eli � underwent ureteral stent removal by Anel on 07/09 with bilateral ureteral strictures demonstrated on retrograde pyelogram. Renal fxn has continued to improve with Creat now dropped from 3.5 to 2.0.
Was to be dc to [facility], but no beds. WBC normalized, have kept her on Ceftriaxone, can be stopped when discharged. Case Management trying to find alternative SNF that is acceptable to patient, but the weekend made more of a challenge.
Hopefully find acceptable facility and dc to follow.
#NORM - on CKD 3b
- Creatine initially increased but now trending back down
- CT abd/pelvis results above
- Hold off on further IV fluids for now
- nephrology consultation, appreciate their evaluation and recommendations
probably approaching baseline (though Creat was 0.6 on 01/23/24
Creat 3.3-->3.6-->3.9-->3.5-->3.1-->2.8-->2.4-->2.3-->2.0-->2.3-->2.0-->1.9
#Metabolic Acidosis
-Patient will need a repeat BMP in 3 to 4 days
-Continue sodium bicarbonate
#Normocytic Anemia
#Andrew Ulcer
B12 >1000, folate 5.3
Fe sat 15%, Ferritin 155
received IV FE, completed
Hgb 8.1
GI note of 07/06: Anemia likely from andrew's ulcer.
Continue Pantoprazole 40 mg BID
Will likely need surgical repair of hiatal hernia if she continues to be anemic from Andrew's ulcer, as per GI
#Constipation
pt wants her laxatives on her schedule, was previously ordered
had excellent response with passage of large amount of stool following enema, but pt resistant on repeating enema, requested by nurse she reconsider
Abd X-Ray: Mild fecal material throughout the colon. Improved. No evidence of intestinal obstruction.
Moderate fecal material in the region of the rectum. Fecal impaction cannot be excluded. New.
-Patient is on bowel regimen
-Patient was supposed to follow-up with GI in the past 6 months or so but never did
-Consulted GI for possible occult GI bleed as well as constipation
-Continue Metamucil, Colace. If does not have a bowel movement can add some MiraLAX as needed. If no bowel movement in 3 days Dulcolax or senna.
#Bilateral Flushing and UTI - Possible stent obstruction and infection. Urology consulted, underwent stent removal 07/09
cysto demonstrated bilateral ureteral strictures, no obvious tumor
#Hyponatremia - RESOLVED
better, nephro following
K 5.3 on 07/07-->4.5 on 07/08-->5.4 on 07/10--Lokelma 10 g given-->4.7-->4.7-->5.0
- Fluid restriction
- Nephrology onboard
#Hypertension
- continue atenolol and hydralazine with hold parameters
- continue norvasc
#Acute on chronic diastolic heart failure HFpEF, Stage II diastolic dysfunction, Acute symptoms fully resolved, appears to be at baseline
#Pulmonary Edema
#Acute Hypoxic Respiratory Insufficiency from Pulmonary Edema - RESOLVED
-Per cardiology, 'it would not be unreasonable to give patient 3 days worth of Lasix 20 mg p.o. x 3'
-Outpatient follow-up with Dr. Cohn at [facility] from cardiology and patient could follow-up with him in 1 to 2 weeks post discharge
DVT Prophylaxis - Heparin subq Q8H
Code Status - DNR
More than 30 minutes spent in discharge including
Final examination of the patient
Summarizing hospital stay
Instructions for continuing care to all relevant caregivers
Preparation of discharge records, prescriptions, and referral forms
Total time spent (in minutes): 40
Anticipated Discharge: Today
Subjective/Interval History
-
Date of Service: July 13, 2024
Patient was seen and examined. She denied any symptoms or complaints.
Objective Data
-
Labs:
Laboratory Results
07/13/24
04:11
WBC 8.7
Hgb 8.2 L
Hct 25.7 L
Plt Count 270
Sodium 138
Potassium 5.0
Chloride 100
Carbon Dioxide 26
BUN 52 H
Creatinine 1.9 H
Glucose 79
Calcium 9.1
Vital Signs:
Vital Signs
Temp Pulse Resp BP Pulse Ox
98.6 F 68 20 141/56 97
07/12/24 23:00 07/12/24 23:00 07/12/24 23:00 07/12/24 23:00 07/12/24 23:00
I&O
07/12/24 07/13/24 07/14/24
06:59 06:59 06:59
Intake Total 590 / 590 1560 / 1560
Output Total 1150 / 1150 2915 / 2915
Balance -560 / -560 -1355 / -1355
[2024-07-13] MEDS: ASPIR LOW (ENTERIC COATED) 81 MG PO (09:30)
[2024-07-13] MEDS: SODIUM BICARBONATE 325 MG PO ×2 (09:30→16:13)
[2024-07-13] MEDS: COLACE 300 MG PO (09:31)
[2024-07-13] MEDS: APRESOLINE 25 MG PO (09:31)
[2024-07-13] MEDS: PROTONIX 40 MG PO (09:31)
[2024-07-13] MEDS: TENORMIN 50 MG PO (09:31)
[2024-07-13 09:42] VITALS: BP 154/68; BP 162/78; PULSE 74; O2SAT 96
--- NOTE | 2024-07-13 10:06 | CM ---
Addendum entered by Mitali Gu 07/13/24 14:15:
Transport scheduled for 1600 - [facility] and pt aware. at bedside
Addendum entered by Mitali Gu 07/13/24 12:43:
Spoke with Evelina at [facility] - can accept
Spoke with pt - agrees with [facility]
Dr Benitez aware
Plan - transfer to [facility] [phone], ext [phone]
- [phone]
Original Note:
Case Management following for discharge planning
Pt medically ready for discharge
Per Rosario at [facility] - no beds
LM with Evelina at [facility] - waiting on return call
Spoke with Ginny at the [facility] - will return call
Plan - snf when bed obtained
[2024-07-13 15:10] VITALS: BP 120/58
== END 2024-07-13 16:15 | DRG 871 ==
LOC: 2 SOUTH 00:49
PROVIDERS: Emergency Medicine; Internal Medicine; Specialist; Urology; ADMITTING PHYSICIAN Internal Medicine; ATTENDING PHYSICIAN Hospitalist; CONSULT PHYSICIAN Internal Medicine Cardiovascular Disease; CONSULT PHYSICIAN Internal Medicine Gastroenterology; CONSULT PHYSICIAN Specialist; EMERGENCY PHYSICIAN Student in an Organized Health Care Education/Training Program; FAMILY PHYSICIAN Family Medicine
PROC: 0TB68ZX Excision of Right Ureter, Via Natural or Artificial Opening Endoscopic, Diagnostic (ICD-10-PCS; 2024-07-09)
PROC: 0TP98DZ Removal of Intraluminal Device from Ureter, Via Natural or Artificial Opening Endoscopic (ICD-10-PCS; 2024-07-09)
PROC: 0TB78ZX Excision of Left Ureter, Via Natural or Artificial Opening Endoscopic, Diagnostic (ICD-10-PCS; 2024-07-09)
DX: A41.9 Sepsis, unspecified organism (principal); I50.33 Acute on chronic diastolic (congestive) heart failure; N13.6 Pyonephrosis; N17.9 Acute kidney failure, unspecified; E87.1 Hypo-osmolality and hyponatremia; E87.20 Acidosis, unspecified; I13.0 Hypertensive heart and chronic kidney disease with heart failure and stage 1 through stage 4 chronic kidney disease, or unspecified chronic kidney disease; N18.9 Chronic kidney disease, unspecified; K59.00 Constipation, unspecified; E87.5 Hyperkalemia; Z66 Do not resuscitate; Z86.73 Personal history of transient ischemic attack (TIA), and cerebral infarction without residual deficits
CPT/HCPCS: 50432; 51701; 71046; 74018; 74176; 74420; 76000; 80048; 80053; 81003; 81015; 81099; 82570; 82607; 82728; 82746; 82962; 83516; 83540; 83550; 83735; 83880; 83935; 84156; 84300; 85025; 85027; 85610; 86063; 86160; 87040; 87070; 87077; 87086; 87186; 88112; 93005; 97110; 97162; 97166; 97530; 99152; 99153; 99285; A4300; C1713; C1729; C1769; J2916

== ENCOUNTER 2024-08-08 21:02 | Emergency (ER) | payer MEDICARE, BC, SELFPAY ==
[2024-08-08 21:06] VITALS: BP 133/94
[2024-08-08 21:08] VITALS: BP 133/94
[2024-08-08 21:10] VITALS: BMI 26.8
--- NOTE | 2024-08-08 21:25 | ED.GENMED ---
History of Present Illness
General
Chief Complaint: Head Injury
Source: patient
Exam Limitations: none
Time Seen by Provider: 08/08/24 21:07
History of Present Illness
History of Present Illness:
This is a 78 year old female that comes in by ambulance with c/o fall. States that she just got home about 3 days ago. States that she has been here and then [facility]hab. States that she has a power chair and she was getting out of the chair to use
her walker. State that she was using the walker to get to her transfer chair and she lost her balance. Denies any LOC. States that she is taking baby aspirin. Denies any fever, chills, chest pain, SOB, abd pain, nausea, vomiting, diarrhea, headache,
dizziness.
Past History
Past History
ED Past Medical History: Cancer (Bladder and skin cancer), CHF (patient denies), CVA (with right sided deficit), GERD, HTN, Hypercholesterolemia and Other (Iron deficiency anemia, balance issues, Migraines. neck pain, Hiatal hernia)
ED Past Surgical History: Orthopedic (Both knees and both hips replaced.), Urological (TURBT and renal stents, Bladder tumor removed, Bilateral Nephrostomy tubes) and Other (Cataracts, )
Social History
Tobacco: Former smoker
Alcohol: Occasional
Personal:
Living: with family (At [facility] for rehab)
Review of Systems
Review of Systems
All Other Systems: ROS reviewed and negative except as documented in HPI and ROS
Constitutional: Reports no symptoms; Denies fever or chills
EENT: Reports no symptoms
Respiratory: Reports no symptoms; Denies cough or trouble breathing
Cardiac: Reports no symptoms; Denies chest pain
ABD/GI: Reports no symptoms; Denies abdominal pain, nausea, vomiting or diarrhea
: Reports no symptoms
Musculoskeletal: Reports no symptoms
Skin: Reports other (Laceration to the posterior head)
Neurological: Reports no symptoms; Denies dizzy or headache
Psychiatric: Reports no symptoms
Phy Exam
General Physical Exam
General Presentation: no apparent distress
General age: appears stated age
General Skin: warm and dry
General Habitus: elderly
General Mental: alert
General Hydration: appears well hydrated
ENT Exam
ENT Exam: TM's normal, pharynx normal and neck supple
Eye Exam
Eye Exam: EOMI
Cardiovascular Exam
Cardiovascular Exam: regular rate/rhythm, normal peripheral pulses and other (Murmur)
Pulmonary Exam
Pulmonary Exam: lungs clear, no respiratory distress, no rales, chest non tender, no crackles, no rhonchi, no wheezing and no cough
Gastrointestinal Exam
Gastrointestinal Exam: normal bowel sounds, non tender, soft, no pulsatile mass and non distended
Musculoskeletal Exam
Musculoskeletal Exam: edema and other (Bilateral shoulder swelling, Chronic back discomfort with movement)
Skin Exam
Skin Exam: normal color, warm/dry, no rash, no petechia and laceration (posterior scalp)
Psychiatric Exam
Psychiatric Exam: normal mood/affect
Course
Orders/Labs/Results
Orders:
Orders
08/08/24 21:24
[address] Cervical Spine W/o Iv Contr Urgent
Comment:
Reason For Exam: fall
CT Head W/o Iv Contrast Urgent
Comment:
Reason For Exam: fall hitting head
08/08/24 21:26
Complete Blood Count/With Diff Urgent
Comprehensive Metabolic Panel Urgent
Abnormal Lab Results
08/08/24
21:26
RBC 3.22 L 10^6/uL
(4.20-5.40)
Hgb 9.5 L g/dL
(12.0-16.0)
Hct 30.3 L %
(37.0-47.0)
MCHC 31.4 L g/dL
(33.0-37.0)
RDW 15.1 H %
(11.5-14.5)
Absolute Monos (auto) 1.0 H 10^3/uL
(0.1-0.6)
Lymphocytes % 18.3 L %
(20.5-51.1)
Monocytes % 10.3 H %
(1.7-9.3)
Sodium 132 L mmol/L
(135-145)
Carbon Dioxide 21 L mmol/L
(22-30)
BUN 40 H mg/dl
(7-17)
Creatinine 1.7 H mg/dL
(0.6-1.0)
Glucose 145 H mg/dl
(70-99)
AST 40 H U/L
(14-36)
08/08/24 21:26
08/08/24 21:26
H/H low but improved from prior labs, Sodium slightly low, Chronic renal insufficiency but improved from prior labs. hyperglycemia, ASt elevation.
Vital Signs
Initial and Last Documented VS:
Initial Vital Signs
Temp Pulse Resp BP Pulse Ox
98.5 F 75 18 133/94 97
08/08/24 21:06 08/08/24 21:06 08/08/24 21:06 08/08/24 21:06 08/08/24 21:06
Last Documented Vital Signs
Temp Pulse Resp BP Pulse Ox
98.5 F 69 18 148/72 94
08/08/24 21:06 08/08/24 22:42 08/08/24 21:06 08/08/24 22:00 08/08/24 22:30
Procedures
Laceration Closure
Posterior Scalp:
Status of Wound: clean
Size of Wound in cm: 4
Description of Wound Edges: sharp
Preparation: cleaned with saline (and peroxide)
Revision/Debridement: routine- no revision
Type of Closure: other
Skin Closure Material: skin ben (4)
MDM/Problems Addressed
Differential Diagnosis Includes:
Accidental fall, laceration,
MDM/Problems Addressed:
This is a 78 year old female that comes in with c/o fall. States that she was getting into her transfer chair when she fell.
Will get CT of the head and cervical spine.[facility] place on posterior laceration. patient requesting blood work as she wants her Hgb and Kidney function checked.
CT head- No acute intracranial findings. Disproportionate ventricular enlargement with crowding at the vertex and disproportionate enlargement of the sylvian fissures, which may represent DESH phenotype normal pressure hydrocephalus in the
appropriate clinical setting. Chronic appearing multifocal infarcts in the right more than left cerebellar hemisphere. If there is a concern for acute ischemia. ,MRI is more sensitive. Additional findings: chronic small vessel disease. Generalized
parenchymal volume loss. Bilateral lens implants. Vascular calcifications.
Back into see patient and . Explained that her CT of the head and cervical spine show degenerative changes but nothing acute in the head. Will discharge patient home.
Chronic conditions affecting care:
balance issues
Acute Exacerbation and/or Progression of Chronic Illness:
balance issues.
*Radiology
Radiology exam reviewed: radiology read reviewed (CT head and cervical spine- No evidence of acute fracture or dislocation, though please note that the patient has extensive multilevel degenerative change, with a rigid spine. In this setting, the
patient is at high risk for injury. Additionally, there is prevertebral soft tissue thickening, which ), all reviewed NAD by ED Provider (CT cont- may be related to soft tissue injury. Therefore, MRI is recommended for further assessment for spinal
injury no detectable by CT modality. Extensive multilevel degenerative change, with severe spinal stenosis seen at C3-C4 and C4-C5. Please not that CT is limited and has low sensitivity for) and other (CT cont-for assessment for degree of spinal
stenosis Recommend MRI for further assessment for degree of foraminal/spine stenoses. Grade I anterolisthesis of C2 on C3. Partially imaged right pleural effusion. Vascular calcificaitons. )
*Pulse Oximetry
Patient hypoxic: no
*EKG
Interpreted by ED Provider?: NA
Rate: EKG- N/A
*Lead Sales Consultant Interpretation
Rate: Lead Sales Consultant- N/A
*Critical Care Note
Total Time (30-74mins, 75-104mins- exclusive of procedures): Not Applicable
ED Attending Note
-
Portions of this chart may have been created with voice recognition software.� Occasional wrong word or��sound alike� substitutions may have occurred due to the inherent limitations of voice recognition software.
Discharge Plan
Departure
Patient Disposition: Home (Routine Discharge)
Date of Disposition: 08/08/24
Time of Disposition: 23:55
Patient with high blood pressure during this ER visit?: Yes
Condition: Good
Covid-19: Not Applicable
Discharge Problem:
Accidental fall, Laceration of scalp
Instructions: Laceration Repair With Ben (DC), Preventing falls in adults, BLOOD PRESSURE
Prescriptions:
No Action
aspirin 81 mg Tablet,Delayed Release (Dr/Ec)
81 mg PO DAILY
acetaminophen 500 mg Tablet
1,000 mg PO HSPRN PRN (Reason: mild pain)
docusate sodium [Colace] 100 mg Capsule
300 mg PO DAILY
psyllium Packet
1 packet PO DAILY@1200
amlodipine 5 mg tablet
10 mg PO HS
hydralazine 25 mg Tablet
25 mg PO BID Qty: 60 0RF
atenolol 50 mg Tablet
50 mg PO DAILY Qty: 30 0RF
valsartan 320 mg Tablet
320 mg PO DAILY
polyethylene glycol 3350 [HealthyLax] 17 gram Powder In Packet
17 g PO DAILYPRN PRN (Reason: constipation) Qty: 30 0RF
pantoprazole 40 mg Tablet,Delayed Release (Dr/Ec)
40 mg PO Q12H Qty: 60 0RF
sennosides [Senna Laxative] 8.6 mg Tablet
17.2 mg PO HS Qty: 30 0RF
sodium bicarbonate 650 mg Tablet
325 mg PO TID Qty: 60 0RF
rosuvastatin 20 mg Tablet
20 mg PO DAILY
cholecalciferol (vitamin D3) [Vitamin D3] 25 mcg (1,000 unit) Tablet
25 mcg PO DAILY
Referrals:
Tessa Foreman MD [Family Provider] - Follow up in 10 days
Activity Restrictions/Additional Instructions:
As discussed, your blood work shows improvement of your Hgb and your kidney function. Your CT of the head is negative for any acute disease and the Cervical spine is negative for any fracture but there is multilevel degenerative changes. You may use
Tylenol 1000mg every 6 hour for pain. Heat or ice to any area that is sore. Follow up with the family doctor in the next 10 days to have your Stables removed. Please do not scrub this area. You may gently pat this area. Please keep dry for the next
24 hours. IF YOU HAVE ANY OTHER CONCERNS PLEASE RETURN TO THE EMERGENCY ROOM.
Interventions
Interventions:
*Risk Screen - Suicide Last Done: 08/08/24 21:10
*General Assessment Last Done: 08/08/24 21:14
*Neglect/Abuse Screening Last Done: 08/08/24 21:10
ED- Fall Risk Assessment Last Done: 08/08/24 21:32
*ED COVID-19 Vaccine History Last Done: 08/08/24 21:14
ED- Neurological Assessment Last Done: 08/08/24 21:11
ED-Skin Assessment Last Done: 08/08/24 21:11
Discharge Date and Time
Print Language: PERSIAN
[2024-08-08 21:34] LABS: % Basophils 0.5 % (0-2); % Eosinophils 4.2 % (0-6); % Immature Granulocytes 0.3 % (0-0.5); % Lymphocytes 18.3 % (20.5-51.1); % Monocytes 10.3 % (1.7-9.3); % Neutrophils 66.4 % (42.2-75.2); Absolute Basophils 0.1 10^3/uL (0-0.2); Absolute Eosinophils 0.4 10^3/uL (0-0.7); Absolute Lymphocytes 1.8 10^3/uL (1.2-3.4); Absolute Neutrophils 6.5 10^3/uL (1.4-6.5); Hematocrit 30.3 % (37.0-47.0); Hemoglobin 9.5 g/dL (12.0-16.0); Mean Corp Hgb Conc. 31.4 g/dL (33.0-37.0); Mean Corpuscular Hgb 29.5 pg (27.0-31.0); Mean Corpuscular Volume 94.1 fL (81.0-99.0); Mean Platelet Volume 10.4 fL (7.4-10.4); Nucleated Red Blood Cells % 0 %; Platelet Count 193 10^3/uL (130-400); Red Blood Cell Count 3.22 10^6/uL (4.20-5.40); Red Cell Dist. Width 15.1 % (11.5-14.5); White Blood Cell Count 9.7 10^3/uL (4.8-10.8)
[2024-08-08 21:50] LABS: ALT (SGPT) 28 U/L (0-35); AST (SGOT) 40 U/L (14-36); Albumin 3.7 g/dl (3.5-5.0); Alkaline Phosphatase 116 U/L (38-126); Blood Urea Nitrogen 40 mg/dl (7-17); Calcium 9.6 mg/dl (8.4-10.2); Carbon Dioxide 21 mmol/L (22-30); Chloride 98 mmol/L (98-107); Estimated Creatinine Clearance 27 ml/min; Glucose 145 mg/dl (70-99); Potassium 4.4 mmol/L (3.5-5.1); Sodium 132 mmol/L (135-145); Total Bilirubin 0.3 mg/dl (0.2-1.3); Total Protein 6.9 g/dl (6.3-8.2); eGFR 30.13
[2024-08-08 22:00] VITALS: BP 148/72
[2024-08-09 00:30] VITALS: BP 143/89
--- NOTE | 2024-08-09 12:48 | W.PN.UPDATE ---
Update Note
Progress Note Update
CT head no acute intracranial abnormality. CT Cspine shows minimally displaced fracture T1 spinous process. Not described on VIsion report. Finding discussed via phone with patient and her at 1246 PM 08/09/24, patient will follow up with
primary care physician. Denies neck pain, advised to avoid any strenuous activity.
== END 2024-08-09 00:31 | disposition home or self-care (01) ==
LOC: EMR 21:02
PROVIDERS: Clinical Nurse Specialist Family Health; EMERGENCY PHYSICIAN Emergency Medicine; FAMILY PHYSICIAN Internal Medicine Geriatric Medicine
DX: S01.01XA Laceration without foreign body of scalp, initial encounter (principal); W19.XXXA Unspecified fall, initial encounter; I13.0 Hypertensive heart and chronic kidney disease with heart failure and stage 1 through stage 4 chronic kidney disease, or unspecified chronic kidney disease; I50.9 Heart failure, unspecified; N18.9 Chronic kidney disease, unspecified; E78.00 Pure hypercholesterolemia, unspecified; K21.9 Gastro-esophageal reflux disease without esophagitis; Z86.73 Personal history of transient ischemic attack (TIA), and cerebral infarction without residual deficits; Z87.891 Personal history of nicotine dependence
CPT/HCPCS: 99284; 12002; 70450; 72125; 80053; 85025

== ENCOUNTER 2024-08-21 10:02 | Inpatient (IN) | payer MEDICARE, BC, SELFPAY ==
[2024-08-17 17:51] VITALS: BP 157/68
--- NOTE | 2024-08-17 17:51 | ED.GENMED ---
ED Provider Triage
<Ifeoma Oilvia, TOOL ROOM LATHE OPERATOR - Last Filed: 08/17/24 18:33>
-
Patient seen by provider in Triage?: Seen in Triage
Attestation: A medical screening examination has been initiated by a qualified medical provider. Based on the assessment performed at this time, it has been determined that an emergent medical condition may exist and the patient has been informed
that further medical evaluation and possible additional diagnostic testing may be needed.
HPI: 78 yo with hx bilateral nephrostomy tubes placed 10 weeks ago by IR, sees U[facility] . Visiting nurse came today and found the right nephrostomy tube out this a.m. when changing pt.
Left tube is draining ok.
Hit left acosta getting out of the car on arrival and has wound wrapped in gauze
GENERAL: Alert , in no apparent distress
EYE: No visual abnormalities.
NECK: Trachea midline
ENT: No visible abnormalities.
LUNGS: No acute respiratory distress
NEUROLOGICAL: Alert and oriented
SKIN: Skin intact. No visible changes.
MUSCULOSKELETAL: Moving extremities normally
PSYCH: Normal and appropriate interaction.
This is a medical evaluation conducted in person to initiate diagnostic evaluation and provide initial therapeutics. Please see further documentation by the treating clinician.
History of Present Illness
<Ifeoma Olivia, TOOL ROOM LATHE OPERATOR - Last Filed: 08/17/24 18:33>
General
Chief Complaint: Catheter/Tube Problem
Time Seen by Provider: 08/17/24 20:18
<Olman Browne DO - Last Filed: 08/17/24 20:48>
General
Source: patient and physician
Exam Limitations: none
Nursing documentation reviewed up to this point in time: agreed with
History of Present Illness
History of Present Illness:
Pleasant 78-year-old female sent from outpatient urology to IR for replacement of a dislodged nephrostomy tube apparently was unable to be replaced this evening her physicians have recommended that she be admitted to go back to IR tomorrow for
another attempt, she is hungry not nauseous no fever,
Past History
<Ifeoma Olivia TOOL ROOM LATHE OPERATOR - Last Filed: 08/17/24 18:33>
Past History
ED Past Medical History: Cancer (Bladder and skin cancer), CHF (patient denies), CVA (with right sided deficit), GERD, HTN, Hypercholesterolemia and Other (Iron deficiency anemia, balance issues, Migraines. neck pain, Hiatal hernia)
ED Past Surgical History: Orthopedic (Both knees and both hips replaced.), Urological (TURBT and renal stents, Bladder tumor removed, Bilateral Nephrostomy tubes) and Other (Cataracts, )
Social History
Tobacco: Former smoker
Alcohol: Occasional
Personal:
Living: with family (At [facility] for rehab)
Review of Systems
<Olman Browne DO - Last Filed: 08/17/24 20:48>
Review of Systems
All Other Systems: Not applicable
Constitutional: Denies fever
Phy Exam
<Olman Browne DO - Last Filed: 08/17/24 20:48>
Physical Exam
Physical Exam:
Physical Exam
General: Pleasant elderly female
Neck: No jaundice
Heart: s1/s2 regular rate and rhythm, no murmur. equal radial pulses.
Lungs: no acute respiratory distress.
Abdomen: Nontender
Neuro: alert and oriented. no focal neurological deficits
Skin: no rash
Psychiatric: cooperative
Extremities: no edema.
Course
<Ifeoma Olivia, TOOL ROOM LATHE OPERATOR - Last Filed: 08/17/24 18:33>
Orders/Labs/Results
Orders:
Orders
08/17/24 18:31
Consult Interventional Radiology [IRAD CONSULT] Urgent
Consulting Provider: Yuniel Floyd
Was physician already notified: Yes
Reason for Consult/Procedure: Displaced nephrostomy tube
Acknowledgement that appropriate orders are entered: Yes
08/17/24 20:18
Complete Blood Count/With Diff Urgent
Comprehensive Metabolic Panel Urgent
Vital Signs
Initial and Last Documented VS:
Initial Vital Signs
Temp Pulse Resp BP Pulse Ox
98.9 F 75 16 157/68 97
08/17/24 17:51 08/17/24 17:51 08/17/24 17:51 08/17/24 17:51 08/17/24 17:51
Last Documented Vital Signs
Temp Pulse Resp BP Pulse Ox
98.9 F 85 18 150/78 97
08/17/24 17:51 08/17/24 20:28 08/17/24 20:28 08/17/24 20:28 08/17/24 20:28
<Olman Browne, - Last Filed: 08/17/24 20:48>
Orders/Labs/Results
Orders:
Orders
08/17/24 18:31
Consult Interventional Radiology [IRAD CONSULT] Urgent
Consulting Provider: Yuniel Floyd
Was physician already notified: Yes
Reason for Consult/Procedure: Displaced nephrostomy tube
Acknowledgement that appropriate orders are entered: Yes
08/17/24 20:18
Complete Blood Count/With Diff Urgent
Comprehensive Metabolic Panel Urgent
Vital Signs
Initial and Last Documented VS:
Initial Vital Signs
Temp Pulse Resp BP Pulse Ox
98.9 F 75 16 157/68 97
08/17/24 17:51 08/17/24 17:51 08/17/24 17:51 08/17/24 17:51 08/17/24 17:51
Last Documented Vital Signs
Temp Pulse Resp BP Pulse Ox
98.9 F 85 18 150/78 97
08/17/24 17:51 08/17/24 20:28 08/17/24 20:28 08/17/24 20:28 08/17/24 20:28
<Olman Browne DO - Last Filed: 08/17/24 20:48>
MDM/Problems Addressed
Differential Diagnosis Includes:
Patient with dislodged nephrostomy tube IR correspondence reviewed
MDM/Problems Addressed:
Dislodged nephrostomy tube
Chronic conditions affecting care: HTN
Acute Exacerbation and/or Progression of Chronic Illness: HTN
<Olman Browne, DO - Last Filed: 08/17/24 20:48>
*Pulse Oximetry
Patient hypoxic: no
*Critical Care Note
Total Time (30-74mins, 75-104mins- exclusive of procedures): Not Applicable
ED Attending Note
<Ifeoma Olivia TOOL ROOM LATHE OPERATOR - Last Filed: 08/17/24 18:33>
-
Portions of this chart may have been created with voice recognition software.� Occasional wrong word or��sound alike� substitutions may have occurred due to the inherent limitations of voice recognition software.
Discharge Plan
Departure
Patient Disposition: Admit
Date of Disposition: 08/17/24
Time of Disposition: 20:47
Admit to: Med/Surg
Presentation/result/management discussed w/ accepting MD/DO: Hospitalist
Condition: Good
Discharge Problem:
dislodged nephrostomy
Prescriptions:
No Action
aspirin 81 mg Tablet,Delayed Release (Dr/Ec)
81 mg PO DAILY
acetaminophen 500 mg Tablet
1,000 mg PO HSPRN PRN (Reason: mild pain)
docusate sodium [Colace] 100 mg Capsule
300 mg PO DAILY
amlodipine 5 mg tablet
10 mg PO HS
hydralazine 25 mg Tablet
25 mg PO BID Qty: 60 0RF
valsartan 320 mg Tablet
320 mg PO DAILY
sennosides [Senna Laxative] 8.6 mg Tablet
17.2 mg PO HS Qty: 30 0RF
sodium bicarbonate 650 mg Tablet
325 mg PO TID Qty: 60 0RF
calcium carbonate 200 mg calcium (500 mg) Tablet,Chewable
200 mg PO TID
pantoprazole 40 mg tablet,delayed release (DR/EC)
40 mg PO BID
atenolol 50 mg tablet
50 mg PO HS
rosuvastatin 20 mg Tablet
20 mg PO DAILY
cholecalciferol (vitamin D3) [Vitamin D3] 25 mcg (1,000 unit) Tablet
25 mcg PO DAILY
Interventions
Interventions:
*Risk Screen - Suicide Last Done: 08/17/24 17:53
*General Assessment Last Done: 08/17/24 20:28
*Neglect/Abuse Screening Last Done: 08/17/24 17:53
YF-Ucitkj-Otqfjnwuvb Assessment Last Done: 08/17/24 20:28
ED-Female Genitourinary Assessment Last Done: 08/17/24 20:35
Discharge Date and Time
Print Language: COOK ISLANDER
--- NOTE | 2024-08-17 20:01 | W.PN.UPDATE ---
Update Note
Progress Note Update
Unable to replace right PCN under fluoro, will need new right PCN placed 08/18/24.
[2024-08-17 20:28] VITALS: BP 150/78; BMI 26.6
[2024-08-17 20:48] LABS: % Basophils 0.4 % (0-2); % Immature Granulocytes 0.6 % (0-0.5); % Lymphocytes 16.5 % (20.5-51.1); % Monocytes 8.2 % (1.7-9.3); % Neutrophils 71.3 % (42.2-75.2); Absolute Eosinophils 0.3 10^3/uL (0-0.7); Absolute Immature Granulocytes 0.1 10^3/uL (0-0.05); Absolute Lymphocytes 1.6 10^3/uL (1.2-3.4); Absolute Monocytes 0.8 10^3/uL (0.1-0.6); Absolute Neutrophils 6.8 10^3/uL (1.4-6.5); Hematocrit 32.3 % (37.0-47.0); Hemoglobin 10.1 g/dL (12.0-16.0); Mean Corp Hgb Conc. 31.3 g/dL (33.0-37.0); Mean Corpuscular Hgb 28.9 pg (27.0-31.0); Mean Corpuscular Volume 92.6 fL (81.0-99.0); Mean Platelet Volume 9.7 fL (7.4-10.4); Nucleated Red Blood Cells % 0 %; Platelet Count 231 10^3/uL (130-400); Red Blood Cell Count 3.49 10^6/uL (4.20-5.40); Red Cell Dist. Width 14.9 % (11.5-14.5); White Blood Cell Count 9.6 10^3/uL (4.8-10.8)
[2024-08-17 21:08] LABS: ALT (SGPT) 26 U/L (0-35); AST (SGOT) 46 U/L (14-36); Albumin 3.4 g/dl (3.5-5.0); Alkaline Phosphatase 137 U/L (38-126); Blood Urea Nitrogen 35 mg/dl (7-17); Calcium 10.6 mg/dl (8.4-10.2); Carbon Dioxide 24 mmol/L (22-30); Chloride 96 mmol/L (98-107); Estimated Creatinine Clearance 31 ml/min; Glucose 104 mg/dl (70-99); Potassium 4.4 mmol/L (3.5-5.1); Sodium 132 mmol/L (135-145); Total Bilirubin 0.4 mg/dl (0.2-1.3); Total Protein 6.7 g/dl (6.3-8.2); eGFR 35.01
--- NOTE | 2024-08-17 21:10 | HPS.HSE ---
Family Physician
-
Family Physician: Tessa Foreman
Chief Complaint
-
Nephrostomy tube dislodged
History of Present Illness
Patient is a 78-year-old female with past medical history significant for heart failure, hypertension, and bladder cancer who presented to [place] ED following visiting nurse visit and recommendation as she found nephrostomy tube dislodged at
todays visit. Patient denies any associated symptoms. IR was unsuccessful in replacing tube today as tract closed down too much, will need to attempt replacement again tomorrow.
Medical History
Past Medical History
Past Medical History: Reports Other
Additional Past Medical History:
Heart failure
Benign Hypertension
Hyperlipidemia
GERD
Bladder cancer
Past Surgical History: Reports Other
Additional Past Surgical History:
Bilateral knee replacements
Bilateral hip replacements
TURBT
Renal stents
Bladder tumor removal
Bilateral nephrostomy tubes
Social History
Tobacco: Former Smoker (quit 50 years ago)
Alcohol: Occasional
Drug: None
Personal:
Living: With Family
Employment: Retired
Family History
Family History: Not pertinent
Allergies / Home Medications
Allergies reflects when Allergies were last updated in [employer].
Home Medications with original date entered in [employer]
Allergy/Medication List:
Allergies
Allergy/AdvReac Type Severity Reaction Status Date / Time
APOLINAR Inhibitors Allergy cough Verified 08/08/24 21:06
Home Medications
cholecalciferol (vitamin D3) 25 mcg (1,000 unit) tablet (Vitamin D3) 25 mcg PO DAILY Supplement 09/25/22
rosuvastatin 20 mg tablet 20 mg PO DAILY Blood Pressure 09/25/22
acetaminophen 500 mg tablet 1,000 mg PO HSPRN PRN mild pain 06/18/23
aspirin 81 mg tablet,delayed release 81 mg PO DAILY Blood Pressure 06/18/23
docusate sodium 100 mg capsule (Colace) 300 mg PO DAILY Constipation 06/18/23
amlodipine 5 mg tablet 10 mg PO HS Blood Pressure 01/17/24
hydralazine 25 mg tablet 25 mg PO BID #60 tabs 06/17/24
valsartan 320 mg tablet 320 mg PO DAILY Blood Pressure 07/04/24
sennosides 8.6 mg tablet (Senna Laxative) 17.2 mg (2 x 8.6 mg) PO HS #30 tabs 07/13/24
sodium bicarbonate 650 mg tablet 325 mg (1/2 x 650 mg) PO TID #60 tabs 07/13/24
atenolol 50 mg tablet 50 mg PO HS 08/17/24
calcium carbonate 200 mg PO TID 08/17/24
pantoprazole 40 mg tablet,delayed release 40 mg PO BID 08/17/24
Review of Systems
-
History Source: Patient
Constitutional: Reports No Symptoms
EENT: Reports No Symptoms
Respiratory: Reports No Symptoms
Cardiac: Reports No Symptoms
Abdomen/GI: Reports No Symptoms
: Reports Other (dislodged right nephrostomy tube)
Musculoskeletal: Reports No Symptoms
Skin: Reports No Symptoms
Neurological: Reports No Symptoms
Endocrine: Reports No Symptoms
Hematologic/Lymphatic: Reports No Symptoms
Psych: Reports No Symptoms
Physical Exam
Vital Signs
Vital Signs
Temp Pulse Resp BP Pulse Ox
98.9 F 85 18 150/78 97
08/17/24 17:51 08/17/24 20:28 08/17/24 20:28 08/17/24 20:28 08/17/24 20:28
Physical Exam
General: Well Developed, Well Nourished, No Apparent Distress, Comfortable and Conversant
HEENT: NormoCephalic, Moist mucous membranes, Atraumatic and Grace Conjunctivae
Respiratory: Clear and Non Labored Respirations; No Wheezes, Rales, Rhonchi or Crackles
Cardiac: S1/S2 and Regular Rhythm; No Murmur, Rub or Gallop
Breast: Deferred by me
GI: Soft, Non Tender, Non Distended and Normal Bowel Sounds; No Organomegaly
Rectal: Deferred by Provider
Genito-urinary: Nephrostomy Tubes (right tube dislodged, left tube in place and draining)
Musculoskeletal: No Clubbing, No Cyanosis and No Edema
Skin: Warm and IV/Catheter Site; No Rash
Neuro: Awake, Alert, AO x 3 and Nonfocal/grossly intact
Psych: Calm and Intact Judgment/Insight
Laboratory Results
-
08/17/24 20:39
08/17/24 20:39
Laboratory Results
Total Bilirubin 0.4 mg/dl (0.2-1.3) 08/17/24 20:39
AST 46 U/L (14-36) H 08/17/24 20:39
ALT 26 U/L (0-35) 08/17/24 20:39
Alkaline Phosphatase 137 U/L (38-126) H 08/17/24 20:39
Data Reviewed
-
Lab Data: Labs Reviewed by me (BUN 35, Creat 1.5)
Impression/Plan
-
IMPRESSION/PLAN:
#Nephrostomy tube dislodged
#Bladder cancer
Right nephrostomy tube dislodged
IR unable to replace tract closed down too much
- Admit to M/S for observation
- NPO
- IR consult
#Heart failure
- continue atenolol
#Benign Hypertension
- continue amlodipine, atenolol, hydralazine, and valsartan
#Hyperlipidemia
- continue rosuvastatin
#GERD
- continue pantoprazole
DNR
DVT Prophylaxis: SCDs
--- NOTE | 2024-08-17 22:24 | W.PN.UPDATE ---
Update Note
Progress Note Update
Patient seen in conjunction with MINE SAFETY MANAGER. I agree with her findings on history and physical as well as the assessment and plan.
This is an 78-year-old with history of bladder cancer and urinary obstruction status post bilateral urostomy tubes, had the right tube fell out today after being evaluated by the stenosis. He came in for oral replacement but the tract has closed on
too much and unable to replace. She denied any other symptoms. There has been no fevers or chills.
Vital signs are stable in the ED. Renal function is unchanged.
Assessment and plan
- npo after midnight
- IR consult with plan for urostomy placement in am
DVT PPX
Code status - DNR
[2024-08-17 23:30] VITALS: BP 159/87
[2024-08-18] VITALS (8 sets, daily range): BP systolic 69–161; BP diastolic 53–83; BMI 24.6
[2024-08-18] MEDS: TYLENOL 650 MG PO (00:54)
[2024-08-18] MEDS: NORVASC 10 MG PO ×2 (00:55→22:28)
[2024-08-18] MEDS: SODIUM BICARBONATE 325 MG PO ×4 (00:55→22:26)
[2024-08-18] MEDS: SENOKOT 17.2 MG PO ×2 (00:55→22:27)
[2024-08-18] MEDS: TENORMIN 50 MG PO ×2 (00:56→22:31)
[2024-08-18] MEDS: TUMS CHEWABLE TABLET PO ×2 (00:57→01:09)
[2024-08-18] MEDS: APRESOLINE 25 MG PO ×3 (00:57→20:25)
--- NOTE | 2024-08-18 06:37 | CON.MD ---
Consultation - Medical
-
see dictated note
pt with hx of bladder cancer and more recent bilateral ureteral obstruction with RAFAL
failed ureteral stents- now with bilateral pcn's
yesterday right perc dislodged- IR unable to replace through established track
admitted overnight
feels ok
cr stable
plan for perc replacement today
[2024-08-18 07:55] LABS: PT 14.5 Sec (11.4-14.6)
[2024-08-18] MEDS: PROTONIX 40 MG PO ×2 (08:07→20:25)
[2024-08-18] MEDS: CRESTOR 20 MG PO (08:09)
[2024-08-18] MEDS: TUMS CHEWABLE TABLET 200 MG PO ×3 (08:10→22:26)
[2024-08-18] MEDS: VITAMIN D3 (cholecalciferol) 25 MCG PO (09:58)
[2024-08-18] MEDS: COLACE 300 MG PO (09:58)
[2024-08-18] MEDS: ANCEF 10 IV (14:15)
--- NOTE | 2024-08-18 15:04 | W.PN.HOSP.TC ---
Addendum entered and electronically signed by Tacho Holman MD 08/18/24 15:17:
Hold Valsartan as it was recommeded to be on hold on prior adx
Increase hydralazine if needed for BP management.
Original Note:
Today's Communication/Plan
-
see plan above
Assessment / Plan
Assessment / Plan
#Rt Nephrostomy tube dislodged - IR to replace it
# BL PCN for BL ureteral stenosis
# Mild purulence of the left PCN tract without surrounding cellulitis - will swap the PCN tube and order Keflex for 5 days
# Hx Bladder cancer - Last cysto no obvious tumor noted
#Heart failure
- compensated
- Not on diuretics at home
#Benign Hypertension
- continue amlodipine, atenolol, hydralazine, and valsartan
#Hyperlipidemia
- continue rosuvastatin
#GERD
- continue pantoprazole
DNR
DVT Prophylaxis: SCDs
Anticipated Discharge: Within 24 hours
Subjective/Interval History
-
Date of Service: August 18, 2024
Await PCN reinsertion.
Denies abdo pain.
No N/V.
No fever or chills.
Visiting RN was noticing some purulence at left PCN site.
Objective Data
-
Labs:
Laboratory Results
08/18/24
07:37
PT 14.5
INR 1.10
Vital Signs:
Vital Signs
Temp Pulse Resp BP Pulse Ox
97.7 F 69 17 161/83 95
08/18/24 13:35 08/18/24 13:35 08/18/24 13:35 08/18/24 13:35 08/18/24 13:35
I&O
08/17/24 08/18/24 08/19/24
06:59 06:59 06:59
Output Total 350 / 350
Balance -350 / -350
Review of Systems
-
Respiratory: Denies Trouble Breathing
Cardiac: Denies Chest Pain
Abdomen/GI: Denies Abdominal Pain, Nausea or Vomiting
Neuro: Denies Dizzy
Physical Exam
-
General: Comfortable
HEENT: Moist Mucous Membranes
Respiratory: Clear to Auscultation
Cardiac: Regular Rhythm and S1/S2
GI: Soft and Other (Left PCN tract with scanty purulence on the dressing but no surrounding cellulitis .No induration noted around the tube . Mild tenderness on pressing on the tract site area.)
Neuro: AO x 3
Psych: Calm
Data Reviewed
-
Labs: Labs Reviewed by me
[2024-08-18] MEDS: KEFLEX 500 MG PO ×2 (17:47→22:28)
--- NOTE | 2024-08-18 18:25 | PTCARENOTE ---
pt admitted to room 2118 from the ED at 1650. pt transferred from stretcher to bed with assistance of 2 nurses. pt stated too weak to stand. pt oriented to room, call bolivar, bed controls and plan of care with verbalized understanding. admission
database and assessment completed as documented. pt offering no c/o pain. pt's own Wheelchair at bedside. pt assisted to order dinner. care ongoing.
--- NOTE | 2024-08-19 04:01 | DOWNTIME ---
There was a [employer] Client [employer] Downtime on 08/19/2024 from 0100 to 08/19/2024 at 0350. Downtime documentation of patient's care, including medication administrations, has been reconciled in the electronic record per guidelines. Refer to the
patient's paper chart under the miscellaneous tab to see printed paper medication records and downtime forms.
[2024-08-19 05:49] VITALS: BMI 24.5
[2024-08-19 08:20] VITALS: BP 143/54
[2024-08-19] MEDS: CRESTOR 20 MG PO (08:42)
[2024-08-19] MEDS: PROTONIX 40 MG PO ×2 (08:42→20:54)
[2024-08-19] MEDS: APRESOLINE 25 MG PO ×2 (08:42→20:53)
[2024-08-19] MEDS: KEFLEX 500 MG PO ×3 (08:42→22:00)
[2024-08-19] MEDS: VITAMIN D3 (cholecalciferol) 25 MCG PO (08:42)
[2024-08-19] MEDS: COLACE 300 MG PO (08:43)
[2024-08-19] MEDS: TUMS CHEWABLE TABLET 200 MG PO ×3 (08:43→22:03)
[2024-08-19] MEDS: SODIUM BICARBONATE 325 MG PO ×3 (08:43→22:00)
--- NOTE | 2024-08-19 10:12 | CM ---
Addendum entered by Giovanna Townsend RN 08/19/24 13:21:
Plan: Discharge back to home with resumption of [facility].
Fax report to: [phone]
Addendum entered by Giovanna Townsend RN 08/19/24 10:16:
Patient is admitted under observational status. SANTIAGO given and explained. The patient had no questions with regards to the letter.
Original Note:
Reviewed the chart notes and spoke with the patient at the bedside. The patient resides with spouse in an independent apartment at [facility]. The patient has a rolling walker, wheelchair, and transport chair. The patient is current with [facility]. The patient has been to [facility]. The patient confirmed her pharmacy of choice is the [facility]. CM continues to be available to patient/family and is monitoring medical plan for needs at discharge.
Plan: Discharge plans will depend on the patient's progress.
--- NOTE | 2024-08-19 12:24 | W.PN.HOSP.TC ---
Today's Communication/Plan
-
PT eval
DC planning
Assessment / Plan
Assessment / Plan
# Rt Nephrostomy tube dislodged - IR placed without immediate complication.
# BL PCN for BL ureteral stenosis
# Mild purulence of the left PCN tract without surrounding cellulitis - PCN tube exchanged. Currently without any discharge from the tract area. Will complete 5 days course of antibiotics due to initial concern of slight purulence.
# Hx Bladder cancer - Last cysto no obvious tumor noted
#Heart failure
- compensated
- Not on diuretics at home
#Benign Hypertension
- continue amlodipine, atenolol, hydralazine, and valsartan
#Hyperlipidemia
- continue rosuvastatin
#GERD
- continue pantoprazole
Medically stable for DC after PT eval
DNR
Anticipated Discharge: Today
Subjective/Interval History
-
Date of Service: August 19, 2024
Since New right PCN placement and left PCN exchange that she feels washed out. She has not worked with PT yet.
No fever or chills.
Denies any nausea vomiting. Tolerating diet.
Objective Data
-
Vital Signs:
Vital Signs
Temp Pulse Resp BP Pulse Ox
98.1 F 68 16 143/57 94
08/19/24 08:20 08/19/24 08:42 08/19/24 08:20 08/19/24 08:42 08/19/24 08:20
I&O
08/18/24 08/19/24 08/20/24
06:59 06:59 06:59
Intake Total 480 / 480
Output Total 350 / 350 405 / 405 400 / 400
Balance -350 / -350 75 / 75 -400 / -400
Review of Systems
-
Constitutional: Reports Weakness; Denies Fever
Respiratory: Denies Cough
Cardiac: Denies Palpitations
Skin: Denies Itching
Physical Exam
-
General: Comfortable
Respiratory: Non Labored Respirations; Negative Accessory Resp Muscle Use
Cardiac: Regular Rhythm and S1/S2
GI: Soft, Nontender, Nondistended and Normal Bowel Sounds
Genito-urinary: Other (Left PCN tract insert area today without any discharge ;dried out old blood stains form the yesterday PCN exchage noted. No surrounding cellulitis.)
Neuro: AO x 3
Psych: Calm
[2024-08-19 14:21] VITALS: BP 158/74; PULSE 68; O2SAT 93
[2024-08-19 15:55] VITALS: BP 145/70
[2024-08-19] MEDS: NORVASC 10 MG PO (21:59)
[2024-08-19] MEDS: TENORMIN 50 MG PO (21:59)
[2024-08-19] MEDS: SENOKOT 17.2 MG PO (21:59)
[2024-08-19] MEDS: TYLENOL 650 MG PO (23:14)
[2024-08-20 00:01] VITALS: BP 141/63
[2024-08-20 05:37] VITALS: BMI 23.9
[2024-08-20 07:40] VITALS: BP 138/63
--- NOTE | 2024-08-20 08:26 | W.PN.HOSP.TC ---
Today's Communication/Plan
-
Continue antibiotics
PT/OT, SNF placement
Assessment / Plan
Assessment / Plan
Physical Exam
General: Comfortable
Respiratory: CTAB
Cardiac: Regular Rhythm and S1/S2
GI: Soft, Nontender, Nondistended and Normal Bowel Sounds
Genito-urinary:
Neuro: AO x 3
Psych: Calm
Assessment/Plan
# Rt Nephrostomy tube dislodged - IR placed without immediate complication.
# BL PCN for BL ureteral stenosis
# Mild purulence of the left PCN tract without surrounding cellulitis - PCN tube exchanged. Currently without any discharge from the tract area. Will complete 5 days course of antibiotics due to initial concern of slight purulence.
# History of Bladder cancer - Last cysto no obvious tumor noted
-Urine culture grew MSSA and Enterococcus
-Continue antibiotics -- add Ampicillin to the regimen to cover enterococcus
-Will consult ID
#Heart failure
- compensated
- Not on diuretics at home
#Benign Hypertension
- continue amlodipine, atenolol, hydralazine, and valsartan
#Hyperlipidemia
- continue rosuvastatin
#GERD
- continue pantoprazole
Medically stable for DC after PT eval
DNR
Anticipated Discharge: 24 - 48 hours
Subjective/Interval History
-
Date of Service: August 20, 2024
Patient was seen and examined. She denied any pain, fever or any other complaints.
Objective Data
-
Vital Signs:
Vital Signs
Temp Pulse Resp BP Pulse Ox
97.8 F 63 16 138/63 93
08/20/24 07:40 08/20/24 07:40 08/20/24 07:40 08/20/24 07:40 08/20/24 07:40
I&O
1108/20/24 08/21/24
06:59 06:59 06:59
Intake Total 480 / 480 1180 / 1180
Output Total 405 / 405 1425 / 1425
Balance 75 / 75 -245 / -245
[2024-08-20] MEDS: SODIUM BICARBONATE 325 MG PO ×3 (08:59→21:42)
[2024-08-20] MEDS: PROTONIX 40 MG PO ×2 (09:00→20:31)
[2024-08-20] MEDS: TUMS CHEWABLE TABLET 200 MG PO ×3 (09:00→21:42)
[2024-08-20] MEDS: KEFLEX 500 MG PO ×3 (09:01→21:41)
[2024-08-20] MEDS: CRESTOR 20 MG PO (09:01)
[2024-08-20] MEDS: APRESOLINE 25 MG PO ×2 (09:02→20:31)
[2024-08-20] MEDS: VITAMIN D3 (cholecalciferol) 25 MCG PO (09:02)
[2024-08-20] MEDS: COLACE PO ×2 (09:04→18:57)
[2024-08-20 14:50] VITALS: BP 142/67
--- NOTE | 2024-08-20 15:26 | CM ---
Chart reviewed
CM consult for discharge planning
PT recs - SNF
Attempted to discuss dispo with pt - sleeping soundly, unable to awake
CM will attempt to follow up with pt when awake
Plan - SNF vs HH - TBD
[2024-08-20] MEDS: AMPICILLIN 104 MG IV (20:31)
[2024-08-20] MEDS: TENORMIN 50 MG PO (21:41)
[2024-08-20] MEDS: SENOKOT PO (21:41)
[2024-08-20] MEDS: NORVASC 10 MG PO (21:43)
[2024-08-20 22:17] VITALS: BP 148/70
[2024-08-21] MEDS: AMPICILLIN 104 MG IV ×2 (03:56→12:02)
[2024-08-21 06:00] VITALS: BMI 23.8
[2024-08-21 07:45] VITALS: BP 136/60
[2024-08-21] MEDS: TUMS CHEWABLE TABLET 200 MG PO (09:12)
[2024-08-21] MEDS: CRESTOR 20 MG PO (09:12)
[2024-08-21] MEDS: APRESOLINE 25 MG PO ×2 (09:12→20:05)
[2024-08-21] MEDS: PROTONIX 40 MG PO ×2 (09:12→20:05)
[2024-08-21] MEDS: KEFLEX 500 MG PO (09:13)
[2024-08-21] MEDS: SODIUM BICARBONATE 325 MG PO ×3 (09:16→21:57)
[2024-08-21] MEDS: VITAMIN D3 (cholecalciferol) 25 MCG PO (09:16)
[2024-08-21] MEDS: COLACE PO (09:27)
[2024-08-21 10:12] LABS: % Basophils 0.3 % (0-2); % Eosinophils 2.2 % (0-6); % Immature Granulocytes 0.5 % (0-0.5); % Lymphocytes 11.7 % (20.5-51.1); % Monocytes 7.8 % (1.7-9.3); % Neutrophils 77.5 % (42.2-75.2); Absolute Eosinophils 0.3 10^3/uL (0-0.7); Absolute Immature Granulocytes 0.1 10^3/uL (0-0.05); Absolute Lymphocytes 1.3 10^3/uL (1.2-3.4); Absolute Monocytes 0.9 10^3/uL (0.1-0.6); Absolute Neutrophils 8.8 10^3/uL (1.4-6.5); Hemoglobin 10.2 g/dL (12.0-16.0); Mean Corp Hgb Conc. 32.9 g/dL (33.0-37.0); Mean Corpuscular Hgb 29.7 pg (27.0-31.0); Mean Corpuscular Volume 90.4 fL (81.0-99.0); Mean Platelet Volume 10.3 fL (7.4-10.4); Nucleated Red Blood Cells % 0 %; Platelet Count 240 10^3/uL (130-400); Red Blood Cell Count 3.43 10^6/uL (4.20-5.40); Red Cell Dist. Width 14.6 % (11.5-14.5); White Blood Cell Count 11.3 10^3/uL (4.8-10.8)
[2024-08-21 10:59] LABS: ALT (SGPT) 20 U/L (0-35); AST (SGOT) 41 U/L (14-36); Alkaline Phosphatase 161 U/L (38-126); Blood Urea Nitrogen 35 mg/dl (7-17); Calcium 11.9 mg/dl (8.4-10.2); Carbon Dioxide 24 mmol/L (22-30); Chloride 95 mmol/L (98-107); Estimated Creatinine Clearance 39 ml/min; Glucose 85 mg/dl (70-99); Potassium 4.3 mmol/L (3.5-5.1); Sodium 129 mmol/L (135-145); Total Bilirubin 0.3 mg/dl (0.2-1.3); Total Protein 6.1 g/dl (6.3-8.2); eGFR 41.57
--- NOTE | 2024-08-21 11:36 | CON.ID ---
Addendum entered and electronically signed by Dena Ye MD 08/21/24 15:07:
I personally performed a history and physical exam of the patient and discussed management with the resident. I reviewed the resident's note and agree with the documented findings and plan of care HPI/CC.
78 female with hx bladder cancer s/p TURBT, BCG instillation x 1, with bilateral obstructive uropathy failed ureteral stents( subsequently removed) and now has bilateral perc nephrostomies. She presented with dislodged right PCN s/p new PCN placed
and exchange of left PCN. Left PCN tract noted to have mild purulence with Ucx MSSA, E. faecalis. Pt denies flank pain. c/o generalized weakness.
# Left kidney UTI
- perc neph tube exchanged.
- Ucx MSSA, E. faecalis.
- DC cephalexin and IV ampicillin.
- Transition to Augmentin 875mg po bid through 09/02/24.
- Follow wbc.
Original Note:
Consultation
-
Date/Time Consultation Requested: 08/21/2024
Date/Time Consultation Performed: 08/21/2024
Requesting Provider: Leland Benitez MD
Performing Provider: Dena Ye MD
Chief Complaint / Past History
Chief Complaint
Rt Nephrostomy tube dislodged
History of Present Illness
This is an 78-year-old female with past medical history of bladder cancer s/p BCG intravesical chemotherapy, urinary obstruction s/p bilateral urostomy tubes presented to ED 08/17/2024 due to a nephrostomy tube being dislodged. On presentation
to ER, she was afebrile with a normal white count and a creatinine levels at new baseline of 1.3. Interventional Radiology attempted to replace the tube, but were unsuccessful hence she
was now admitted. Afterwards, IR successfully placed a new right percutaneous nephrostomy tube and exchange of the left percutaneous nephrostomy over a guidewire. She was started on Keflex due to initial concerns of slight purulence. Urine
cultures grew MSSA and Enterococcus faecalis. Patient with WBC 11.3 today. We are asked to evaluate patient and provide recommendations from an infectious disease standpoint
Past History
Past Medical History: Other (Bilateral ureteral obstruction, bladder cancer, CHF, hypertension, hyperlipidemia, GERD)
Past Surgical History: Other (Multiple TURBTS, bilateral knee replacements, bilateral hip replacements, ureteral stent placement followed by bilateral nephrostomy tubes, bladder tumor removal)
Allergy History:
APOLINAR Inhibitors Allergy (Verified 08/08/24 21:06)
cough
Current Antibiotics:
Ampicillin
Cephalexin 500 mg
Social History
Tobacco: Former Smoker (Quit 50 years ago)
Alcohol: Occasional
Drug: None
Personal:
Living: With Family
Review of Systems
Review of Systems
General: Negative Fever or Chills
Respiratory: Negative Dyspnea or Cough
Genital / Urological: Negative Hematuria
Vital Signs
Temp Pulse Resp BP Pulse Ox
98.3 F 59 16 136/60 95
08/21/24 07:45 08/21/24 09:12 08/21/24 07:45 08/21/24 09:12 08/21/24 07:45
Physical Exam
Physical Exam
Constitutional: No Acute Distress
Head: Normocephalic
Eyes: Negative No Conjunctival Hemorrhage
Cardiovascular: Regular Rate and S1/S2
Gastrointestinal: Soft, Non Tender, Non Distended and Normal Bowel Sounds
Neurological: AO x 3
Lab / Diagnostic Study Results
08/21/24 09:04
08/21/24 09:04
Abs Immat Gran (auto) 0.1 10^3/uL (0-0.05) H 08/21/24 09:04
Absolute Neuts (auto) 8.8 10^3/uL (1.4-6.5) H 08/21/24 09:04
Absolute Lymphs (auto) 1.3 10^3/uL (1.2-3.4) 08/21/24 09:04
Absolute Monos (auto) 0.9 10^3/uL (0.1-0.6) H 08/21/24 09:04
Absolute Basos (auto) 0.0 10^3/uL (0-0.2) 08/21/24 09:04
Immature Gran % 0.5 % (0-0.5) 08/21/24 09:04
Neutrophils % 77.5 % (42.2-75.2) H 08/21/24 09:04
Lymphocytes % 11.7 % (20.5-51.1) L 08/21/24 09:04
Monocytes % 7.8 % (1.7-9.3) 08/21/24 09:04
Eosinophils % 2.2 % (0-6) 08/21/24 09:04
Basophils % 0.3 % (0-2) 08/21/24 09:04
PT 14.5 Sec (11.4-14.6) 08/18/24 07:37
INR 1.10 08/18/24 07:37
Microbiology Results
Micro:
08/18/24 15:31 Urine Culture - Final
Urine S aureus-Methicillin Sensitive
Enterococcus faecalis
Assessment / Plan
Assessment/plan
#Dislodged right nephrostomy tube s/p successful placement of new right percutaneous nephrostomy tube
#Urine cultures obtained from left nephrostomy with MSSA and Enterococcus faecalis
#Complicated UTI
#History of bladder cancer
-Initiated on Keflex due to concerns of mild purulence of the left PCN tract
-Started on ampicillin after urine cultures grew MSSA and Enterococcus.
-will d/c Keflex & ampicillin and start on renally dosed Amox/Clav for 13 days to complete 14 days total of Abx.
-Monitor WBC, temperatures
-Follow clinically
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
Bilateral ureteral obstruction
Bladder cancer
HFpEF
Hypertension
Hyperlipidemia
GERD
--- NOTE | 2024-08-21 12:10 | W.PN.HOSP.TC ---
Today's Communication/Plan
-
Continue antibiotics
Appreciate nephrology
Assessment / Plan
Assessment / Plan
Physical Exam
General: Comfortable
Respiratory: CTAB
Cardiac: Regular Rhythm and S1/S2
GI: Soft, Nontender, Nondistended and Normal Bowel Sounds
Neuro: AAO x 3
Psych: Calm
Assessment/Plan
# Rt Nephrostomy tube dislodged - IR placed without immediate complication.
# BL PCN for BL ureteral stenosis
# Mild purulence of the left PCN tract without surrounding cellulitis - PCN tube exchanged. Currently without any discharge from the tract area. Will complete 5 days course of antibiotics due to initial concern of slight purulence.
# History of Bladder cancer - Last cysto no obvious tumor noted
-Urine culture grew MSSA and Enterococcus
-Continue antibiotics -- appreciate ID -- was on Keflex and Ampicillin, now on Augmentin 875mg P.O. BID through 09/02/24
-Appreciate Infectious Disease evaluation and recommendations
#Hoarse Voice
-Unclear etiology
-Will consider ENT consultation
#Fatigue, Weight Loss, More Drowsy
-I spoke on 08/11/24 to patient's over the phone who stated patient has not been doing well over the past 1 to 2 weeks, with symptoms of fatigue, 10-lb weight loss, and more drowsy
-Check TSH, Vitamin B12
-Chest X-Ray
-Possibly from hyponatremia and hypercalcemia -- consulted nephrology, appreciate their evaluation and recommendations
-Possibly from elevated creatinine, UTI, etc.
-Recurrence of bladder cancer? Other new malignancy?
-Plan to consult oncology and urology for evaluation
-In the setting of chronic constipation, may need GI eval inpatient vs. outpatient
#Hyponatremia
#Hypercalcemia
-Appreciate nephrology evaluation and recommendations
-Related to a malignancy? Given constitutional symptoms above will consider
#Chronic Diastolic Heart Failure
- compensated
- Not on diuretics at home
#Benign Hypertension
- continue amlodipine, atenolol, hydralazine, and valsartan
#Hyperlipidemia
- continue rosuvastatin
#GERD
- continue pantoprazole
#History of CVA treated with tPA at [facility] 08/2022 and then TIA 09/2023
#History of bladder cancer with TURBT
Code Status: DNR
I spoke with patient's Arjun over the phone today. All questions and concerns were answered to satisfaction.
Anticipated Discharge: 24 - 48 hours
Subjective/Interval History
-
Date of Service: August 21, 2024
Patient was seen and examined. She reported recent raspy voice, denied any new significant symptoms or complaints, although her stated that patient has been more sleepy and fatigued over the past 1 to 2 weeks.
Objective Data
-
Labs:
Laboratory Results
08/21/24
09:04
WBC 11.3 H
Hgb 10.2 L
Hct 31.0 L
Plt Count 240
Sodium 129 L
Potassium 4.3
Chloride 95 L
Carbon Dioxide 24
BUN 35 H
Creatinine 1.3 H
Glucose 85
Calcium 11.9 H
Total Bilirubin 0.3
AST 41 H
ALT 20
Alkaline Phosphatase 161 H
Vital Signs:
Vital Signs
Temp Pulse Resp BP Pulse Ox
98.3 F 59 16 136/60 95
08/21/24 07:45 08/21/24 09:12 08/21/24 07:45 08/21/24 09:12 08/21/24 07:45
I&O
08/20/24 08/21/24 08/22/24
06:59 06:59 06:59
Intake Total 1180 / 1180 1300 / 1300 120 / 120
Output Total 1425 / 1425 800 / 800
Balance -245 / -245 500 / 500 120 / 120
[2024-08-21 14:15] VITALS: BP 135/71; PULSE 60
--- NOTE | 2024-08-21 14:42 | CM ---
Reviewed the chart notes and spoke with the patient and her spouse at the bedside. PT recommending SNF/rehab. Discuss with the patient and spouse area facilities. The patient selected [facility] and [facility]. Referrals and
PAS[facility] sent via [facility]. CM continues to be available to patient/family and is monitoring medical plan for needs at discharge.
Plan: Discharge to SNF/rehab once patient is medically stable and a bed secured. No precert required.
[2024-08-21 15:37] VITALS: BP 136/57
--- NOTE | 2024-08-21 16:29 | W.CON.NEPH ---
Consultation
-
Date/Time Consultation Requested: 08/21/24 1522
Date/Time Consultation Performed: 08/21/24 1700
Requesting Provider: Leland Galvez
Performing Provider: Tosin Cody
Reason for Consultation: hypoantremia, hyperclacemia
Medical History
-
Chief Complaint: nephrostomy tube dislodged
History of Present Illness:
78-year-old F with CVA on ASA, GERD on high dose PPI, hypertension on multiple meds, hyperlipidemia on statin, anxiety, bladder ca s/p TURBT, obstructive uropathy, NORM failed U stents s/p bilat PCN in May 2024 cr improving trend still, chr met
acidosis on marlo bicarbonate therapy who presented to [facility] ED on 08/17 for right nephrostomy tube dislodgement this subsequently was replaced by IR on 08/18. There was concern of purulence, mild cellulitis around left PCN and since exchanged,
she received keflex. U cx shows MSSA, E feacalis hence on Ampicillin today by ID. Since admit sodium was 132 and recheck today at 129, cr improved to 1.3 from 1.5. His calcium increased from 10.6 to 11.9, alb 3. There is concern of confusion/AMS
with these electrolytes hence nephrology consulted. She reports right ribcage pain when moving or turning since the procedure. No SOB but she has not been mobile here to know. No N/v. No abd pain. No diarrhea.
Past Medical History
Heart failure
Benign Hypertension
Hyperlipidemia
GERD
Bladder cancer s/p TURBT
Scoliosis
Arthritis
Stroke
TIA
Past Surgical History: Other (Bilateral knee replacements Bilateral hip replacements TURBT Renal stents Bladder tumor removal Bilateral nephrostomy tubes)
Social History
Tobacco: Former Smoker (quit 50yrs ago)
Alcohol: Daily (1drink daily )
Drug: None
Personal:
Living: With Family
Family History
father with kidney cancer requiring surgery, probably no CKD
Family History: Not Pertinent
Allergies / Home Medications
Allergy/AdvReac Type Severity Reaction Status Date / Time
APOLINAR Inhibitors Allergy cough Verified 08/08/24 21:06
�Medication �Instructions �Recorded �Confirmed �Type
cholecalciferol (vitamin D3) 25 25 mcg PO DAILY Supplement 09/25/22 08/17/24 History
mcg (1,000 unit) tablet (Vitamin
D3)
rosuvastatin 20 mg tablet 20 mg PO DAILY Blood Pressure 09/25/22 08/17/24 History
acetaminophen 500 mg tablet 1,000 mg PO HSPRN PRN mild pain 06/18/23 08/17/24 History
aspirin 81 mg tablet,delayed 81 mg PO DAILY Blood Pressure 06/18/23 08/17/24 History
release
docusate sodium 100 mg capsule 300 mg PO DAILY Constipation 06/18/23 08/17/24 History
(Colace)
amlodipine 5 mg tablet 10 mg PO HS Blood Pressure 01/17/24 08/17/24 History
hydralazine 25 mg tablet 25 mg PO BID #60 tabs 06/17/24 08/17/24 Rx
sennosides 8.6 mg tablet (Senna 17.2 mg (2 x 8.6 mg) PO HS #30 tabs 07/13/24 08/17/24 Rx
Laxative)
sodium bicarbonate 650 mg tablet 325 mg (1/2 x 650 mg) PO TID #60 07/13/24 08/17/24 Rx
tabs
atenolol 50 mg tablet 50 mg PO HS 08/17/24 08/17/24 History
calcium carbonate 200 mg PO TID 08/17/24 08/17/24 History
pantoprazole 40 mg tablet,delayed 40 mg PO BID 08/17/24 08/17/24 History
release
cephalexin 500 mg capsule 500 mg PO TID #12 caps 08/19/24 Rx
Review of Systems
-
All complete 12 point review of system have been inquired and found negative other than stated in HPI
Physical Exam
Vital Signs
Vital Signs
Temp Pulse Resp BP Pulse Ox
97.5 F 57 16 136/57 97
08/21/24 15:37 08/21/24 15:37 08/21/24 15:37 08/21/24 15:37 08/21/24 15:37
Lab Results
WBC 11.3 10^3/uL (4.8-10.8) H 08/21/24 09:04
RBC 3.43 10^6/uL (4.20-5.40) L 08/21/24 09:04
Hgb 10.2 g/dL (12.0-16.0) L 08/21/24 09:04
Hct 31.0 % (37.0-47.0) L 08/21/24 09:04
Plt Count 240 10^3/uL (130-400) 08/21/24 09:04
Sodium 129 mmol/L (135-145) L 08/21/24 09:04
Potassium 4.3 mmol/L (3.5-5.1) 08/21/24 09:04
Chloride 95 mmol/L (98-107) L 08/21/24 09:04
Carbon Dioxide 24 mmol/L (22-30) 08/21/24 09:04
BUN 35 mg/dl (7-17) H 08/21/24 09:04
Creatinine 1.3 mg/dL (0.6-1.0) H 08/21/24 09:04
eGFR 41.57 08/21/24 09:04
Glucose 85 mg/dl (70-99) 08/21/24 09:04
Calcium 11.9 mg/dl (8.4-10.2) H 08/21/24 09:04
Albumin 3.0 g/dl (3.5-5.0) L 08/21/24 09:04
Physical Exam
General: Awake, Alert, Oriented, AOx3, No Distress and Nontoxic
HEENT: EOMI, Anicteric, Conjunctivae Clear, Facial Symmetry and No JVD
Respiratory: Clear, Normal Excursion, Nonlabored Respirations and Other (decreased BS)
Cardiac: S1/S2 and Regular Rate/Rhythm
Breast: Deferred by me
Abdomen: Soft, Nontender and Nondistended
Genito-urinary: Other (bilat PCN tubes)
Musculoskeletal: No Cyanosis and No Edema (trace-chronic)
Skin: No Rash
Neuro: Nonfocal/Grossly Intact
Psych: Mood/afflect pleasant, Insight/judgement good and Appropriate
Data Reviewed
-
Radiology: Report Reviewed by me, Discussed with Nurse and Discussed with Patient
Labs: Labs Reviewed by me, Discussed with Nurse and Discussed with Patient
Assessment/Plan
-
IMP:
Rt Nephrostomy tube dislodged - IR placed without immediate complication 08/18.
BL PCN for BL ureteral stenosis
Mild purulence of the left PCN tract without surrounding cellulitis - PCN tube exchanged.
History of Bladder cancer - Last cysto no obvious tumor noted
Left kidney UTI- MSSA and Enterococcus
NORM, obstructive uropathy s/p bilat PCN
Hypercalcemia
Metabolic acidosis
Heart failure preserved ejection fraction compensated
Mod MR, mild MS
pulm HTN
Hyponatremia
Hypertension
GERD
Plan:
A/w dislodged right PCN since replaced and exchanged left PCN for infection
NORM-cr seem to improve at 1.3, non oliguric
hypercalcemia, corrected 12.7-hold all edgard and vit D meds
check PTH, vit D level
check paraprotein w/u with presence of hyponatremia
check Uosmo, U na
BP stable on meds
Stable vol status hence will try fluid challenge
likely give pamidornate in am
her MS seem to baseline at this time
labs in am
d/w pt and nursing
--- NOTE | 2024-08-21 17:20 | PTCARENOTE ---
Urine Samples sent @17:20--> Protein/creat ratio Random (right nephrostomy) & KAMAR w/free light drains (left nephrostomy).
[2024-08-21 17:55] LABS: Protein/creatinine Ratio 11.6; Urine Protein 295 mg/dl
[2024-08-21] MEDS: NSS 1000 IV (18:34)
[2024-08-21 18:40] LABS: Osmolality Urine 275 mOsm/kg (300-900)
[2024-08-21] MEDS: AUGMENTIN 875 MG/125 MG 1 TABLET PO (20:05)
[2024-08-21] MEDS: SENOKOT PO (21:58)
[2024-08-21] MEDS: TENORMIN 50 MG PO (22:01)
[2024-08-21] MEDS: NORVASC 10 MG PO (22:01)
[2024-08-21 23:10] VITALS: BP 161/66
[2024-08-22 05:44] LABS: % Basophils 0.4 % (0-2); % Immature Granulocytes 0.9 % (0-0.5); % Lymphocytes 14.2 % (20.5-51.1); % Monocytes 9.6 % (1.7-9.3); % Neutrophils 70.9 % (42.2-75.2); Absolute Eosinophils 0.4 10^3/uL (0-0.7); Absolute Immature Granulocytes 0.1 10^3/uL (0-0.05); Absolute Lymphocytes 1.4 10^3/uL (1.2-3.4); Hematocrit 31.6 % (37.0-47.0); Mean Corp Hgb Conc. 31.6 g/dL (33.0-37.0); Mean Corpuscular Hgb 29.2 pg (27.0-31.0); Mean Corpuscular Volume 92.1 fL (81.0-99.0); Mean Platelet Volume 9.9 fL (7.4-10.4); Nucleated Red Blood Cells % 0 %; Platelet Count 233 10^3/uL (130-400); Red Blood Cell Count 3.43 10^6/uL (4.20-5.40); Red Cell Dist. Width 14.6 % (11.5-14.5); White Blood Cell Count 9.9 10^3/uL (4.8-10.8)
[2024-08-22 06:05] LABS: Blood Urea Nitrogen 33 mg/dl (7-17); Calcium 11.8 mg/dl (8.4-10.2); Carbon Dioxide 25 mmol/L (22-30); Chloride 97 mmol/L (98-107); Estimated Creatinine Clearance 46 ml/min; Glucose 89 mg/dl (70-99); Potassium 4.2 mmol/L (3.5-5.1); Sodium 131 mmol/L (135-145)
[2024-08-22 06:19] LABS: Vitamin D, 25-OH*** 33.3 ng/mL (30-80)
[2024-08-22 06:32] LABS: TSH Reflex To Free T4 2.81 uIU/ml (0.47-4.68)
[2024-08-22 06:52] LABS: Vitamin B12 > 1000 pg/ml (239-931)
[2024-08-22 06:54] VITALS: BMI 24.3
[2024-08-22 07:05] VITALS: BP 145/69
[2024-08-22] MEDS: NSS 1000 IV (07:09)
[2024-08-22] MEDS: SODIUM BICARBONATE 325 MG PO ×3 (08:14→21:41)
[2024-08-22] MEDS: PROTONIX 40 MG PO ×2 (08:15→19:56)
[2024-08-22] MEDS: COLACE PO (08:15)
[2024-08-22] MEDS: AUGMENTIN 875 MG/125 MG 1 TABLET PO ×2 (08:15→19:56)
[2024-08-22] MEDS: CRESTOR 20 MG PO (08:15)
[2024-08-22] MEDS: APRESOLINE 25 MG PO ×2 (08:16→19:56)
[2024-08-22 09:26] LABS: Intact PTH 18.8 pg/ml (13.6-85.8)
--- NOTE | 2024-08-22 11:02 | W.PN.NEPH.PH ---
Today's Communication / Plan
-
IV pamidronate
Recheck BMP and urine protein to creatinine ratio in a.m.
DC further IV fluids
Assessment/Plan
-
IMP:
Rt Nephrostomy tube dislodged - IR placed without immediate complication 08/18.
BL PCN for BL ureteral stenosis
Mild purulence of the left PCN tract without surrounding cellulitis - PCN tube exchanged.
History of Bladder cancer - Last cysto no obvious tumor noted
Left kidney UTI- MSSA and Enterococcus
NORM, obstructive uropathy s/p bilat PCN
Hypercalcemia
Metabolic acidosis
Heart failure preserved ejection fraction compensated
Mod MR, mild MS
pulm HTN
Hyponatremia
Hypertension
GERD
Plan:
A/w dislodged right PCN since replaced and exchanged left PCN for infection
NORM-cr seem to improve at 1.1, non oliguric
hypercalcemia, corrected 12.7-hold all edgard and vit D meds
checked PTH (appropriately suppressed at 18) , vit D level pending
checked paraprotein w/u with presence of hyponatremia
Urine protein to creatinine ratio notes 11.5 g of protein, will recheck as this may have been convoluted by infection
checked Uosmo (250), U na (37)
BP stable on meds
Stable volume status hence will try fluid challenge
will provide pamidronate today for high calcium
her MS seem to baseline at this time
labs in am , recheck up/ucr
DC further IV fluids given right pleural effusion
Likely needs nebulizer treatments for wheezing
Chest x-ray notes new right loculated effusion
If shortness of breath exacerbates I can give IV Lasix
d/w pt and nursing
-
-
Date of Service: August 22, 2024
CC / HPI / ROS
-
Chief Complaint:
Acute kidney injury
Hyponatremia
Hypocalcemia
History of Present Illness:
Serum calcium unchanged
Hemodynamically stable
Creatinine at 1.1
Sodium up to 131
Review of Systems:
Bilateral PCN
Nonoliguric
No fevers
Labs
-
Labs:
WBC 9.9 10^3/uL (4.8-10.8) 08/22/24 05:02
RBC 3.43 10^6/uL (4.20-5.40) L 08/22/24 05:02
Hgb 10.0 g/dL (12.0-16.0) L 08/22/24 05:02
Hct 31.6 % (37.0-47.0) L 08/22/24 05:02
Plt Count 233 10^3/uL (130-400) 08/22/24 05:02
Sodium 131 mmol/L (135-145) L 08/22/24 05:02
Potassium 4.2 mmol/L (3.5-5.1) 08/22/24 05:02
Chloride 97 mmol/L (98-107) L 08/22/24 05:02
Carbon Dioxide 25 mmol/L (22-30) 08/22/24 05:02
BUN 33 mg/dl (7-17) H 08/22/24 05:02
Creatinine 1.1 mg/dL (0.6-1.0) H 08/22/24 05:02
eGFR 50.80 08/22/24 05:02
Glucose 89 mg/dl (70-99) 08/22/24 05:02
Calcium 11.8 mg/dl (8.4-10.2) H 08/22/24 05:02
Albumin 3.0 g/dl (3.5-5.0) L 08/21/24 09:04
Physical Exam
-
Vital Signs:
Vital Signs
Temp Pulse Resp BP Pulse Ox
97.4 F 54 16 145/69 94
08/22/24 07:05 08/22/24 08:16 08/22/24 07:05 08/22/24 08:16 08/22/24 07:05
Cardiovascular:: Regular rate and rhythm
Respiratory:: Bilateral: Coarse (Decreased breath sounds at right base) and Bilateral: Wheeze
Lung Excursion:: Normal
Abdomen:: Nontender and Soft
Bowel Sounds:: Normal
Extremity Edema:: +1: Bilateral:
Other Findings::
Bilateral PCN
[2024-08-22] MEDS: AREDIA 270 MG IV (11:36)
[2024-08-22] MEDS: DUONEB 3 ML INH ×2 (12:15→20:21)
[2024-08-22 15:50] VITALS: BP 147/65
--- NOTE | 2024-08-22 17:01 | W.PN.HOSP.TC ---
Today's Communication/Plan
-
Pamidronate
New pleural effusion -- consult pulmonary
If worsening dyspnea, try IV Lasix
Assessment / Plan
Assessment / Plan
Physical Exam
Physical Exam was not performed as patient was not present in her room at the time of attempted patient encounter.
Assessment/Plan
# Rt Nephrostomy tube dislodged - IR placed without immediate complication.
# BL PCN for BL ureteral stenosis
# Mild purulence of the left PCN tract without surrounding cellulitis - PCN tube exchanged. Currently without any discharge from the tract area. Will complete 5 days course of antibiotics due to initial concern of slight purulence.
# History of Bladder cancer - Last cysto no obvious tumor noted
-Urine culture grew MSSA and Enterococcus
-Continue antibiotics -- appreciate ID -- was on Keflex and Ampicillin, now on Augmentin 875mg P.O. BID through 09/02/24
-Appreciate Infectious Disease evaluation and recommendations
#Hoarse Voice
-Unclear etiology
-Will consider ENT consultation
#New Moderate Loculated Right Pleural Effusion
#Wheezing
-Duonebs PRN
-Consult pulmonary, appreciate evaluation and recommendations
#Fatigue, Weight Loss, More Drowsy
-I spoke on 08/11/24 to patient's over the phone who stated patient has not been doing well over the past 1 to 2 weeks, with symptoms of fatigue, 10-lb weight loss, and more drowsy
-Check TSH, Vitamin B12
-Chest X-Ray
-Possibly from hyponatremia and hypercalcemia -- consulted nephrology, appreciate their evaluation and recommendations
-Possibly from elevated creatinine, UTI, etc.
-Recurrence of bladder cancer? Other new malignancy?
-Plan to consult oncology and urology for evaluation
-In the setting of chronic constipation, may need GI eval inpatient vs. outpatient
#Hyponatremia
#Hypercalcemia
-Appreciate nephrology evaluation and recommendations
-Related to a malignancy? Given constitutional symptoms above will consider
-IV Pamidronate on 08/22/24
-Hold all calcium and vitamin D medications
-PTH appropriately suppressed
-F/u vitamin D level
-Urine protein to Cr ratio
-Paraprotein work-up
-No additional IV fluids given right pleural effusion
#Chronic Diastolic Heart Failure
- compensated
- Not on diuretics at home
#Benign Hypertension
- continue amlodipine, atenolol, hydralazine, and valsartan
#Hyperlipidemia
- continue rosuvastatin
#GERD
#Large Hiatal Hernia
- continue pantoprazole
#History of CVA treated with tPA at [facility] 08/2022 and then TIA 09/2023
#History of bladder cancer with TURBT
Code Status: DNR
On August 22, 2024, I spoke with patient's Arjun over the phone. All questions and concerns were answered to satisfaction.
Anticipated Discharge: > 48 hours
Subjective/Interval History
-
Date of Service: August 22, 2024
Patient was not present in her room at the time of attempted patient encounter. Chart reviewed.
Objective Data
-
Labs:
Laboratory Results
08/22/24
05:02
WBC 9.9
Hgb 10.0 L
Hct 31.6 L
Plt Count 233
Sodium 131 L
Potassium 4.2
Chloride 97 L
Carbon Dioxide 25
BUN 33 H
Creatinine 1.1 H
Glucose 89
Calcium 11.8 H
Vital Signs:
Vital Signs
Temp Pulse Resp BP Pulse Ox
97.5 F 62 16 147/65 94
08/22/24 15:50 08/22/24 15:50 08/22/24 15:50 08/22/24 15:50 08/22/24 15:50
I&O
11/08/22/24 08/23/24
06:59 06:59 06:59
Intake Total 1300 / 1300 1864 / 1864
Output Total 800 / 800 945 / 945
Balance 500 / 500 919 / 919
[2024-08-22] MEDS: TYLENOL 650 MG PO (19:55)
[2024-08-22] MEDS: NORVASC 10 MG PO (21:40)
[2024-08-22] MEDS: TENORMIN 50 MG PO (21:41)
[2024-08-22] MEDS: SENOKOT PO (22:54)
[2024-08-22 23:28] VITALS: BP 140/65
[2024-08-23] VITALS (7 sets, daily range): BP systolic 124–160; BP diastolic 63–82; PULSE 55; O2SAT 97
[2024-08-23 07:07] LABS: Blood Urea Nitrogen 32 mg/dl (7-17); Calcium 11.7 mg/dl (8.4-10.2); Carbon Dioxide 26 mmol/L (22-30); Chloride 97 mmol/L (98-107); Estimated Creatinine Clearance 42 ml/min; Glucose 82 mg/dl (70-99); Potassium 4.3 mmol/L (3.5-5.1); Sodium 132 mmol/L (135-145); eGFR 45.76
[2024-08-23 07:14] LABS: NT-proBNP 2260 pg/ml
--- NOTE | 2024-08-23 07:25 | W.PN.HOSP.TC ---
Today's Communication/Plan
-
Continue antibiotics
Appreciate specialists' evaluation
Assessment / Plan
Assessment / Plan
Physical Exam
General: Comfortable
Respiratory: CTAB. ON 2 L NC OXYGEN.
Cardiac: Regular Rhythm and S1/S2
GI: Soft, Nontender, Nondistended and Normal Bowel Sounds
Neuro: AAO x 3
Psych: Calm
Assessment/Plan
# Right Nephrostomy tube dislodged - IR placed without immediate complication.
# BL PCN for BL ureteral stenosis (PCNs placed due to ureteral obstruction -- stents failed)
# Mild purulence of the left PCN tract without surrounding cellulitis - PCN tube exchanged. Currently without any discharge from the tract area. Will complete 5 days course of antibiotics due to initial concern of slight
purulence.
# History of Bladder cancer - Last cysto no obvious tumor noted
-Urine culture grew MSSA and Enterococcus
-Continue antibiotics -- appreciate ID -- was on Keflex and Ampicillin, now on Augmentin 875mg P.O. BID through 09/02/24
-Appreciate Infectious Disease evaluation and recommendations
#Hoarse Voice
-Unclear etiology
-Will consider ENT consultation
#New Moderate Loculated Right Pleural Effusion
#Wheezing
-Duonebs PRN
-Consulted pulmonary, appreciate evaluation and recommendations
#Fatigue, Weight Loss, More Drowsy
-I spoke on 08/11/24 to patient's over the phone who stated patient has not been doing well over the past 1 to 2 weeks, with symptoms of fatigue, 10-lb weight loss, and more drowsy
-TSH within normal limits and Vitamin B12 elevated
-Chest X-Ray with right pleural effusion
-Possibly from hyponatremia and hypercalcemia -- consulted nephrology, appreciate their evaluation and recommendations
-Possibly from elevated creatinine, UTI, etc.
-Recurrence of bladder cancer? Other new malignancy? - patient has had 2 cystoscopies in 05/2024 and 06/2024 w/ Dr Tam - both w/o disease recurrences in bladder finished BCG immunotherapy
-Consulted oncology and urology for evaluation
-Urology: maintain bilateral PCNs to drainage and follow-up with Dr. Tam outpatient as scheduled
-Follow-up paraprotein work-up
-In the setting of chronic constipation, may need gastroenterology evaluation inpatient vs. outpatient
#Hyponatremia
#Hypercalcemia
-Appreciate nephrology evaluation and recommendations
-Related to a malignancy? Given constitutional symptoms above will consider
-IV Pamidronate on 08/22/24
-Hold all calcium and vitamin D medications
-PTH appropriately suppressed
-F/u vitamin D level
-Urine protein to Cr ratio
-Paraprotein work-up
-No additional IV fluids given right pleural effusion
#Bradycardia with possible heart block on tele on 08/23/24 at 6:54:26 (Heart Rate reported ~29 bpm at that time)
-Asymptomatic
-EKG with sinus bradycardia
-Will consider cardiology consult
#Chronic Diastolic Heart Failure
- compensated
- Not on diuretics at home
#Benign Hypertension
- continue amlodipine, atenolol, hydralazine, and valsartan
#Hyperlipidemia
- continue rosuvastatin
#GERD
#Large Hiatal Hernia
- continue pantoprazole
#History of CVA treated with tPA at [facility] 08/2022 and then TIA 09/2023
#History of bladder cancer with TURBT
Code Status: DNR
On August 22, 2024, I spoke with patient's Arjun over the phone. All questions and concerns were answered to satisfaction.
Anticipated Discharge: > 48 hours
Subjective/Interval History
-
Date of Service: August 23, 2024
Patient was seen and examined. She was sitting up on the chair, denied any dizziness, reported some chest wall pain with moving and taking a deep breath.
Objective Data
-
Labs:
Laboratory Results
08/23/24
04:54
Sodium 132 L
Potassium 4.3
Chloride 97 L
Carbon Dioxide 26
BUN 32 H
Creatinine 1.2 H
Glucose 82
Calcium 11.7 H
Vital Signs:
Vital Signs
Temp Pulse Resp BP Pulse Ox
96.7 F L 60 16 124/64 94
08/23/24 07:04 08/23/24 07:04 08/23/24 07:04 08/23/24 07:04 08/23/24 07:04
I&O
08/22/24 08/23/24 08/24/24
06:59 06:59 06:59
Intake Total 1864 / 1864 1480 / 1480
Output Total 945 / 945 725 / 725
Balance 919 / 919 755 / 755
[2024-08-23 07:35] LABS: Protein/creatinine Ratio 1.9; Urine Protein 76 mg/dl
[2024-08-23] MEDS: COLACE PO ×2 (07:45→07:52)
[2024-08-23] MEDS: AUGMENTIN 875 MG/125 MG 1 TABLET PO ×2 (07:45→20:36)
[2024-08-23] MEDS: CRESTOR 20 MG PO (07:45)
[2024-08-23] MEDS: PROTONIX 40 MG PO ×2 (07:45→20:36)
[2024-08-23] MEDS: SODIUM BICARBONATE 325 MG PO ×3 (07:45→22:54)
[2024-08-23] MEDS: APRESOLINE 25 MG PO ×2 (07:46→20:36)
--- NOTE | 2024-08-23 07:51 | CON.ONC ---
Impression
Impression
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 Tam. She underwent TURBT and BCG intravesical chemotherapy. June cytology from b/l uretal wash/brush negative for
malignancy
Stable chronic anemia, no B12 or folate deficiency.
hypercalcemia, nml PTH and vit D. s/p aredia 60mg 08/22 and calcium supplement stopped 08/21
renal function continues to improve since May 2024
Moderate loculated right pleural effusion
large Hiatal hernia
Urine S aureus, Enterococcus faecalis
constipation -hypercalcemia likely contributing
Plan
Plan
f/u SPEP/KAMAR, FLC
check iron studies, heme test stool, retic
check rPTH
continue follow up with Dr. 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
consider therapeutic/diagnostic thoracentesis -pulmonary consult pending.
Patient History
History of Present Illness
78yo F with significant PMH for bladder cancer s/p bilateral nephrostomy tubes admitted with a displaced nephrostomy tube that was replaced by IR on 08/18.
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 Tam. She underwent TURBT and BCG intravesical chemotherapy. In June 2024, she presented with NORM secondary
to b/l hydronephrosis which ultimately required b/l nephrostomy tubes. At that time there was no evidence of recurrence on cystoscopy brushings, exam, or imaging.
Labs notable for chronic anemia with Hgb stable >10g/dL, hypercalcemia 10.6 08/17 and has trended up to 11.7, renal function with BUN/Creatine 32/1.2 which continues to improve since May 2024. PTH 18.8 (nml), vitamin D nml, and TSH nml. No B12
or folate deficiency. SPEP/KAMAR pending. Urine culture positive on IVabx.
Clinically, reports 10lb weight loss over the past 2 weeks, decreased appetite, and constipation. Denies fever, chills, cough, chest pain, palpitations, n/v/d.
Past-Medical/Surgical History
PMH
Heart failure
Benign Hypertension
Hyperlipidemia
GERD
Bladder cancer
DJD
CVA treated with tPA at [facility] 08/2022 and then TIA 09/2023
PSH
Bilateral knee replacements
Bilateral hip replacements
TURBT
Renal stents
Bladder tumor removal
Bilateral nephrostomy tubes
Social former smoker, rare etoh, denies recreational drugs. Retired
Family non-contributory
Patient Medication
�Medication �Instructions �Recorded �Confirmed �Last Taken �Type
cholecalciferol (vitamin D3) 25 25 mcg PO DAILY Supplement 09/25/22 08/17/24 08/17/24 History
mcg (1,000 unit) tablet (Vitamin
D3)
rosuvastatin 20 mg tablet 20 mg PO DAILY High Cholesterol 09/25/22 08/17/24 08/17/24 History
acetaminophen 500 mg tablet 1,000 mg PO HSPRN PRN mild pain 06/18/23 08/17/24 06/09/24 History
aspirin 81 mg tablet,delayed 81 mg PO DAILY Blood Clot 06/18/23 08/17/24 08/17/24 History
release Prevention/Tx
docusate sodium 100 mg capsule 300 mg PO DAILY Constipation 06/18/23 08/17/24 08/17/24 History
(Colace)
amlodipine 5 mg tablet 10 mg PO HS Blood Pressure 01/17/24 08/17/24 08/16/24 History
hydralazine 25 mg tablet 25 mg PO BID #60 tabs 06/17/24 08/17/24 08/17/24 Rx
sennosides 8.6 mg tablet (Senna 17.2 mg (2 x 8.6 mg) PO HS #30 tabs 07/13/24 08/17/24 08/16/24 Rx
Laxative)
sodium bicarbonate 650 mg tablet 325 mg (1/2 x 650 mg) PO TID #60 07/13/24 08/17/24 08/17/24 Rx
tabs
atenolol 50 mg tablet 50 mg PO HS Blood Pressure 08/17/24 08/17/24 08/16/24 History
calcium carbonate 200 mg PO TID GERD 08/17/24 08/17/24 Unknown History
pantoprazole 40 mg tablet,delayed 40 mg PO BID GERD 08/17/24 08/17/24 08/17/24 History
release
cephalexin 500 mg capsule 500 mg PO TID #12 caps 08/19/24 Unknown Rx
Active Medications
Generic Name Dose Route Start Last Admin
Trade Name Freq PRN Reason Stop Dose Admin
Acetaminophen 650 mg 08/22/24 19:44 08/22/24 19:55
Acetaminophen 325 Mg Tablet PO 09/19/24 19:43 650 mg
Q4HPRN PRN Administration
mild pain/ARRIAGA/temp>100.5
Albuterol/Ipratropium 3 ml 08/22/24 11:52 08/22/24 20:21
Ipratropium 0.5/Albuterol 3 Mg (3 Ml Ampul) INH 3 ml
R Q4HPRN PRN Administration
shortness of breath/wheezing
Protocol
Amlodipine Besylate 10 mg 08/17/24 23:52 08/22/24 21:40
Amlodipine 10 Mg Tablet PO 09/14/24 23:51 10 mg
HS MELINA Administration
Amoxicillin/Clavulanate Potassium 1 tablet 08/21/24 20:00 08/23/24 07:45
Amoxicillin (875 Mg)/Clavulanate (125 Mg) Tablet PO 09/02/24 20:01 1 tablet
Q12 MELINA Administration
Atenolol 50 mg 08/17/24 23:52 08/22/24 21:41
Atenolol 50 Mg Tablet PO 09/14/24 23:51 50 mg
HS MELINA Administration
Docusate Sodium 300 mg 08/18/24 09:00 08/23/24 07:45
Docusate Sodium 100 Mg Capsule PO 09/15/24 08:59 300 mg
DAILY MELINA Administration
Hydralazine HCl 25 mg 08/18/24 08:00 08/23/24 07:46
Hydralazine 25 Mg Tablet PO 09/15/24 07:59 25 mg
BID MELINA Administration
Pantoprazole Sodium 40 mg 08/18/24 08:00 08/23/24 07:45
Pantoprazole 40 Mg Delayed Release Tablet PO 09/15/24 07:59 40 mg
BID MELINA Administration
Rosuvastatin Calcium 20 mg 08/18/24 08:00 08/23/24 07:45
Rosuvastatin (Crestor) 20 Mg Tablet PO 09/15/24 07:59 20 mg
DAILY MELINA Administration
Sennosides 17.2 mg 08/17/24 23:52 08/22/24 22:54
Sennosides (Senokot) 8.6 Mg Tablet PO 09/14/24 23:51 Not Given
HS MELINA
Sodium Bicarbonate 325 mg 08/17/24 23:52 08/23/24 07:45
Sodium Bicarbonate 650 Mg Tablet PO 09/14/24 23:51 325 mg
TID MELINA Administration
Sodium Chloride 0 flush 08/17/24 22:00
Sodium Chloride 0.9% (Flush) Syringe IV 09/14/24 21:59
PER PROTOCOL MELINA
Valsartan 320 mg 08/18/24 08:00 08/18/24 08:12
Valsartan 80 Mg Tablet PO 09/15/24 07:59 Not Given
DAILY MELINA
Review of Systems
-
ROS notable for subjective, otherwise negative
Physical Exam
-
General: No Apparent Distress
HEENT: Moist Mucous Membranes; Negative Jaundice
Cardiology: Normal Sinus Rhythm
Pulmonary: Clear
GI: Soft
Genito-Urinary: Other (b/l nephrostomy tubes)
Extremities: Pulses Present; Negative Edema
Neurology: Non Focal
Skin: Warm
Psych: Calm
Labs
Lab Results
WBC 9.9 10^3/uL (4.8-10.8) 08/22/24 05:02
RBC 3.43 10^6/uL (4.20-5.40) L 08/22/24 05:02
Hgb 10.0 g/dL (12.0-16.0) L 08/22/24 05:02
Hct 31.6 % (37.0-47.0) L 08/22/24 05:02
MCV 92.1 fL (81.0-99.0) 08/22/24 05:02
MCH 29.2 pg (27.0-31.0) 08/22/24 05:02
MCHC 31.6 g/dL (33.0-37.0) L 08/22/24 05:02
RDW 14.6 % (11.5-14.5) H 08/22/24 05:02
Plt Count 233 10^3/uL (130-400) 08/22/24 05:02
MPV 9.9 fL (7.4-10.4) 08/22/24 05:02
Abs Immat Gran (auto) 0.1 10^3/uL (0-0.05) H 08/22/24 05:02
Absolute Neuts (auto) 7.0 10^3/uL (1.4-6.5) H 08/22/24 05:02
Absolute Lymphs (auto) 1.4 10^3/uL (1.2-3.4) 08/22/24 05:02
Absolute Monos (auto) 1.0 10^3/uL (0.1-0.6) H 08/22/24 05:02
Absolute Eos (auto) 0.4 10^3/uL (0-0.7) 08/22/24 05:02
Absolute Basos (auto) 0.0 10^3/uL (0-0.2) 08/22/24 05:02
Immature Gran % 0.9 % (0-0.5) H 08/22/24 05:02
Neutrophils % 70.9 % (42.2-75.2) 08/22/24 05:02
Lymphocytes % 14.2 % (20.5-51.1) L 08/22/24 05:02
Monocytes % 9.6 % (1.7-9.3) H 08/22/24 05:02
Eosinophils % 4.0 % (0-6) 08/22/24 05:02
Basophils % 0.4 % (0-2) 08/22/24 05:02
Creatinine 1.2 mg/dL (0.6-1.0) H 08/23/24 04:54
Vital Signs
Vital Signs
Temp Pulse Resp BP Pulse Ox
96.7 F L 60 16 124/64 94
08/23/24 07:04 08/23/24 07:46 08/23/24 07:04 08/23/24 07:46 08/23/24 07:04
[2024-08-23 08:05] LABS: % Basophils 0.5 % (0-2); % Eosinophils 4.4 % (0-6); % Lymphocytes 16.6 % (20.5-51.1); % Monocytes 7.9 % (1.7-9.3); % Neutrophils 69.6 % (42.2-75.2); Absolute Basophils 0.1 10^3/uL (0-0.2); Absolute Eosinophils 0.4 10^3/uL (0-0.7); Absolute Immature Granulocytes 0.1 10^3/uL (0-0.05); Absolute Lymphocytes 1.6 10^3/uL (1.2-3.4); Absolute Monocytes 0.7 10^3/uL (0.1-0.6); Absolute Neutrophils 6.5 10^3/uL (1.4-6.5); Hematocrit 31.1 % (37.0-47.0); Hemoglobin 10.1 g/dL (12.0-16.0); Mean Corp Hgb Conc. 32.5 g/dL (33.0-37.0); Mean Corpuscular Hgb 29.3 pg (27.0-31.0); Mean Corpuscular Volume 90.1 fL (81.0-99.0); Mean Platelet Volume 10.1 fL (7.4-10.4); Nucleated Red Blood Cells % 0 %; Platelet Count 221 10^3/uL (130-400); Red Blood Cell Count 3.45 10^6/uL (4.20-5.40); Red Cell Dist. Width 14.6 % (11.5-14.5); White Blood Cell Count 9.4 10^3/uL (4.8-10.8)
[2024-08-23] MEDS: DUONEB 3 ML INH (08:05)
[2024-08-23 10:02] LABS: Iron 43 ug/dl (37-170); LDH 221 U/L (120-246)
[2024-08-23 10:11] LABS: Percent Saturation 21 % (20-50); Total Iron Binding Capacity 204 ug/dl (265-497)
[2024-08-23 10:18] LABS: Reticulocyte Count 2.2 % (0.4-2.8)
--- NOTE | 2024-08-23 10:46 | W.PN.UPDATE ---
Update Note
Progress Note Update
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
Recent urologic history as follows:
- 02/2024: s/p TURBT (Dr. Tam)
- 05/2024: s/p cystoscopy + bilateral stent placement (Dr. Murrell) - noted to have NORM and hydronephrosis
Persistent obstructive uropathy noted despite bilateral ureteral stents.
- 07/03/24: s/p bilateral PCN placement (IR)
- 07/03/24: s/p cystoscopy, bilateral ureteroscopy, brush biopsies/cytology, bilateral stent removal (Dr. Tam)
Spencer biopsies/cytology + recent cystoscopy procedures (x2) w/o evidence of recurrent disease.
- 08/17/24: s/p replacement of R PCN, exchange of L PCN (IR)
Cr @baseline
- Maintain bilateral PCNs to drainage
- F/U with Dr. Tam outpatient as scheduled
D/w Hospitalist.
--- NOTE | 2024-08-23 12:21 | CON.PUL ---
Consultation
Consultation Request
Date/Time Consultation Requested: 08/23/24
Date/Time Consultation Performed: 08/23/24
Performing Provider: Deanne
Reason for Consultation: Moderate L sided effusion
Medical History
-
History of Present Illness:
Patient is an 78-year-old female with previous history of heart failure, hypertension, bladder cancer presenting to ER with dislodged nephrostomy tube noted by home care nurses. She was admitted on 08/17/2024 status post bilateral percutaneous
nephrostomy tubes. Chest x-ray obtained on this admission demonstrating right-sided pleural effusion that is new compared to prior chest x-ray on 07/03/2024. She has no prior history of lung disease, she is currently satting 94% on room air.
States in past she has been told she had small R sided effusion.
Denies prior known history of lung disease, former smoker quit >40 years ago.
Denies family history of lung disease.
Past Medical History
Past Medical History: Other (see list below)
Social History
Tobacco: Former Smoker
Alcohol: None
Drug: None
Family History
Family History: Reviewed & Not Pertinent
Allergies / Home Medications
Allergies
Allergy/AdvReac Type Severity Reaction Status Date / Time
APOLINAR Inhibitors Allergy cough Verified 08/08/24 21:06
Home Medications
�Medication �Instructions �Recorded �Confirmed �Last Taken �Type
cholecalciferol (vitamin D3) 25 25 mcg PO DAILY Supplement 09/25/22 08/17/24 08/17/24 History
mcg (1,000 unit) tablet (Vitamin
D3)
rosuvastatin 20 mg tablet 20 mg PO DAILY High Cholesterol 09/25/22 08/17/24 08/17/24 History
acetaminophen 500 mg tablet 1,000 mg PO HSPRN PRN mild pain 06/18/23 08/17/24 06/09/24 History
aspirin 81 mg tablet,delayed 81 mg PO DAILY Blood Clot 06/18/23 08/17/24 08/17/24 History
release Prevention/Tx
docusate sodium 100 mg capsule 300 mg PO DAILY Constipation 06/18/23 08/17/24 08/17/24 History
(Colace)
amlodipine 5 mg tablet 10 mg PO HS Blood Pressure 01/17/24 08/17/24 08/16/24 History
hydralazine 25 mg tablet 25 mg PO BID #60 tabs 06/17/24 08/17/24 08/17/24 Rx
sennosides 8.6 mg tablet (Senna 17.2 mg (2 x 8.6 mg) PO HS #30 tabs 07/13/24 08/17/24 08/16/24 Rx
Laxative)
sodium bicarbonate 650 mg tablet 325 mg (1/2 x 650 mg) PO TID #60 07/13/24 08/17/24 08/17/24 Rx
tabs
atenolol 50 mg tablet 50 mg PO HS Blood Pressure 08/17/24 08/17/24 08/16/24 History
calcium carbonate 200 mg PO TID GERD 08/17/24 08/17/24 Unknown History
pantoprazole 40 mg tablet,delayed 40 mg PO BID GERD 08/17/24 08/17/24 08/17/24 History
release
cephalexin 500 mg capsule 500 mg PO TID #12 caps 08/19/24 Unknown Rx
Review of Systems
-
History Source: Patient
All other systems: Negative unless noted
Vitals / Labs / Diagnostic Testing
Vital Signs
Temp Pulse Resp BP Pulse Ox
96.7 F L 57 16 124/64 94
08/23/24 07:04 08/23/24 08:12 08/23/24 08:12 08/23/24 07:46 08/23/24 08:12
Lab Data
08/23/24 04:54
08/23/24 04:54
Microbiology
08/18/24 15:31 Urine Urine Culture - Final
S aureus-Methicillin Sensitive
Enterococcus faecalis
Diagnostic Testing:
Physical Exam
-
HEENT: Normocephalic, Anicteric and Moist Mucous Membranes
Cardiovascular: S1/S2 and Regular Rhythm
Respiratory: Clear (overall decreased bases) and Non-Labored Respirations
GI: Soft, Non Distended, Non Tender and Other (B/l PCNs)
Neurology: Awake, Alert, Oriented and No Motor Deficits
Skin: Warm, Dry and Good Color
General: Comfortable and Other (NAD)
Assessment
-
Patient is an 78-year-old female with previous history of heart failure, hypertension, bladder cancer presenting to ER with dislodged nephrostomy tube noted by home care nurses. She was admitted on 08/17/2024 status post bilateral percutaneous
nephrostomy tubes. Chest x-ray obtained on this admission demonstrating right-sided pleural effusion that is new compared to prior chest x-ray on 07/03/2024. She has no prior history of lung disease, she is currently satting 94% on room air.
States in past she has been told she had small R sided effusion. We are consulted for eval 08/23/24.
Moderate R-sided pleural effusion
DHF, grade II DD
Obstructive uropathy status post bilateral PCNs by IR
Hyponatremia
NORM
Moderate MR on ECHO
Moderate PH
UTI
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
Bladder cancer s/p resection
scoliosis
hypertension
Arthritis
stroke /TIA
TKR 2012,2015
THR 2016, 2018
Heart failure
Hyperlipidemia
GERD
TURBT
Renal stents
Bilateral nephrostomy tubes
Plan
No oxygen was needed on admission, currently saturating >90% on RA
She has no history of O2 needs at home
Denies prior known history of lung disease, former smoker quit >40 years ago.
Denies family history of lung disease.
Suspect patient has R effusion from chronic obstructive uropathy
CXR/CT obtained indicating loculated appearance, she has been told in the past she would on/off have effusion
We discussed diagnostic thora for evaluation but she prefer to hold off on further procedures if not needed
Will obtain CT chest in AM to evaluate needs, or if clinically deteriorates
Prior ECHO results are reviewed indicating grade II DD
DHF likely, she has been increasing her UO since b/l PCNs placed
Follow output, weights
Moderate MR and PH noted
UTI, on abx
Culture + for MSSA and Enterococcus
Bladder cancer, known to Urology
Consult placed for urology for uropathy
Heme onc consult placed as well
PT/OT, OOB encouraged
Reviewed this with patient and at bedside
All questions answered
We will follow
Diagnostic Data
Chest X-Ray: 08/22/24- Moderate loculated right pleural effusion. New. Hiatal hernia. Large. Stable
CT Scan: AP 07/03/24- Mild right hydronephrosis. Slightly progressed. Minimal left hydronephrosis. Slightly improved. Bilateral double-J stents. Appropriately positioned. Stable
Small right pleural effusion. Mildly improved. Large hiatal hernia. Stable. Small isodense right renal mass likely a benign proteinaceous cyst. Decreased in size suggesting it is benign.
Echo: 06/10/24- Normal left ventricular chamber size. Mild concentric left ventricular hypertrophy. Hyperdynamic left ventricular systolic function. Normal regional wall motion. LV ejection fraction is 75-80% by Bo's method of discs. Stage II
diastolic dysfunction suggestive of abnormal relaxation and increased filling pressures. Normal right ventricular size and function. Moderately dilated left atrium. Mildly dilated right atrium. Thickened mitral valve leaflets. Mitral annular
calcification. Mild mitral stenosis. Peak/mean gradients across the mitral valve are 18/5 mmHg. Moderate mitral regurgitation. Aortic sclerosis without stenosis. Mild aortic regurgitation. Mild tricuspid regurgitation. Estimated pulmonary artery
pressure of 45-50 mmHg. Assuming a right atrial pressure of 3 mmHg.
Mild to moderate pulmonic regurgitation. No prior study available for comparison.
PFT's:
Reports and relevant images were personally reviewed.
Total time spent on this consultation __75__ minutes which includes review of history, physical exam, medications, laboratory data, personal review of imaging, extensive review of outpatient records, discussion with care team and respiratory therapy.
--- NOTE | 2024-08-23 13:59 | W.PN.NEPH.PH ---
Today's Communication / Plan
-
20 mg IV Lasix in regards to increasing shortness of breath and hypercalcemia
Follow BMP
Assessment/Plan
-
IMP:
Rt Nephrostomy tube dislodged - IR placed without immediate complication 08/18.
BL PCN for BL ureteral stenosis
Mild purulence of the left PCN tract without surrounding cellulitis - PCN tube exchanged.
History of Bladder cancer - Last cysto no obvious tumor noted
Left kidney UTI- MSSA and Enterococcus
NORM, obstructive uropathy s/p bilat PCN
Hypercalcemia
Metabolic acidosis
Heart failure preserved ejection fraction compensated
Mod MR, mild MS
pulm HTN
Hyponatremia
Hypertension
GERD
Plan:
A/w dislodged right PCN since replaced and exchanged left PCN for infection
NORM-cr now at 1.2, non oliguric
hypercalcemia, corrected 12.7-holding all edgard and vit D meds
checked PTH (appropriately suppressed at 18) , vit D level pending
checked paraprotein w/u with presence of hyponatremia
Urine protein to creatinine ratio notes 11.5 g of protein, will recheck as this may have been convoluted by infection
checked Uosmo (250), U na (37)
BP stable on meds
Stable volume status hence will try fluid challenge
provided pamidronate on 08/22, serum calcium with minimal improvement to 11.7
Unfortunately hypercalcemia may be due to underlying urological malignancy, PTH RP sent by oncology, follow-up ionized calcium in the a.m.
her MS seem to baseline at this time
rechecked up/ucr: 1.9grams on 08/23
DC'd further IV fluids given right pleural effusion on 08/22
Chest x-ray notes new right loculated effusion, will provide 20 mg of IV Lasix
d/w pt and nursing
-
-
Date of Service: August 23, 2024
CC / HPI / ROS
-
Chief Complaint:
Acute kidney injury
Hyponatremia
Hypocalcemia
History of Present Illness:
Serum calcium unchanged despite pamidronate administration on 08/22/2024
Hemodynamically stable
Creatinine at 1.2
Sodium up to 132
Hypercalcemia persistently elevated
Review of Systems:
Bilateral PCN
Nonoliguric
No fevers
Weights have been climbing
Labs
-
Labs:
WBC 9.4 10^3/uL (4.8-10.8) 08/23/24 04:54
RBC 3.45 10^6/uL (4.20-5.40) L 08/23/24 04:54
Hgb 10.1 g/dL (12.0-16.0) L 08/23/24 04:54
Hct 31.1 % (37.0-47.0) L 08/23/24 04:54
Plt Count 221 10^3/uL (130-400) 08/23/24 04:54
Sodium 132 mmol/L (135-145) L 08/23/24 04:54
Potassium 4.3 mmol/L (3.5-5.1) 08/23/24 04:54
Chloride 97 mmol/L (98-107) L 08/23/24 04:54
Carbon Dioxide 26 mmol/L (22-30) 08/23/24 04:54
BUN 32 mg/dl (7-17) H 08/23/24 04:54
Creatinine 1.2 mg/dL (0.6-1.0) H 08/23/24 04:54
eGFR 45.76 08/23/24 04:54
Glucose 82 mg/dl (70-99) 08/23/24 04:54
Calcium 11.7 mg/dl (8.4-10.2) H 08/23/24 04:54
Vjb-[id number]-Ljsgzwekorh Pept 2260 pg/ml 08/23/24 04:54
Albumin 3.0 g/dl (3.5-5.0) L 08/21/24 09:04
Physical Exam
-
Vital Signs:
Vital Signs
Temp Pulse Resp BP Pulse Ox
97 F 61 18 124/64 168
08/23/24 12:44 08/23/24 12:44 08/23/24 12:44 08/23/24 07:46 08/23/24 12:44
Cardiovascular:: Regular rate and rhythm
Respiratory:: Bilateral: Coarse (Decreased breath sounds at right base) and Bilateral: Wheeze
Lung Excursion:: Normal
Abdomen:: Nontender and Soft
Bowel Sounds:: Normal
Extremity Edema:: +1: Bilateral:
Other Findings::
Bilateral PCN
[2024-08-23] MEDS: LASIX 20 MG IV (14:24)
--- NOTE | 2024-08-23 15:33 | CM ---
Reviewed the chart notes and spoke with the patient at the bedside. IMM reviewed and placed on chart. CM continues to be available to patient/family and is monitoring medical plan for needs at discharge.
Plan: Discharge to SNF/rehab once bed secured. No precert required.
[2024-08-23 17:53] LABS: Vitamin D 1,25 Dihydroxy 10.5 pg/mL (19.9-79.3)
[2024-08-23] MEDS: SENOKOT 17.2 MG PO (22:56)
[2024-08-23] MEDS: TENORMIN PO (22:56)
[2024-08-23] MEDS: NORVASC PO (22:56)
[2024-08-24] VITALS (7 sets, daily range): BP systolic 58–183; BP diastolic 53–98; BMI 24.2
[2024-08-24] MEDS: TYLENOL 650 MG PO (00:07)
[2024-08-24 05:22] LABS: Ionized Calcium 1.73 mMOL/L (1.15-1.33)
[2024-08-24] MEDS: APRESOLINE 25 MG PO ×2 (06:27→20:42)
[2024-08-24 07:00] LABS: Blood Urea Nitrogen 37 mg/dl (7-17); Calcium 11.5 mg/dl (8.4-10.2); Carbon Dioxide 28 mmol/L (22-30); Chloride 96 mmol/L (98-107); Estimated Creatinine Clearance 42 ml/min; Glucose 77 mg/dl (70-99); Potassium 4.5 mmol/L (3.5-5.1); Sodium 132 mmol/L (135-145); eGFR 45.76
[2024-08-24] MEDS: PROTONIX 40 MG PO ×2 (07:45→20:42)
[2024-08-24] MEDS: AUGMENTIN 875 MG/125 MG 1 TABLET PO ×2 (07:47→20:42)
[2024-08-24] MEDS: CRESTOR 20 MG PO (07:47)
[2024-08-24] MEDS: COLACE 300 MG PO (07:47)
[2024-08-24] MEDS: SODIUM BICARBONATE 325 MG PO ×3 (07:48→21:51)
--- NOTE | 2024-08-24 09:58 | W.PN.PUL.V3 ---
Today's Communication / Plan
-
Antibiotics.
CT chest reviewed-IR thoracentesis and liver biopsy
Assessment
-
Patient is an 78-year-old female with previous history of heart failure, hypertension, bladder cancer presenting to ER with dislodged nephrostomy tube noted by home care nurses. She was admitted on 08/17/2024 status post bilateral percutaneous
nephrostomy tubes. Chest x-ray obtained on this admission demonstrating right-sided pleural effusion that is new compared to prior chest x-ray on 07/03/2024. She has no prior history of lung disease, she is currently satting 94% on room air.
States in past she has been told she had small R sided effusion. We are consulted for eval 08/23/24.
Moderate R-sided pleural effusion
DHF, grade II DD
Obstructive uropathy status post bilateral PCNs by IR
Hyponatremia
NORM
Moderate MR on ECHO
Moderate PH
UTI
Conditions present INSURANCE VERIFICATION REP:
Bladder cancer s/p resection
scoliosis
hypertension
Arthritis
stroke /TIA
TKR 2012,2014
THR 2016, 2018
Heart failure
Hyperlipidemia
GERD
TURBT
Renal stents
Bilateral nephrostomy tubes
Plan
Respiratory status relatively stable.
Denies prior known history of lung disease, former smoker quit >40 years ago.
Denies family history of lung disease.
Continue supplemental oxygen as needed-assess discharge. Supplemental oxygen needs.
Incentive spirometry.
Aspiration precautions.
Cultures reviewed.
Antibiotics-finite course-on Augmentin
Nephrology follow-correspondence reviewed.
Oncology follow-correspondence reviewed.
Known urothelial cancer-follows Dr. Tam from urology
CT chest 08/24/24-extensive hepatic metastases, osseous metastases as well, moderate right pleural effusion.
IR consultation-right thoracentesis and liver biopsy.
DVT prophylaxis.
Nutrition
Physical therapy
Diagnostic Data
Chest X-Ray: 08/22/24- Moderate loculated right pleural effusion. New. Hiatal hernia. Large. Stable
CT Scan: AP 07/03/24- Mild right hydronephrosis. Slightly progressed. Minimal left hydronephrosis. Slightly improved. Bilateral double-J stents. Appropriately positioned. Stable
Small right pleural effusion. Mildly improved. Large hiatal hernia. Stable. Small isodense right renal mass likely a benign proteinaceous cyst. Decreased in size suggesting it is benign.
Echo: 06/10/24- Normal left ventricular chamber size. Mild concentric left ventricular hypertrophy. Hyperdynamic left ventricular systolic function. Normal regional wall motion. LV ejection fraction is 75-80% by Bo's method of discs. Stage II
diastolic dysfunction suggestive of abnormal relaxation and increased filling pressures. Normal right ventricular size and function. Moderately dilated left atrium. Mildly dilated right atrium. Thickened mitral valve leaflets. Mitral annular
calcification. Mild mitral stenosis. Peak/mean gradients across the mitral valve are 18/5 mmHg. Moderate mitral regurgitation. Aortic sclerosis without stenosis. Mild aortic regurgitation. Mild tricuspid regurgitation. Estimated pulmonary artery
pressure of 45-50 mmHg. Assuming a right atrial pressure of 3 mmHg.
Mild to moderate pulmonic regurgitation. No prior study available for comparison.
Reports and relevant images were personally reviewed.
Subjective Data
-
Date of Service:
Date of Service: August 24, 2024
Chief Complaint: Pulmonary Follow Up and Dyspnea Follow Up
Subjective:
Feels about the same, no increased shortness of breath, chest pain, pleurisy, abdominal pain
Review of Systems
General: Other ( per HPI)
Objective Data
Data Reviewed
Vital Signs / I&O:
Vital Signs
Temp Pulse Resp BP Pulse Ox
97.8 F 51 16 124/53 97
08/24/24 08:06 08/24/24 08:06 08/24/24 08:06 08/24/24 08:06 08/24/24 08:06
Intake and Output
08/23/24 08/24/2408/25/24
06:59 06:59 06:59
Intake Total 1480 / 1480 720 / 720
Output Total 725 / 725 1100 / 1100
Balance 755 / 755 -380 / -380
SaO2: 97
Nasal Cannula flow liters per minute: 2
Physical Exam
General: Respiratory Distress (n) and Comfortable
HEENT: Normocephalic, Anicteric and Moist Mucous Membranes
Cardiovascular: Regular Rhythm
Respiratory: Clear ( diminished breath sounds), Wheeze (n), Crackles, Rhonchi (n), Non-Labored Respirations and Accessory Resp Muscle Use (n)
GI: Soft and Non Distended
Neurology: Awake, Alert and No Motor Deficits
Skin: Warm (n), Good Color, Cyanosis (n), Jaundice (n) and Rash (n)
Labs/Micro/Reports
Lab Data
08/23/24 04:54
08/24/24 04:57
[2024-08-24 12:00] LABS: LDH 254 U/L (120-246)
--- NOTE | 2024-08-24 12:22 | W.PN.NEPH.PH ---
Today's Communication / Plan
-
see plan
Assessment/Plan
-
IMP:
Rt Nephrostomy tube dislodged - IR placed without immediate complication 08/18.
BL PCN for BL ureteral stenosis
Mild purulence of the left PCN tract without surrounding cellulitis - PCN tube exchanged.
History of Bladder cancer - Last cysto no obvious tumor noted
Left kidney UTI- MSSA and Enterococcus
NORM, obstructive uropathy s/p bilat PCN
Hypercalcemia
Metabolic acidosis
Heart failure preserved ejection fraction compensated
Mod MR, mild MS
pulm HTN
Hyponatremia
Hypertension
GERD
Plan:
A/w dislodged right PCN since replaced and exchanged left PCN for infection
cr stable at 1.2 and non oliguric with PCNs(left drains more than right)
persistent hypercalcemia 11.5(uncorrected) despite Pamidronate 08/22
cont to hold all edgard and vit D meds , give extra 30mg of pamidronate today
checked PTH (appropriately suppressed at 18) , vit 1,25 D level is low
checked paraprotein w/u with presence of hyponatremia
Urine protein to creatinine ratio notes 11.5 g of protein, recheck 1.9gm/gm of cr
mild hyponatremia stbale
checked Uosmo (250), U na (37)
BP stable on meds
CT chest noted liver and bone lesions suspected metastatic disease -for liver biopsy
with high BNP and pleural effusion will provide lasix again
d/w pt and nursing
-
-
Date of Service: August 24, 2024
CC / HPI / ROS
-
Chief Complaint:
Acute kidney injury
Hyponatremia
Hypocalcemia
History of Present Illness:
Serum calcium unchanged despite pamidronate administration on 08/22/2024
Hemodynamically stable
Creatinine at 1.2
Sodium stable 132
Hypercalcemia persistently elevated 11.5
Review of Systems:
Bilateral PCN
Nonoliguric
No fevers
Weights no change
no n/v
Labs
-
Labs:
WBC 9.4 10^3/uL (4.8-10.8) 08/23/24 04:54
RBC 3.45 10^6/uL (4.20-5.40) L 08/23/24 04:54
Hgb 10.1 g/dL (12.0-16.0) L 08/23/24 04:54
Hct 31.1 % (37.0-47.0) L 08/23/24 04:54
Plt Count 221 10^3/uL (130-400) 08/23/24 04:54
Sodium 132 mmol/L (135-145) L 08/24/24 04:57
Potassium 4.5 mmol/L (3.5-5.1) 08/24/24 04:57
Chloride 96 mmol/L (98-107) L 08/24/24 04:57
Carbon Dioxide 28 mmol/L (22-30) 08/24/24 04:57
BUN 37 mg/dl (7-17) H 08/24/24 04:57
Creatinine 1.2 mg/dL (0.6-1.0) H 08/24/24 04:57
eGFR 45.76 08/24/24 04:57
Glucose 77 mg/dl (70-99) 08/24/24 04:57
Calcium 11.5 mg/dl (8.4-10.2) H 08/24/24 04:57
Mbj-F-Usrifpwypom Pept 2260 pg/ml 08/23/24 04:54
Albumin 3.0 g/dl (3.5-5.0) L 08/21/24 09:04
Physical Exam
-
Vital Signs:
Vital Signs
Temp Pulse Resp BP Pulse Ox
97.8 F 58 16 122/98 96
08/24/24 11:58 08/24/24 11:58 08/24/24 11:58 08/24/24 11:58 08/24/24 11:58
Cardiovascular:: Regular rate and rhythm
Lung Excursion:: Normal (decreased bs)
Abdomen:: Nontender and Soft
Extremity Edema:: +1: Bilateral:
Pascal Catheter: No
--- NOTE | 2024-08-24 12:54 | W.PN.ONC2 ---
Documented by User: [email or web address] Wolfe 08/24/24 13:01
Today's Communication / Plan
-
will follow for path
Impression
Impression
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 Tam. She underwent TURBT and BCG intravesical chemotherapy. June cytology from b/l uretal wash/brush negative for
malignancy
CT chest today with possible extensive hepatic mets, osseous mets w probable pathologic fracture L 2nd rib & L1, moderate R pleural effusion
Stable chronic anemia, no B12 or folate deficiency. Iron studies c/w AOCD
hypercalcemia, nml PTH and vit D. s/p Aredia 60mg 08/22 and calcium supplement stopped 08/21
renal function continues to improve since May 2024
Moderate loculated right pleural effusion
large Hiatal hernia
Urine S aureus, Enterococcus faecalis
constipation -hypercalcemia likely contributing
Plan
Plan
f/u [facility], [facility], rPTH
continue follow up with Dr. 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
agree with IR consult for diagnostic thora +/- IR bx of liver or bone mets for tissue diagnosis
Subjective/Objective
Subjective
no new complaints
Vital Signs:
Vital Signs
Temp Pulse Resp BP Pulse Ox
97.8 F 58 16 122/98 96
08/24/24 11:58 08/24/24 11:58 08/24/24 11:58 08/24/24 11:58 08/24/24 11:58
Lab Results:
Laboratory Data
WBC 9.4 10^3/uL (4.8-10.8) 08/23/24 04:54
Hgb 10.1 g/dL (12.0-16.0) L 08/23/24 04:54
Plt Count 221 10^3/uL (130-400) 08/23/24 04:54
PT 14.5 Sec (11.4-14.6) 08/18/24 07:37
INR 1.10 08/18/24 07:37
eGFR 45.76 08/24/24 04:57
Orders
Orders
Orders From Last 24 Hours
08/24/24 04:57
Serum Free Light Chains [[place]/[facility] Quant] [S] IN AM

Documented by User: Cyndie Colindres MD 08/24/24 20:50
Today's Communication / Plan
-
will follow for path
ATTENDING ADDENDUM
Reviewed CT chest showing widely metastatic disease.
Discussed that she may be a candidate for pembrolizumab and enfortumab rather than cytotoxic chemotherapy.
Encouraged pt to proceed with biopsy.
Case d/w IR, liver lesion amenable to biopsy.
--- NOTE | 2024-08-24 14:17 | CM ---
Chart reviewed. Met with pt at bedside
Thoracentesis today
Recommended for SNF
Accepted at [facility] and Elida Dickey reviewing
Plan - TBD based on pt needs
[2024-08-24] MEDS: LASIX 20 MG IV (14:29)
[2024-08-24] MEDS: AREDIA 260 MG IV (14:29)
[2024-08-24 14:58] LABS: Body Fluid pH 7.44
[2024-08-24 15:10] LABS: Body Fluid Glucose 98 mg/dl; Body Fluid LDH 142 U/L; Body Fluid Protein 3.1 g/dl
--- NOTE | 2024-08-24 15:17 | W.PN.HOSP.TC ---
Today's Communication/Plan
-
Diagnostic and Therapeutic Thoracentesis
Liver biopsy
Another dose of Pamidronate for persistently elevated calcium
Assessment / Plan
Assessment / Plan
Physical Exam
General: Comfortable
Respiratory: CTAB. ON 2 L NC OXYGEN.
Cardiac: Regular Rhythm and S1/S2
GI: Soft, Nontender, Nondistended and Normal Bowel Sounds
Neuro: AAO x 3
Psych: Calm
Assessment/Plan
# Right Nephrostomy tube dislodged - IR placed without immediate complication.
# BL PCN for BL ureteral stenosis (PCNs placed due to ureteral obstruction -- stents failed)
# Mild purulence of the left PCN tract without surrounding cellulitis - PCN tube exchanged. Currently without any discharge from the tract area. Will complete 5 days course of antibiotics due to initial concern of slight
purulence.
# History of Bladder cancer - Last cysto no obvious tumor noted
-Urine culture grew MSSA and Enterococcus
-Continue antibiotics -- appreciate ID -- was on Keflex and Ampicillin, now on Augmentin 875mg P.O. BID through 09/02/24
-Appreciate Infectious Disease evaluation and recommendations
#Hoarse Voice
-Unclear etiology
-Will consider ENT consultation
#New Moderate Loculated Right Pleural Effusion
#Wheezing
-Duonebs PRN
-Consulted pulmonary, appreciate evaluation and recommendations
-IR consult for diagnostic and therapeutic thoracentesis
#Fatigue, Weight Loss, More Drowsy
-I spoke on 08/11/24 to patient's over the phone who stated patient has not been doing well over the past 1 to 2 weeks, with symptoms of fatigue, 10-lb weight loss, and more drowsy
-TSH within normal limits and Vitamin B12 elevated
-Chest X-Ray with right pleural effusion
-Possibly from hyponatremia, hypercalcemia, elevated Cr -- consulted nephrology, appreciate their evaluation and recommendations
-Recurrence of bladder cancer? Other new malignancy? - patient has had 2 cystoscopies in 05/2024 and 06/2024 w/ Dr Tam - both w/o disease recurrences in bladder finished BCG immunotherapy
-Consulted oncology and urology for evaluation
-Urology: maintain bilateral PCNs to drainage and follow-up with Dr. Tam outpatient as scheduled
-Follow-up paraprotein work-up
-In the setting of chronic constipation, may need gastroenterology evaluation inpatient versus outpatient
-CT chest with possible extensive hepatic mets, osseous mets with probable pathologic fracture L 2nd rib & L1
-CT chest also showed moderate right pleural effusion
-IR consult for thoracentesis and possible liver or bone biopsy of metastases
#Constipation
-Bowel regimen
#Hyponatremia
#Persistent Hypercalcemia
-Appreciate nephrology evaluation and recommendations
-Related to a malignancy? Given constitutional symptoms above will consider
-IV Pamidronate on 08/22/24 without significant improvement in calcium, another 30 mg of Pamidronate today
-Hold all calcium and vitamin D medications
-PTH appropriately suppressed
-Follow-up Vitamin D level
-Urine protein to Cr ratio
-Paraprotein work-up
-No additional IV fluids given pleural effusion -- instead Lasix ordered
#Bradycardia with possible heart block on tele on 08/23/24 at 6:54:26 (Heart Rate reported ~29 bpm at that time)
-Asymptomatic
-EKG with sinus bradycardia
-Will consider cardiology consult
#Chronic Diastolic Heart Failure
- compensated
- Not on diuretics at home
#Benign Hypertension
- continue amlodipine, atenolol, hydralazine, and valsartan
#Hyperlipidemia
- continue rosuvastatin
#GERD
#Large Hiatal Hernia
- continue pantoprazole
#History of CVA treated with tPA at [facility] 08/2022 and then TIA 09/2023
#History of bladder cancer with TURBT
Code Status: DNR
On August 22, 2024, I spoke with patient's Arjun over the phone. All questions and concerns were answered to satisfaction.
Anticipated Discharge: > 48 hours
Subjective/Interval History
-
Date of Service: August 24, 2024
Patient was seen and examined. She reported same symptoms of fatigue, some chest wall pain worse with movement and some shortness of breath.
Objective Data
-
Labs:
Laboratory Results
08/24/24
04:57
Sodium 132 L
Potassium 4.5
Chloride 96 L
Carbon Dioxide 28
BUN 37 H
Creatinine 1.2 H
Glucose 77
Calcium 11.5 H
Vital Signs:
Vital Signs
Temp Pulse Resp BP Pulse Ox
97.8 F 58 22 141/66 97
08/24/24 11:58 08/24/24 13:45 08/24/24 13:45 08/24/24 14:29 08/24/24 13:45
I&O
08/23/24 08/24/24 08/25/24
06:59 06:59 06:59
Intake Total 1480 / 1480 720 / 720 480 / 480
Output Total 725 / 725 1100 / 1100
Balance 755 / 755 -380 / -380 480 / 480
[2024-08-24 15:27] LABS: Body Fluid WBC 1012 /CUMM
[2024-08-24 15:29] LABS: Body Fluid Mononuclear 78.7 %; Body Fluid Polymorphonuclear 21.3 %
[2024-08-24 16:51] LABS: Body Fluid Second Tech DW
[2024-08-24] MEDS: TENORMIN 50 MG PO (21:50)
[2024-08-24] MEDS: SENOKOT 17.2 MG PO (21:52)
[2024-08-24] MEDS: NORVASC 10 MG PO (21:52)
[2024-08-25] VITALS (12 sets, daily range): BP systolic 57–132; BP diastolic 50–86; BMI 24.3
[2024-08-25] MEDS: TYLENOL 650 MG PO ×2 (00:07→21:46)
--- NOTE | 2024-08-25 02:53 | PTCARENOTE ---
Pt temp at 0000 was 94.0. Pt did not feel cool to touch. Wrapped pt in warm blankets and reassessed temp which was 95.0. Pt refusing rectal temps. FLASH DEVELOPER notified and order adair blair with a target temp of 97. Q1 temps started. Will continue to
monitor.
[2024-08-25 03:38] LABS: 24 Hour Urine Total Volume Random mL; Urine Collection Length Random hr; Urine Free Kappa Light Chains 437.99 mg/L (0.00-32.90); Urine Free Lambda Light Chains 80.64 mg/L (0.00-3.79)
[2024-08-25 04:32] LABS: Albumin 2.38 g/dL (3.75-5.01); Alpha 1 Globulin 0.61 g/dL (0.19-0.46); Alpha 2 Globulin 0.95 g/dL (0.48-1.05); SPEP IFE Reflex Not Done; Total Protein-Electrophoresis 5.8 g/dL (6.3-8.2)
[2024-08-25] MEDS: COLACE 300 MG PO (08:24)
[2024-08-25] MEDS: CRESTOR 20 MG PO (08:24)
[2024-08-25] MEDS: APRESOLINE 25 MG PO ×2 (08:27→19:54)
[2024-08-25] MEDS: AUGMENTIN 875 MG/125 MG 1 TABLET PO ×2 (08:27→19:54)
[2024-08-25] MEDS: SODIUM BICARBONATE 325 MG PO ×3 (08:27→21:42)
[2024-08-25] MEDS: PROTONIX 40 MG PO ×2 (08:27→19:54)
--- NOTE | 2024-08-25 10:14 | W.PN.PUL.V3 ---
Today's Communication / Plan
-
Thoracentesis
Liver biopsy
Pamidronate
Antibiotics
Assessment
-
Patient is an 78-year-old female with previous history of heart failure, hypertension, bladder cancer presenting to ER with dislodged nephrostomy tube noted by home care nurses. She was admitted on 08/17/2024 status post bilateral percutaneous
nephrostomy tubes. Chest x-ray obtained on this admission demonstrating right-sided pleural effusion that is new compared to prior chest x-ray on 07/03/2024. She has no prior history of lung disease, she is currently satting 94% on room air.
States in past she has been told she had small R sided effusion. We are consulted for eval 08/23/24.
Moderate R-sided pleural effusion
Thoracentesis 08/25/2024
Metastatic cancer suspected
Metastatic liver lesion biopsy 08/25/2024
DHF, grade II DD
Obstructive uropathy status post bilateral PCNs by IR
Hyponatremia
Hypercalcemia
NORM
Moderate MR on ECHO
Moderate PH
UTI
Conditions present [employer]:
Bladder cancer s/p resection
scoliosis
hypertension
Arthritis
stroke /TIA
TKR 2013,2015
THR 2017, 2018
Heart failure
Hyperlipidemia
GERD
TURBT
Renal stents
Bilateral nephrostomy tubes
Plan
Respiratory status continues to be relatively stable
Denies prior known history of lung disease, former smoker quit >40 years ago.
Denies family history of lung disease.
Continue supplemental oxygen as needed-assess discharge. Supplemental oxygen needs.
Incentive spirometry.
Aspiration precautions.
Cultures reviewed.
Antibiotics-finite course-on Augmentin
Nephrology follow-correspondence reviewed.
Correcting electrolyte imbalances
Pamidronate as needed for persistently elevated calcium
Oncology follow-correspondence reviewed.
Known urothelial cancer-follows Dr. Tam from urology
CT chest 08/24/24-extensive hepatic metastases, osseous metastases as well, moderate right pleural effusion.
IR consultation-right thoracentesis and liver biopsy.
Thoracentesis right 08/25/2024-pending
Liver biopsy 08/25/2024-pending
DVT prophylaxis.
Nutrition
Physical therapy
Diagnostic Data
Chest X-Ray: 08/22/24- Moderate loculated right pleural effusion. New. Hiatal hernia. Large. Stable
CT Scan: AP 07/03/24- Mild right hydronephrosis. Slightly progressed. Minimal left hydronephrosis. Slightly improved. Bilateral double-J stents. Appropriately positioned. Stable
Small right pleural effusion. Mildly improved. Large hiatal hernia. Stable. Small isodense right renal mass likely a benign proteinaceous cyst. Decreased in size suggesting it is benign.
Echo: 06/10/24- Normal left ventricular chamber size. Mild concentric left ventricular hypertrophy. Hyperdynamic left ventricular systolic function. Normal regional wall motion. LV ejection fraction is 75-80% by Bo's method of discs. Stage II
diastolic dysfunction suggestive of abnormal relaxation and increased filling pressures. Normal right ventricular size and function. Moderately dilated left atrium. Mildly dilated right atrium. Thickened mitral valve leaflets. Mitral annular
calcification. Mild mitral stenosis. Peak/mean gradients across the mitral valve are 18/5 mmHg. Moderate mitral regurgitation. Aortic sclerosis without stenosis. Mild aortic regurgitation. Mild tricuspid regurgitation. Estimated pulmonary artery
pressure of 45-50 mmHg. Assuming a right atrial pressure of 3 mmHg.
Mild to moderate pulmonic regurgitation. No prior study available for comparison.
Reports and relevant images were personally reviewed.
Subjective Data
-
Date of Service:
Date of Service: August 25, 2024
Chief Complaint: Pulmonary Follow Up and Dyspnea Follow Up
Subjective:
No complaints of worsening shortness of breath, chest pain, abdominal pain
Review of Systems
General: Other (Per HPI)
Objective Data
Data Reviewed
Vital Signs / I&O:
Vital Signs
Temp Pulse Resp BP Pulse Ox
97.9 F 61 17 120/54 98
08/25/24 08:04 08/25/24 08:04 08/25/24 08:04 08/25/24 08:04 08/25/24 08:04
Intake and Output
08/24/24 08/25/24 08/26/24
06:59 06:59 06:59
Intake Total 720 / 720 1200 / 1200
Output Total 1100 / 1100 1320 / 1320
Balance -380 / -380 -120 / -120
SaO2: 98
Nasal Cannula flow liters per minute: 2
Physical Exam
General: Respiratory Distress (n) and Comfortable
HEENT: Normocephalic, Anicteric and Moist Mucous Membranes
Cardiovascular: Regular Rhythm
Respiratory: Clear ( diminished breath sounds), Wheeze (n), Crackles, Rhonchi (n), Non-Labored Respirations and Accessory Resp Muscle Use (n)
GI: Soft and Non Distended
Neurology: Awake, Alert and No Motor Deficits
Skin: Warm (n), Good Color, Cyanosis (n), Jaundice (n) and Rash (n)
Labs/Micro/Reports
Lab Data
08/23/24 04:54
Microbiology
08/24/24 14:14 Pleural Fluid Body Fluid Culture - Preliminary
No Growth After 18-24 Hours
08/24/24 14:14 Pleural Fluid Gram Stain - Preliminary
[2024-08-25 10:21] LABS: Blood Urea Nitrogen 34 mg/dl (7-17); Calcium 10.7 mg/dl (8.4-10.2); Carbon Dioxide 29 mmol/L (22-30); Chloride 97 mmol/L (98-107); Estimated Creatinine Clearance 42 ml/min; Glucose 78 mg/dl (70-99); Potassium 4.2 mmol/L (3.5-5.1); Sodium 131 mmol/L (135-145); eGFR 45.76
--- NOTE | 2024-08-25 11:24 | PN.CDI ---
CDI
- -
CDI:
Physician Documentation Request
Admit Date: 08/21/24 10:02
Dear Doctor lEi,
Please review the following and provide your response in the progress notes.
Clinical Indicators:
Pt admitted with dislodged PCN which has been replaced
Documented throughout the record, ' Chronic Diastolic Heart Failure.... Not on diuretics at home...'
Nephrology note 08/23, ' 20 mg IV Lasix in regards to increasing shortness of breath....Chest x-ray notes new right loculated effusion, will provide 20 mg of IV Lasix...'
Thoracentesis done for right pleural effusion
Per MAR pt has been given IV lasix 20 mg on 08/23 &08/24/BNP 2260
Please provide further specificity regarding the most likely acuity of CHF you are evaluating, treating or monitoring.
Acute on Chronic Diastolic CHF
Chronic Diastolic CHF only
Other ( please specify)
Use of terms such as suspected, likely, concern for, or probable (associated with a specific diagnosis that is being evaluated, monitored, or treated as if it exists) are acceptable and can be coded in the inpatient setting, when documented at the
time of discharge.
Thank you,
Sarah Britton RN
CDI Specialist
[place] [facility]
Please use your independent medical judgment in providing your response.
--- NOTE | 2024-08-25 11:35 | PN.CDI ---
CDI
- -
CDI:
Physician Documentation Request
Admit Date: 08/21/24 10:02
Dear Doctor Eli ,
Please review the following and provide your response in the progress notes.
Clinical Indicators:
Pt admitted with dislodged PCN which has been replaced /Bladder cancer/NORM
Progress note 08/18-08/20, ' Rt Nephrostomy tube dislodged ..... BL PCN for BL ureteral stenosis Mild purulence of the left PCN tract without surrounding cellulitis - will swap the PCN tube and order Keflex for 5 days...-Urine culture grew MSSA and
Enterococcus Continue antibiotics -- add Ampicillin to the regimen to cover enterococcus...'
Progress note 08/24, ' ...Continue antibiotics -- appreciate ID -- was on Keflex and Ampicillin, now on Augmentin 875mg P.O. BID through 09/02/24...'
Please provide a diagnosis for the above use of Antibiotics:
UTI
Mild purulence prophylactic use of ABX
Other, please specify
Use of terms such as suspected, likely, concern for, or probable (associated with a specific diagnosis that is being evaluated, monitored, or treated as if it exists) are acceptable and can be coded in the inpatient setting, when documented at the
time of discharge.
Thank you,
Sarah Britton RN
CDI Specialist
[place] [facility]
Please use your independent medical judgment in providing your response.
--- NOTE | 2024-08-25 11:50 | W.PN.NEPH.PH ---
Today's Communication / Plan
-
lasix 40mg x1
Assessment/Plan
-
IMP:
Rt Nephrostomy tube dislodged - IR placed without immediate complication 08/18.
BL PCN for BL ureteral stenosis
Mild purulence of the left PCN tract without surrounding cellulitis - PCN tube exchanged.
History of Bladder cancer - Last cysto no obvious tumor noted
Left kidney UTI- MSSA and Enterococcus
NORM, obstructive uropathy s/p bilat PCN
Hypercalcemia
Metabolic acidosis
Heart failure preserved ejection fraction compensated
Mod MR, mild MS
pulm HTN
Hyponatremia
Hypertension
GERD
Plan:
A/w dislodged right PCN since replaced and exchanged left PCN for infection
cr stable at 1.2 and non oliguric with PCNs(left drains more than right)
improving hypercalcemia 10.7(uncorrected) despite Pamidronate 08/22(60mg) and 08/24(30mg)
cont to hold all edgard and vit D meds , give extra 30mg of pamidronate today
checked PTH (appropriately suppressed at 18) , vit 1,25 D level is low
checked paraprotein w/u with presence of hyponatremia
Urine protein to creatinine ratio notes 11.5 g of protein, recheck 1.9gm/gm of cr
mild hyponatremia stable, possible SIADH with malig
checked Uosmo (250), U na (37)
BP stable on meds
CT chest noted liver and bone lesions suspected metastatic disease -for liver biopsy today
s/p thoracentesis 550cc on 08/24
wt increasing, lasix again
d/w pt
-
-
Date of Service: August 25, 2024
CC / HPI / ROS
-
Chief Complaint:
Acute kidney injury
Hyponatremia
Hypocalcemia
History of Present Illness:
Serum calcium improving to 10.7 s/p pamidronate administration on 08/22/2024 and 08/24
Hemodynamically stable
Creatinine at 1.2
Sodium stable 131
Review of Systems:
Bilateral PCN
Nonoliguric
No fevers
Weights up
no n/v
Labs
-
Labs:
WBC 9.4 10^3/uL (4.8-10.8) 08/23/24 04:54
RBC 3.45 10^6/uL (4.20-5.40) L 08/23/24 04:54
Hgb 10.1 g/dL (12.0-16.0) L 08/23/24 04:54
Hct 31.1 % (37.0-47.0) L 08/23/24 04:54
Plt Count 221 10^3/uL (130-400) 08/23/24 04:54
Sodium 131 mmol/L (135-145) L 08/25/24 09:33
Potassium 4.2 mmol/L (3.5-5.1) 08/25/24 09:33
Chloride 97 mmol/L (98-107) L 08/25/24 09:33
Carbon Dioxide 29 mmol/L (22-30) 08/25/24 09:33
BUN 34 mg/dl (7-17) H 08/25/24 09:33
Creatinine 1.2 mg/dL (0.6-1.0) H 08/25/24 09:33
eGFR 45.76 08/25/24 09:33
Glucose 78 mg/dl (70-99) 08/25/24 09:33
Calcium 10.7 mg/dl (8.4-10.2) H 08/25/24 09:33
Sfg-B-Hyuuytmldut Pept 2260 pg/ml 08/23/24 04:54
Albumin 3.0 g/dl (3.5-5.0) L 08/21/24 09:04
Physical Exam
-
Vital Signs:
Vital Signs
Temp Pulse Resp BP Pulse Ox
97.5 F 59 18 124/84 97
08/25/24 11:37 08/25/24 11:37 08/25/24 11:37 08/25/24 11:37 08/25/24 11:37
Cardiovascular:: Regular rate and rhythm
Respiratory:: Bilateral: CTA (anteriorly, decreased over all)
Lung Excursion:: Normal
Abdomen:: Nontender and Soft
Extremity Edema:: None: Bilateral: (trace)
Pascal Catheter: No
Other Findings::
bilat PCN tubes
[2024-08-25] MEDS: LASIX 40 MG IV (12:15)
--- NOTE | 2024-08-25 14:48 | CM ---
Reviewed the chart notes. Patient off floor for liver biopsy. CM continues to be available to patient/family and is monitoring medical plan for needs at discharge.
Plan: Discharge to SNF/rehab when medically stable and bed secured. No precert required. Referrals previously sent to [facility], [facility], and [facility].
--- NOTE | 2024-08-25 15:46 | PTCARENOTE ---
Pt returned from IR in bed. Pt to be maintained on bedrest for 2 hours following needle removal. Pt verbalized understanding. Biopsy site bandage C/D/I. Telemetry and continuous pulse ox maintained. Bed locked and in the lowest position, safety
maintained. Oriented to room and call bolivar.
--- NOTE | 2024-08-25 16:29 | W.PN.HOSP.TC ---
Today's Communication/Plan
-
Please see below
Assessment / Plan
Assessment / Plan
Physical Exam
General: Comfortable
Respiratory: CTAB. ON 2 L NC OXYGEN.
Cardiac: Regular Rhythm and S1/S2
GI: Soft, Nontender, Nondistended and Normal Bowel Sounds
Neuro: AAO x 3
Psych: Calm
Assessment/Plan
# Right Nephrostomy tube dislodged - IR placed without immediate complication.
# BL PCN for BL ureteral stenosis (PCNs placed due to ureteral obstruction -- stents failed)
# Mild purulence of the left PCN tract without surrounding cellulitis - PCN tube exchanged. Currently without any discharge from the tract area. Will complete 5 days course of antibiotics due to initial concern of slight
purulence.
# UTI
# History of Bladder cancer - Last cysto no obvious tumor noted
-Urine culture grew MSSA and Enterococcus
-Continue antibiotics -- appreciate ID -- was on Keflex and Ampicillin, now on Augmentin 875mg P.O. BID through 09/02/24
-Appreciate Infectious Disease evaluation and recommendations
#Hoarse Voice
-Unclear etiology
-Will consider ENT consultation
#New Moderate Loculated Right Pleural Effusion
#Wheezing
-Duonebs PRN
-Consulted pulmonary, appreciate evaluation and recommendations
-IR consult for diagnostic and therapeutic thoracentesis, follow-up on results
#Fatigue, Weight Loss, More Drowsy
-I spoke on 08/11/24 to patient's over the phone who stated patient has not been doing well over the past 1 to 2 weeks, with symptoms of fatigue, 10-lb weight loss, and more drowsy
-TSH within normal limits and Vitamin B12 elevated
-Chest X-Ray with right pleural effusion
-Possibly from hyponatremia, hypercalcemia, elevated Cr -- consulted nephrology, appreciate their evaluation and recommendations
-Recurrence of bladder cancer? Other new malignancy? - patient has had 2 cystoscopies in 05/2024 and 06/2024 w/ Dr Tam - both w/o disease recurrences in bladder finished BCG immunotherapy
-Consulted oncology and urology for evaluation
-Urology: maintain bilateral PCNs to drainage and follow-up with Dr. Tam outpatient as scheduled
-Follow-up paraprotein work-up
-In the setting of chronic constipation, may need gastroenterology evaluation inpatient versus outpatient
-CT chest with possible extensive hepatic mets, osseous mets with probable pathologic fracture L 2nd rib & L1
-CT chest also showed moderate right pleural effusion
-IR consult for liver biopsy -- performed on 08/25/24
#Constipation
-Bowel regimen
#Hyponatremia
#Persistent Hypercalcemia - IMPROVING
-Appreciate nephrology evaluation and recommendations
-Related to a malignancy? Given constitutional symptoms above will consider
-IV Pamidronate on 08/22/24 without significant improvement in calcium, another 30 mg of Pamidronate today
-Hold all calcium and vitamin D medications
-PTH appropriately suppressed
-Follow-up Vitamin D level
-Urine protein to Cr ratio
-Paraprotein work-up
-No additional IV fluids given pleural effusion -- instead Lasix ordered
#Bradycardia with possible heart block on tele on 08/23/24 at 6:54:26 (Heart Rate reported ~29 bpm at that time)
-Asymptomatic
-EKG with sinus bradycardia
-Will consider cardiology consult
#Chronic Diastolic Heart Failure only
- compensated
- Not on diuretics at home
#Benign Hypertension
- continue amlodipine, atenolol, hydralazine, and valsartan
#Hyperlipidemia
- continue rosuvastatin
#GERD
#Large Hiatal Hernia
- continue pantoprazole
#History of CVA treated with tPA at [facility] 08/2022 and then TIA 09/2023
#History of bladder cancer with TURBT
Code Status: DNR
DVT Prophylaxis: Lovenox
On August 22, 2024, I spoke with patient's Arjun over the phone. All questions and concerns were answered to satisfaction.
Anticipated Discharge: > 48 hours
Subjective/Interval History
-
Date of Service: August 25, 2024
Patient was seen and examined. Still with chest wall muscular pain, denied any other new symptoms or complaints.
Objective Data
-
Labs:
Laboratory Results
08/25/24
09:33
Sodium 131 L
Potassium 4.2
Chloride 97 L
Carbon Dioxide 29
BUN 34 H
Creatinine 1.2 H
Glucose 78
Calcium 10.7 H
Vital Signs:
Vital Signs
Temp Pulse Resp BP Pulse Ox
97.1 F 63 16 120/58 99
08/25/24 15:45 08/25/24 15:45 08/25/24 15:45 08/25/24 15:45 08/25/24 15:45
I&O
08/24/24 08/25/24 08/26/24
06:59 06:59 06:59
Intake Total 720 / 720 1200 / 1200
Output Total 1100 / 1100 1320 / 1320 400 / 400
Balance -380 / -380 -120 / -120 -400 / -400
[2024-08-25] MEDS: LOVENOX 40 MG SC (17:15)
[2024-08-25] MEDS: SENOKOT 17.2 MG PO (21:41)
[2024-08-25] MEDS: NORVASC 10 MG PO (21:46)
[2024-08-25] MEDS: TENORMIN PO (21:51)
[2024-08-26 03:15] VITALS: BP 114/50
[2024-08-26 06:00] VITALS: BMI 24.2
[2024-08-26 06:03] LABS: % Basophils 0.5 % (0-2); % Eosinophils 2.7 % (0-6); % Immature Granulocytes 1.1 % (0-0.5); % Lymphocytes 18.5 % (20.5-51.1); % Monocytes 7.8 % (1.7-9.3); % Neutrophils 69.4 % (42.2-75.2); Absolute Basophils 0.1 10^3/uL (0-0.2); Absolute Eosinophils 0.3 10^3/uL (0-0.7); Absolute Immature Granulocytes 0.1 10^3/uL (0-0.05); Absolute Lymphocytes 1.8 10^3/uL (1.2-3.4); Absolute Monocytes 0.8 10^3/uL (0.1-0.6); Absolute Neutrophils 6.7 10^3/uL (1.4-6.5); Hematocrit 28.7 % (37.0-47.0); Hemoglobin 9.6 g/dL (12.0-16.0); Mean Corp Hgb Conc. 33.4 g/dL (33.0-37.0); Mean Corpuscular Hgb 29.9 pg (27.0-31.0); Mean Corpuscular Volume 89.4 fL (81.0-99.0); Mean Platelet Volume 10.3 fL (7.4-10.4); Nucleated Red Blood Cells % 0 %; Platelet Count 142 10^3/uL (130-400); Red Blood Cell Count 3.21 10^6/uL (4.20-5.40); Red Cell Dist. Width 14.7 % (11.5-14.5); White Blood Cell Count 9.7 10^3/uL (4.8-10.8)
[2024-08-26 06:29] LABS: Blood Urea Nitrogen 35 mg/dl (7-17); Calcium 10.3 mg/dl (8.4-10.2); Carbon Dioxide 29 mmol/L (22-30); Chloride 97 mmol/L (98-107); Estimated Creatinine Clearance 39 ml/min; Glucose 73 mg/dl (70-99); Sodium 133 mmol/L (135-145); eGFR 41.57
[2024-08-26 07:40] VITALS: BP 124/51
[2024-08-26] MEDS: COLACE 300 MG PO (08:11)
[2024-08-26] MEDS: AUGMENTIN 875 MG/125 MG 1 TABLET PO ×2 (08:11→19:41)
[2024-08-26] MEDS: APRESOLINE 25 MG PO ×2 (08:12→19:42)
[2024-08-26] MEDS: SODIUM BICARBONATE 325 MG PO ×3 (08:12→21:52)
[2024-08-26] MEDS: PROTONIX 40 MG PO ×2 (08:12→19:42)
[2024-08-26] MEDS: CRESTOR 20 MG PO (08:12)
--- NOTE | 2024-08-26 10:30 | W.PN.PUL.V3 ---
Today's Communication / Plan
-
Heparin drip initiated.
Liver biopsy pending.
Thoracentesis cytology pending
Assessment
-
Patient is an 78-year-old female with previous history of heart failure, hypertension, bladder cancer presenting to ER with dislodged nephrostomy tube noted by home care nurses. She was admitted on 08/17/2024 status post bilateral percutaneous
nephrostomy tubes. Chest x-ray obtained on this admission demonstrating right-sided pleural effusion that is new compared to prior chest x-ray on 07/03/2024. She has no prior history of lung disease, she is currently satting 94% on room air.
States in past she has been told she had small R sided effusion. We are consulted for eval 08/23/24.
Moderate R-sided pleural effusion
Thoracentesis 08/25/2024
Metastatic cancer suspected
Metastatic liver lesion biopsy 08/25/2024.
DVT-left peroneal vein
DHF, grade II DD
Obstructive uropathy status post bilateral PCNs by IR
Hyponatremia
Hypercalcemia
NORM
Moderate MR on ECHO
Moderate PH
UTI
Conditions present ENTERER:
Bladder cancer s/p resection
scoliosis
hypertension
Arthritis
stroke /TIA
TKR 2012,2014
THR 2016, 2018
Heart failure
Hyperlipidemia
GERD
TURBT
Renal stents
Bilateral nephrostomy tubes
Plan
Respiratory status remained relatively stable
Denies prior known history of lung disease, former smoker quit >40 years ago.
Denies family history of lung disease.
Continue supplemental oxygen as needed-assess discharge supplemental oxygen needs.
Incentive spirometry.
Aspiration precautions.
Cultures reviewed.
Antibiotics-finite course-on Augmentin.
Lower extremity ultrasound 08/26/24-occlusive thrombus. Left peroneal vein, no evidence for right lower extremity DVT
Nephrology follow-correspondence reviewed.
Correcting electrolyte imbalances
Pamidronate as needed for persistently elevated calcium
Oncology follow-correspondence reviewed.
Known urothelial cancer-follows Dr. Tam from urology
CT chest 08/24/24-extensive hepatic metastases, osseous metastases as well, moderate right pleural effusion.
IR consultation-right thoracentesis and liver biopsy.
Thoracentesis right 08/25/2024---550 mL clear yellow fluid, cytology pending
Liver biopsy 08/25/2024-, pathology pending
DVT prophylaxis.
Nutrition
Physical therapy
Diagnostic Data
Chest X-Ray: 08/22/24- Moderate loculated right pleural effusion. New. Hiatal hernia. Large. Stable
CT Scan: AP 07/03/24- Mild right hydronephrosis. Slightly progressed. Minimal left hydronephrosis. Slightly improved. Bilateral double-J stents. Appropriately positioned. Stable
Small right pleural effusion. Mildly improved. Large hiatal hernia. Stable. Small isodense right renal mass likely a benign proteinaceous cyst. Decreased in size suggesting it is benign.
Echo: 06/10/24- Normal left ventricular chamber size. Mild concentric left ventricular hypertrophy. Hyperdynamic left ventricular systolic function. Normal regional wall motion. LV ejection fraction is 75-80% by Bo's method of discs. Stage II
diastolic dysfunction suggestive of abnormal relaxation and increased filling pressures. Normal right ventricular size and function. Moderately dilated left atrium. Mildly dilated right atrium. Thickened mitral valve leaflets. Mitral annular
calcification. Mild mitral stenosis. Peak/mean gradients across the mitral valve are 18/5 mmHg. Moderate mitral regurgitation. Aortic sclerosis without stenosis. Mild aortic regurgitation. Mild tricuspid regurgitation. Estimated pulmonary artery
pressure of 45-50 mmHg. Assuming a right atrial pressure of 3 mmHg.
Mild to moderate pulmonic regurgitation. No prior study available for comparison.
Reports and relevant images were personally reviewed.
Subjective Data
-
Date of Service:
Date of Service: August 26, 2024
Chief Complaint: Pulmonary Follow Up and Dyspnea Follow Up
Subjective:
No complaints of worsening shortness breath, chest pain or abdominal pain
Review of Systems
General: Other ( per HPI)
Objective Data
Data Reviewed
Vital Signs / I&O:
Vital Signs
Temp Pulse Resp BP Pulse Ox
97.9 F 62 16 124/51 97
08/26/24 07:40 08/26/24 08:12 08/26/24 07:40 08/26/24 08:12 08/26/24 07:40
Intake and Output
08/25/24 08/26/24 08/27/24
06:59 06:59 06:59
Intake Total 1200 / 1200 600 / 600
Output Total 1320 / 1320 2225 / 2225
Balance -120 / -120 -1625 / -1625
SaO2: 97
Nasal Cannula flow liters per minute: 2
Physical Exam
General: Respiratory Distress (n) and Comfortable
HEENT: Normocephalic, Anicteric and Moist Mucous Membranes
Cardiovascular: Regular Rhythm
Respiratory: Clear ( diminished breath sounds), Wheeze (n), Crackles, Rhonchi (n), Non-Labored Respirations and Accessory Resp Muscle Use (n)
GI: Soft and Non Distended
Neurology: Awake, Alert and No Motor Deficits
Skin: Warm (n), Good Color, Cyanosis (n), Jaundice (n) and Rash (n)
Labs/Micro/Reports
Lab Data
08/26/24 05:23
08/26/24 05:23
Microbiology
08/24/24 14:14 Pleural Fluid Body Fluid Culture - Preliminary
No Growth After 48 Hours
08/24/24 14:14 Pleural Fluid Gram Stain - Preliminary
--- NOTE | 2024-08-26 10:50 | W.PN.HOSP.TC ---
Today's Communication/Plan
-
DVT found -- continue Heparin Drip, no SCDs
Pleural fluid cytology and liver biopsy positive for cancer
Assessment / Plan
Assessment / Plan
Physical Exam
General: Comfortable
Respiratory: CTAB. ON 2 L NC OXYGEN.
Cardiac: Regular Rhythm and S1/S2
GI: Soft, Nontender, Nondistended and Normal Bowel Sounds
Neuro: AAO x 3
Psych: Calm
Assessment/Plan
# Right Nephrostomy tube dislodged - IR placed without immediate complication.
# BL PCN for BL ureteral stenosis (PCNs placed due to ureteral obstruction -- stents failed)
# Mild purulence of the left PCN tract without surrounding cellulitis - PCN tube exchanged. Currently without any discharge from the tract area. Will complete 5 days course of antibiotics due to initial concern of slight
purulence.
# UTI
# History of Bladder cancer - Last cysto no obvious tumor noted
-Urine culture grew MSSA and Enterococcus
-Continue antibiotics -- appreciate ID -- was on Keflex and Ampicillin, now on Augmentin 875mg P.O. BID through 09/02/24
-Appreciate Infectious Disease evaluation and recommendations
#Left peroneal vein DVT
-Started Heparin Drip with boluses
-Plan for Eliquis once no procedures are planned
#Hoarse Voice
-Unclear etiology
-Will consider ENT consultation
#New Moderate Loculated Right Pleural Effusion
#Wheezing
-Duonebs PRN
-Consulted pulmonary, appreciate evaluation and recommendations
-Thoracentesis is positive for metastatic urothelial carcinoma
#Fatigue, Weight Loss, More Drowsy
-I spoke on 08/11/24 to patient's over the phone who stated patient has not been doing well over the past 1 to 2 weeks, with symptoms of fatigue, 10-lb weight loss, and more drowsy
-TSH within normal limits and Vitamin B12 elevated
-Chest X-Ray with right pleural effusion
-Possibly from hyponatremia, hypercalcemia, elevated Cr -- consulted nephrology, appreciate their evaluation and recommendations
-Recurrence of bladder cancer? Other new malignancy? - patient has had 2 cystoscopies in 05/2024 and 06/2024 w/ Dr Tam - both w/o disease recurrences in bladder finished BCG immunotherapy
-Consulted oncology and urology for evaluation
-Urology: maintain bilateral PCNs to drainage and follow-up with Dr. Tam outpatient as scheduled
-Follow-up paraprotein work-up
-In the setting of chronic constipation, may need gastroenterology evaluation inpatient versus outpatient
-CT chest with possible extensive hepatic mets, osseous mets with probable pathologic fracture L 2nd rib & L1
-CT chest also showed moderate right pleural effusion
-IR consult for liver biopsy -- performed on 08/25/24 -- results showed metastatic urothelial carcinoma
Hi, liver biopsy and pleural fluid on April Jade (43) are positive for metastatic urothelial carcinoma
#Constipation
-Bowel regimen
#Hyponatremia
#Persistent Hypercalcemia likely secondary to cancer metastases - IMPROVING
-Appreciate nephrology evaluation and recommendations
-Related to a malignancy? Given constitutional symptoms above will consider
-IV Pamidronate on 08/22/24 without significant improvement in calcium, another 30 mg of Pamidronate today
-Hold all calcium and vitamin D medications
-PTH appropriately suppressed
-Follow-up Vitamin D level
-Urine protein to Cr ratio
-Paraprotein work-up
-No additional IV fluids given pleural effusion -- instead Lasix ordered
#Bradycardia with possible heart block on tele on 08/23/24 at 6:54:26 (Heart Rate reported ~29 bpm at that time)
-Asymptomatic
-EKG with sinus bradycardia
-Will consider cardiology consult
#Chronic Diastolic Heart Failure only
- compensated
- Not on diuretics at home
#Benign Hypertension
- continue amlodipine, atenolol, hydralazine, and valsartan
#Hyperlipidemia
- continue rosuvastatin
#GERD
#Large Hiatal Hernia
- continue pantoprazole
#History of CVA treated with tPA at [facility] 08/2022 and then TIA 09/2023
#History of bladder cancer with TURBT
Code Status: DNR
DVT Prophylaxis: Heparin Drip. No SCDs
On August 22, 2024, I spoke with patient's Arjun over the phone. All questions and concerns were answered to satisfaction.
Anticipated Discharge: > 48 hours
Subjective/Interval History
-
Date of Service: August 26, 2024
Patient was seen and examined. No new significant symptoms or complaints.
Objective Data
-
Labs:
Laboratory Results
08/26/24
05:23
WBC 9.7
Hgb 9.6 L
Hct 28.7 L
Plt Count 142 D
Sodium 133 L
Potassium 4.0
Chloride 97 L
Carbon Dioxide 29
BUN 35 H
Creatinine 1.3 H
Glucose 73
Calcium 10.3 H
Vital Signs:
Vital Signs
Temp Pulse Resp BP Pulse Ox
97.9 F 62 16 124/51 97
08/26/24 07:40 08/26/24 08:12 08/26/24 07:40 08/26/24 08:12 08/26/24 10:30
I&O
08/25/24 08/26/24 08/27/24
06:59 06:59 06:59
Intake Total 1200 / 1200 600 / 600
Output Total 1320 / 1320 2225 / 2225
Balance -120 / -120 -1625 / -1625
[2024-08-26 11:40] VITALS: BP 127/58
[2024-08-26] MEDS: HEPARIN 6300 UNITS IV (11:45)
[2024-08-26 11:54] LABS: Hematocrit 31.6 % (37.0-47.0); Hemoglobin 10.1 g/dL (12.0-16.0); Mean Corpuscular Hgb 28.9 pg (27.0-31.0); Mean Corpuscular Volume 90.3 fL (81.0-99.0); Mean Platelet Volume 9.8 fL (7.4-10.4); Platelet Count 155 10^3/uL (130-400); Red Cell Dist. Width 14.8 % (11.5-14.5); White Blood Cell Count 10.1 10^3/uL (4.8-10.8)
[2024-08-26] MEDS: HEPARIN 25000 UNITS/250 ML IV (11:54)
--- NOTE | 2024-08-26 11:54 | PTCARENOTE ---
Heparin gtt initiated @1400 units (14 mls) @11:54 (initial bolus of 6300 units given just prior to starting Heparin gtt; phlebotomy obtained initial PTT & CBC prior to bolus and starting Heparin gtt); next PTT ordered @17:55 (per protocol).
[2024-08-26 12:04] LABS: APTT 50.8 Sec (23.4-35.0)
--- NOTE | 2024-08-26 12:14 | W.PN.NEPH.PH ---
Today's Communication / Plan
-
Follow labs
Unfortunately not much to offer today
We will use Lasix as needed
Calcium improving sodium improving creatinine at 1.3
Assessment/Plan
-
IMP:
Rt Nephrostomy tube dislodged - IR placed without immediate complication 08/18.
BL PCN for BL ureteral stenosis
Mild purulence of the left PCN tract without surrounding cellulitis - PCN tube exchanged.
History of Bladder cancer - Last cysto no obvious tumor noted
Left kidney UTI- MSSA and Enterococcus
NORM, obstructive uropathy s/p bilat PCN
Hypercalcemia
Metabolic acidosis
Heart failure preserved ejection fraction compensated
Mod MR, mild MS
pulm HTN
Hyponatremia
Hypertension
GERD
Plan:
A/w dislodged right PCN since replaced and exchanged left PCN for infection
cr at 1.3 and non oliguric with PCNs(left drains more than right), grossly non oliguric
improving hypercalcemia 10.3(uncorrected) with Pamidronate 08/22(60mg) and 08/24(30mg), 08/25
continue to hold all edgard and vit D meds
checked PTH (appropriately suppressed at 18) , vit 1,25 D level is low
checked paraprotein w/u with presence of hyponatremia
Urine protein to creatinine ratio notes 11.5 g of protein, recheck 1.9gm/gm of cr
mild hyponatremia stable, possible SIADH with malignancy
checked Uosmo (250), U na (37)
BP stable on meds
CT chest noted liver and bone lesions suspected metastatic disease -s/p liver biopsy on 08/25/2024
Hypercalcemia likely a function of malignancy with metastasis
s/p thoracentesis 550cc on 08/24
weight down, lasix prn
-
-
Date of Service: August 26, 2024
CC / HPI / ROS
-
Chief Complaint:
Acute kidney injury
Hyponatremia
Hypocalcemia
History of Present Illness:
Serum calcium improving to 10.3 s/p pamidronate administration on 08/22/2024 and 08/25
Hemodynamically stable
Creatinine at 1.3
Sodium stable 133
Review of Systems:
Bilateral PCN
Nonoliguric
No fevers
Weights down after Lasix given yesterday
no n/v
Labs
-
Labs:
WBC 10.1 10^3/uL (4.8-10.8) 08/26/24 11:35
RBC 3.50 10^6/uL (4.20-5.40) L 08/26/24 11:35
Hgb 10.1 g/dL (12.0-16.0) L 08/26/24 11:35
Hct 31.6 % (37.0-47.0) L 08/26/24 11:35
Plt Count 155 10^3/uL (130-400) 08/26/24 11:35
Sodium 133 mmol/L (135-145) L 08/26/24 05:23
Potassium 4.0 mmol/L (3.5-5.1) 08/26/24 05:23
Chloride 97 mmol/L (98-107) L 08/26/24 05:23
Carbon Dioxide 29 mmol/L (22-30) 08/26/24 05:23
BUN 35 mg/dl (7-17) H 08/26/24 05:23
Creatinine 1.3 mg/dL (0.6-1.0) H 08/26/24 05:23
eGFR 41.57 08/26/24 05:23
Glucose 73 mg/dl (70-99) 08/26/24 05:23
Calcium 10.3 mg/dl (8.4-10.2) H 08/26/24 05:23
Vcl-A-Kohvqzcfxtr Pept 2260 pg/ml 08/23/24 04:54
Albumin 3.0 g/dl (3.5-5.0) L 08/21/24 09:04
Physical Exam
-
Vital Signs:
Vital Signs
Temp Pulse Resp BP Pulse Ox
97.9 F 61 16 127/58 96
08/26/24 11:40 08/26/24 11:40 08/26/24 11:40 08/26/24 11:40 08/26/24 11:40
Cardiovascular:: Regular rate and rhythm
Respiratory:: Bilateral: CTA (anteriorly, decreased over all)
Lung Excursion:: Normal
Abdomen:: Nontender and Soft
Extremity Edema:: None: Bilateral: (trace)
Pascal Catheter: No
Other Findings::
bilat PCN tubes
--- NOTE | 2024-08-26 15:20 | CM ---
Reviewed the chart notes. Heparin gtt initiated. PT holding therapy for 24hrs due to start of heparin. CM continues to be available to patient/family and is monitoring medical plan for needs at discharge.
Plan: Discharge to SNF/rehab once medically stable and bed secured. No precert required.
[2024-08-26 15:30] VITALS: BP 130/63
--- NOTE | 2024-08-26 18:50 | W.PN.URO.CBU ---
Today's Communication / Plan
-
Discussed biopsy results
Recommendations from med onc appreciated
Consider hospice/palliative care
Assessment / Plan
-
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
Recent urologic history as follows:
- 02/2024: s/p TURBT
- 05/2024: s/p cystoscopy + bilateral stent placement (Dr. Murrell) - noted to have NORM and hydronephrosis
Persistent obstructive uropathy noted despite bilateral ureteral stents.
- 07/03/24: s/p bilateral PCN placement (IR)
- 07/03/24: s/p cystoscopy, bilateral ureteroscopy, brush biopsies/cytology, bilateral stent removal (Dr. Tam)
[place] biopsies/cytology + recent cystoscopy procedures (x2) w/o evidence of recurrent disease in bladder or brush biopsies of ureters bilaterally
- 08/17/24: s/p replacement of R PCN, exchange of L PCN (IR)
Imaging showed interval development of pathologic bone fracture, liver metastasis, and pleural effusion
Biopsy of liver and pleural fluid consistent with metastatic urothelial carcinoma
- Discussed results of biopsy with patient
- No further active treatment options from urology standpoint for metastatic UC
- Maintain bilateral PCNs for ureteral stricture disease with obstruction
- Recommend discussion with medical oncology to review any treatment options she may be a candidate for, however I suspect she would not tolerate chemotherapy well
- Had a long conversation with patient regarding treatment in metastatic UC and that treatment options are often palliative. Given her current quality of life she is less inclined to undergo any systemic therapy expressed interest in palliative
intent
- Recommend hospice eval if not planning on systemic therapy
Diagnosis
-
Date of Service: August 26, 2024
-
Patient Diagnosis:
Metastatic bladder cancer
ureteral obstruction
Post Op Day:
Subjective
-
No pain currently
Objective
-
Vital Signs
Temp Pulse Resp BP Pulse Ox
97.6 F 63 16 130/63 97
08/26/24 15:30 08/26/24 15:30 08/26/24 15:30 08/26/24 15:30 08/26/24 15:30
Intake and Output
08/25/24 08/26/24 08/27/24
06:59 06:59 06:59
Intake Total 1200 / 1200 600 / 600 240 / 240
Output Total 1320 / 1320 2225 / 2225 450 / 450
Balance -120 / -120 -1625 / -1625 -210 / -210
Intake:
Oral fluids 1200 / 1200 600 / 600 240 / 240
Output:
Urinary Drain Output (Total) 1320 / 1320 2225 / 2225 450 / 450
Left Nephrostomy 1200 / 1200 1925 / 1925 300 / 300
Right Nephrostomy 120 / 120 300 / 300 150 / 150
Other:
Number of unmeasured liquid
stools
Rectum 3
Laboratory Results
08/26/24 11:35
08/26/24 05:23
Physical Exam
-
General - well developed, frail, no acute distress
Chest - unlabored
Abdomen - soft, non-tender
PCNs in place
[2024-08-26 19:01] LABS: APTT > 200 Sec (23.4-35.0)
[2024-08-26 19:35] VITALS: BP 143/69
[2024-08-26] MEDS: SENOKOT 17.2 MG PO (19:42)
[2024-08-26] MEDS: DUONEB 3 ML INH (20:23)
[2024-08-26] MEDS: MORPHINE SULFATE 0.5 MG IV (21:06)
--- NOTE | 2024-08-26 21:14 | W.PN.UPDATE ---
Update Note
Progress Note Update
cough med, small dose of morphine. Patient would like to discuss her plan with oncology and speaking with regarding hospice option
[2024-08-26] MEDS: NORVASC 10 MG PO (21:52)
[2024-08-26] MEDS: TENORMIN PO (21:53)
[2024-08-26] MEDS: ROBITUSSIN DM 5 ML PO (21:53)
[2024-08-26 21:54] LABS: Free Kappa Light Chains,Quant 82.12 mg/L (3.30-19.40); Free Lambda Light Chains,Quant 43.54 mg/L (5.71-26.30); Kappa/Lambda Fr Light Ratio 1.89 (0.26-1.65)
[2024-08-26 23:34] VITALS: BP 137/61
[2024-08-27 02:10] LABS: APTT > 200 Sec (23.4-35.0)
[2024-08-27 03:23] VITALS: BP 130/72
[2024-08-27 05:59] VITALS: BMI 24.5
[2024-08-27 06:38] LABS: % Basophils 0.6 % (0-2); % Eosinophils 2.1 % (0-6); % Immature Granulocytes 1.1 % (0-0.5); % Monocytes 7.7 % (1.7-9.3); % Neutrophils 70.5 % (42.2-75.2); Absolute Basophils 0.1 10^3/uL (0-0.2); Absolute Eosinophils 0.2 10^3/uL (0-0.7); Absolute Immature Granulocytes 0.1 10^3/uL (0-0.05); Absolute Monocytes 0.8 10^3/uL (0.1-0.6); Absolute Neutrophils 7.7 10^3/uL (1.4-6.5); Hematocrit 31.3 % (37.0-47.0); Hemoglobin 9.8 g/dL (12.0-16.0); Mean Corp Hgb Conc. 31.3 g/dL (33.0-37.0); Mean Corpuscular Volume 92.6 fL (81.0-99.0); Mean Platelet Volume 10.2 fL (7.4-10.4); Nucleated Red Blood Cells % 0 %; Platelet Count 142 10^3/uL (130-400); Red Blood Cell Count 3.38 10^6/uL (4.20-5.40); Red Cell Dist. Width 14.8 % (11.5-14.5); White Blood Cell Count 10.9 10^3/uL (4.8-10.8)
[2024-08-27 07:14] LABS: Blood Urea Nitrogen 35 mg/dl (7-17); Calcium 9.8 mg/dl (8.4-10.2); Carbon Dioxide 27 mmol/L (22-30); Chloride 98 mmol/L (98-107); Estimated Creatinine Clearance 39 ml/min; Glucose 88 mg/dl (70-99); Sodium 134 mmol/L (135-145); eGFR 41.57
--- NOTE | 2024-08-27 07:43 | CON.CAR ---
Addendum entered and electronically signed by Latrell Rogers MD 08/27/24 09:15:
I saw and examined the patient.
The COO or PA's note was reviewed and I agree with the note.
Comment: General: Well developed, well nourished in NAD.
Neck: Supple, no JVD, HJR, carotids +2 B/L, no bruits bilaterally.
Heart: Non displaced PMI, RRR, 2/6 basal systolic murmur, No S3, S4, no rubs.
Lungs: Clear to auscultation bilaterally, no wheeze, rhonchi, rubs bilaterally,
normal expiratory phase.
Abdomen: Normal bowel sounds, soft, non-tender, non-distended.
Extremities: No clubbing, cyanosis or edema bilaterally.
Neuro: Grossly nonfocal, awake, alert and oriented x3.
April has history of bladder cancer with extensive hepatic mets, bone mets with probable pathologic fracture left second rib and moderate right pleural effusion. Cardiology was consulted for 2 sinus pauses of approximately 3 seconds each. She was
not symptomatic and may have been during sleep.
Would stop atenolol at current time and follow-up blood pressure. No further cardiac workup needed.
Original Note:
Consultation
Consultation Request
Date/Time Consultation Performed: 08/27/24
Requesting Provider: Dr. Benitez
Performing Provider: Bertha Nicole PA-C for Dr. Rogers
Reason for Consultation: possible heart block
Medical History
-
Chief Complaint: dislodged nephrostomy tube
History of Present Illness:
78-year-old female with history of bladder cancer with history of TURBT and ureteral stents then with continued hydronephrosis and B/L ureteral obstruction with NORM status post B/L nephrostomy tube placement 07/03/24, diastolic CHF, CVA/TIA, GERD,
HTN, HLD presented back to due to dislodged nephrostomy tube 08/17/24. Was replaced in IR 08/18/24. Recent ureteral wash/brush 06/2024 negative for [address]. Had CT of the chest on 08/24 showing extensive hepatic mets, bone mets with probable
pathologic fracture of left second rib and L1 and moderate right pleural effusion. Cardiology consulted as patient was noted overnight to have brief bradycardia with 2 sinus pauses of approximately 3 seconds each. She was not symptomatic. She is
on atenolol 50 mg nightly. Cardiology consulted for evaluation
PMH:
Urothelial cancer s/p TURBT 05/2023, BCG intravesical chemo, s/p B/L nephrostomy tube placement 07/03/24
Chronic HFpEF
Anemia
Hyponatremia
HTN
HLD
h/o CVA treated with tPA at [facility] 08/2022 and then TIA 09/2023
GERD
Past Medical History
Past Medical History: CHF and HTN
Social History
Tobacco: Non-Smoker
Alcohol: None
Drug: None
Personal: Other
Living: Assisted Living
Employment: Retired
Family History
Family History: Reviewed & Not Pertinent
Allergies / Home Medications
Allergy/AdvReac Type Severity Reaction Status Date / Time
APOLINAR Inhibitors Allergy cough Verified 08/08/24 21:06
�Medication �Instructions �Recorded �Confirmed �Type
cholecalciferol (vitamin D3) 25 25 mcg PO DAILY Supplement 09/25/22 08/17/24 History
mcg (1,000 unit) tablet (Vitamin
D3)
rosuvastatin 20 mg tablet 20 mg PO DAILY High Cholesterol 09/25/22 08/17/24 History
acetaminophen 500 mg tablet 1,000 mg PO HSPRN PRN mild pain 06/18/23 08/17/24 History
aspirin 81 mg tablet,delayed 81 mg PO DAILY Blood Clot 06/18/23 08/17/24 History
release Prevention/Tx
docusate sodium 100 mg capsule 300 mg PO DAILY Constipation 06/18/23 08/17/24 History
(Colace)
amlodipine 5 mg tablet 10 mg PO HS Blood Pressure 01/17/24 08/17/24 History
hydralazine 25 mg tablet 25 mg PO BID #60 tabs 06/17/24 08/17/24 Rx
sennosides 8.6 mg tablet (Senna 17.2 mg (2 x 8.6 mg) PO HS #30 tabs 07/13/24 08/17/24 Rx
Laxative)
sodium bicarbonate 650 mg tablet 325 mg (1/2 x 650 mg) PO TID #60 07/13/24 08/17/24 Rx
tabs
atenolol 50 mg tablet 50 mg PO HS Blood Pressure 08/17/24 08/17/24 History
calcium carbonate 200 mg PO TID GERD 08/17/24 08/17/24 History
pantoprazole 40 mg tablet,delayed 40 mg PO BID GERD 08/17/24 08/17/24 History
release
cephalexin 500 mg capsule 500 mg PO TID #12 caps 08/19/24 Rx
Review of Systems
-
History Source: Patient
All other systems: Negative unless noted
Physical Exam
Vital Signs
Temp Pulse Resp BP Pulse Ox
97.8 F 69 16 130/72 97
08/27/24 03:23 08/27/24 03:23 08/27/24 03:23 08/27/24 03:23 08/27/24 03:23
Lab Results
08/27/24 04:51
08/27/24 04:51
Bss-A-Rlusonemfeo Pept 2260 pg/ml 08/23/24 04:54
Physical Exam
General: No Apparent Distress and Comfortable
HEENT: Normocephalic, Anicteric and Moist Mucous Membranes
Respiratory: Clear and Non Labored Respirations
Cardiac: Regular Rhythm and Murmur
GI: Soft, Non Tender, Non Distended and Normal Bowel Sounds
Musculoskeletal: No Clubbing, No Cyanosis and No Edema
Skin: Warm and Dry
Neuro: AO x 3
Impression / Plan
-
PCP: Dr. Foreman at [facility]
Cardiology: Dr. Cohn at [facility] [phone]
PMH:
Dislodged nephrostomy tube s/p replacement 08/18/24
Urothelial cancer s/p TURBT 05/2023, BCG intravesical chemo, s/p B/L nephrostomy tube placement 07/03/24
Evidence of extensive metastatic disease by chest CT 08/24/24
Bradycardia with sinus pause ~3 seconds, asymptomatic
Chronic HFpEF
Anemia
Hyponatremia
HTN
HLD
h/o CVA treated with tPA at [facility] 08/2022 and then TIA 09/2023
GERD
DNR CODE STATUS
Echo 06/10/24: EF 75-80% with hyperdynamic LV function, stage II diastolic dysfunction, normal RV size and function, mild MS peak/mean 18/5 mmHg and mod MR, aortic sclerosis without stenosis and mild aortic regurgitation, mild TR
Plan:
-Patient presented with dislodged nephrostomy tube status post replacement 08/18/2024 in IR. She has history of urothelial cancer status post BCG chemotherapy and was found this admission to have evidence of extensive metastatic disease by chest CT
08/24/2024. Continue treatment per oncology
-Cardiology consulted due to concern for heart block on telemetry. upon review, patient noted to have of two sinus pauses measuring approximately 3 seconds each, of which patient was asymptomatic. She believes she may have been coughing at the
time. Since she has not had recurrence. We will stop outpatient atenolol and observe HR trends
Data Reviewed
-
CT Scan: Report Reviewed by me
Medical Tests (Nuc Med, Echo etc): Report Reviewed by me
Labs: Labs Reviewed by me
Old Records: Reviewed
--- NOTE | 2024-08-27 08:41 | W.PN.ONC2 ---
Today's Communication / Plan
-
follow for path
monitor for bleeding on heparin gtt, if tolerates then transition to DOAC at d/c
discharge planning in progress
Close OP follow up will be arranged upon discharge
Impression
Impression
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 Tam. She underwent TURBT and BCG intravesical chemotherapy. June cytology from b/l uretal wash/brush negative for
malignancy
CT chest with extensive hepatic mets, osseous mets w probable pathologic fracture L 2nd rib & L1, moderate R pleural effusion s/p liver bx 08/25
Stable chronic anemia, no B12 or folate deficiency. Iron studies c/w AOCD
hypercalcemia, nml PTH and vit D. SPEP no Mspike. s/p Aredia 60mg 08/22 and calcium supplement stopped 08/21
renal function improved since May 2024
Moderate loculated right pleural effusion s/p thoracentesis 08/24
large Hiatal hernia
Urine S aureus, Enterococcus faecalis
occlusive thrombus within the left peroneal vein -started on heparin gtt 08/26
Plan
Plan
follow thora cytology and liver biopsy path
f/u rPTH
monitor for bleeding
heparin to DOAC at dc
Subjective/Objective
Subjective
no new complaints
Vital Signs:
Vital Signs
Temp Pulse Resp BP Pulse Ox
97.8 F 69 16 130/72 97
08/27/24 03:23 08/27/24 03:23 08/27/24 03:23 08/27/24 03:23 08/27/24 03:23
Lab Results:
Laboratory Data
WBC 10.9 10^3/uL (4.8-10.8) H 08/27/24 04:51
Hgb 9.8 g/dL (12.0-16.0) L 08/27/24 04:51
Plt Count 142 10^3/uL (130-400) 08/27/24 04:51
PT 14.5 Sec (11.4-14.6) 08/18/24 07:37
INR 1.10 08/18/24 07:37
APTT > 200 Sec (23.4-35.0) H* 08/27/24 01:30
eGFR 41.57 08/27/24 04:51
Physical Exam
lethargic and drowsy
HEENT: Moist Mucous Membranes
Cardiology: Normal Sinus Rhythm
Pulmonary: Clear
GI: Soft
Extremities: Pulses Present
[2024-08-27 08:43] VITALS: BP 146/68
[2024-08-27 09:20] LABS: APTT > 200 Sec (23.4-35.0)
--- NOTE | 2024-08-27 09:21 | W.PN.PUL.V3 ---
Today's Communication / Plan
-
Supplemental oxygen as needed.
Aspiration precautions.
Pulmonary status currently stable-pulmonary will sign off-if there is rapid reaccumulation of pleural fluid we did discuss Pleurx catheter with patient to help with comfort
Assessment
-
Patient is an 78-year-old female with previous history of heart failure, hypertension, bladder cancer presenting to ER with dislodged nephrostomy tube noted by home care nurses. She was admitted on 08/17/2024 status post bilateral percutaneous
nephrostomy tubes. Chest x-ray obtained on this admission demonstrating right-sided pleural effusion that is new compared to prior chest x-ray on 07/03/2024. She has no prior history of lung disease, she is currently satting 94% on room air.
States in past she has been told she had small R sided effusion. We are consulted for eval 08/23/24.
Moderate R-sided pleural effusion
Thoracentesis 08/25/2024
Metastatic cancer suspected
Metastatic liver lesion biopsy 08/25/2024.
Pauses-metoprolol held
DVT-left peroneal vein
DHF, grade II DD
Obstructive uropathy status post bilateral PCNs by IR
Hyponatremia
Hypercalcemia
NORM
Moderate MR on ECHO
Moderate PH
UTI
Conditions present [employer]:
Bladder cancer s/p resection
scoliosis
hypertension
Arthritis
stroke /TIA
TKR 2012,2015
THR 2016, 2018
Heart failure
Hyperlipidemia
GERD
TURBT
Renal stents
Bilateral nephrostomy tubes
Plan
Respiratory status remained relatively stable
Denies prior known history of lung disease, former smoker quit >40 years ago.
Denies family history of lung disease.
Continue supplemental oxygen as needed-assess discharge supplemental oxygen needs.
Incentive spirometry.
Aspiration precautions.
Cultures reviewed.
Antibiotics-finite course-on Augmentin.
Lower extremity ultrasound 08/26/24-occlusive thrombus. Left peroneal vein, no evidence for right lower extremity DVT
Nephrology follow-correspondence reviewed.
Correcting electrolyte imbalances
Pamidronate as needed for persistently elevated calcium
Oncology follow-correspondence reviewed-Performance status might preclude her from potential therapies
Known urothelial cancer-follows Dr. Tam from urology
CT chest 08/24/24-extensive hepatic metastases, osseous metastases as well, moderate right pleural effusion.
IR consultation-right thoracentesis and liver biopsy.
Thoracentesis right 08/25/2024---550 mL clear yellow fluid, cytology positive for metastatic urothelial carcinoma
Liver biopsy 08/25/2024-, pathology -positive for metastatic urothelial carcinoma
DVT prophylaxis.
Nutrition
Physical therapy..
Pulmonary status currently stable-pulmonary will sign off-if there is rapid reaccumulation of pleural fluid we did discuss Pleurx catheter with patient to help with comfort
Goals of care conversations ongoing
Diagnostic Data
Chest X-Ray: 08/22/24- Moderate loculated right pleural effusion. New. Hiatal hernia. Large. Stable
CT Scan: AP 07/03/24- Mild right hydronephrosis. Slightly progressed. Minimal left hydronephrosis. Slightly improved. Bilateral double-J stents. Appropriately positioned. Stable
Small right pleural effusion. Mildly improved. Large hiatal hernia. Stable. Small isodense right renal mass likely a benign proteinaceous cyst. Decreased in size suggesting it is benign.
Echo: 06/10/24- Normal left ventricular chamber size. Mild concentric left ventricular hypertrophy. Hyperdynamic left ventricular systolic function. Normal regional wall motion. LV ejection fraction is 75-80% by Bo's method of discs. Stage II
diastolic dysfunction suggestive of abnormal relaxation and increased filling pressures. Normal right ventricular size and function. Moderately dilated left atrium. Mildly dilated right atrium. Thickened mitral valve leaflets. Mitral annular
calcification. Mild mitral stenosis. Peak/mean gradients across the mitral valve are 18/5 mmHg. Moderate mitral regurgitation. Aortic sclerosis without stenosis. Mild aortic regurgitation. Mild tricuspid regurgitation. Estimated pulmonary artery
pressure of 45-50 mmHg. Assuming a right atrial pressure of 3 mmHg.
Mild to moderate pulmonic regurgitation. No prior study available for comparison.
Reports and relevant images were personally reviewed.
Subjective Data
-
Date of Service:
Date of Service: August 27, 2024
Chief Complaint: Pulmonary Follow Up and Dyspnea Follow Up
Subjective:
Episode of shortness of breath last evening with difficulties mobilizing secretions, now resolved, no complaints shortness breath, chest pain, abdominal pain
Review of Systems
General: Other (per HPI)
Objective Data
Data Reviewed
Vital Signs / I&O:
Vital Signs
Temp Pulse Resp BP Pulse Ox
97.4 F 72 16 146/68 94
08/27/24 08:43 08/27/24 08:43 08/27/24 08:43 08/27/24 08:43 08/27/24 08:43
Intake and Output
08/26/24 08/27/24 08/28/24
06:59 06:59 06:59
Intake Total 600 / 600 319 / 319
Output Total 2225 / 2225 450 / 450
Balance -1625 / -1625 -131 / -131
SaO2: 94
Nasal Cannula flow liters per minute: 2
Physical Exam
General: Respiratory Distress (n) and Comfortable
HEENT: Normocephalic, Anicteric and Moist Mucous Membranes
Cardiovascular: Regular Rhythm
Respiratory: Clear ( diminished breath sounds), Wheeze (n), Crackles, Rhonchi (n), Non-Labored Respirations and Accessory Resp Muscle Use (n)
GI: Soft and Non Distended
Neurology: Awake, Alert and No Motor Deficits
Skin: Warm (n), Good Color, Cyanosis (n), Jaundice (n) and Rash (n)
Labs/Micro/Reports
Lab Data
08/27/24 04:51
08/27/24 04:51
Laboratory Results
08/26/24 08/26/24 08/27/24
11:35 18:26 01:30
APTT 50.8 H > 200 H* > 200 H*
08/27/24
08:25
APTT > 200 H*
Microbiology
08/24/24 14:14 Pleural Fluid Body Fluid Culture - Final
No Growth After 72 Hours
08/24/24 14:14 Pleural Fluid Gram Stain - Final
[2024-08-27] MEDS: CRESTOR 20 MG PO (09:50)
[2024-08-27] MEDS: PROTONIX 40 MG PO ×2 (09:50→21:00)
[2024-08-27] MEDS: COLACE 300 MG PO (09:50)
[2024-08-27] MEDS: AUGMENTIN 875 MG/125 MG 1 TABLET PO ×2 (09:51→21:00)
[2024-08-27] MEDS: APRESOLINE 25 MG PO ×2 (09:51→21:00)
[2024-08-27] MEDS: SODIUM BICARBONATE 325 MG PO ×3 (09:51→22:48)
[2024-08-27 11:50] VITALS: BP 133/67
--- NOTE | 2024-08-27 13:03 | W.PN.NEPH.PH ---
Today's Communication / Plan
-
observe
Assessment/Plan
-
IMP:
Rt Nephrostomy tube dislodged - IR placed without immediate complication 08/18.
BL PCN for BL ureteral stenosis
Mild purulence of the left PCN tract without surrounding cellulitis - PCN tube exchanged.
History of Bladder cancer - Last cysto no obvious tumor noted
Left kidney UTI- MSSA and Enterococcus
NORM, obstructive uropathy s/p bilat PCN
Hypercalcemia
Metabolic acidosis
Heart failure preserved ejection fraction compensated
Mod MR, mild MS
pulm HTN
Hyponatremia
Hypertension
GERD
Plan:
A/w dislodged right PCN since replaced and exchanged left PCN for infection
cr at 1.3 and non oliguric with PCNs(left drains more than right), grossly non oliguric
improving hypercalcemia 10.3(uncorrected) with Pamidronate 08/22(60mg) and 08/24(30mg), 08/25
continue to hold all edgard and vit D meds
checked PTH (appropriately suppressed at 18) , vit 1,25 D level is low
checked paraprotein w/u with presence of hyponatremia
Urine protein to creatinine ratio notes 11.5 g of protein, recheck 1.9gm/gm of cr
mild hyponatremia stable, possible SIADH with malignancy:now at 134
checked Uosmo (250), U na (37)
BP stable on meds
CT chest noted liver and bone lesions suspected metastatic disease -s/p liver biopsy on 08/25/2024: notes mets
Hypercalcemia likely a function of malignancy with metastasis, calcium down to 9.8
s/p thoracentesis 550cc on 08/24
weight down, lasix prn
-
-
Date of Service: August 27, 2024
CC / HPI / ROS
-
Chief Complaint:
Acute kidney injury
Hyponatremia
Hypocalcemia
History of Present Illness:
Serum calcium improving to 9.8 s/p pamidronate administration on 08/22/2024 and 08/25
Hemodynamically stable
Creatinine at 1.3
Sodium stable 134
Review of Systems:
Bilateral PCN
Nonoliguric
No fevers
Weights down after Lasix given yesterday
no n/v
Labs
-
Labs:
WBC 10.9 10^3/uL (4.8-10.8) H 08/27/24 04:51
RBC 3.38 10^6/uL (4.20-5.40) L 08/27/24 04:51
Hgb 9.8 g/dL (12.0-16.0) L 08/27/24 04:51
Hct 31.3 % (37.0-47.0) L 08/27/24 04:51
Plt Count 142 10^3/uL (130-400) 08/27/24 04:51
Sodium 134 mmol/L (135-145) L 08/27/24 04:51
Potassium 4.0 mmol/L (3.5-5.1) 08/27/24 04:51
Chloride 98 mmol/L (98-107) 08/27/24 04:51
Carbon Dioxide 27 mmol/L (22-30) 08/27/24 04:51
BUN 35 mg/dl (7-17) H 08/27/24 04:51
Creatinine 1.3 mg/dL (0.6-1.0) H 08/27/24 04:51
eGFR 41.57 08/27/24 04:51
Glucose 88 mg/dl (70-99) 08/27/24 04:51
Calcium 9.8 mg/dl (8.4-10.2) 08/27/24 04:51
Tav-D-Fximylvwzmu Pept 2260 pg/ml 08/23/24 04:54
Albumin 3.0 g/dl (3.5-5.0) L 08/21/24 09:04
Physical Exam
-
Vital Signs:
Vital Signs
Temp Pulse Resp BP Pulse Ox
97.5 F 78 16 133/67 94
08/27/24 11:50 08/27/24 11:50 08/27/24 11:50 08/27/24 11:50 08/27/24 11:50
Cardiovascular:: Regular rate and rhythm
Respiratory:: Bilateral: CTA (anteriorly, decreased over all)
Lung Excursion:: Normal
Abdomen:: Nontender and Soft
Extremity Edema:: None: Bilateral: (trace)
Pascal Catheter: No
Other Findings::
bilat PCN tubes
[2024-08-27 15:25] VITALS: BP 127/61
--- NOTE | 2024-08-27 15:54 | W.PN.HOSP.TC ---
Today's Communication/Plan
-
Oncology to have a family meeting with patient and her family today given biopsy results
Assessment / Plan
Assessment / Plan
Physical Exam
General: Comfortable
Respiratory: CTAB. ON 2 L NC OXYGEN.
Cardiac: Regular Rhythm and S1/S2
GI: Soft, Nontender, Nondistended and Normal Bowel Sounds
Neuro: AAO x 3
Psych: Calm
Assessment/Plan
# Right Nephrostomy tube dislodged - IR placed without immediate complication.
# BL PCN for BL ureteral stenosis (PCNs placed due to ureteral obstruction -- stents failed)
# Mild purulence of the left PCN tract without surrounding cellulitis - PCN tube exchanged. Currently without any discharge from the tract area. Will complete 5 days course of antibiotics due to initial concern of slight
purulence.
# UTI
# History of Bladder cancer - Last cysto no obvious tumor noted
-Urine culture grew MSSA and Enterococcus
-Continue antibiotics -- appreciate ID -- was on Keflex and Ampicillin, now on Augmentin 875mg P.O. BID through 09/02/24
-Appreciate Infectious Disease evaluation and recommendations
#Left peroneal vein DVT
-Started Heparin Drip with boluses
-Plan for Eliquis once no procedures are planned
#Hoarse Voice
-Unclear etiology
-Will consider ENT consultation
#New Moderate Loculated Right Pleural Effusion
#Wheezing
-Duonebs PRN
-Consulted pulmonary, appreciate evaluation and recommendations
-Thoracentesis is positive for metastatic urothelial carcinoma
-Per pulmonary, can consider PleurX catheter if needed
#Fatigue, Weight Loss, More Drowsy
-I spoke on 08/11/24 to patient's over the phone who stated patient has not been doing well over the past 1 to 2 weeks, with symptoms of fatigue, 10-lb weight loss, and more drowsy
-TSH within normal limits and Vitamin B12 elevated
-Chest X-Ray with right pleural effusion
-Possibly from hyponatremia, hypercalcemia, elevated Cr -- consulted nephrology, appreciate their evaluation and recommendations
-Recurrence of bladder cancer? Other new malignancy? - patient has had 2 cystoscopies in 05/2024 and 06/2024 w/ Dr Tam - both w/o disease recurrences in bladder finished BCG immunotherapy
-Consulted oncology and urology for evaluation
-Urology: maintain bilateral PCNs to drainage and follow-up with Dr. Tam outpatient as scheduled
-Follow-up paraprotein work-up
-In the setting of chronic constipation, may need gastroenterology evaluation inpatient versus outpatient
-CT chest with possible extensive hepatic mets, osseous mets with probable pathologic fracture L 2nd rib & L1
-CT chest also showed moderate right pleural effusion
-IR consult for liver biopsy -- performed on 08/25/24 -- results showed metastatic urothelial carcinoma
#Constipation
-Bowel regimen
#Hyponatremia
#Persistent Hypercalcemia likely secondary to cancer metastases - IMPROVING
-Appreciate nephrology evaluation and recommendations
-Related to a malignancy? Given constitutional symptoms above will consider
-IV Pamidronate on 08/22/24 without significant improvement in calcium, another 30 mg of Pamidronate today
-Hold all calcium and vitamin D medications
-PTH appropriately suppressed
-Follow-up Vitamin D level
-Urine protein to Cr ratio
-Paraprotein work-up
-No additional IV fluids given pleural effusion -- instead Lasix ordered
#Sinus pauses measuring approximately 3 seconds each on 08/27/24
-Asymptomatic
-EKG with sinus bradycardia
-Cardiology consulted, appreciate their evaluation and recommendations: stop Atenolol and observe how heart rate does
#Chronic Diastolic Heart Failure only
- compensated
- Not on diuretics at home
#Benign Hypertension
- continue amlodipine, atenolol, hydralazine, and valsartan
#Hyperlipidemia
- continue rosuvastatin
#GERD
#Large Hiatal Hernia
- continue pantoprazole
#History of CVA treated with tPA at [facility] 08/2022 and then TIA 09/2023
#History of bladder cancer with TURBT
Code Status: DNR
DVT Prophylaxis: Heparin Drip. No SCDs
On August 22, 2024, I spoke with patient's Arjun over the phone. All questions and concerns were answered to satisfaction.
Anticipated Discharge: 24 - 48 hours
Subjective/Interval History
-
Date of Service: August 27, 2024
Patient was seen and examined. She reported doing okay, denied any new complaints, needed Morphine overnight per nurse.
Objective Data
-
Labs:
Laboratory Results
08/27/24 08/27/24 08/27/24
04:51 08:25 17:25
WBC 10.9 H
Hgb 9.8 L
Hct 31.3 L
Plt Count 142
APTT > 200 H* Pending
Sodium 134 L
Potassium 4.0
Chloride 98
Carbon Dioxide 27
BUN 35 H
Creatinine 1.3 H
Glucose 88
Calcium 9.8
Vital Signs:
Vital Signs
Temp Pulse Resp BP Pulse Ox
97.5 F 78 16 133/67 94
08/27/24 11:50 08/27/24 11:50 08/27/24 11:50 08/27/24 11:50 08/27/24 11:50
I&O
08/26/24 08/27/24 08/28/24
06:59 06:59 06:59
Intake Total 600 / 600 319 / 319
Output Total 2225 / 2225 450 / 450 150 / 150
Balance -1625 / -1625 -131 / -131 -150 / -150
--- NOTE | 2024-08-27 16:23 | CM ---
Reviewed the chart notes. Heparin gtt. PT held today due to APTT > 200. CM continues to be available to patient/family and is monitoring medical plan for needs at discharge.
Plan: Discharge to SNF/rehab once medically stable and bed secured. No precert required.
[2024-08-27 16:31] LABS: PTH Related Peptide LC-MS/MS 16.7 pmol/L (0.0-3.4)
[2024-08-27] MEDS: HEPARIN 25000 UNITS/250 ML IV (17:04)
[2024-08-27 19:50] VITALS: BP 136/66
[2024-08-27] MEDS: TYLENOL 650 MG PO (21:15)
[2024-08-27 22:45] VITALS: BP 135/67
[2024-08-27] MEDS: SENOKOT 17.2 MG PO (22:48)
[2024-08-27] MEDS: NORVASC 10 MG PO (22:48)
[2024-08-28] VITALS (8 sets, daily range): BP systolic 136–149; BP diastolic 64–78; PULSE 78–97; O2SAT 97; BMI 24.6
[2024-08-28 00:36] LABS: APTT 101.8 Sec (23.4-35.0)
[2024-08-28 05:30] LABS: APTT 116.3 Sec (23.4-35.0)
[2024-08-28 05:34] LABS: Hematocrit 31.3 % (37.0-47.0); Hemoglobin 9.8 g/dL (12.0-16.0); Mean Corp Hgb Conc. 31.3 g/dL (33.0-37.0); Mean Corpuscular Hgb 29.2 pg (27.0-31.0); Mean Corpuscular Volume 93.2 fL (81.0-99.0); Mean Platelet Volume 10.2 fL (7.4-10.4); Platelet Count 136 10^3/uL (130-400); Red Blood Cell Count 3.36 10^6/uL (4.20-5.40); Red Cell Dist. Width 15.1 % (11.5-14.5); White Blood Cell Count 10.9 10^3/uL (4.8-10.8)
[2024-08-28 05:50] LABS: Blood Urea Nitrogen 32 mg/dl (7-17); Calcium 9.5 mg/dl (8.4-10.2); Carbon Dioxide 28 mmol/L (22-30); Chloride 99 mmol/L (98-107); Estimated Creatinine Clearance 42 ml/min; Glucose 88 mg/dl (70-99); Sodium 136 mmol/L (135-145); eGFR 45.76
[2024-08-28] MEDS: TYLENOL 650 MG PO (08:17)
[2024-08-28] MEDS: SODIUM BICARBONATE 325 MG PO ×3 (08:20→21:20)
[2024-08-28] MEDS: CRESTOR 20 MG PO (08:20)
[2024-08-28] MEDS: AUGMENTIN 875 MG/125 MG 1 TABLET PO ×2 (08:20→21:21)
[2024-08-28] MEDS: PROTONIX 40 MG PO ×2 (08:20→21:21)
[2024-08-28] MEDS: APRESOLINE 25 MG PO ×2 (08:21→21:22)
[2024-08-28] MEDS: COLACE 300 MG PO (08:21)
--- NOTE | 2024-08-28 12:26 | W.PN.NEPH.PH ---
Today's Communication / Plan
-
supportive care
pt wants hospice
Assessment/Plan
-
IMP:
Rt Nephrostomy tube dislodged - IR placed without immediate complication 08/18.
BL PCN for BL ureteral stenosis
Mild purulence of the left PCN tract without surrounding cellulitis - PCN tube exchanged.
History of Bladder cancer - Last cysto no obvious tumor noted
Left kidney UTI- MSSA and Enterococcus
NORM, obstructive uropathy s/p bilat PCN
Hypercalcemia
Metabolic acidosis
Heart failure preserved ejection fraction compensated
Mod MR, mild MS
pulm HTN
Hyponatremia
Hypertension
GERD
Plan:
A/w dislodged right PCN since replaced and exchanged left PCN for infection
cr at 1.2 and non oliguric with PCNs(left drains more than right), grossly non oliguric
improving hypercalcemia 9.5(uncorrected) with Pamidronate 08/22(60mg) and 08/24(30mg)
continue to hold all edgard and vit D meds
checked PTH (appropriately suppressed at 18) , vit 1,25 D level is low
checked paraprotein w/u with presence of hyponatremia
Urine protein to creatinine ratio notes 11.5 g of protein, recheck 1.9gm/gm of cr
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
BP stable on meds
CT chest noted liver and bone lesions suspected metastatic disease -s/p liver biopsy on 08/25/2024: notes mets
s/p thoracentesis 550cc on 08/24
weight up but stable resp status, lasix prn
pt wants to go home with hospice, reports informing CM
will s/o, call with ?s
-
-
Date of Service: August 28, 2024
CC / HPI / ROS
-
Chief Complaint:
Acute kidney injury
Hyponatremia
Hypocalcemia
History of Present Illness:
Serum calcium improving to 9.5 s/p pamidronate administration on 08/22/2024 and 08/24,
Hemodynamically stable
Creatinine at 1.2
Sodium stable 136
Review of Systems:
Bilateral PCN
Nonoliguric
No fevers
Weights slightly up, on RA
no n/v
Labs
-
Labs:
WBC 10.9 10^3/uL (4.8-10.8) H 08/28/24 05:01
RBC 3.36 10^6/uL (4.20-5.40) L 08/28/24 05:01
Hgb 9.8 g/dL (12.0-16.0) L 08/28/24 05:01
Hct 31.3 % (37.0-47.0) L 08/28/24 05:01
Plt Count 136 10^3/uL (130-400) 08/28/24 05:01
Sodium 136 mmol/L (135-145) 08/28/24 05:01
Potassium 4.0 mmol/L (3.5-5.1) 08/28/24 05:01
Chloride 99 mmol/L (98-107) 08/28/24 05:01
Carbon Dioxide 28 mmol/L (22-30) 08/28/24 05:01
BUN 32 mg/dl (7-17) H 08/28/24 05:01
Creatinine 1.2 mg/dL (0.6-1.0) H 08/28/24 05:01
eGFR 45.76 08/28/24 05:01
Glucose 88 mg/dl (70-99) 08/28/24 05:01
Calcium 9.5 mg/dl (8.4-10.2) 08/28/24 05:01
Ebo-F-Yyqeixdnibn Pept 2260 pg/ml 08/23/24 04:54
Albumin 3.0 g/dl (3.5-5.0) L 08/21/24 09:04
Physical Exam
-
Vital Signs:
Vital Signs
Temp Pulse Resp BP Pulse Ox
97.4 F 72 16 137/64 95
08/28/24 11:30 08/28/24 11:30 08/28/24 11:30 08/28/24 11:30 08/28/24 11:30
Cardiovascular:: Regular rate and rhythm
Respiratory:: Bilateral: CTA (anteriorly)
Lung Excursion:: Normal
Abdomen:: Nontender and Soft
Extremity Edema:: +1: Bilateral: (trace)
Pascal Catheter: No
--- NOTE | 2024-08-28 12:40 | CM ---
manager of housekeeping reviewed patient's chart and met with patient and plan is for possible skilled with hospice at discharge, patient wants to discuss further with her spouse as room and board will be private pay, referrals were sent to [facility] and [facility], per Ginny in admissions at the [facility] there are no beds available.
Plan; Skilled placement with hospice, referrals sent will discuss with patient and spouse who will be at [facility] today at 1:30pm.
[2024-08-28 12:46] LABS: APTT 80.5 Sec (23.4-35.0)
--- NOTE | 2024-08-28 14:40 | W.PN.HOSP.TC ---
Today's Communication/Plan
-
Per oncology communication today via [employer] [employer], Dr. Cha confirmed that patient has a poor prognosis
Patient wants to be on hospice after discharge'
Continue Heparin Drip
Assessment / Plan
Assessment / Plan
Physical Exam
General: Comfortable
Respiratory: CTAB. ON ROOM AIR.
Cardiac: Regular Rhythm and S1/S2
GI: Soft, Nontender, Nondistended and Normal Bowel Sounds
Neuro: AAO x 3
Psych: Calm
Assessment/Plan
# Right Nephrostomy tube dislodged - IR placed without immediate complication.
# BL PCN for BL ureteral stenosis (PCNs placed due to ureteral obstruction -- stents failed)
# Mild purulence of the left PCN tract without surrounding cellulitis - PCN tube exchanged. Currently without any discharge from the tract area. Will complete 5 days course of antibiotics due to initial concern of slight
purulence.
# UTI
# History of Bladder cancer - Last cysto no obvious tumor noted
-Urine culture grew MSSA and Enterococcus
-Continue antibiotics -- appreciate ID -- was on Keflex and Ampicillin, now on Augmentin 875mg P.O. BID through 09/02/24
-Appreciate Infectious Disease evaluation and recommendations
#Left peroneal vein DVT
-Started Heparin Drip with boluses
-Plan for Eliquis on discharge, and when no procedures are planned
#Hoarse Voice
-Unclear etiology
-Will consider ENT consultation
#New Moderate Loculated Right Pleural Effusion
#Wheezing
-Duonebs PRN
-Consulted pulmonary, appreciate evaluation and recommendations
-Thoracentesis is positive for metastatic urothelial carcinoma
-Per pulmonary, can consider PleurX catheter if needed
#Fatigue, Weight Loss, More Drowsy
-I spoke on 08/11/24 to patient's over the phone who stated patient has not been doing well over the past 1 to 2 weeks, with symptoms of fatigue, 10-lb weight loss, and more drowsy
-TSH within normal limits and Vitamin B12 elevated
-Chest X-Ray with right pleural effusion
-Possibly from hyponatremia, hypercalcemia, elevated Cr -- consulted nephrology, appreciate their evaluation and recommendations
-Recurrence of bladder cancer? Other new malignancy? - patient has had 2 cystoscopies in 05/2024 and 06/2024 w/ Dr Tam - both w/o disease recurrences in bladder finished BCG immunotherapy
-Consulted oncology and urology for evaluation
-Urology: maintain bilateral PCNs to drainage and follow-up with Dr. Tam outpatient as scheduled
-Follow-up paraprotein work-up
-In the setting of chronic constipation, may need gastroenterology evaluation inpatient versus outpatient
-CT chest with possible extensive hepatic mets, osseous mets with probable pathologic fracture L 2nd rib & L1
-CT chest also showed moderate right pleural effusion
-IR consult for liver biopsy -- performed on 08/25/24 -- results showed metastatic urothelial carcinoma
#Metastatic urothelial carcinoma
-I confirmed with oncologist on-call, Dr. Cha, that patient has a poor prognosis based on this diagnosis
-Patient requested to be discharged on hospice
#Constipation
-Bowel regimen
#Hyponatremia
#Persistent Hypercalcemia likely secondary to cancer metastases - IMPROVING
-Appreciate nephrology evaluation and recommendations
-Related to a malignancy? Given constitutional symptoms above will consider
-IV Pamidronate on 08/22/24 without significant improvement in calcium, another 30 mg of Pamidronate today
-Hold all calcium and vitamin D medications
-PTH appropriately suppressed
-Follow-up Vitamin D level
-Urine protein to Cr ratio
-Paraprotein work-up
-No additional IV fluids given pleural effusion -- instead Lasix ordered
#Sinus pauses measuring approximately 3 seconds each on 08/27/24
-Asymptomatic
-EKG with sinus bradycardia
-Cardiology consulted, appreciate their evaluation and recommendations: stop Atenolol and observe how heart rate does
#Chronic Diastolic Heart Failure only
- Compensated
- Not on diuretics at home
#Benign Hypertension
- Continue amlodipine, atenolol, hydralazine, and valsartan
#Hyperlipidemia
- Continue Rosuvastatin
#GERD
#Large Hiatal Hernia
- Continue Pantoprazole
#History of CVA treated with tPA at [facility] 08/2022 and then TIA 09/2023
#History of bladder cancer with TURBT
Code Status: DNR
DVT Prophylaxis: Heparin Drip. No SCDs
On August 22, 2024, I spoke with patient's Arjun over the phone. All questions and concerns were answered to satisfaction.
Anticipated Discharge: 24 - 48 hours
Subjective/Interval History
-
Date of Service: August 28, 2024
Patient was seen and examined. She reported no new symptoms or complaints.
Objective Data
-
Labs:
Laboratory Results
08/28/24 08/28/24 08/28/24
05:01 12:23 18:23
WBC 10.9 H
Hgb 9.8 L
Hct 31.3 L
Plt Count 136
APTT 116.3 H 80.5 H Pending
Sodium 136
Potassium 4.0
Chloride 99
Carbon Dioxide 28
BUN 32 H
Creatinine 1.2 H
Glucose 88
Calcium 9.5
Vital Signs:
Vital Signs
Temp Pulse Resp BP Pulse Ox
97.4 F 72 16 137/64 95
08/28/24 11:30 08/28/24 11:30 08/28/24 11:30 08/28/24 11:30 08/28/24 11:30
I&O
08/27/24 08/28/24 08/29/24
06:59 06:59 06:59
Intake Total 319 / 319 780 / 780
Output Total 450 / 450 800 / 800
Balance -131 / -131 -20 / -20
[2024-08-28] MEDS: HEPARIN 3100 UNITS IV (20:08)
[2024-08-28] MEDS: NORVASC 10 MG PO (21:22)
[2024-08-28] MEDS: SENOKOT PO (21:37)
[2024-08-29 02:37] LABS: APTT 129.8 Sec (23.4-35.0)
[2024-08-29 03:22] VITALS: BP 134/59
[2024-08-29 04:50] VITALS: BMI 24.1
[2024-08-29 07:05] VITALS: BP 147/71
--- NOTE | 2024-08-29 07:23 | W.PN.HOSP.TC ---
Today's Communication/Plan
-
Placement to outpatient facility with hospice pending
Transition to Eliquis tonight
Assessment / Plan
Assessment / Plan
Physical Exam
General: Comfortable
Respiratory: CTAB. ON 2 L/MIN NASAL CANNULA.
Cardiac: Regular Rhythm and S1/S2
GI: Soft, Nontender, Nondistended and Normal Bowel Sounds
Neuro: AAO x 3
Psych: Calm
Assessment/Plan
# Right Nephrostomy tube dislodged - IR placed without immediate complication.
# BL PCN for BL ureteral stenosis (PCNs placed due to ureteral obstruction -- stents failed)
# Mild purulence of the left PCN tract without surrounding cellulitis - PCN tube exchanged. Currently without any discharge from the tract area. Will complete 5 days course of antibiotics due to initial concern of slight
purulence.
# UTI
# History of Bladder cancer - Last cysto no obvious tumor noted
-Urine culture grew MSSA and Enterococcus
-Continue antibiotics -- appreciate ID -- was on Keflex and Ampicillin, now on Augmentin 875mg P.O. BID through 09/02/24
-Appreciate Infectious Disease evaluation and recommendations
#Left peroneal vein DVT
-Transition Heparin Drip to Eliquis, starting tonight
#Hoarse Voice
-Unclear etiology
-Will consider ENT consultation
#New Moderate Loculated Right Pleural Effusion
#Wheezing
-Duonebs PRN
-Consulted pulmonary, appreciate evaluation and recommendations
-Thoracentesis is positive for metastatic urothelial carcinoma
-Per pulmonary, can consider PleurX catheter if needed
#Fatigue, Weight Loss, More Drowsy
-I spoke on 08/11/24 to patient's over the phone who stated patient has not been doing well over the past 1 to 2 weeks, with symptoms of fatigue, 10-lb weight loss, and more drowsy
-TSH within normal limits and Vitamin B12 elevated
-Chest X-Ray with right pleural effusion
-Possibly from hyponatremia, hypercalcemia, elevated Cr -- consulted nephrology, appreciate their evaluation and recommendations
-Recurrence of bladder cancer? Other new malignancy? - patient has had 2 cystoscopies in 05/2024 and 06/2024 w/ Dr Tam - both w/o disease recurrences in bladder finished BCG immunotherapy
-Consulted oncology and urology for evaluation
-Urology: maintain bilateral PCNs to drainage and follow-up with Dr. Tam outpatient as scheduled
-Follow-up paraprotein work-up
-In the setting of chronic constipation, may need gastroenterology evaluation inpatient versus outpatient
-CT chest with possible extensive hepatic mets, osseous mets with probable pathologic fracture L 2nd rib & L1
-CT chest also showed moderate right pleural effusion
-IR consult for liver biopsy -- performed on 08/25/24 -- results showed metastatic urothelial carcinoma
#Metastatic urothelial carcinoma
-I confirmed with oncologist on-call, Dr. Cha, that patient has a poor prognosis based on this diagnosis
-Patient requested to be discharged on hospice
#Constipation
-Bowel regimen
#Hyponatremia
#Persistent Hypercalcemia likely secondary to cancer metastases - IMPROVING
-Appreciate nephrology evaluation and recommendations
-Related to a malignancy? Given constitutional symptoms above will consider
-IV Pamidronate on 08/22/24 without significant improvement in calcium, another 30 mg of Pamidronate today
-Hold all calcium and vitamin D medications
-PTH appropriately suppressed
-Follow-up Vitamin D level
-Urine protein to Cr ratio
-Paraprotein work-up
-No additional IV fluids given pleural effusion -- instead Lasix ordered
#Sinus pauses measuring approximately 3 seconds each on 08/27/24
-Asymptomatic
-EKG with sinus bradycardia
-Cardiology consulted, appreciate their evaluation and recommendations: stop Atenolol and observe how heart rate does
#Chronic Diastolic Heart Failure only
- Compensated
- Not on diuretics at home
#Benign Hypertension
- Continue amlodipine, hydralazine, and valsartan
- Atenolol stopped due to pauses on tele
#Hyperlipidemia
- Continue Rosuvastatin
#GERD
#Large Hiatal Hernia
- Continue Pantoprazole
#History of CVA treated with tPA at [facility] 08/2022 and then TIA 09/2023
#History of bladder cancer with TURBT
Code Status: DNR
DVT Prophylaxis: Heparin Drip (will be switched to Eliquis). No SCDs
On August 22, 2024, I spoke with patient's Arjun over the phone. All questions and concerns were answered to satisfaction.
Anticipated Discharge: > 48 hours
Subjective/Interval History
-
Date of Service: August 29, 2024
Patient was seen and examined. She reported no new symptoms or complaints.
Objective Data
-
Labs:
Laboratory Results
08/28/24 08/29/24 08/29/24
18:52 02:19 07:22
WBC Pending
Hgb Pending
Hct Pending
Plt Count Pending
APTT 65.0 H 129.8 H
Sodium Pending
Potassium Pending
Chloride Pending
Carbon Dioxide Pending
BUN Pending
Creatinine Pending
Glucose Pending
Calcium Pending
08/29/24
09:00
WBC
Hgb
Hct
Plt Count
APTT Pending
Sodium
Potassium
Chloride
Carbon Dioxide
BUN
Creatinine
Glucose
Calcium
Vital Signs:
Vital Signs
Temp Pulse Resp BP Pulse Ox
97.7 F 87 18 134/59 97
08/29/24 03:22 08/29/24 03:22 08/29/24 03:22 08/29/24 03:22 08/29/24 03:22
I&O
08/28/24 08/29/2408/30/24
06:59 06:59 06:59
Intake Total 780 / 780 600 / 600
Output Total 800 / 800 745 / 745
Balance -20 / -20 -145 / -145
[2024-08-29] MEDS: AUGMENTIN 875 MG/125 MG 1 TABLET PO ×2 (08:30→20:12)
[2024-08-29] MEDS: SODIUM BICARBONATE 325 MG PO ×3 (08:30→21:25)
[2024-08-29] MEDS: PROTONIX 40 MG PO ×2 (08:31→20:12)
[2024-08-29] MEDS: CRESTOR 20 MG PO (08:31)
[2024-08-29] MEDS: APRESOLINE 25 MG PO ×2 (08:31→20:12)
[2024-08-29] MEDS: COLACE PO (08:32)
[2024-08-29 09:10] LABS: APTT 95.5 Sec (23.4-35.0)
[2024-08-29 09:11] LABS: Blood Urea Nitrogen 26 mg/dl (7-17); Calcium 9.1 mg/dl (8.4-10.2); Carbon Dioxide 29 mmol/L (22-30); Chloride 100 mmol/L (98-107); Estimated Creatinine Clearance 39 ml/min; Glucose 84 mg/dl (70-99); Magnesium 1.9 mg/dl (1.6-2.3); Sodium 137 mmol/L (135-145); eGFR 41.57
[2024-08-29 09:22] LABS: Hematocrit 28.7 % (37.0-47.0); Hemoglobin 9.3 g/dL (12.0-16.0); Mean Corp Hgb Conc. 32.4 g/dL (33.0-37.0); Mean Corpuscular Hgb 29.2 pg (27.0-31.0); Mean Corpuscular Volume 90.3 fL (81.0-99.0); Red Blood Cell Count 3.18 10^6/uL (4.20-5.40); White Blood Cell Count 13.1 10^3/uL (4.8-10.8)
[2024-08-29 11:30] VITALS: BP 132/60
[2024-08-29 13:01] LABS: Mean Platelet Volume 10.1 fL (7.4-10.4); Platelet Count 114 10^3/uL (130-400)
[2024-08-29 15:25] VITALS: BP 144/70
[2024-08-29 17:33] LABS: APTT 74.5 Sec (23.4-35.0)
[2024-08-29 19:46] VITALS: BP 142/66
[2024-08-29] MEDS: TYLENOL 650 MG PO (20:10)
[2024-08-29] MEDS: ELIQUIS 10 MG PO (20:12)
[2024-08-29] MEDS: DUONEB 3 ML INH (20:30)
[2024-08-29] MEDS: NORVASC 10 MG PO (21:25)
[2024-08-29] MEDS: SENOKOT PO (21:29)
[2024-08-29 23:06] VITALS: BP 156/65
[2024-08-30 02:56] VITALS: BP 142/60
[2024-08-30 05:41] VITALS: BMI 24.6
[2024-08-30 06:46] LABS: Hematocrit 30.1 % (37.0-47.0); Hemoglobin 9.3 g/dL (12.0-16.0); Mean Corp Hgb Conc. 30.9 g/dL (33.0-37.0); Mean Corpuscular Hgb 28.9 pg (27.0-31.0); Mean Corpuscular Volume 93.5 fL (81.0-99.0); Platelet Count 100 10^3/uL (130-400); Red Blood Cell Count 3.22 10^6/uL (4.20-5.40); Red Cell Dist. Width 15.3 % (11.5-14.5); White Blood Cell Count 12.3 10^3/uL (4.8-10.8)
[2024-08-30 06:48] LABS: APTT 68.5 Sec (23.4-35.0)
[2024-08-30 07:29] VITALS: BP 160/74
[2024-08-30] MEDS: ELIQUIS 10 MG PO ×2 (09:10→20:03)
[2024-08-30] MEDS: CRESTOR 20 MG PO (09:10)
[2024-08-30] MEDS: COLACE PO ×2 (09:10)
[2024-08-30] MEDS: PROTONIX 40 MG PO ×2 (09:10→20:03)
[2024-08-30] MEDS: SODIUM BICARBONATE 325 MG PO ×3 (09:11→22:08)
[2024-08-30] MEDS: APRESOLINE 25 MG PO ×2 (09:11→20:03)
[2024-08-30] MEDS: AUGMENTIN 875 MG/125 MG 1 TABLET PO ×2 (09:11→20:03)
[2024-08-30 11:15] VITALS: BP 136/67
[2024-08-30 15:08] VITALS: BP 137/69
--- NOTE | 2024-08-30 17:48 | W.PN.HOSP.TC ---
Today's Communication/Plan
-
Pending discharge to skilled placement with hospice
Stable
Assessment / Plan
Assessment / Plan
Physical Exam
General: Comfortable
Respiratory: CTAB. ON 2 L/MIN NASAL CANNULA.
Cardiac: Regular Rhythm and S1/S2
GI: Soft, Nontender, Nondistended and Normal Bowel Sounds
Neuro: AAO x 3
Psych: Calm
Assessment/Plan
# Right Nephrostomy tube dislodged - IR placed without immediate complication.
# BL PCN for BL ureteral stenosis (PCNs placed due to ureteral obstruction -- stents failed)
# Mild purulence of the left PCN tract without surrounding cellulitis - PCN tube exchanged. Currently without any discharge from the tract area. Will complete 5 days course of antibiotics due to initial concern of slight
purulence.
# UTI
# History of Bladder cancer - Last cysto no obvious tumor noted
-Urine culture grew MSSA and Enterococcus
-Continue antibiotics -- appreciate ID -- was on Keflex and Ampicillin, now on Augmentin 875mg P.O. BID through 09/02/24
-Appreciate Infectious Disease evaluation and recommendations
#Left peroneal vein DVT
-Status post Heparin Drip
-Now on Eliquis; continue
#Hoarse Voice
-Unclear etiology
-Can consider ENT consultation if needed
#New Moderate Loculated Right Pleural Effusion
#Wheezing
-Duonebs PRN
-Consulted pulmonary, appreciate evaluation and recommendations
-Thoracentesis is positive for metastatic urothelial carcinoma
-Per pulmonary, can consider PleurX catheter if needed
#Fatigue, Weight Loss, More Drowsy
-I spoke on 08/11/24 to patient's over the phone who stated patient has not been doing well over the past 1 to 2 weeks, with symptoms of fatigue, 10-lb weight loss, and more drowsy
-TSH within normal limits and Vitamin B12 elevated
-Chest X-Ray with right pleural effusion
-Possibly from hyponatremia, hypercalcemia, elevated Cr -- consulted nephrology, appreciate their evaluation and recommendations
-Recurrence of bladder cancer? Other new malignancy? - patient has had 2 cystoscopies in 05/2024 and 06/2024 w/ Dr Tam - both w/o disease recurrences in bladder finished BCG immunotherapy
-Consulted oncology and urology for evaluation
-Urology: maintain bilateral PCNs to drainage and follow-up with Dr. Tam outpatient as scheduled
-Follow-up paraprotein work-up
-In the setting of chronic constipation, may need gastroenterology evaluation inpatient versus outpatient
-CT chest with possible extensive hepatic mets, osseous mets with probable pathologic fracture L 2nd rib & L1
-CT chest also showed moderate right pleural effusion
-IR consult for liver biopsy -- performed on 08/25/24 -- results showed metastatic urothelial carcinoma
#Metastatic urothelial carcinoma
-I confirmed with oncologist on-call, Dr. Cha, that patient has a poor prognosis based on this diagnosis
-Patient requested to be discharged on hospice
#Constipation
-Bowel regimen
#Hyponatremia
#Persistent Hypercalcemia likely secondary to cancer metastases - IMPROVING
-Appreciate nephrology evaluation and recommendations
-Related to a malignancy? Given constitutional symptoms above will consider
-IV Pamidronate on 08/22/24 without significant improvement in calcium, another 30 mg of Pamidronate today
-Hold all calcium and vitamin D medications
-PTH appropriately suppressed
-Follow-up Vitamin D level
-Urine protein to Cr ratio
-Paraprotein work-up
-No additional IV fluids given pleural effusion -- instead Lasix ordered
#Sinus pauses measuring approximately 3 seconds each on 08/27/24
-Asymptomatic
-EKG with sinus bradycardia
-Cardiology consulted, appreciate their evaluation and recommendations: stop Atenolol and observe how heart rate does
#Chronic Diastolic Heart Failure only
- Compensated
- Not on diuretics at home
#Benign Hypertension
- Continue amlodipine, hydralazine, and valsartan
- Atenolol stopped due to pauses on tele
#Hyperlipidemia
- Continue Rosuvastatin
#GERD
#Large Hiatal Hernia
- Continue Pantoprazole
#History of CVA treated with tPA at [facility] 08/2022 and then TIA 09/2023
#History of bladder cancer with TURBT
Code Status: DNR
DVT Prophylaxis: Eliquis. No SCDs
On August 22, 2024, I spoke with patient's Arjun over the phone. All questions and concerns were answered to satisfaction.
Anticipated Discharge: 24 - 48 hours
Subjective/Interval History
-
Date of Service: August 30, 2024
Patient was seen and examined. She reported no new symptoms or complaints.
Objective Data
-
Labs:
Laboratory Results
08/30/24
06:14
WBC 12.3 H
Hgb 9.3 L
Hct 30.1 L
Plt Count 100 L
APTT 68.5 H
Vital Signs:
Vital Signs
Temp Pulse Resp BP Pulse Ox
97.2 F 87 14 137/69 96
08/30/24 15:08 08/30/24 15:08 08/30/24 15:08 08/30/24 15:08 08/30/24 15:08
I&O
08/29/24 08/30/24 08/31/24
06:59 06:59 06:59
Intake Total 600 / 600 1140 / 1140 240 / 240
Output Total 745 / 745 805 / 805 445 / 445
Balance -145 / -145 335 / 335 -205 / -205
[2024-08-30 19:23] VITALS: BP 152/71
[2024-08-30] MEDS: NORVASC 10 MG PO (22:08)
[2024-08-30] MEDS: SENOKOT PO (22:24)
[2024-08-30 23:10] VITALS: BP 155/85
[2024-08-31 03:23] VITALS: BP 150/71
[2024-08-31 05:36] VITALS: BMI 24.1
[2024-08-31 06:42] LABS: Hemoglobin 9.6 g/dL (12.0-16.0); Mean Corpuscular Volume 93.7 fL (81.0-99.0); Mean Platelet Volume 10.7 fL (7.4-10.4); Platelet Count 106 10^3/uL (130-400); Red Blood Cell Count 3.31 10^6/uL (4.20-5.40); Red Cell Dist. Width 15.5 % (11.5-14.5); White Blood Cell Count 12.4 10^3/uL (4.8-10.8)
[2024-08-31 06:58] LABS: Blood Urea Nitrogen 23 mg/dl (7-17); Calcium 8.6 mg/dl (8.4-10.2); Carbon Dioxide 28 mmol/L (22-30); Chloride 101 mmol/L (98-107); Estimated Creatinine Clearance 46 ml/min; Glucose 90 mg/dl (70-99); Potassium 4.2 mmol/L (3.5-5.1); Sodium 134 mmol/L (135-145)
--- NOTE | 2024-08-31 07:14 | PTCARENOTE ---
At beginning of shift nephrostomy output rory urine. towards end of shift nephrostomy noted with blood tinged urine. MANAGER ETL made aware. Pt also had asymptomatic episode of VTach. MANAGER ETL made aware.
[2024-08-31 08:00] VITALS: BP 160/78
[2024-08-31] MEDS: AUGMENTIN 875 MG/125 MG 1 TABLET PO ×2 (08:54→20:34)
[2024-08-31] MEDS: CRESTOR 20 MG PO (08:54)
[2024-08-31] MEDS: TYLENOL 650 MG PO ×2 (08:54→20:53)
[2024-08-31] MEDS: APRESOLINE 25 MG PO ×2 (08:54→20:34)
[2024-08-31] MEDS: PROTONIX 40 MG PO ×2 (08:55→20:33)
[2024-08-31] MEDS: SODIUM BICARBONATE 325 MG PO ×3 (08:55→22:50)
[2024-08-31] MEDS: COLACE 300 MG PO (08:55)
[2024-08-31] MEDS: ELIQUIS 10 MG PO ×2 (08:55→20:33)
--- NOTE | 2024-08-31 09:15 | W.PN.HOSP.TC ---
Addendum entered and electronically signed by Tacho Holman MD 08/31/24 16:42:
Seen and examined by me independently in collaboration with the medical physics professor.
Lab data and imaging data reviewed.
Addendum as below :
Patient feels generally weak. She also has some lower back pain which is controlled with the medication. She has metastatic urothelial cancer and not a candidate for's treatments. wants her to go to rehab first and get stronger and see.
He wants to hold on hospice.
Ongoing dispo to SNF.
Medically ok for tx to SNF.
Original Note:
Today's Communication/Plan
-
Discharge planning to halfway. CM aware.
Assessment / Plan
Assessment / Plan
Patient is a 78-year-old female with past medical history significant for heart failure, hypertension, and bladder cancer who presented to [facility] after nephrostomy tube was displaced. Metastatic cancer visualized during stay and plan
for sicharge to SNF with or without hospice
#Right nephrostomy tube displacement
Positive UTI
History of bladder cancer
Urine culture grew MSSA and Enterococcus, continue Augmentin twice daily through 09/02
Infectious disease following
#Left peroneal vein DVT
Continue Eliquis
#Hoarse voice
Can consider ENT evaluation
#Right pleural effusion
Intermittent wheezing
Continue DuoNebs
Thoracentesis positive for metastatic urothelial carcinoma
Pulmonology recommended consideration of Pleurx catheter if needed
#Fatigue
10 pound weight loss over the last 2 weeks, increased in drowsiness
TSH normal with B12 elevated
CT chest showed extensive hepatic, osseous mets with pathological left second rib fracture
IR noted that liver biopsy showed metastatic urothelial carcinoma
#Metastatic urothelial carcinoma
Poor prognosis per Dr. Cha (oncology)
Patient request to be discharged on hospice
#Constipation
Continue bowel regimen
#Electrolyte abnormalities
Secondary to cancer metastasis
Hyponatremia low normal
Hypercalcemia resolved
#Sinus pauses
Per cardiology, stop atenolol and observe heart rate
#Chronic diastolic heart failure
Compensated, not on
#Benign hypertension
Continue amlodipine, hydralazine and valsartan
Hold atenolol
#Hyperlipidemia
Continue statin
#GERD
Continue PPI
#History of CVA treated with tPA 08/2022 and then TIA 09/2023
#History of bladder cancer with TURBT
Code Status: DNR
DVT Prophylaxis: Eliquis. No SCDs
Anticipated Discharge: 24 - 48 hours
Subjective/Interval History
-
Date of Service: August 31, 2024
Patient is a 78-year-old female with past medical history significant for heart failure, hypertension, and bladder cancer who presented to [facility] after nephrostomy tube was displaced. Metastatic cancer visualized during stay and plan
for hospice discharge made. Patient reports that she did not sleep well overnight, always has difficulty falling asleep. She reports no pain. She would like this to request case management speak to her regarding discharge planning.
Objective Data
-
Labs:
Laboratory Results
08/31/24
06:03
WBC 12.4 H
Hgb 9.6 L
Hct 31.0 L
Plt Count 106 L
Sodium 134 L
Potassium 4.2
Chloride 101
Carbon Dioxide 28
BUN 23 H
Creatinine 1.1 H
Glucose 90
Calcium 8.6
Vital Signs:
Vital Signs
Temp Pulse Resp BP Pulse Ox
97.6 F 94 18 160/78 95
08/31/24 08:00 08/31/24 08:00 08/31/24 08:00 08/31/24 08:54 08/31/24 08:00
I&O
08/30/24 08/31/24 09/01/24
06:59 06:59 06:59
Intake Total 1140 / 1140 1500 / 1500
Output Total 805 / 805 1145 / 1145
Balance 335 / 335 355 / 355
Review of Systems
-
History Source: Patient
Constitutional: Reports Sleep Disturbance
EENT: Reports No Symptoms Reported
Respiratory: Reports No Symptoms
Cardiac: Reports No Symptoms
Abdomen/GI: Reports No Symptoms
Genitourinary: Reports Other (Nephrostomy)
Musculoskeletal: Reports No Symptoms
Physical Exam
-
General: No Apparent Distress, Comfortable and Conversant
HEENT: Normocephalic and Atraumatic
Respiratory: Clear to Auscultation and Other (Oxygen 2 L)
Cardiac: Regular Rhythm and S1/S2
GI: Soft, Nontender, Nondistended and Normal Bowel Sounds
Musculoskeletal: No Clubbing, No Cyanosis and No Edema
Skin: Warm and Dry
Neuro: AO x 3
Psych: Calm
Data Reviewed
-
Labs: Labs Reviewed by me and Discussed with Physician
Old Records: Reviewed
[2024-08-31 12:01] VITALS: BP 123/69
--- NOTE | 2024-08-31 15:47 | CM ---
Reviewed the chart notes and spoke with the patient and her spouse at the bedside. CM spoke with Ginny from the [facility]. Per Ginny, should have a bed for the patient on Saturday. Private pay. Patient and spouse looking for information on
hospice. Referral placed for Hospice. CM continues to be available to patient/family and is monitoring medical plan for needs at discharge.
Plan: Discharge to [facility] when bed is available. Hoping for Saturday.
[2024-08-31 16:00] VITALS: BP 148/79
--- NOTE | 2024-08-31 16:49 | HOSPNOTE ---
Hospice referral received. I called and spoke to patients spouse. i explained hospice and the philosophy. At this time spouse would like [facility]. He is not ready for hospice services at this
time. He will reach out when they are ready. CM and Attending updated. Hospice will sign off.
[2024-08-31 19:14] VITALS: BP 142/75
[2024-08-31 22:43] VITALS: BP 148/79
[2024-08-31] MEDS: SENOKOT 17.2 MG PO (22:50)
[2024-08-31] MEDS: NORVASC 10 MG PO (22:50)
[2024-09-01 03:08] VITALS: BMI 23.9
[2024-09-01 03:11] VITALS: BP 139/81
[2024-09-01 05:20] VITALS: BMI 23.9
[2024-09-01 06:00] VITALS: BMI 23.9
[2024-09-01 07:42] LABS: Hemoglobin 9.6 g/dL (12.0-16.0); Mean Corpuscular Hgb 29.1 pg (27.0-31.0); Mean Corpuscular Volume 93.9 fL (81.0-99.0); Platelet Count 119 10^3/uL (130-400); Red Cell Dist. Width 15.6 % (11.5-14.5); White Blood Cell Count 12.8 10^3/uL (4.8-10.8)
[2024-09-01 08:28] VITALS: BP 150/80
--- NOTE | 2024-09-01 08:56 | W.PN.HOSP.TC ---
Addendum entered and electronically signed by Tacho Holman MD 09/01/24 13:26:
Seen and examined by me independently in collaboration with the medical records field technician.
Lab data and imaging data reviewed.
Addendum as below :
Patient's has changed to goals of care. Now wants her at [facility] with hospice. Ongoing disposition efforts.
Patient denies any pain but feels short of breath with minimal exertion. Slightly tachypneic. Tachycardia noted. No respiratory distress on nasal cannula. Chest without wheeze but decreased breath sounds in the bases. I suspect she has got
increased work of breathing possibly from her significant metastatic cancer burden. Advised her medication for symptom control. Start on oxycodone and IV morphine as needed for shortness of breath and comfort.
Original Note:
Today's Communication/Plan
-
Plan for discharge tomorrow to hospice at SNF
Assessment / Plan
Assessment / Plan
Patient is a 78-year-old female with past medical history significant for heart failure, hypertension, and bladder cancer who presented to [facility] after nephrostomy tube was displaced. Metastatic cancer visualized during stay and plan
for discharge to SNF on Saturday.
#Right nephrostomy tube displacement
Positive UTI
History of bladder cancer
Urine culture grew MSSA and Enterococcus, continue Augmentin twice daily through 09/02
Infectious disease following
#Left peroneal vein DVT
Continue Eliquis
#Hoarse voice
Can consider ENT evaluation
#Right pleural effusion
Intermittent wheezing
Continue DuoNebs
Thoracentesis positive for metastatic urothelial carcinoma
Pulmonology recommended consideration of Pleurx catheter if needed
#Fatigue
10 pound weight loss over the last 2 weeks, increased in drowsiness
TSH normal with B12 elevated
CT chest showed extensive hepatic, osseous mets with pathological left second rib fracture
IR noted that liver biopsy showed metastatic urothelial carcinoma
Oxycodone 5 mg IV morphine 2 mg as needed started for moderate and severe pain
#Metastatic urothelial carcinoma
Poor prognosis per Dr. Cha (oncology)
Patient requested to hear more about hospice. CM requested hospice nurse to come speak with family.
#Constipation
Continue bowel regimen
#Electrolyte abnormalities
Secondary to cancer metastasis
Hyponatremia low normal
Hypercalcemia resolved
#Sinus pauses
Per cardiology, stop atenolol and observe heart rate
#Chronic diastolic heart failure
Compensated, not on
#Benign hypertension
Continue amlodipine, hydralazine and valsartan
Hold atenolol
#Hyperlipidemia
Continue statin
#GERD
Continue PPI
#History of CVA treated with tPA 08/2022 and then TIA 09/2023
#History of bladder cancer with TURBT
Code Status: DNR
DVT Prophylaxis: Eliquis. No SCDs
Anticipated Discharge: 24 - 48 hours
Subjective/Interval History
-
Date of Service: September 01, 2024
No acute events overnight. Patient reports feeling sleepy today. She said she will be DC tomorrow to [facility] and would like to know more about hospice, per CM notes. Hospice spoke to family, and raul made to proceed with hospice services at [facility] tomorrow.
Objective Data
-
Labs:
Laboratory Results
09/01/24
06:19
WBC 12.8 H
Hgb 9.6 L
Hct 31.0 L
Plt Count 119 L
Vital Signs:
Vital Signs
Temp Pulse Resp BP Pulse Ox
97.6 F 97 18 150/80 97
09/01/24 08:28 09/01/24 03:11 09/01/24 08:28 09/01/24 08:28 09/01/24 08:28
I&O
08/31/24 09/01/24 09/02/24
06:59 06:59 06:59
Intake Total 1500 / 1500 600 / 600
Output Total 1145 / 1145 1050 / 1050
Balance 355 / 355 -450 / -450
Review of Systems
-
History Source: Patient
Constitutional: Reports Fatigue
Respiratory: Reports No Symptoms
Cardiac: Reports No Symptoms
Abdomen/GI: Reports No Symptoms
Musculoskeletal: Reports Muscle Pain
Physical Exam
-
General: No Apparent Distress, Comfortable and Conversant
HEENT: Normocephalic and Atraumatic
Respiratory: Clear to Auscultation and Accessory Resp Muscle Use
GI: Soft, Nontender and Nondistended
Skin: Warm and Dry
Neuro: AO x 3
Psych: Calm
Data Reviewed
-
Labs: Labs Reviewed by me and Discussed with Physician
Old Records: Reviewed
--- NOTE | 2024-09-01 09:07 | HOSPNOTE ---
Spouse called into the office this morning and reported that he made the wrong decision. He would indeed like to proceed with hospice services at [facility] nursing tomorrow. Reviewed we would be happy to come aboard. ALF and
Attending updated.
[2024-09-01] MEDS: PROTONIX 40 MG PO ×2 (09:35→20:24)
[2024-09-01] MEDS: COLACE 300 MG PO (09:35)
[2024-09-01] MEDS: CRESTOR 20 MG PO (09:36)
[2024-09-01] MEDS: SODIUM BICARBONATE 325 MG PO ×3 (09:36→22:25)
[2024-09-01] MEDS: ELIQUIS 10 MG PO ×2 (09:37→20:25)
[2024-09-01] MEDS: AUGMENTIN 875 MG/125 MG 1 TABLET PO ×2 (09:38→20:24)
[2024-09-01] MEDS: APRESOLINE 25 MG PO ×2 (09:39→20:25)
--- NOTE | 2024-09-01 11:35 | W.PN.ONC2 ---
Today's Communication / Plan
-
Discharge planning underway for SNF with restorative goals, if can improve PS then may be a candidate for systemic palliative therapy.
Impression
Impression
metastatic urothelial carcinoma with extensive hepatic,osseous mets, and pleural fluid cytology positive for mets
Stable chronic anemia, no B12 or folate deficiency. Iron studies c/w AOCD
hypercalcemia or malignancy, nml PTH, elev rPTH, and nml vit D. SPEP no Mspike. s/p Aredia 60mg 08/22 and calcium supplement stopped 08/21
renal function improved since May 2024
large Hiatal hernia
Urine S aureus, Enterococcus faecalis
occlusive thrombus within the left peroneal vein -on DOAC
Plan
Plan
Continue GOC palliative vs comfort focused care
on apixaban for VTE -monitor for bleeding
Subjective/Objective
Subjective
no new complaints
lethargic, comfortable
Vital Signs:
Vital Signs
Temp Pulse Resp BP Pulse Ox
97.6 F 97 18 150/80 97
09/01/24 08:28 09/01/24 03:11 09/01/24 08:28 09/01/24 08:28 09/01/24 08:28
Lab Results:
Laboratory Data
WBC 12.8 10^3/uL (4.8-10.8) H 09/01/24 06:19
Hgb 9.6 g/dL (12.0-16.0) L 09/01/24 06:19
Plt Count 119 10^3/uL (130-400) L 09/01/24 06:19
PT 14.5 Sec (11.4-14.6) 08/18/24 07:37
INR 1.10 08/18/24 07:37
APTT 68.5 Sec (23.4-35.0) H 08/30/24 06:14
eGFR 50.80 08/31/24 06:03
Physical Exam
HEENT: No Jaundice
Pulmonary: Other (diminshed)
GI: Soft
--- NOTE | 2024-09-01 14:20 | CM ---
Addendum entered by Giovanna Townsend RN 09/01/24 16:24:
IMM signed and placed on chart.
Original Note:
Reviewed the chart notes and spoke with Ginny Admissions Liaison with [facility]. Patient's room (RG-223) will not be ready until morning. No precert required. CM continues to be available to patient/family and is monitoring medical
plan for needs at discharge.
Plan: Discharge to [facility] on Hospice on . Room RG-223.
[2024-09-01 15:36] VITALS: BP 142/77
[2024-09-01] MEDS: SENOKOT 17.2 MG PO (22:15)
[2024-09-01] MEDS: NORVASC 10 MG PO (22:18)
[2024-09-01] MEDS: MORPHINE SULFATE 2 MG IV (22:25)
[2024-09-01 23:15] VITALS: BP 153/78
[2024-09-02 05:28] VITALS: BMI 24.0
[2024-09-02] MEDS: TYLENOL 650 MG PO ×2 (05:30→17:24)
--- NOTE | 2024-09-02 07:05 | W.PN.ONC2 ---
Today's Communication / Plan
-
As per attending:
Patient's has changed to goals of care. now wants her at [facility] with hospice. On oxycodone and IV morphine as needed for shortness of breath and comfort.
Impression
Impression
metastatic urothelial carcinoma with extensive hepatic,osseous mets, and pleural fluid cytology positive for mets
Stable chronic anemia, no B12 or folate deficiency. Iron studies c/w AOCD
hypercalcemia or malignancy, nml PTH, elev rPTH, and nml vit D. SPEP no Mspike. s/p Aredia 60mg 08/22 and calcium supplement stopped 08/21
renal function improved since May 2024
large Hiatal hernia
Urine S aureus, Enterococcus faecalis
occlusive thrombus within the left peroneal vein -on DOAC
Plan
Plan
For hospice per notes from attending yesterday pm
Currently on apixaban for VTE. Decision to continue TBD depending on hospice plan of care as often only comfort meds continue with hospice patients.
Subjective/Objective
Chief Complaint
ACS Heme Onc
Subjective
Resting (sleeping) comfortably. Did not awaken.
Vital Signs:
Vital Signs
Temp Pulse Resp BP Pulse Ox
97.6 F 107 24 153/78 96
09/01/24 23:15 09/01/24 23:15 09/01/24 23:15 09/01/24 23:15 09/01/24 23:15
Lab Results:
Laboratory Data
WBC 12.8 10^3/uL (4.8-10.8) H 09/01/24 06:19
Hgb 9.6 g/dL (12.0-16.0) L 09/01/24 06:19
Plt Count 119 10^3/uL (130-400) L 09/01/24 06:19
PT 14.5 Sec (11.4-14.6) 08/18/24 07:37
INR 1.10 08/18/24 07:37
APTT 68.5 Sec (23.4-35.0) H 08/30/24 06:14
eGFR 50.80 08/31/24 06:03
[2024-09-02 07:40] VITALS: BP 138/73
--- NOTE | 2024-09-02 08:01 | W.PN.HOSP.TC ---
Addendum entered and electronically signed by Tacho Holman MD 09/02/24 13:28:
Seen and examined by me independently in collaboration with the associate medical director.
Lab data and imaging data reviewed.
Addendum as below :
Pt still await disposition. Continue with current symptomatic treatments.
Original Note:
Today's Communication/Plan
-
Discharge tomorrow to [facility] for hospice
Assessment / Plan
Assessment / Plan
Patient is a 78-year-old female with past medical history significant for heart failure, hypertension, and bladder cancer who presented to [facility] after nephrostomy tube was displaced. Metastatic cancer visualized during stay and plan
for discharge to SNF on Saturday.
#Right nephrostomy tube displacement
Positive UTI
History of bladder cancer
Urine culture grew MSSA and Enterococcus, continue Augmentin twice daily through 09/02
Infectious disease following
#Left peroneal vein DVT
Continue Eliquis
#Hoarse voice
Can consider ENT evaluation
#Right pleural effusion
Intermittent wheezing
Continue DuoNebs
Thoracentesis positive for metastatic urothelial carcinoma
Pulmonology recommended consideration of Pleurx catheter if needed
#Fatigue
10 pound weight loss over the last 2 weeks, increased in drowsiness
TSH normal with B12 elevated
CT chest showed extensive hepatic, osseous mets with pathological left second rib fracture
IR noted that liver biopsy showed metastatic urothelial carcinoma
Oxycodone 5 mg IV morphine 2 mg as needed started for moderate and severe pain
#Metastatic urothelial carcinoma
Poor prognosis per Dr. Cha (oncology)
Patient requested to hear more about hospice. CM requested hospice nurse to come speak with family.
#Constipation
Continue bowel regimen
#Electrolyte abnormalities
Secondary to cancer metastasis
Hyponatremia low normal
Hypercalcemia resolved
#Sinus pauses
Per cardiology, stop atenolol and observe heart rate
#Chronic diastolic heart failure
Compensated, not on
#Benign hypertension
Continue amlodipine, hydralazine and valsartan
Hold atenolol
#Hyperlipidemia
Continue statin
#GERD
Continue PPI
#History of CVA treated with tPA 08/2022 and then TIA 09/2023
#History of bladder cancer with TURBT
Code Status: DNR
DVT Prophylaxis: Eliquis. No SCDs
Anticipated Discharge: Within 24 hours
Subjective/Interval History
-
Date of Service: September 02, 2024
Patient is a 78-year-old female with past medical history significant for heart failure, hypertension, and bladder cancer who presented to [facility] after nephrostomy tube was displaced. Metastatic cancer visualized during stay and plan
for discharge to SNF on hospice tomorrow. Patient states that she had difficulty falling asleep last night. She states she has no pain right now. Requested me to close the door so that she could try to get some rest.
Objective Data
-
Vital Signs:
Vital Signs
Temp Pulse Resp BP Pulse Ox
97.7 F 97 20 138/73 96
09/02/24 07:40 09/02/24 07:40 09/02/24 07:40 09/02/24 07:40 09/02/24 07:40
I&O
09/01/24 09/02/24 09/03/24
06:59 06:59 06:59
Intake Total 600 / 600
Output Total 1050 / 1050 1050 / 1050
Balance -450 / -450 -1050 / -1050
Review of Systems
-
History Source: Patient
Constitutional: Reports Sleep Disturbance (difficulty sleeping )
Respiratory: Reports No Symptoms
Cardiac: Reports No Symptoms
Abdomen/GI: Reports No Symptoms
Genitourinary: Reports No Symptoms
Musculoskeletal: Reports No Symptoms
Neuro: Reports No Symptoms
[2024-09-02] MEDS: PROTONIX 40 MG PO ×2 (09:08→20:13)
[2024-09-02] MEDS: CRESTOR 20 MG PO (09:08)
[2024-09-02] MEDS: ELIQUIS 10 MG PO ×2 (09:08→20:13)
[2024-09-02] MEDS: COLACE PO (09:09)
[2024-09-02] MEDS: AUGMENTIN 875 MG/125 MG 1 TABLET PO ×2 (09:10→20:13)
[2024-09-02] MEDS: APRESOLINE 25 MG PO ×2 (09:10→20:13)
[2024-09-02] MEDS: SODIUM BICARBONATE 325 MG PO ×3 (09:11→21:14)
--- NOTE | 2024-09-02 11:45 | CM ---
Addendum entered by Giovanna Townsend RN 09/02/24 11:59:
IMM signed and placed on chart.
Original Note:
Reviewed the chart notes and spoke with the patient at the bedside. Patient is to be discharged tomorrow to the [facility]. Patient's room will be RG-223. Covid screen needs to be completed prior to discharge. CM continues to be
available to patient/family and is monitoring medical plan for needs at discharge.
Plan: Discharge to [facility] tomorrow.
Call report to: [phone]
Fax report to: [phone]
Medical and necessity forms on chart.
[2024-09-02 15:22] VITALS: BP 152/76
[2024-09-02] MEDS: MELATONIN 3 MG PO (21:13)
[2024-09-02] MEDS: NORVASC 10 MG PO (21:14)
[2024-09-02] MEDS: SENOKOT 17.2 MG PO (21:15)
[2024-09-02 23:53] VITALS: BP 134/75
[2024-09-03] MEDS: MORPHINE SULFATE 2 MG IV ×2 (00:35→09:55)
--- NOTE | 2024-09-03 04:18 | DOWNTIME ---
There was a [employer] Client Clothing Room Supervisor Downtime on 09/03/2024 from 0200 to 09/03/2024 at 0325 . Downtime documentation of patient's care, including medication administrations, has been reconciled in the electronic record per guidelines. Refer to the
patient's paper chart under the miscellaneous tab to see printed paper medication records and downtime forms.
[2024-09-03 05:01] LABS: COVID-19 Antigen Negative (Negative)
[2024-09-03 05:03] LABS: Hematocrit 34.3 % (37.0-47.0); Hemoglobin 10.8 g/dL (12.0-16.0); Mean Corp Hgb Conc. 31.5 g/dL (33.0-37.0); Mean Corpuscular Hgb 29.1 pg (27.0-31.0); Mean Corpuscular Volume 92.5 fL (81.0-99.0); Mean Platelet Volume 10.7 fL (7.4-10.4); Platelet Count 150 10^3/uL (130-400); Red Blood Cell Count 3.71 10^6/uL (4.20-5.40); Red Cell Dist. Width 15.9 % (11.5-14.5); White Blood Cell Count 12.6 10^3/uL (4.8-10.8)
[2024-09-03 05:27] VITALS: BMI 23.8
--- NOTE | 2024-09-03 08:34 | W.PN.HOSP.TC ---
Addendum entered and electronically signed by Tacho Holman MD 09/16/24 14:42:
UTI only
UTI associated with nephrostomy tubes
Addendum entered and electronically signed by Tacho Holman MD 09/03/24 13:27:
Seen and examined by me independently in collaboration with the medical manager.
Lab data and imaging data reviewed.
Addendum as below :
No overnight events.
Patient has been waiting for disposition to [facility] on hospice and its plan for this morning.
Patient denies any shortness of breath or chest pain at rest but mild tachypnea noted.
Were to give a dose of IV morphine prior to transportation to [facility] on hospice.
DC as planned to [facility].
Total time of discharge 35 minutes
Original Note:
Today's Communication/Plan
-
Discharged to SNF on hospice
Assessment / Plan
Assessment / Plan
Patient is a 78-year-old female with past medical history significant for heart failure, hypertension, and bladder cancer who presented to [facility] after nephrostomy tube was displaced. Metastatic cancer visualized during stay and plan
for discharge to SNF today.
#Right nephrostomy tube displacement
Positive UTI
History of bladder cancer
Urine culture grew MSSA and Enterococcus, continue Augmentin twice daily through 09/02
Infectious disease following
#Left peroneal vein DVT
Continue Eliquis
#Hoarse voice
Can consider ENT evaluation
#Right pleural effusion
Intermittent wheezing
Continue DuoNebs
Thoracentesis positive for metastatic urothelial carcinoma
Pulmonology recommended consideration of Pleurx catheter if needed
#Fatigue
10 pound weight loss over the last 2 weeks, increased in drowsiness
TSH normal with B12 elevated
CT chest showed extensive hepatic, osseous mets with pathological left second rib fracture
IR noted that liver biopsy showed metastatic urothelial carcinoma
Oxycodone 5 mg and 10 mg as needed started for moderate and severe pain
#Metastatic urothelial carcinoma
Poor prognosis per Dr. Cha (oncology)
Patient requested to hear more about hospice. CM requested hospice nurse to come speak with family.
#Constipation
Continue bowel regimen
#Electrolyte abnormalities
Secondary to cancer metastasis
Hyponatremia low normal
Hypercalcemia resolved
#Sinus pauses
Per cardiology, stop atenolol and observe heart rate
#Chronic diastolic heart failure
Compensated
#Benign hypertension
Continue amlodipine, hydralazine and valsartan
Hold atenolol
#Hyperlipidemia
Continue statin
#GERD
Continue PPI
#History of CVA treated with tPA 08/2022 and then TIA 09/2023
#History of bladder cancer with TURBT
Code Status: DNR
DVT Prophylaxis: Eliquis. No SCDs
Anticipated Discharge: Today
Subjective/Interval History
-
Date of Service: September 03, 2024
Patient is a 78-year-old female with past medical history significant for heart failure, hypertension, and bladder cancer who presented to [facility] after nephrostomy tube was displaced. Metastatic cancer visualized during stay and plan
for discharge to SNF today. Patient reports no significant events overnight. She states she is tired and would like to sleep. She has no pain. She is prepared and ready to be discharged today to [facility] on hospice.
Objective Data
-
Labs:
Laboratory Results
09/03/24
04:27
WBC 12.6 H
Hgb 10.8 L
Hct 34.3 L
Plt Count 150 D
Vital Signs:
Vital Signs
Temp Pulse Resp BP Pulse Ox
97.5 F 105 22 134/75 95
09/02/24 23:53 09/02/24 23:53 09/02/24 23:53 09/02/24 23:53 09/02/24 23:53
I&O
09/02/24 09/03/24 09/04/24
06:59 06:59 06:59
Intake Total 580 / 580
Output Total 1050 / 1050 925 / 925
Balance -1050 / -1050 -345 / -345
Review of Systems
-
History Source: Patient
All other systems: Reviewed and negative
Physical Exam
-
General: No Apparent Distress, Comfortable and Conversant
HEENT: Normocephalic and Atraumatic
Neuro: AO x 3 and Other (Sleepy)
Psych: Calm
Data Reviewed
-
Old Records: Reviewed
--- NOTE | 2024-09-03 08:38 | W.DCSUMMARY ---
Documented by User: Mary Ellen Altamirano DO, Resident 09/03/24 16:44
Discharge Summary
Discharge Data
Date of Admission: 08/21/24
Date of Discharge: 09/03/24
Total time spent discharging patient (in min): 40
-
Pending Results: No
Hospital Course
Discharging Physician : Tacho Holman
Primary care physician : Tessa Foreman MD
Principal Discharge diagnosis : Nephrostomy tube displacement, transition to hospice care
Hospital Course : Patient is an 78-year-old female with past medical history of heart failure, hypertension and bladder cancer who presented to [facility] after nephrostomy tube was dislodged at home nursing visit. IR replaced right
nephrostomy tube. Urine culture showed MSSA and E.faecalis. Patient was transition to Augmentin by infectious disease. Patient given IV pamidronate by nephrology in the setting of hypercalcemia. At this time on 08/22, patient developed dyspnea
and wheezing and new pleural effusion was identified and pulmonology was consulted. at this time told hospitalist that over the last 2 weeks, patient has been declining with symptoms of fatigue and 10 pound weight loss. At this time TSH
was normal and B12 was elevated. Patient was given 20 mg of IV Lasix to assist with dyspnea and hypercalcemia. BMP was followed. CT chest showed liver and bone lesions suspicious of metastatic disease. Plan for liver biopsy, completed on 08/25.
Thoracentesis completed 08/25. Pleural fluid cytology and liver biopsy positive for metastatic disease. DVT identified, continued patient on heparin drip without SCDs. Oncology shared prognosis of disease and patient inquired about hospice care.
Patient and understood that there was poor prognosis of current disease and that metastatic burden was significant. After conversations together, plan made to discharge patient to [facility] on hospice. Patient given IV morphine in the
hospital for comfort and scripts for 5 and 10 mg oxycodone for moderate and severe pain as needed outpatient in hospice. Patient stable for transport.
Important imaging findings :
Chest x-ray 08/22�
IMPRESSION:
Moderate loculated right pleural effusion. New.
Hiatal hernia. Large. Stable
Thoracentesis 08/24�
IMPRESSION:
Successful ultrasound-guided thoracentesis, yielding 550 cc of clear yellow pleural fluid.
08/[address]�
IMPRESSION:
1. Suspicious for extensive hepatic metastatic disease, new as compared with previous examination. As warranted, this could be further evaluated with follow-up contrast-enhanced abdominal CT or MRI.
2. Osseous metastatic disease with probable pathologic fracture left second rib. Mild compression deformity L1, also possibly pathologic.
3. Moderate right pleural effusion. Plate atelectasis of the right lower lobe. Partial atelectasis right upper lobe and right middle lobe.
4. Moderate left-sided diaphragmatic hernia as seen previously with large portion of the stomach within the left lower chest. Associated left basilar atelectasis and minimal left effusion.
Chest x-ray 08/24�
IMPRESSION: No pneumothorax post right thoracentesis.
Peripheral vascular ultrasound 08/26�
IMPRESSION:
There is occlusive thrombus within the left peroneal vein.
No evidence of right lower extremity deep venous thrombosis.
Discharge Plan
-
Patient Disposition: Jail/SNF
Discharge Diagnosis/Procedures: Replacement of dislodged right PCN; left PCN exchange; Possibly establishing CKD after recent obstructive uropathy.
Condition: Fair
Diet: No restrictions, As tolerated and Regular
Activity: As tolerated
Driving Restrictions: No driving
Other Services: Hospice
Referrals:
Tessa Foreman MD [Family Provider] - None
Additional Discharge Medication Instructions: Please take oxycodone 5 for moderate pain and oxycodone 10 for severe pain. Add melatonin as needed for sleep support.
Prescriptions:
New
cephalexin 500 mg Capsule
500 mg PO TID Qty: 12 0RF
Rx Instructions:
for 4 more days
Eliquis 5 mg Tablet
10 mg PO BID Qty: 60 0RF
melatonin 3 mg Tablet
3 mg PO HS Qty: 60 0RF
acetaminophen 500 mg capsule
1,000 mg PO Q6H PRN (Reason: fever or pain) Qty: 90 0RF
oxycodone 5 mg Tablet
5 mg PO Q4HPRN PRN (Reason: Moderate pain) Qty: 60 0RF
oxycodone 10 mg Tablet
10 mg PO Q4HPRN PRN (Reason: severe pain) Qty: 60 0RF
Continued
aspirin 81 mg Tablet,Delayed Release (Dr/Ec)
81 mg PO DAILY
acetaminophen 500 mg Tablet
1,000 mg PO HSPRN PRN (Reason: mild pain)
docusate sodium [Colace] 100 mg Capsule
300 mg PO DAILY
amlodipine 5 mg tablet
10 mg PO HS
hydralazine 25 mg Tablet
25 mg PO BID Qty: 60 0RF
sennosides [Senna Laxative] 8.6 mg Tablet
17.2 mg PO HS Qty: 30 0RF
sodium bicarbonate 650 mg Tablet
325 mg PO TID Qty: 60 0RF
calcium carbonate 200 mg calcium (500 mg) Tablet,Chewable
200 mg PO TID
pantoprazole 40 mg tablet,delayed release (DR/EC)
40 mg PO BID
atenolol 50 mg tablet
50 mg PO HS
rosuvastatin 20 mg Tablet
20 mg PO DAILY
cholecalciferol (vitamin D3) [Vitamin D3] 25 mcg (1,000 unit) Tablet
25 mcg PO DAILY
Discontinued
valsartan 320 mg Tablet
320 mg PO DAILY
Discharge Orders:
Discharge Patient (As Directed); Ordered 09/03/24
Ordered By: Mary Ellen Altamirano
Discharge Date and Time
Discharge Date/Time: 09/03/24 10:09
Print Language: INDONESIAN

Documented by User: Tacho Holman MD 09/16/24 14:42
Discharge Summary
Discharge Data
Date of Admission: 08/21/24
Date of Discharge: 09/16/24
Discharge Plan
-
Patient Disposition: Jail/SNF
Discharge Diagnosis/Procedures: Replacement of dislodged right PCN; left PCN exchange; Possibly establishing CKD after recent obstructive uropathy.
Condition: Fair
Diet: No restrictions, As tolerated and Regular
Activity: As tolerated
Driving Restrictions: No driving
Other Services: Hospice
Referrals:
Tessa Foreman MD [Family Provider] - None
Additional Discharge Medication Instructions: Please take oxycodone 5 for moderate pain and oxycodone 10 for severe pain. Add melatonin as needed for sleep support.
Prescriptions:
New
cephalexin 500 mg Capsule
500 mg PO TID Qty: 12 0RF
Rx Instructions:
for 4 more days
Eliquis 5 mg Tablet
10 mg PO BID Qty: 60 0RF
melatonin 3 mg Tablet
3 mg PO HS Qty: 60 0RF
acetaminophen 500 mg capsule
1,000 mg PO Q6H PRN (Reason: fever or pain) Qty: 90 0RF
oxycodone 5 mg Tablet
5 mg PO Q4HPRN PRN (Reason: Moderate pain) Qty: 60 0RF
oxycodone 10 mg Tablet
10 mg PO Q4HPRN PRN (Reason: severe pain) Qty: 60 0RF
Continued
aspirin 81 mg Tablet,Delayed Release (Dr/Ec)
81 mg PO DAILY
acetaminophen 500 mg Tablet
1,000 mg PO HSPRN PRN (Reason: mild pain)
docusate sodium [Colace] 100 mg Capsule
300 mg PO DAILY
amlodipine 5 mg tablet
10 mg PO HS
hydralazine 25 mg Tablet
25 mg PO BID Qty: 60 0RF
sennosides [Senna Laxative] 8.6 mg Tablet
17.2 mg PO HS Qty: 30 0RF
sodium bicarbonate 650 mg Tablet
325 mg PO TID Qty: 60 0RF
calcium carbonate 200 mg calcium (500 mg) Tablet,Chewable
200 mg PO TID
pantoprazole 40 mg tablet,delayed release (DR/EC)
40 mg PO BID
atenolol 50 mg tablet
50 mg PO HS
rosuvastatin 20 mg Tablet
20 mg PO DAILY
cholecalciferol (vitamin D3) [Vitamin D3] 25 mcg (1,000 unit) Tablet
25 mcg PO DAILY
Discontinued
valsartan 320 mg Tablet
320 mg PO DAILY
Discharge Orders:
Discharge Patient (As Directed); Ordered 09/03/24
Ordered By: Mary Ellen Altamirano
Discharge Date and Time
Discharge Date/Time: 09/03/24 10:09
Print Language: INDONESIAN
[2024-09-03 08:40] VITALS: BP 157/83
[2024-09-03] MEDS: SODIUM BICARBONATE 325 MG PO (08:40)
[2024-09-03] MEDS: ELIQUIS 10 MG PO (08:40)
[2024-09-03] MEDS: COLACE 300 MG PO (08:40)
[2024-09-03] MEDS: CRESTOR 20 MG PO (08:40)
[2024-09-03] MEDS: PROTONIX 40 MG PO (08:40)
[2024-09-03] MEDS: APRESOLINE 25 MG PO (08:41)
--- NOTE | 2024-09-03 09:30 | CM ---
Reviewed the chart notes and spoke with [facility] Liaison Elida Horne. Covid Neg screen faxed via [facility].
Plan: Discharge to [facility] today.
Call report to: [phone]
Fax report to: [phone]
Medical and necessity forms on chart.
--- NOTE | 2024-09-03 10:03 | PTCARENOTE ---
x1 morphine for comfort prior to transport per attending at bedside, transport team present and waiting.
--- NOTE | 2024-09-07 08:55 | PN.CDI ---
CDI
- -
CDI:
Physician Documentation Request
Admit Date: 08/21/24 10:02
Dear Doctor River,
Please review the following and provide your response in the progress notes.
Clinical Indicators:
Pt admitted with dislodged PCN which has been replaced /Bladder cancer/NORM
Documented throughout the record, ' Mild purulence of the left PCN tract without surrounding cellulitis - PCN tube exchanged. Currently without any discharge from the tract area. Will complete 5 days course of antibiotics due to initial concern
of slight ....# UTI...Urine culture grew MSSA and Enterococcus...'
ID on board /Treatment - was on Keflex and Ampicillin, now on Augmentin 875mg P.O. BID through 09/02/24
Urine culture from microbiology obtained from left nephrostomy
Please clarify the relationship between these conditions:
Yes, _UTI__ is related to/associated with/due to __Nephrostomy tube _.
No, _UTI__ is not related to/associated with/due to _Nephrostomy tube __ but it is due to ___. (Please specify)
Other ( please specify)
Use of terms such as suspected, likely, concern for, or probable (associated with a specific diagnosis that is being evaluated, monitored, or treated as if it exists) are acceptable and can be coded in the inpatient setting, when documented at the
time of discharge.
Thank you,
Sarah Britton RN
CDI Specialist
[place] [facility]
Please use your independent medical judgment in providing your response.
--- NOTE | 2024-09-07 09:05 | PN.CDI ---
CDI
- -
CDI:
Physician Documentation Request
Admit Date: 08/21/24 10:02
Dear Doctor River,
Please review the following and provide your response in the progress notes.
Clinical Indicators:
Pt admitted with dislodged PCN which has been replaced /Bladder cancer/NORM/UTI
WBC 13.1 08/31, Temp 94 on 08/24, Respirations on 09/01 24, HR 08/30 -109
08/24/24
23:59 08/25/24
02:00 08/25/24
03:00
Temp 94.0 F L 95 F L 95.8 F L
08/25/24
03:30 08/25/24
04:00 08/25/24
05:00
Temp 95.0 F L 96.4 F L 96.4 F L
08/30/24
19:23 08/30/24
22:08 08/31/24
03:23
Pulse 105 109 103
08/31/24
19:14 09/01/24
22:18 09/02/24
23:53
Pulse 106 107 105
08/29/24 08/30/24 08/31/24
08:31 06:14 06:03
WBC 13.1 H 12.3 H 12.4 H
09/01/24 09/03/24
06:19 04:27
WBC 12.8 H 12.6 H
Please clarify which of the following most accurately describes the status of the patient's infection:
Sepsis-evolved during hospitalization
- Systemic manifestations of infection, with 2 or more SIRS criteria which include:
- Fever >100.4 degrees F or hypothermia < 96.8 degrees F
- Leukocytosis - WBC > 12,000 or leukopenia - WBC < 4,000 or > 10% bands
- Tachycardia > 90 beats per minute
- Tachypnea - RR > 20 breaths per minute or PaCO2 , 32mmHg
Source: Merck Manual 2013
UTI only
Other( please specify)
Use of terms such as suspected, likely, concern for, or probable (associated with a specific diagnosis that is being evaluated, monitored, or treated as if it exists) are acceptable and can be coded in the inpatient setting, when documented at the
time of discharge.
Thank you,
Sarah Britton RN
CDI Specialist
[place] [facility]
Please use your independent medical judgment in providing your response.
== END 2024-09-03 10:09 | disposition hospice, inpatient (51) | DRG 687 ==
LOC: 2 SOUTH 10:02
PROVIDERS: Hospitalist; Nurse Practitioner Acute Care; Radiology Diagnostic Radiology; Radiology Vascular & Interventional Radiology; Registered Nurse; Specialist; ADMITTING PHYSICIAN Internal Medicine; ATTENDING PHYSICIAN Internal Medicine; CONSULT PHYSICIAN Internal Medicine; CONSULT PHYSICIAN Internal Medicine Cardiovascular Disease; CONSULT PHYSICIAN Internal Medicine Hematology & Oncology; EMERGENCY PHYSICIAN Emergency Medicine; FAMILY PHYSICIAN Internal Medicine Geriatric Medicine; OTHER PHYSICIAN Internal Medicine; OTHER PHYSICIAN Internal Medicine Infectious Disease; OTHER PHYSICIAN Specialist
PROC: 0T25X0Z Change Drainage Device in Kidney, External Approach (ICD-10-PCS; 2024-08-18)
PROC: 0T9030Z Drainage of Right Kidney with Drainage Device, Percutaneous Approach (ICD-10-PCS; 2024-08-18)
PROC: 0W993ZZ Drainage of Right Pleural Cavity, Percutaneous Approach (ICD-10-PCS; 2024-08-24)
PROC: 0FB03ZX Excision of Liver, Percutaneous Approach, Diagnostic (ICD-10-PCS; 2024-08-25)
DX: C67.9 Malignant neoplasm of bladder, unspecified (principal); C78.7 Secondary malignant neoplasm of liver and intrahepatic bile duct; T83.512A Infection and inflammatory reaction due to nephrostomy catheter, initial encounter; N17.9 Acute kidney failure, unspecified; Z66 Do not resuscitate; Z51.5 Encounter for palliative care; C79.51 Secondary malignant neoplasm of bone; I50.32 Chronic diastolic (congestive) heart failure; E87.20 Acidosis, unspecified; N13.8 Other obstructive and reflux uropathy; J91.0 Malignant pleural effusion; I82.452 Acute embolism and thrombosis of left peroneal vein; M84.58XA Pathological fracture in neoplastic disease, other specified site, initial encounter for fracture; E22.2 Syndrome of inappropriate secretion of antidiuretic hormone; N13.6 Pyonephrosis; T83.022A Displacement of nephrostomy catheter, initial encounter; N99.521 Infection of incontinent external stoma of urinary tract; N15.8 Other specified renal tubulo-interstitial diseases; Y73.2 Prosthetic and other implants, materials and accessory gastroenterology and urology devices associated with adverse incidents; I11.0 Hypertensive heart disease with heart failure; E78.00 Pure hypercholesterolemia, unspecified; K21.9 Gastro-esophageal reflux disease without esophagitis; B95.61 Methicillin susceptible Staphylococcus aureus infection as the cause of diseases classified elsewhere; B95.2 Enterococcus as the cause of diseases classified elsewhere; D63.0 Anemia in neoplastic disease; Z96.653 Presence of artificial knee joint, bilateral; Z96.643 Presence of artificial hip joint, bilateral; Z87.891 Personal history of nicotine dependence; Z79.82 Long term (current) use of aspirin; Z79.899 Other long term (current) drug therapy; Z80.51 Family history of malignant neoplasm of kidney; E83.52 Hypercalcemia; Z86.73 Personal history of transient ischemic attack (TIA), and cerebral infarction without residual deficits; Z11.52 Encounter for screening for COVID-19
CPT/HCPCS: 88305; 88307; 32555; 47000; 50432; 50435; 71045; 71046; 71250; 76942; 80048; 80053; 82306; 82330; 82570; 82607; 82652; 82728; 82945; 83519; 83521; 83540; 83550; 83615; 83735; 83880; 83935; 83970; 83986; 84155; 84156; 84157; 84165; 84443; 85025; 85027; 85045; 85610; 85730; 86335; 87015; 87070; 87077; 87086; 87147; 87186; 87205; 87811; 88112; 88341; 88342; 88360; 89051; 93005; 93970; 94640; 97163; 97167; 97530; 97535; 99152; 99153; 99285; C1729; C1769; J2430